=== PATIENT | male | born 1935 ===

== ENCOUNTER → 2021-11-20 14:02 | Outpatient (BNVA) | payer MEDICARE, OTHER, SELFPAY | PROVIDERS: PCP Family Medicine; Referring Provider Family Medicine; Visit Provider Psychiatry & Neurology Neurology | DX: G20 Parkinson's disease (principal); E86.0 Dehydration; M48.00 Spinal stenosis, site unspecified; M19.90 Unspecified osteoarthritis, unspecified site; R03.0 Elevated blood-pressure reading, without diagnosis of hypertension; K59.00 Constipation, unspecified; Z79.899 Other long term (current) drug therapy | CPT/HCPCS: 99212 ==

== ENCOUNTER → 2022-02-05 15:23 | Outpatient (BNVA) | payer MEDICARE, OTHER, SELFPAY | PROVIDERS: PCP Family Medicine; Visit Provider Psychiatry & Neurology Neurology | DX: G20 Parkinson's disease (principal); G47.00 Insomnia, unspecified; M48.00 Spinal stenosis, site unspecified; K59.00 Constipation, unspecified; F32.A Depression, unspecified | CPT/HCPCS: 99212 ==

== ENCOUNTER → 2022-12-04 13:58 | Outpatient (BNVA) | payer MEDICARE, OTHER, SELFPAY | PROVIDERS: PCP Family Medicine; Visit Provider Psychiatry & Neurology Neurology | DX: G20 Parkinson's disease (principal); G47.00 Insomnia, unspecified; M48.00 Spinal stenosis, site unspecified; K59.00 Constipation, unspecified; F32.A Depression, unspecified | CPT/HCPCS: 99212 ==

== ENCOUNTER → 2023-03-21 14:39 | Outpatient (BNVA) | payer MEDICARE, OTHER, SELFPAY | PROVIDERS: PCP Family Medicine; Visit Provider Psychiatry & Neurology Neurology | DX: G20 Parkinson's disease (principal); M48.00 Spinal stenosis, site unspecified; K59.00 Constipation, unspecified; G47.00 Insomnia, unspecified; F32.A Depression, unspecified | CPT/HCPCS: 99212 ==

== ENCOUNTER → 2023-07-17 14:57 | Outpatient (BNVA) | payer MEDICARE, OTHER, SELFPAY | PROVIDERS: PCP Family Medicine; Visit Provider Psychiatry & Neurology Neurology | DX: M48.00 Spinal stenosis, site unspecified (principal); K59.00 Constipation, unspecified; G47.00 Insomnia, unspecified; F32.A Depression, unspecified; E86.0 Dehydration ==

== ENCOUNTER 2023-08-25 14:22 | Outpatient (AMB) | payer MEDICARE, OTHER, SELFPAY ==
--- NOTE | 2023-08-25 14:22 | MHC.OFFVIS ---
Intake Intake Visit Reasons: Parkinsonjanie, Carlton [phone]/ - LVM Intake Note: Pt presents for tele health visit for follow up of Parkinson's. Pts Julieta will assist with the call. Expecting call on cell phone [phone]. Production Estimator Required: No Allergies levofloxacin [From Levaquin] Allergy (Intermediate, Verified 08/25/23 14:25) Palpitations Medication List - Last Reconciled 08/25/23 by Carolina Knight MD acetaminophen (Tylenol) 325 mg PO QID PRN carbidopa-levodopa 25-100 mg 2 tabs 4-5 times a day orally; 90 days carbidopa-levodopa 25-100 mg ER 1 tab PO .3-4 times a day 90 days levodopa (Inbrija) 84 mg (2 x 42 mg) inhalation BID PRN 30 days ropinirole 0.25 mg (1/2 x 0.5 mg) PO QID yjoxuvn-zuug-ofruv-oreg-capryl 100 mg-150 mg- 50 mg-150 mg caps PO HPI HPI Comments History of Present Illness Details 87-year-old male with Parkinson's disease, spinal stenosis and arthritis calls for follow-up He is on Co Q 10 . He is worse - reports back pain, slowness of movements and stiffness.`He takes curcumin , tylenol helps. He feels memory is worse. He is accompanied by his who helps with the history. He reports difficulty falling asleep. He reports some slowness and fatigue especially after mid day dose and has freezing around 3 pm . He feels better later part of the day. Sinemet 25/100 2 tabs 3-4 times a day , sinemet CR 3-4 times a day . He is also on ropinirole 0.25 mg 1 tablet qid. He takes Tylenol 1 tablet t.i.d. He denies any hallucinations. He needs dental work and needs help as antibiotics worsens his parkinsons.He is scheduled on Oct 01 2023. [facility] Medical History Confusion Dehydration Constipation Parkinson's disease Spinal stenosis Arthritis Surgical History History of total hip replacement Social History Alcohol intake: never Patient Tobacco Use Status: Never used Tobacco Physical Exam Const General: cooperative Orientation/consciousness: patient oriented x3 Neuro Other: speech- slurred hypophonia FFM - mildly decreased L>R General: patient oriented x3 Assessment & Plan Assessment & Plan (1) Parkinson's disease: Code(s): G20 - Parkinson's disease (2) Spinal stenosis: Code(s): M48.00 - Spinal stenosis, site unspecified (3) Constipation: Code(s): K59.00 - Constipation, unspecified (4) Insomnia: Code(s): G47.00 - Insomnia, unspecified (5) Depression: Code(s): F32.A - Depression, unspecified Plan Sinemet CR 1 tablet 25/100 3-4tabs a day Sinemet 25/100 2 tabs 4-5 times a day Requip 0.5 mg 1/2 tab qid Increased fluids VNA Suggested tylenol at bedtime. Medications: Changed From carbidopa-levodopa 25-100 mg ER 1 tab PO .5 times a day 90 days 450 tabs 3RF To carbidopa-levodopa 25-100 mg ER 1 tab PO .3-4 times a day 90 days 280 tabs 3RF Telehealth Telehealth Location of provider rendering services: practice address Location of patient: address on file Patient Identification confirmed using: Name, : Yes Telehealth method: video Patient verbally consented to treatment: Yes Patient verbally consented to billing insurance company: Yes Patient informed of any privacy concerns related to visit: Yes Minutes spent on Phone/Video with Pt.: 18 Coding Level of Care Code Tele Est Pt Level 4 (06191) Diagnoses Parkinson's disease G20 Spinal stenosis M48.00 Constipation K59.00 Insomnia G47.00 Depression F32.A
== END 2023-08-25 16:24 | disposition home or self-care (01) ==
LOC: HO.HSMS 14:22
PROVIDERS: PCP Family Medicine; Visit Provider Psychiatry & Neurology Neurology
DX: G20.A1 Parkinson's disease without dyskinesia, without mention of fluctuations (principal); M48.00 Spinal stenosis, site unspecified; K59.00 Constipation, unspecified; G47.00 Insomnia, unspecified; F32.A Depression, unspecified
CPT/HCPCS: 99214

== ENCOUNTER → 2023-08-25 14:22 | Outpatient (BNVA) | payer MEDICARE, OTHER, SELFPAY | PROVIDERS: PCP Family Medicine; Visit Provider Psychiatry & Neurology Neurology ==

== ENCOUNTER 2024-05-21 14:36 | Outpatient (AMB) | payer MEDICARE, OTHER, SELFPAY ==
--- NOTE | 2024-05-21 14:36 | MHC.OFFVIS ---
Intake Visit Reasons: Follow Up Intake Note: Pt presents for 10 month follow up for Parkinson's via telehealth. Intelligence Manager Required: No Allergies levofloxacin [From Levaquin] Allergy (Intermediate, Verified 05/21/24 14:37) Palpitations Medication List - Last Reconciled 05/21/24 by Carolina Knight MD acetaminophen (Tylenol) 325 mg PO QID PRN carbidopa-levodopa 25-100 mg 2 tabs 4-5 times a day orally; 90 days carbidopa-levodopa 25-100 mg ER 1 tab PO .3-4 times a day 90 days levodopa (Inbrija) 84 mg (2 x 42 mg) inhalation BID PRN 30 days ropinirole 0.25 mg (1/2 x 0.5 mg) PO QID axnuajtd-fkay-qeubj-oreg-capry 100 mg-150 mg- 50 mg-150 mg caps PO HPI Comments Details: 88-year-old male with Parkinson's disease, spinal stenosis and arthritis calls for follow-up He is in a lot of pain and is dependant on most of his ADLs.His helps him He can dress himself, sometimes confused. he has word recall, name recall issues. He walks with walker. On days when he is in pain he is more confused. He is worse - reports back pain, slowness of movements and stiffness.`He takes curcumin , tylenol helps. He feels memory is worse. He is accompanied by his who helps with the history. He reports difficulty falling asleep. He reports some slowness and fatigue especially after mid day dose and has freezing around 3 pm . He feels better later part of the day. Sinemet 25/100 2 tabs 3-4 times a day , sinemet CR 3-4 times a day . He is also on ropinirole 0.5 1/2 tablet qid. He takes Tylenol 1 tablet t.i.d. He denies any hallucinations. . 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 Parkinson's disease with fluctuating manifestations Parkinson's disease dementia Dementia Confusion Dehydration Constipation Parkinson's disease Spinal stenosis Arthritis Surgical History History of total hip replacement Social History Alcohol intake: never Patient Tobacco Use Status: Never used Tobacco Physical Exam Const General: cooperative Orientation/consciousness: patient oriented x3 Neuro Other: speech- slurred hypophonia FFM - mildly decreased L>R bradykinesia General: patient oriented x3 Assessment & Plan Assessment & Plan (1) Parkinson's disease with fluctuating manifestations: Comment: Advanced Code(s): G20.A2 - Parkinson's disease without dyskinesia, with fluctuations Category: Medical (2) Parkinson's disease dementia: Code(s): G20.A1 - Parkinson's disease without dyskinesia, without mention of fluctuations; F02.80 - Dementia in other diseases classified elsewhere, unspecified severity, without behavioral disturbance, psychotic disturbance, mood disturbance, and anxiety Category: Medical (3) Dementia: Code(s): F03.90 - Unspecified dementia, unspecified severity, without behavioral disturbance, psychotic disturbance, mood disturbance, and anxiety Category: Medical (4) Spinal stenosis: Code(s): M48.00 - Spinal stenosis, site unspecified Category: Medical (5) Lumbar and sacral spondyloarthritis: Code(s): M47.817 - Spondylosis without myelopathy or radiculopathy, lumbosacral region Category: Medical Plan The patient has chronic pain in his back and joints which is affecting his quality of life Continue same medications for Advanced Parkinsons sinemet 25/1-- 3-4 times a day , sinemet CR 25/100 3-4 times ropinirole 0.5 mg 1/2 tab qid Refer him to Hospice for further care. Orders: [facility]errals [facility] Referral F03.90 - Unspecified dementia, unspecified severity, without behavioral disturbance, psychotic disturbance, mood disturbance, and anxiety, G20 - Parkinson's disease, M48.00 - Spinal stenosis, site unspecified Coding Level of Care Code Tele Est Pt Level 4 (79187) Complex EM visit Add On G2211 Diagnoses Parkinson's disease with fluctuating manifestations G20.A2 Parkinson's disease dementia G20.A1; F02.80 Dementia F03.90 Spinal stenosis M48.00 Lumbar and sacral spondyloarthritis M47.817
--- OUTSIDE RECORDS SUMMARY | 2024-05-21 14:37 | XMS_ITS | Continuity of Care Document ---
Author Organization [facility] Address [address] [place] [address]- Care Team Providers Care Shaft Tender Name Role Phone Karen FELIZ, Efraín Smith Primary Care Physician [phone] Encounter [facility] Date(s): 12/26/21 - 01/25/22 [facility] [address] [place] [address]- Allergies, Adverse Reactions, Alerts Substance Reaction Severity Status niacin LFT abnormality Active oxybutynin Disorientated Dizzy Active tamsulosin Lethargy Active Pravachol myalgia Active Lopid fatigue, weakness Active articaine-EPINEPHrine local facial edema Active levoFLOXacin Paroxysmal atrial fibrillation Proposed Immunizations Given and Recorded Vaccine Date Status Refusal Reason tetanus/diphtheria/pertussis, acel(Tdap) 1 12/27/21 Given SARS-CoV-2 (COVID-19) mRNA BNT-162b2 vac 06/14/21 Recorded SARS-CoV-2 (COVID-19) mRNA BNT-162b2 vac 11/08/20 Recorded SARS-CoV-2 (COVID-19) mRNA BNT-162b2 vac 10/18/20 Recorded influenza virus vaccine, inactivated 06/20/20 Give n influenza virus vaccine, inactivated 2 09/16/19 Gi chris Tetanus Toxoid Vaccine (oldterm) 02/12/18 Given pneumococcal 13-valent vaccine 09/22/15 Given Zoster Vaccine Live 3 09/06/09 Given tetanus-diphtheria toxoids (Td) 4 08/03/09 Given Pneumococcal Vaccine (oldterm) 05/30/05 Given Not Given Vaccine Date Status Refusal Reason pneumococcal 23-valent vaccine 04/13/13 Not Given Patient Refuses 1Result Comment: [facility] [id number] 2Result Comment: [facility]# [id number] 3Admin Note: VIM 05/26/06 GIVEN TODAY 4Admin Note: [employer] vim 08/02/08 Medications carbidopa-levodopa 25 mg-100 mg oral tablet 2 tablet, By Mouth, Every 4 hours, @ 0300, 0730, 1130, 1530,1930, 2230, # 360 tablet, 0 Refills, Maintenance, 06/09/19 21:30:12 EDT, Tablet Start Date: 06/09/19 Status: Ordered carbidopa-levodopa 25 mg-100 mg oral tablet, extended release See Instructions, 2 tablets at 10pm and 1 tablet at 3am, 0 Refills, Maintenance, 06/09/19 21:29:53 EDT, ER Tablet Start Date: 06/09/19 Status: Ordered Ibuprofen 200 mg, By Mouth, Every 6 hours, Refills 0, Maintenance, 07/28/19 15:41:07 EST Start Date: 07/28/19 Status: Ordered MiraLax Powder 1 pack/packet = 17 Gm, By Mouth, Daily, 0 Refills, Maintenance, 06/12/19 9:07:44 EDT, Powder Start Date: 06/12/19 Status: Ordered Misc Rx See Instructions, Refills 0, Maintenance, imbregia inhaler, 01/23/21 14:58:00 EDT, Supply Start Date: 01/23/21 Status: Ordered Remove Patch Start Date: 06/12/19 Status: Ordered rOPINIRole 0.5 mg oral tablet 2 tablet = 1 mg, By Mouth, Every 4 hours, @ 0300, 0730, 1130, 1530,1930, 2230, 0 Refills, Maintenance, 06/09/19 21:29:40 EDT, Tablet Start Date: 06/09/19 Status: Ordered Tylenol 325 mg oral tablet 650 mg, By Mouth, 3 times a day, Refills 0, Maintenance, 06/12/19 9:15:54 EDT Start Date: 06/12/19 Status: Ordered Problem List Condition Effective Dates Status Health Status Inform ant Deep vein thrombosis (DVT)(Confirmed) Active Autonomic dysfunction(Confirmed) Active Hyperlipidemia(Confirmed) Active Spondylosis of lumbar spine(Confirmed) Active Osteoarthritis of left hip(Confirmed) Active Parkinson's Disease(Confirmed) Active Prostatism(Confirmed) Active Renal cyst, right(Confirmed) Active Seasonal allergic rhinitis(Confirmed) Active Tremor(Confirmed) Active Social History Social History Type Response Smoking Status Never smoker entered on: 04/18/14 Sex
--- OUTSIDE RECORDS SUMMARY | 2024-05-21 14:38 | XMS_ITS | Continuity of Care Document ---
Author Organization [facility] Address [address] [place] [address]- Care Team Providers Care Fixer Supervisor Name Role Phone Karen FELIZ, Efraín Smith Primary Care Physician [place] [facility] [place]13[place]21 [place] 03/15/21 [facility] [address] [place] [address]- Allergies, Adverse Reactions, Alerts Substance Reaction Severity Status niacin LFT abnormality Active oxybutynin Disorientated Dizzy Active tamsulosin Lethargy Active Pravachol myalgia Active Lopid fatigue, weakness Active articaine-EPINEPHrine local facial edema Active levoFLOXacin Paroxysmal atrial fibrillation Proposed Immunizations Given and Recorded Vaccine Date Status Refusal Reason SARS-CoV-2 (COVID-19) mRNA BNT-162b2 vac 11/08/20 Recorded SARS-CoV-2 (COVID-19) mRNA BNT-162b2 vac 10/18/20 Recorded influenza virus vaccine, inactivated 06/20/20 Give n influenza virus vaccine, inactivated 1 09/16/19 Gi chris Tetanus Toxoid Vaccine (oldterm) 02/12/18 Given pneumococcal 13-valent vaccine 09/22/15 Given Zoster Vaccine Live 2 09/06/09 Given tetanus-diphtheria toxoids (Td) 3 08/03/09 Given Pneumococcal Vaccine (oldterm) 05/30/05 Given Not Given Vaccine Date Status Refusal Reason pneumococcal 23-valent vaccine 04/13/13 Not Given Patient Refuses 1Result Comment: [facility]# [id number] 2Admin Note: VIM 05/26/06 GIVEN TODAY 3Admin Note: [employer] vim 08/02/08 Medications carbidopa-levodopa [...] ER Tablet Start Date: 06/09/19 Status: Ordered diclofenac 1% topical gel = 2 Gm, Topically, 4 times a day, # 240 Gm, 0 Refills, Maintenance, 04/28/20 13:20:00 EDT, Gel, [facility]/pharmacy #[id number], 163, cm, 02/24/20 12:50:00 EDT, Height, 77.7, kg, 06/10/19 14:11:00 EDT, Dry Weight Start Date: 04/28/20 Status: Ordered Ibuprofen 200 mg, By Mouth, Every 6 hours, Refills 0, Maintenance, 07/28/19 15:41:07 EST Start Date: 07/28/19 Status: Ordered MiraLax Powder 1 pack/packet = 17 Gm, By Mouth, Daily, 0 Refills, Maintenance, 06/12/19 9:07:44 EDT, Powder Start Date: 06/12/19 Status: Ordered Misc Rx See Instructions, Refills 0, Maintenance, imbregia inhaler, 01/23/21 14:58:00 EDT, Supply Start Date: 01/23/21 Status: Ordered oxyCODONE 5 mg oral tablet 2.5 mg, 0.5, tablet, By Mouth, Every 6 hours, PRN, # 12 tablet, Refills 0, Tot. Refills 0, Maintenance, Pain , Severe, 11/26/19 14:40:00 EDT, Route to Pharmacy Electronically, [facility]/pharmacy #[id number], Partial fill upon patient request, 163, cm, 11/23/19 13... Start Date: 11/26/19 Stop Date: 12/02/19 Status: Ordered Remove Patch Start Date: 06/12/19 [...] Hyperlipidemia(Confirmed) Active Spondylosis of lumbar spine(Confirmed) Active OA - Osteoarthritis of hip(Confirmed) Active Osteoarthritis of left hip(Confirmed) Active Parkinson's Disease(Confirmed) Active Prostatism(Confirmed) Active Renal cyst, right(Confirmed) Active Seasonal allergic rhinitis(Confirmed) Active Tremor(Confirmed) Active Social History Social History Type Response Smoking Status Never smoker entered on: 04/18/14 Sex
--- OUTSIDE RECORDS SUMMARY | 2024-05-21 14:38 | XMS_ITS | Continuity of Care Document ---
Author Organization [facility] Address [address] [place] [address]- Care Team Providers Care Tile Picker Name Role Phone Karen FELIZ, Efraín Smith Primary Care Physician Encounter [facility] Date(s): 12/02/23 - 01/01/24 [facility] [address] [place] [address]- Allergies, Adverse Reactions, Alerts Substance Reaction Severity Status niacin LFT abnormality Active oxybutynin Disorientated Dizzy Active tamsulosin Lethargy Active Pravachol myalgia Active Levaquin Active levoFLOXacin Paroxysmal atrial fibrillation Proposed articaine-EPINEPHrine local facial edema Active Lopid fatigue, weakness Active Immunizations Given and Recorded Vaccine Date Status Refusal Reason influenza virus vaccine, inactivated 07/24/22 Give n influenza virus vaccine, inactivated 06/20/20 Give n influenza virus vaccine, inactivated 09/16/19 Gi chris [id number] 12y+ bivalent booster vax 06/13/22 Recorded SARS-CoV-2 mRNA (gfsqfxn-lxrp-xbfwj) vax 01/24/22 Recorded tetanus/diphtheria/pertussis, acel(Tdap) 2 12/27/21 Given SARS-CoV-2 (COVID-19) mRNA BNT-162b2 vac 06/14/21 Recorded SARS-CoV-2 (COVID-19) mRNA BNT-162b2 vac 11/08/20 Recorded SARS-CoV-2 (COVID-19) mRNA BNT-162b2 vac 10/18/20 Recorded Tetanus Toxoid Vaccine (oldterm) 02/12/18 Given pneumococcal 13-valent vaccine 09/22/15 Given Zoster Vaccine Live 3 12/23/09 Given tetanus-diphtheria toxoids (Td) 4 08/03/09 Given Pneumococcal Vaccine (oldterm) 05/30/05 Given 1Result Comment: [facility]# [id number] 2Result Comment: [facility] [id number] 3Admin Note: VIM 05/26/06 GIVEN TODAY 4Admin Note: [employer] vim 08/02/08 Medications carbidopa-levodopa 25 mg-100 mg oral tablet 2 tablet, By Mouth, Every 4 hours, @ 0300, 0730, 1130, 1530,1930, 2230, # 360 tablet, 0 Refills, Maintenance, 06/09/19 21:30:12 EDT, Tablet Start Date: 06/09/19 Status: Ordered celecoxib 100 mg oral capsule 1 capsule = 100 mg, By Mouth, 2 times a day, PRN as needed for pain, contents of capsule may be mixed with soft foods such as applesauce, # 60 capsule, 1 Refills, Maintenance, 12/18/23 17:58:00 EDT, [facility]/pharmacy #[id number], Partial fill upon patient reques... Start Date: 12/18/23 Stop Date: 02/16/24 Status: Ordered Colace 2-in-1 1 tablet, By Mouth, Daily, as needed, 0 Refills, Maintenance, 03/14/23 15:26:00 EDT, Partial fill upon patient request if the prescription is for a schedule II opioid drug. Start Date: 03/14/23 Status: Ordered CoQ10 By Mouth, Daily, 0 Refills, Maintenance, 08/19/23 15:27:00 EST, Partial fill upon patient request if the prescription is for a schedule II opioid drug. Start Date: 08/19/23 Status: Ordered Misc Rx See Instructions, Maintenance, Curamin - homeopathic supplement containing curcumin & turmeric - takes 1 tablets 2 times daily, 12/26/23 15:12:00 EDT, Supply Start Date: 12/26/23 Status: Ordered Misc Rx See Instructions, Refills 0, Maintenance, inbrija inhaler, 01/23/21 14:58:00 EDT, Supply Start Date: 01/23/21 Status: Ordered rOPINIRole 0.25 mg oral tablet 1 tablet = 0.25 mg, By Mouth, 4 times a day, 0 Refills, Maintenance, 01/08/23 13:35:00 EDT, Partialfill upon patient request if the prescription is for a schedule II opioid drug. Start Date: 01/08/23 Status: Ordered Tylenol 325 mg oral tablet 650 mg, By Mouth, 3 times a day, Refills 0, Maintenance, 06/12/19 9:15:54 EDT Start Date: 06/12/19 Status: Ordered Problem List Condition Confirmation Course Effective Dates Status H ealth Status Informant Autonomic dysfunction Confirmed Active Hyperlipidemia Confirmed Active Spondylosis of lumbar spine Confirmed Active Osteoarthritis of left hip Confirmed Active Parkinson's Disease Confirmed Active Heterotopic calcification, postoperative Confirmed Active Prostatism Confirmed Active Major depressive disorder, recurrent, mild Confirmed Active Renal cyst, right Confirmed Active Seasonal allergic rhinitis Confirmed Active Tremor Confirmed Active Social History Social History Type Response Smoking Status Never smoker entered on: 04/18/14 Sex Patient Care team information Care Team Personnel Name: Karen FELIZ, Efraín Smith Position: [facility] Physician - Primary Care Member Role: PCP Address: Address: [address] [place] [address] Care Team Related Persons Name: LEIGHTON ROBLES Address: home [address], [place] Name: LEIGHTON ROBLES Address: home [address], [place] Name: BAMBI LEONARDO Address: home [address], [place] Name: BAMBI LEONARDO Address: [facility] Address: [place] [id number]
--- OUTSIDE RECORDS SUMMARY | 2024-05-21 14:38 | XMS_ITS | Continuity of Care Document ---
Author Organization [facility] Address [address] [place] [address]- Care Team Providers Care Security Door Installer Name Role Phone Karen FELIZ, Efraín Smith Primary Care Physician Encounter [facility] Date(s): 06/24/22 - 07/24/22 [facility] [address] [place] [address]- Allergies, Adverse Reactions, Alerts Substance Reaction Severity [...] virus vaccine, inactivated 1 09/16/19 Gi chris [id number] 12y+ bivalent booster vax 06/13/22 Recorded SARS-CoV-2 mRNA (uzflmpd-[id number]-xifku) vax 01/24/22 Recorded tetanus/diphtheria/pertussis, acel(Tdap) 2 12/27/21 [...] 04/13/13 Not Given Patient Refuses 1Result Comment: [facility]# [id number] 2Result Comment: [facility] [id number] 3Admin Note: VIM 05/26/06 GIVEN TODAY 4Admin [...] ER Tablet Start Date: 06/09/19 Status: Ordered Dulcolax Soft Chews = 1,200 mg, By Mouth, 3 times a day, 0 Refills, Maintenance, 07/02/22 13:25:00 EDT, Partial fill upon patient request if the prescription is for a schedule II opioid drug. Start Date: 07/02/22 Status: Ordered Ibuprofen 200 mg, By Mouth, [...] Effective Dates Status H ealth Status Informant Deep vein thrombosis (DVT) Confirmed Active Autonomic dysfunction Confirmed Active Hyperlipidemia Confirmed Active Spondylosis of lumbar spine Confirmed Active Osteoarthritis of left hip Confirmed Active Parkinson's Disease Confirmed Active Prostatism Confirmed Active Renal cyst, right Confirmed Active Seasonal allergic rhinitis Confirmed Active Tremor Confirmed Active Social History Social History Type Response Smoking Status Never smoker entered on: 04/18/14 Sex Patient Care team information Care Team Personnel Name: Efraín Jones MD Position: [facility] Primary Care Physician Member Role: PCP Address: Address: [address] [place] [address]- Care Team Related Persons Name: LEIGHTON ROBLES Address: home [address] [place], [place] Name: LEIGHTON ROBLES Address: home [address] [place], [place] Name: BAMBI LEONARDO Address: home [address] [place], [place] Name: BAMBI LEONARDO Address: AMMARY JANE Address: [address]
--- OUTSIDE RECORDS SUMMARY | 2024-05-21 14:38 | XMS_ITS | Continuity of Care Document ---
Author Organization [facility] Address [address] [place] [address]- Care Team Providers Care Rn Telehealth Name Role Phone Karen FELIZ, Efraín Smith Primary Care Physician [phone] Encounter [facility] Date(s): 08/29/22 - 09/28/[address] [facility] [address] [place] [address]- Allergies, Adverse Reactions, Alerts Substance Reaction Severity Status niacin LFT abnormality Active tamsulosin Lethargy Active levoFLOXacin Paroxysmal atrial fibrillation Proposed oxybutynin Disorientated Dizzy Active Pravachol myalgia Active Lopid fatigue, weakness Active articaine-EPINEPHrine local facial edema Active Immunizations Given and Recorded Vaccine Date Status Refusal Reason influenza virus vaccine, inactivated 07/24/22 Give n influenza virus vaccine, inactivated 06/20/20 Give n influenza virus vaccine, inactivated 1 09/16/19 Gi chris [id number] 12y+ bivalent booster vax 06/13/22 Recorded SARS-CoV-2 mRNA (ixifqwy-vyud-qgtmb) vax 01/24/22 Recorded tetanus/diphtheria/pertussis, acel(Tdap) 2 12/27/21 [...] 04/13/13 Not Given Patient Refuses 1Result Comment: [facility]# [id number] 2Result Comment: [facility] [id number] 3Admin Note: VIM 05/26/06 GIVEN TODAY 4Admin [...] calcification, postoperative Confirmed Active Prostatism Confirmed Active Renal cyst, right Confirmed Active Seasonal allergic rhinitis Confirmed Active Tremor Confirmed Active Social History Social History Type Response Smoking Status Never smoker entered on: 04/18/14 Sex Patient Care team information Care Team Personnel Name: Karen FELIZ, Efraín Smith Position: [facility] Primary Care Physician Member Role: PCP Address: Address: [address] [place] [address] Care Team Related Persons Name: LEIGHTON ROBLES Address: [address] [place] [address] Name: LEIGHTON ROBLES Address: [address] [place], [place] Name: BAMBI LEONARDO Address: home [address] [place], [place] Name: BAMBI LEONARDO [facility] Address: [address]
--- OUTSIDE RECORDS SUMMARY | 2024-05-21 14:38 | XMS_ITS | Continuity of Care Document ---
Author Organization [facility] Address [address] [place] [address] Javan lopez, [address] [place] [address]- Care Team Providers Care Ems Manager Name Role Phone Karen FELIZ, Efraín mSith Primary Care Physician Encounter [facility] Date(s): 04/05/20 - 05/05/20 [facility] [address] [place] [address] Drive, [address] [place] [address]- [facility] Attending Physician: Admtr, Ar8 Admitting Physician: Admtr, Ar8 Referring Physician: Admtr, Ar8 Allergies, Adverse Reactions, Alerts Substance Reaction Severity Status niacin LFT abnormality Active oxybutynin Disorientated Dizzy Active tamsulosin Lethargy Active Pravachol myalgia Active Lopid fatigue, weakness Active articaine-EPINEPHrine local facial edema Active levoFLOXacin Paroxysmal atrial fibrillation Proposed Immunizations Given and Recorded Vaccine Date Status Refusal Reason influenza virus vaccine, inactivated 1 09/16/19 Gi chris Tetanus Toxoid Vaccine (oldterm) 02/12/18 Given pneumococcal 13-valent vaccine 09/22/15 Given Zoster Vaccine Live 2 09/06/09 Given tetanus-diphtheria toxoids (Td) 3 08/03/09 Given Pneumococcal Vaccine (oldterm) 05/30/05 Given Not Given Vaccine Date Status Refusal Reason pneumococcal 23-valent vaccine 04/13/13 Not Given Patient Refuses 1Result Comment: [facility]# [id number] 2Admin Note: VIM 05/26/06 GIVEN TODAY 3Admin [...] 0 Refills, Maintenance, 04/28/20 13:20:00 EDT, Gel, [facility]/pharmacy #[id number], 163, cm, 02/24/20 12:50:00 EDT, Height, 77.7, kg, 06/10/19 14:11:00 EDT, Dry Weight Start Date: 04/28/20 Status: Ordered Ibuprofen 200 mg, By Mouth, Every 6 hours, Refills 0, Maintenance, 07/28/19 15:41:07 EST Start Date: 07/28/19 Status: Ordered midodrine 2.5 mg oral tablet 2.5 mg, 1, tablet, By Mouth, Daily, # 30 tablet, Refills 5, Tot. Refills 5, Maintenance, 12/02/19 13:02:00 EDT, Route to Pharmacy Electronically, [facility]/pharmacy #[id number], 163, cm, 11/23/19 13:45:00 EDT, Height, 77.7, kg, 06/10/19 14:11:00 EDT, Dry Weight Start Date: 12/02/19 Status: Ordered MiraLax Powder 1 pack/packet = 17 Gm, By Mouth, Daily, 0 Refills, Maintenance, 06/12/19 9:07:44 EDT, Powder Start Date: 06/12/19 Status: Ordered oxyCODONE 5 mg oral tablet 2.5 mg, 0.5, tablet, By Mouth, Every 6 hours, PRN, # 12 tablet, Refills 0, Tot. Refills 0, Maintenance, Pain , Severe, 11/26/19 14:40:00 EDT, Route to Pharmacy Electronically, [facility]/pharmacy #[id number], Partial fill upon patient request, 163, cm, [...]
--- OUTSIDE RECORDS SUMMARY | 2024-05-21 14:38 | XMS_ITS | Continuity of Care Document ---
Author Organization [facility] Address [address] [place] [address]- Care Team Providers Care Media Relations Director Name Role Phone Karen FELIZ, Efraín Smith Primary Care Physician [phone] Encounter [facility] Date(s): 03/20/20 - 04/19/20 [facility] [address] [place] [address]- [facility] Allergies, Adverse Reactions, Alerts Substance Reaction Severity [...] 04/13/13 Not Given Patient Refuses 1Result Comment: [facility]# [id number] 2Admin Note: VIM 05/26/06 GIVEN TODAY 3Admin [...] 2 Gm, Topically, 4 times a day, 0 Refills, Maintenance Start Date: 07/28/19 Status: Ordered Ibuprofen 200 mg, By Mouth, Every 6 hours, Refills 0, Maintenance, 07/28/19 15:41:07 EST Start Date: 07/28/19 Status: Ordered midodrine 2.5 mg oral tablet 2.5 mg, 1, tablet, By Mouth, Daily, # 30 tablet, Refills 5, Tot. Refills 5, Maintenance, 12/02/19 13:02:00 EDT, Route to Pharmacy Electronically, [facility]/pharmacy #[id number], 163, cm, 11/23/19 13:45:00 EDT, Height, [...] 11/26/19 14:40:00 EDT, Route to Pharmacy Electronically, [facility]/pharmacy #[id number], Partial fill upon patient request, 163, [...]
--- OUTSIDE RECORDS SUMMARY | 2024-05-21 14:38 | XMS_ITS | Continuity of Care Document ---
Author Organization [facility] Address [address] [place] [address]- Care Team Providers Care Core Maker Name Role Phone Karen FELIZ, Efraín Smith Primary Care Physician [phone] Encounter [facility] Date(s): 11/23/19 - 12/03/19 [facility] [address] [place] [address]- [facility] Attending Physician: Admtr, Ar8 Allergies, Adverse Reactions, Alerts [...] Not Given Patient Refuses 1Result Comment: [facility]# [id number] 2Admin Note: VIM 05/26/06 GIVEN TODAY 3Admin [...] 12/02/19 13:02:00 EDT, Route to Pharmacy Electronically, [facility]/pharmacy #[id number], 163, cm, 11/23/19 13:45:00 EDT, Height, [...] 11/26/19 14:40:00 EDT, Route to Pharmacy Electronically, [facility]/pharmacy #[id number], Partial fill upon patient request, 163, [...]
--- OUTSIDE RECORDS SUMMARY | 2024-05-21 14:38 | XMS_ITS | Continuity of Care Document ---
Author Organization [facility] Address [address] [place] [address]- Care Team Providers Care Treating Engineer Name Role Phone Karen FELIZ, Efraín Smith Primary Care Physician En[place] [facility] Date(s): 07/19/22 - 08/18/22 [facility] [address] [place] [address]- Allergies, Adverse Reactions, Alerts Substance Reaction Severity Status niacin LFT abnormality Active levoFLOXacin Paroxysmal atrial fibrillation Proposed oxybutynin Disorientated Dizzy Active tamsulosin Lethargy Active Pravachol myalgia Active Lopid fatigue, weakness Active articaine-EPINEPHrine local facial edema Active Immunizations Given and Recorded Vaccine Date Status Refusal Reason influenza virus vaccine, inactivated 07/24/22 Give n influenza virus vaccine, inactivated 06/20/20 Give n influenza virus vaccine, inactivated 1 09/16/19 Gi chris [id number] 12y+ bivalent booster vax 06/13/22 Recorded SARS-CoV-2 mRNA (gswgahu-hnlo-ytiar) vax 01/24/22 Recorded tetanus/diphtheria/pertussis, acel(Tdap) 2 12/27/21 [...] Refuses 1Result Comment: [facility]# [id number] 2Result Comment: [facility] [id number] 3Admin Note: VIM 05/26/06 GIVEN TODAY 4Admin [...] Personnel Name: Karen FELIZ, Efraín Smith Position: [facility] Primary Care Physician Member Role: PCP Address: Address: [address] [place] [address]- Care Team Related Persons Name: LEIGHTON ROBLES Address: home [address] [place], [place] Name: LEIGHTON ROBLES Address: home [address] [place], [place] Name: BAMBI LEONARDO Address: home [address] [place], [place] Name: BAMBI LEONARDO Address: AMMARY JANE Address: [address]
--- OUTSIDE RECORDS SUMMARY | 2024-05-21 14:38 | XMS_ITS | Continuity of Care Document ---
Author Organization [facility] Address [address] [place] [address]- Care Team Providers Care Animal Husbandry Worker Name Role Phone Karen FELIZ, Efraín Smith Primary Care Physician Encounter [facility] Date(s): 02/20/22 - 03/22/22 [facility] [address] [place] [address]- Allergies, Adverse Reactions, Alerts Substance Reaction Severity Status niacin LFT abnormality Active oxybutynin Disorientated Dizzy Active tamsulosin Lethargy Active Pravachol myalgia Active Lopid fatigue, weakness Active articaine-EPINEPHrine local facial edema Active levoFLOXacin Paroxysmal atrial fibrillation Proposed Immunizations Given and Recorded Vaccine Date Status Refusal Reason SARS-CoV-2 mRNA (lddyrhc-tsxn-tjcfc) vax 01/24/22 Recorded tetanus/diphtheria/pertussis, acel(Tdap) 1 12/27/21 Given SARS-CoV-2 (COVID-19) [...] 04/13/13 Not Given Patient Refuses 1Result Comment: [facility] [id number] 2Result Comment: [facility]# [id number] 3Admin Note: VIM 05/26/06 GIVEN TODAY 4Admin [...]
--- OUTSIDE RECORDS SUMMARY | 2024-05-21 14:38 | XMS_ITS | Continuity of Care Document ---
Author Organization [facility] Address [address] [place] [address]- Care Team Providers Care Gambreler Helper Name Role Phone Karen FELIZ, Efraín Smith Primary Care Physician [place] [facility] [place] 12/19/23 - 01/18/24 [facility] [address] [place] [address]- Allergies, Adverse Reactions, Alerts Substance Reaction Severity Status niacin LFT abnormality Active oxybutynin Disorientated Dizzy Active levoFLOXacin Paroxysmal atrial fibrillation Proposed tamsulosin Lethargy Active Pravachol myalgia Active Lopid fatigue, weakness Active Levaquin Active articaine-EPINEPHrine local facial edema Active Immunizations Given and Recorded Vaccine Date Status Refusal Reason influenza virus vaccine, inactivated 07/24/22 Give n influenza virus vaccine, inactivated 06/20/20 Give n influenza virus vaccine, inactivated 1 09/16/19 Gi chris [id number] 12y+ bivalent booster vax 06/13/22 Recorded SARS-CoV-2 mRNA (gubjobm-bulq-xtvrz) vax 01/24/22 Recorded tetanus/diphtheria/pertussis, acel(Tdap) 2 12/27/21 Given SARS-CoV-2 (COVID-19) mRNA BNT-162b2 vac 06/14/21 Recorded SARS-CoV-2 (COVID-19) mRNA BNT-162b2 vac 11/08/20 Recorded SARS-CoV-2 (COVID-19) mRNA BNT-162b2 vac 10/18/20 Recorded Tetanus Toxoid Vaccine (oldterm) 02/12/18 Given pneumococcal 13-valent vaccine 09/22/15 Given Zoster Vaccine Live 3 09/06/09 Given tetanus-diphtheria toxoids (Td) 4 08/03/09 Given Pneumococcal Vaccine (oldterm) 05/30/05 Given 1Result Comment: [facility]# [id number] 2Result Comment: [facility] [id number] 3Admin Note: VIM 05/26/06 GIVEN TODAY 4Admin [...] capsule, 1 Refills, Maintenance, 12/18/23 17:58:00 EDT, [facility]/pharmacy #[id number], Partial fill upon patient reques... Start [...] Personnel Name: Karen FELIZ, Efraín Smith Position: [facility] Physician - Primary Care Member Role: PCP Address: Address: [address] [place] [address] Care Team Related Persons Name: LEIGHTON ROBLES Address: home [address] [place], [place] Name: LEIGHTON ROBLES Address: home [address] [place], [place] Name: BAMBI LEONARDO Address: [address] [place], [place] Name: BAMBI LEONARDO Address: [facility] Address: [place] [address] [place] [id number]
--- OUTSIDE RECORDS SUMMARY | 2024-05-21 14:38 | XMS_ITS | Continuity of Care Document ---
Author Organization [facility] Address [address] [place] [address]- Care Team Providers Care Test Design Engineer Name Role Phone Efraín Jones MD Primary Care Physician En[place] [facility] Date(s): 04/03/23 - 06/26/23 [facility] [address] [place] [address]- Attending Physician: Efraín Jones MD Allergies, Adverse Reactions, Alerts Substance Reaction Severity Status niacin LFT abnormality Active levoFLOXacin Paroxysmal atrial fibrillation Proposed articaine-EPINEPHrine local facial edema Active oxybutynin Disorientated Dizzy Active tamsulosin Lethargy Active Pravachol myalgia Active Lopid fatigue, weakness Active Levaquin Active Immunizations Given and Recorded Vaccine Date Status Refusal Reason influenza virus vaccine, inactivated 07/24/22 Give n influenza virus vaccine, inactivated 06/20/20 Give n influenza virus vaccine, inactivated 1 09/16/19 Gi chris [id number] 12y+ bivalent booster vax 06/13/22 Recorded SARS-CoV-2 mRNA (wzgvnrh-qycc-cvjdo) vax 01/24/22 Recorded tetanus/diphtheria/pertussis, acel(Tdap) 2 12/27/21 Given SARS-CoV-2 (COVID-19) mRNA BNT-162b2 vac 06/14/21 Recorded SARS-CoV-2 (COVID-19) mRNA BNT-162b2 vac 11/08/20 Recorded SARS-CoV-2 (COVID-19) mRNA BNT-162b2 vac 10/18/20 Recorded Tetanus Toxoid Vaccine (oldterm) 02/12/18 Given pneumococcal 13-valent vaccine 09/22/15 Given Zoster Vaccine Live 3 09/06/09 Given tetanus-diphtheria toxoids (Td) 4 08/03/09 Given Pneumococcal Vaccine (oldterm) 05/30/05 Given 1Result Comment: [facility]# [id number] 2Result Comment: [facility] [id number] 3Admin Note: VIM 05/26/06 GIVEN TODAY 4Admin Note: [employer] vim 08/02/08 Medications carbidopa-levodopa 25 mg-100 mg oral tablet 2 tablet, By Mouth, Every 4 hours, @ 0300, 0730, 1130, 1530,1930, 2230, # 360 tablet, 0 Refills, Maintenance, 06/09/19 21:30:12 EDT, Tablet Start Date: 06/09/19 Status: Ordered Colace 2-in-1 1 tablet, By Mouth, Daily, as needed, 0 Refills, Maintenance, 03/14/23 15:26:00 EDT, Partial fill upon patient request if the prescription is for a schedule II opioid drug. Start Date: 03/14/23 Status: Ordered Ibuprofen 200 mg, By Mouth, Every 6 hours, Refills 0, Maintenance, 07/28/19 15:41:07 EST Start Date: 07/28/19 Status: Ordered Misc Rx See Instructions, Refills 0, Maintenance, inbrija inhaler, 01/23/21 14:58:00 EDT, Supply Start Date: 01/23/21 Status: Ordered Probiotic Formula By Mouth, Daily, 0 Refills, Maintenance, 02/04/23 15:26:00 EDT, Partial fill upon patient request if the prescription is for a schedule II opioid drug. Start Date: 02/04/23 Status: Ordered rOPINIRole 0.25 mg oral tablet [...] Personnel Name: Karen FELIZ, Efraín Smith Position: [facility] Physician - Primary Care Member Role: PCP Address: Address: [address] [place] [address] Care Team Related Persons Name: LEIGHTON ROBLES Address: home [address] [place] [address] Name: LEIGHTON ROBLES Address: home [address] [place] [address] Name: BAMBI LEONARDO Address: home [address] [place], [place] Name: BAMBI LEONARDO Address: [facility] Address: [address]
--- OUTSIDE RECORDS SUMMARY | 2024-05-21 14:38 | XMS_ITS | Continuity of Care Document ---
Author Organization [facility] Address [address] [place] [address]- Care Team Providers Care Mold Dresser Name Role Phone Karen FELIZ, Efraín Smith Primary Care Physician [place] [facility] [place] 12/27/21 - 01/26/22 [facility] [address] [place], [place] [address] Attending Physician: Admtr, Ar8 Allergies, Adverse Reactions, [...] 04/13/13 Not Given Patient Refuses 1Result Comment: [facility] [id number] 2Result Comment: [facility]# [id number] 3Admin Note: VIM 05/26/06 GIVEN TODAY 4Admin [...]
--- OUTSIDE RECORDS SUMMARY | 2024-05-21 14:38 | XMS_ITS | Continuity of Care Document ---
Author Organization [facility] Address [address] [place] [address]- Care Team Providers Care Ironer Hand Name Role Phone Karen FELIZ, Efraín Smith Primary Care Physician [phone] [place] [facility] Date(s): 08/12/22 - 09/11/22 [facility] [address] [place] [address]- Allergies, Adverse Reactions, Alerts Substance Reaction Severity [...] virus vaccine, inactivated 1 09/16/19 Gi chris [id number]-[id number] 12y+ bivalent booster vax 06/13/22 Recorded SARS-CoV-2 mRNA (rsgjmrf-nwlu-vnsum) vax 01/24/22 Recorded tetanus/diphtheria/pertussis, acel(Tdap) 2 12/27/21 [...] Patient Refuses 1Result Comment: [facility]# [id number] 2Result Comment: [facility] [id number] 3Admin Note: VIM 05/26/06 GIVEN TODAY 4Admin [...] Personnel Name: Karen FELIZ, Efraín Smith Position: [facility] Primary Care Physician Member Role: PCP Address: Address: [address] [place] [address]- Care Team Related Persons Name: LEIGHTON ROBLES Address: home [address] [place], [place] Name: LEIGHTON ROBLES Address: [address] [place], [place] Name: BAMBI LEONARDO Address: [facility] Address: [address] [place] [address] Name: BAMBI LEONARDO Address: [address] [place] [address]
--- OUTSIDE RECORDS SUMMARY | 2024-05-21 14:38 | XMS_ITS | Continuity of Care Document ---
Author Organization [facility] Address [address] [place] [address]- Care Team Providers Care Clay House Worker Name Role Phone Karen FELIZ, Efraín Smith Primary Care Physician [place] [facility] [place] 12/01/23 - 12/31/23 [facility] [address] [place] [address]- Allergies, Adverse Reactions, Alerts Substance Reaction Severity Status niacin LFT abnormality Active oxybutynin Disorientated Dizzy Active tamsulosin Lethargy Active Pravachol myalgia Active Lopid fatigue, weakness Active Levaquin Active articaine-EPINEPHrine local facial edema Active levoFLOXacin Paroxysmal atrial fibrillation Proposed Immunizations Given and Recorded Vaccine Date Status Refusal Reason influenza virus vaccine, inactivated 07/24/22 Give n influenza virus vaccine, inactivated 06/20/20 Give n influenza virus vaccine, inactivated 1 09/16/19 Gi chris [id number] 12y+ bivalent booster vax 06/13/22 Recorded SARS-CoV-2 mRNA (bvsfouq-nodh-ovxed) vax 01/24/22 Recorded tetanus/diphtheria/pertussis, acel(Tdap) 2 12/27/21 Given SARS-CoV-2 (COVID-19) mRNA BNT-162b2 vac 06/14/21 Recorded SARS-CoV-2 (COVID-19) mRNA BNT-162b2 vac 11/08/20 Recorded SARS-CoV-2 (COVID-19) mRNA BNT-162b2 vac 10/18/20 Recorded Tetanus Toxoid Vaccine (oldterm) 02/12/18 Given pneumococcal 13-valent vaccine 09/22/15 Given Zoster Vaccine Live 3 09/06/09 Given tetanus-diphtheria toxoids (Td) 4 08/03/09 Given Pneumococcal Vaccine (oldterm) 05/30/05 Given 1Result Comment: [facility]# [id number] 2Result Comment: [facility] [id number] 3Admin Note: VIM 05/26/06 GIVEN TODAY 4Admin [...] capsule, 1 Refills, Maintenance, 12/18/23 17:58:00 EDT, [facility]/pharmacy #[id number], Partial fill upon patient reques... Start [...] Personnel Name: Karen FELIZ, Efraín Smith Position: [facility] Physician - Primary Care Member Role: PCP Address: Address: [address] [place] [address]- Care Team Related Persons Name: LEIGHTON ROBLES Address: home [address] [place], [place] Name: LEIGHTON ROBLES Address: [address] [place], [place] Name: BAMBI LEONARDO Address: [facility] Address: home [address] [place], [place] Name: BAMBI LEONARDO Address: [address]
--- OUTSIDE RECORDS SUMMARY | 2024-05-21 14:38 | XMS_ITS | Continuity of Care Document ---
Author Organization [facility] Address [address] [place] [address]- Care Team Providers Care Bar Staff Name Role Phone Karen FELIZ, Efraín Smith Primary Care Physician En[place] [facility] Date(s): 03/09/24 - 04/08/24 [facility] [address] [place] [address]- Allergies, Adverse Reactions, Alerts Substance Reaction Severity [...] virus vaccine, inactivated 1 09/16/19 Gi chris [id number]-[id number] 12y+ bivalent booster vax 06/13/22 Recorded SARS-CoV-2 mRNA (fxscqwr-nvaq-syltb) vax 01/24/22 Recorded tetanus/diphtheria/pertussis, acel(Tdap) 2 12/27/21 Given SARS-CoV-2 (COVID-19) mRNA BNT-162b2 vac 06/14/21 Recorded SARS-CoV-2 (COVID-19) mRNA BNT-162b2 vac 11/08/20 Recorded SARS-CoV-2 (COVID-19) mRNA BNT-162b2 vac 10/18/20 Recorded Tetanus Toxoid Vaccine (oldterm) 02/12/18 Given pneumococcal 13-valent vaccine 1/8/16 Given Zoster Vaccine Live 3 09/06/09 Given tetanus-diphtheria toxoids (Td) 4 08/03/09 Given Pneumococcal Vaccine (oldterm) 05/30/05 Given 1Result Comment: [facility]# [id number] 2Result Comment: [facility] [id number] 3Admin Note: VIM 05/26/06 GIVEN TODAY 4Admin [...] capsule, 1 Refills, Maintenance, 12/18/23 17:58:00 EDT, [facility]/pharmacy #[id number], Partial fill upon patient [...] opioid drug. Start Date: 08/19/23 Status: Ordered Icaps AREDS See Instructions, By Mouth Daily, 0 Refills, Maintenance, 03/30/24 15:14:00 EDT, Partial fill upon patient request if the prescription is for a schedule II opioid drug. Start Date: 03/30/24 Status: Ordered Misc Rx See Instructions, Maintenance, [...] Personnel Name: Karen FELIZ, Efraín Smith Position: [facility] Physician - Primary Care Member Role: PCP Address: Address: [address] [place] [address]- Care Team Related Persons Name: LEIGHTON ROBLES Address: home [address] [place] [address] Name: LEIGHTON ROBLES Address: home [address] [place], [place] Name: BAMBI LEONARDO Address: [facility] Address: home [address] [place], [place] Name: BAMBI LEONARDO Address: home [address] [place], [place]
--- OUTSIDE RECORDS SUMMARY | 2024-05-21 14:38 | XMS_ITS | Continuity of Care Document ---
Author Organization [facility] Address [address] [place] [address]- Care Team Providers Care Antique Collector Name Role Phone Karen FELIZ, Efraín Smith Primary Care Physician Encounter [facility] Date(s): 06/05/20 - 07/05/20 [facility] [address] [place] [address]- [facility] Allergies, Adverse Reactions, Alerts Substance Reaction Severity Status niacin LFT abnormality Active oxybutynin Disorientated Dizzy Active tamsulosin Lethargy Active Pravachol myalgia Active Lopid fatigue, weakness Active articaine-EPINEPHrine local facial edema Active levoFLOXacin Paroxysmal atrial fibrillation Proposed Immunizations Given and Recorded Vaccine Date Status Refusal Reason influenza virus vaccine, inactivated 06/20/20 Give n influenza virus vaccine, inactivated 1 09/16/19 Gi chris Tetanus Toxoid Vaccine (oldterm) 02/12/18 Given pneumococcal 13-valent vaccine 09/22/15 Given Zoster Vaccine Live 2 09/06/09 Given tetanus-diphtheria toxoids (Td) 3 08/03/09 Given Pneumococcal Vaccine (oldterm) 05/30/05 Given Not Given Vaccine Date Status Refusal Reason pneumococcal 23-valent vaccine 04/13/13 Not Given Patient Refuses 1Result Comment: [facility]# [id number] 2Admin Note: VIM 05/26/06 GIVEN TODAY 3Admin [...] 0 Refills, Maintenance, 04/28/20 13:20:00 EDT, Gel, [facility]/pharmacy #[id number], 163, cm, 02/24/20 12:50:00 EDT, Height, [...] 11/26/19 14:40:00 EDT, Route to Pharmacy Electronically, [facility]/pharmacy #[id number], Partial fill upon patient request, 163, cm, 11/23/19 13... Start Date: 11/26/19 Stop Date: 12/02/19 Status: Ordered Remove Patch Start Date: 06/12/19 Status: Ordered rOPINIRole 0.5 mg oral tablet 2 tablet = 1 mg, By Mouth, Every 4 hours, @ 0300, 0730, 1130, 1530,1930, 2230, 0 Refills, Maintenance, 06/09/19 21:29:40 EDT, Tablet Start Date: 06/09/19 Status: Ordered triamcinolone 0.1% topical cream 1 application, Topically, 2 times a day, for 14 days, mix with 16 oz Eucerin; APPLY TOPICALLY TO AFFECTED AREA(S) TWICE DAILY FOR 14 DAYS, # 60 Gm, 3 Refills, Acute 08/16/20 15:14:00 EST, 06/21/20 15:14:00 EDT, Cream, [facility]/pharmacy #[id number], 1 applicatio... Start Date: 06/21/20 Stop Date: 08/16/20 Status: Ordered Tylenol 325 mg oral tablet [...]
--- OUTSIDE RECORDS SUMMARY | 2024-05-21 14:38 | XMS_ITS | Continuity of Care Document ---
Author Organization [facility] Address [address] [place] [address]- Care Team Providers Care Fur Trimmer Name Role Phone Karen FELIZ, Efraín Smith Primary Care Physician [phone] Encounter [facility] Date(s): 02/18/22 - 03/20/22 [facility] [address] [place] [address]- Allergies, Adverse Reactions, Alerts Substance Reaction Severity Status niacin LFT abnormality Active oxybutynin Disorientated Dizzy Active tamsulosin Lethargy Active Pravachol myalgia Active Lopid fatigue, weakness Active articaine-EPINEPHrine local facial edema Active levoFLOXacin Paroxysmal atrial fibrillation Proposed Immunizations Given and Recorded Vaccine Date Status Refusal Reason SARS-CoV-2 mRNA (zqjeqkj-ufzi-qdusm) vax 01/24/22 Recorded tetanus/diphtheria/pertussis, acel(Tdap) 1 12/27/21 [...] Patient Refuses 1Result Comment: [facility] [id number] 2Result Comment: [facility]# [id number] 3Admin Note: VIM 05/26/06 GIVEN TODAY 4Admin [...]
--- OUTSIDE RECORDS SUMMARY | 2024-05-21 14:38 | XMS_ITS | Continuity of Care Document ---
Author Organization [facility] Address [address] [place] [address]- Care Team Providers Care Wood Panel Inspector Name Role Phone Karen FELIZ, Efraín Smith Primary Care Physician [place] [facility] [place] 10/08/23 - 11/07/23 [facility] [address] [place] [address]- Allergies, Adverse Reactions, Alerts Substance Reaction Severity Status niacin LFT abnormality Active articaine-EPINEPHrine local facial edema Active levoFLOXacin Paroxysmal atrial fibrillation Proposed Levaquin Active oxybutynin Disorientated Dizzy Active tamsulosin Lethargy Active Pravachol myalgia Active Lopid fatigue, weakness Active Immunizations Given and Recorded Vaccine Date Status Refusal Reason influenza virus vaccine, inactivated 07/24/22 Give n influenza virus vaccine, inactivated 06/20/20 Give n influenza virus vaccine, inactivated 1 09/16/19 Gi chris [id number]-5mZOV 12y+ bivalent booster vax 06/13/22 Recorded SARS-CoV-2 mRNA (vppjrgw-qcjj-ouysh) vax 01/24/22 Recorded tetanus/diphtheria/pertussis, acel(Tdap) 2 12/27/21 Given SARS-CoV-2 (COVID-19) mRNA BNT-162b2 vac 06/14/21 Recorded SARS-CoV-2 (COVID-19) mRNA BNT-162b2 vac 11/08/20 Recorded SARS-CoV-2 (COVID-19) mRNA BNT-162b2 vac 10/18/20 Recorded Tetanus Toxoid Vaccine (oldterm) 02/12/18 Given pneumococcal 13-valent vaccine 09/22/15 Given Zoster Vaccine Live 3 09/06/09 Given tetanus-diphtheria toxoids (Td) 4 08/03/09 Given Pneumococcal Vaccine (oldterm) 05/30/05 Given 1Result Comment: [facility]# [id number] 2Result Comment: [facility] [id number] 3Admin Note: VIM 05/26/06 GIVEN TODAY 4Admin Note: [employer] vim 08/02/08 Medications carbidopa-levodopa 25 mg-100 mg oral tablet 2 tablet, By Mouth, Every 4 hours, @ 0300, 0730, 1130, 1530,1930, 2230, # 360 tablet, 0 Refills, Maintenance, 06/09/19 21:30:12 EDT, Tablet Start Date: 06/09/19 Status: Ordered celecoxib 100 mg oral capsule 1 capsule = 100 mg, By Mouth, Daily, as needed for pain. contents of capsule may be mixed with softfoods such as applesauce, # 14 capsule, 1 Refills, Maintenance, 10/28/23 15:45:00 EST, [facility]/pharmacy#[id number], Partial fill upon patient request if the... Start Date: 10/28/23 Stop Date: 11/25/23 Status: Ordered Colace 2-in-1 1 tablet, By [...] opioid drug. Start Date: 08/19/23 Status: Ordered Ibuprofen 200 mg, By Mouth, [...] opioid drug. Start Date: 01/08/23 Status: Ordered turmeric By Mouth, Daily, 0 Refills, Maintenance, 10/28/23 14:56:00 EST, Partial fill upon patient request if the prescription is for a schedule II opioid drug. Start Date: 10/28/23 Status: Ordered Tylenol 325 mg oral tablet [...] Team Personnel Name: Efraín Jones MD Position: [facility] Physician - Primary Care Member Role: PCP Address: Address: [address] [place] [address]- Care Team Related Persons Name: LEIGHTON ROBLES Address: home [address] [place] [address] Name: LEIGHTON ROBLES Address: [address] Name: BAMBI LEONARDO Address: [employer] Address: [address] Name: BAMBI LEONARDO Address: [address]
--- OUTSIDE RECORDS SUMMARY | 2024-05-21 14:39 | XMS_ITS | Continuity of Care Document ---
Author Organization [facility] Address [address] [place] [address]- Care Team Providers Care Pantomimist Name Role Phone Efraín Jones MD Primary Care Physician [phone] [place] [facility] [id number] Date(s): 12/04/22 - 01/11/23 [facility] [address] [place] [address]- Attending Physician: Efraín Joens MD Allergies, Adverse Reactions, Alerts Substance Reaction [...] virus vaccine, inactivated 1 09/16/19 Gi chris [id number] 12y+ bivalent booster vax 06/13/22 Recorded SARS-CoV-2 mRNA (nabiaor-fwdq-zvyge) vax 01/24/22 Recorded tetanus/diphtheria/pertussis, acel(Tdap) 2 12/27/21 [...] 04/13/13 Not Given Patient Refuses 1Result Comment: [facility][NOTE 3]# [id number] 2Result Comment: [facility][NOTE 3] [id number] 3Admin Note: VIM 05/26/06 GIVEN TODAY 4Admin Note: [employer] vim 08/02/08 Medications carbidopa-levodopa 25 mg-100 mg oral tablet 2 tablet, By Mouth, Every 4 hours, @ 0300, 0730, 1130, 1530,1930, 2230, # 360 tablet, 0 Refills, Maintenance, 06/09/19 21:30:12 EDT, Tablet Start Date: 06/09/19 Status: Ordered Ibuprofen 200 mg, By Mouth, Every 6 hours, Refills 0, Maintenance, 07/28/19 15:41:07 EST Start Date: 07/28/19 Status: Ordered [facility] Rx See Instructions, Refills 0, Maintenance, imbregia inhaler, 01/23/21 14:58:00 EDT, Supply Start Date: 01/23/21 Status: Ordered rOPINIRole 0.25 mg oral tablet 1 tablet = 0.25 mg, By Mouth, 4 times a day, 0 Refills, Maintenance, 01/08/23 13:35:00 EDT, Partialfill upon patient request if the prescription is for a schedule II opioid drug. Start Date: 01/08/23 Status: Ordered Senna 8.6 mg oral tablet 1 or 2 tablets, By Mouth, Daily at bedtime, PRN, # 60 tablet, Refills 0, Maintenance, Constipation,11/06/22 14:00:00 EST, Tablet, Partial fill upon patient request if the prescription is for a schedule II opioid drug. Start Date: 11/06/22 Status: Ordered Tylenol 325 mg oral tablet [...] Team Personnel Name: Efraín Jones MD Position: S Primary Care Physician Member Role: PCP Address: Address: [address] [place] [address]- Care Team Related Persons Name: LEIGHTON ROBLES Address: home [address] [place], [place] Name: LEIGHTON ROBLES Address: home [address] [place], [place] Name: BAMBI LEONARDO Address: [facility] Address: home [address] [place], [place] Name: BAMBI LEONARDO Address: home [address] [place] [address]
--- OUTSIDE RECORDS SUMMARY | 2024-05-21 14:39 | XMS_ITS | Continuity of Care Document ---
Author Organization [facility] Address [address] [place] [address]- Care Team Providers Care Physician Assistant Psychiatry Name Role Phone Karen FELIZ, Efraín Smith Primary Care Physician [place] [facility] [place] 03[place]01/24 - 03/31/24 [facility] [address] [place] [address]- Allergies, Adverse Reactions, Alerts Substance Reaction Severity [...] virus vaccine, inactivated 1 09/16/19 Gi chris [id number]-FoS-[id number] 12y+ bivalent booster vax 06/13/22 Recorded SARS-CoV-2 mRNA (pvhwvmw-glam-szije) vax 01/24/22 Recorded tetanus/diphtheria/pertussis, acel(Tdap) 2 12/27/21 Given SARS-CoV-2 (COVID-19) mRNA BNT-162b2 vac 06/14/21 Recorded SARS-CoV-2 (COVID-19) mRNA BNT-162b2 vac 11/08/20 Recorded SARS-CoV-2 (COVID-19) mRNA BNT-162b2 vac 10/18/20 Recorded Tetanus Toxoid Vaccine (oldterm) 02/12/18 Given pneumococcal 13-valent vaccine 09/22/15 Given Zoster Vaccine Live 3 09/06/09 Given tetanus-diphtheria toxoids (Td) 4 08/03/09 Given Pneumococcal Vaccine (oldterm) 05/30/05 Given 1Result Comment: [facility]# [id number] 2Result Comment: [facility] [id number] 3Admin Note: VIM 05/26/06 GIVEN TODAY 4Admin [...] capsule, 1 Refills, Maintenance, 12/18/23 17:58:00 EDT, [facility]/pharmacy #[id number], Partial fill upon patient [...] Primary Care Member Role: PCP Address: Address: [address] [place] [address]- Care Team Related Persons Name: LEIGHTON ROBLES Address: home [address] [place], [place] Name: LEIGHTON ROBLES Address: home [address] [place], [place] Name: BAMBI LEONARDO Address: home [address] [place], [place] Name: BAMBI LEONARDO Address: [employer] Address: [address]
--- OUTSIDE RECORDS SUMMARY | 2024-05-21 14:39 | XMS_ITS | Continuity of Care Document ---
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) - 12/25/21 Left hip pain(Discharge Diagnosis) - 12/25/21 Attending Physician: Efraín Jones MD Allergies, Adverse Reactions, Alerts Substance Reaction Severity Status niacin LFT abnormality Active Lopid fatigue, weakness Active articaine-EPINEPHrine local facial edema Active levoFLOXacin Paroxysmal atrial fibrillation Proposed oxybutynin Disorientated Dizzy Active tamsulosin Lethargy Active Pravachol myalgia Active Immunizations Given and Recorded Vaccine Date [...] 04/13/13 Not Given Patient Refuses 1Result Comment: [facility] 29101-725-84 2Result Comment: [facility]# [id number] 3Admin Note: VIM 05/26/06 GIVEN TODAY 4Admin [...] ER Tablet Start Date: 06/09/19 Status: Ordered cephalexin monohydrate 500 mg oral capsule 1 capsule = 500 mg, By Mouth, Every 12 hours, for 10 days, # 20 capsule, 0 Refills, Acute 01/04/22 17:04:00 EDT, 12/25/21 17:04:00 EDT, Capsule, [facility]/pharmacy #[id number], Partial fill upon patient request if the prescription is for a schedule II opioid drug... Start Date: 12/25/21 Stop Date: 01/04/22 Status: Ordered Ibuprofen 200 mg, By Mouth, [...] Active Seasonal allergic rhinitis(Confirmed) Active Tremor(Confirmed) Active Diagnosis Diagnosis Type Effective Dates Health Status Clinical Service Informant Postoperative heterotopic ossification of muscle Discharge Diagnosis 12/25/21 Left hip pain Discharge Diagnosis 12/25/21 Parkinson's Disease Discharge Diagnosis 12/25/21 Spondylosis of lumbar spine Discharge Diagnosis 12/25/21 Vital Signs Most recent to oldest [Reference Range]: 1 Height 163 cm (12/25/21 3:50 PM) Weight 78.9 kg (12/25/21 3:50 PM) Oxygen Saturation [94-100 %] 97 % (12/25/21 3:50 PM) Pulse Rate [55-90 bpm] 86 bpm (12/25/21 3:50 PM) Body Mass Index [18.5-24.99] 29.7 *H* (12/25/21 3:50 PM) Blood Pressure [90-138/55-84 mm Hg] 106/ 63mm Hg (12/25/21 3:50 PM) Respiratory Rate [16-30 br/min] 20 br/mi n (12/25/21 3:50 PM) Blood pressure sites Arm, right (12/25/21 3:50 PM) Social History Social History Type Response Smoking Status Never smoker entered on: 04/18/14 Sex
--- OUTSIDE RECORDS SUMMARY | 2024-05-21 14:39 | XMS_ITS | Continuity of Care Document ---
Author Organization [facility] Address [address] [place] [address]- Care Team Providers Care Mine Engineering Superintendent Name Role Phone Efraín Jones MD Primary Care Physician [place] [facility] [place] Date(s[place] 06/12/20 - 07/15/[address] [address]- [facility] Attending Physician: Efraín Jones MD Admitting Physician: Efraín Jones MD Referring Physician: Efraín Jones MD Allergies, Adverse Reactions, Alerts Substance Reaction Severity Status niacin LFT abnormality Active oxybutynin Disorientated Dizzy Active tamsulosin Lethargy Active Pravachol myalgia Active Lopid fatigue, weakness Active articaine-EPINEPHrine local facial edema Active levoFLOXacin Paroxysmal atrial fibrillation Proposed Immunizations Given and Recorded Vaccine Date Status Refusal Reason influenza virus vaccine, inactivated 06/20/20 Give n influenza virus vaccine, inactivated 1 09/16/19 Gi crhis Tetanus Toxoid Vaccine (oldterm) 02/12/18 Given pneumococcal 13-valent vaccine 09/22/15 Given Zoster Vaccine Live 2 09/06/09 Given tetanus-diphtheria toxoids (Td) 3 08/03/09 Given Pneumococcal Vaccine (oldterm) 05/30/05 Given Not Given Vaccine Date Status Refusal Reason pneumococcal 23-valent vaccine 04/13/13 Not Given Patient Refuses 1Result Comment: [facility]# [id number] 2Admin Note: VIM 05/26/06 GIVEN TODAY 3Admin [...] 0 Refills, Maintenance, 04/28/20 13:20:00 EDT, Gel, [facility]/pharmacy #[id number], 163, cm, 02/24/20 12:50:00 EDT, [...] 11/26/19 14:40:00 EDT, Route to Pharmacy Electronically, [facility]/pharmacy #[id number], Partial fill upon patient request, 163, [...] 08/16/20 15:14:00 EST, 06/21/20 15:14:00 EDT, Cream, [facility]/pharmacy #[id number], 1 applicatio... Start Date: 06/21/20 Stop [...]
--- OUTSIDE RECORDS SUMMARY | 2024-05-21 14:39 | XMS_ITS | Continuity of Care Document ---
Author Organization [facility] Address [address] [place] [address]- Care Team Providers Care Raking Machine Operator Name Role Phone Karen FELIZ, Efraín Smith Primary Care Physician [phone] [place] [facility] [place]04[place]24 [place] 04/03/24 [facility] [address] [place] [address]- Allergies, Adverse Reactions, Alerts Substance Reaction Severity [...] influenza virus vaccine, inactivated 09/16/19 Gi chris [id number] 12y+ bivalent booster vax 06/13/22 Recorded SARS-CoV-2 mRNA (bvnquff-rfvy-nbtwm) vax 01/24/22 Recorded tetanus/diphtheria/pertussis, acel(Tdap) 2 12/27/21 Given SARS-CoV-2 (COVID-19) mRNA BNT-162b2 vac 06/14/21 Recorded SARS-CoV-2 (COVID-19) mRNA BNT-162b2 vac 11/08/20 Recorded SARS-CoV-2 (COVID-19) mRNA BNT-162b2 vac 10/18/20 Recorded Tetanus Toxoid Vaccine (oldterm) 02/12/18 Given pneumococcal 13-valent vaccine 09/22/15 Given Zoster Vaccine Live 3 12/23/09 Given tetanus-diphtheria toxoids (Td) 4 08/03/09 Given Pneumococcal Vaccine (oldterm) 05/30/05 Given 1Result Comment: [facility]# [id number] 2Result Comment: [facility] [id number] 3Admin Note: VIM 05/26/06 GIVEN TODAY 4Admin [...] capsule, 1 Refills, Maintenance, 12/18/23 17:58:00 EDT, [facility]/pharmacy #[id number], Partial fill upon patient reques... Start [...] Personnel Name: Karen FELIZ, Efraín Smith Position: [facility] Physician - Primary Care Member Role: PCP Address: Address: [address] [place] [address]- Care Team Related Persons Name: LEIGHTON ROBLES Address: home [address] [place], [place] Name: LEIGHTON ROBLES Address: [address] [place], [place] Name: BAMBI LEONARDO Address: home [address] [place], [place] Name: BAMBI LEONARDO Address: [employer] Address: [address]
--- OUTSIDE RECORDS SUMMARY | 2024-05-21 14:39 | XMS_ITS | Continuity of Care Document ---
Author Organization [facility] Address [address] [place] [address]- Care Team Providers Care Extractor Operator Name Role Phone Karen FELIZ, Efraín Smith Primary Care Physician [phone] Encounter [facility] Date(s): 07/21/23 - 10/11/23 [facility] [address] [place] [address]- Attending Physician: Shannan Huerta MD Admitting Physician: Shannan Huerta MD Allergies, Adverse Reactions, Alerts Substance Reaction [...] virus vaccine, inactivated 1 09/16/19 Gi chris [id number]-[id number]-1lRGF 12y+ bivalent booster vax 06/13/22 Recorded SARS-CoV-2 mRNA (clfyqce-lnvi-ybsgc) vax 01/24/22 Recorded tetanus/diphtheria/pertussis, acel(Tdap) 2 12/27/21 Given SARS-CoV-2 (COVID-19) mRNA BNT-162b2 vac 06/14/21 Recorded SARS-CoV-2 (COVID-19) mRNA BNT-162b2 vac 11/08/20 Recorded SARS-CoV-2 (COVID-19) mRNA BNT-162b2 vac 10/18/20 Recorded Tetanus Toxoid Vaccine (oldterm) 02/12/18 Given pneumococcal 13-valent vaccine 09/22/15 Given Zoster Vaccine Live 3 09/06/09 Given tetanus-diphtheria toxoids (Td) 4 08/03/09 Given Pneumococcal Vaccine (oldterm) 05/30/05 Given 1Result Comment: [facility]# [id number] 2Result Comment: [facility] [id number] 3Admin Note: VIM 05/26/06 GIVEN TODAY 4Admin [...] Karen FELIZ, Efraín Smith Position: [facility] Physician - Primary Care Member Role: PCP Address: Address: [address] [place] [address]- Care Team Related Persons Name: LEIGHTON ROBLES Address: home [address] [place], [place] Name: LEIGHTON ROBLES Address: [address] [place], [place] Name: BAMBI LEONARDO Address: [place] Address: home [address] [place], [place] Name: BAMBI LEONARDO Address: home [address] [place], [place]
--- OUTSIDE RECORDS SUMMARY | 2024-05-21 14:39 | XMS_ITS | Continuity of Care Document ---
Author Organization [facility] Address [address] [place] [address]- Care Team Providers Care Irrigation Equipment Remover Name Role Phone Karen FELIZ, Efraín Smith Primary Care Physician [phone] Encounter [facility] Date(s): 07/09/22 - 08/08/22 [facility] [address] [place] [address]- Allergies, Adverse Reactions, Alerts Substance Reaction Severity [...] virus vaccine, inactivated 1 09/16/19 Gi chris [id number] 12y+ bivalent booster vax 06/13/22 Recorded SARS-CoV-2 mRNA (inxbjyp-ymqc-vuuga) vax 01/24/22 Recorded tetanus/diphtheria/pertussis, acel(Tdap) 2 12/27/21 [...] 04/13/13 Not Given Patient Refuses 1Result Comment: [facility]# [id number] 2Result Comment: [facility] [id number] 3Admin Note: VIM 05/26/06 GIVEN TODAY 4Admin [...] Team Personnel Name: Efraín Jones MD Position: [facility] Primary Care Physician Member Role: PCP Address: Address: [address] [place] [address] Care Team Related Persons Name: LEIGHTON ROBLES Address: home [address] [place] [id number] Name: LEIGHTON ROBLES Address: home [address] [place] [address] Name: BAMBI LEONARDO Address: home [address] [place] [address] Name: BAMBI LEONARDO Address: [employer] Address: home [address] [place] [address]
--- OUTSIDE RECORDS SUMMARY | 2024-05-21 14:39 | XMS_ITS | Continuity of Care Document ---
Author Organization [facility] Address [address] [place] [address]- Care Team Providers Care Community Service Specialist Name Role Phone Karen FELIZ, Efraín Smith Primary Care Physician [phone] [place] [facility] [place] 05/30/23 - 06/29/23 [facility] [address] [place] [address]- Allergies, Adverse Reactions, Alerts Substance Reaction Severity [...] virus vaccine, inactivated 1 09/16/19 Gi chris EGKA-FsH-5iUCN 12y+ bivalent booster vax 06/13/22 Recorded SARS-CoV-2 mRNA (exmyswn-vmpj-knhnr) vax 01/24/22 Recorded tetanus/diphtheria/pertussis, acel(Tdap) 2 12/27/21 Given SARS-CoV-2 (COVID-19) mRNA BNT-162b2 vac 06/14/21 Recorded SARS-CoV-2 (COVID-19) mRNA BNT-162b2 vac 11/08/20 Recorded SARS-CoV-2 (COVID-19) mRNA BNT-162b2 vac 10/18/20 Recorded Tetanus Toxoid Vaccine (oldterm) 02/12/18 Given pneumococcal 13-valent vaccine 09/22/15 Given Zoster Vaccine Live 3 09/06/09 Given tetanus-diphtheria toxoids (Td) 4 08/03/09 Given Pneumococcal Vaccine (oldterm) 05/30/05 Given 1Result Comment: [facility]# [id number] 2Result Comment: [facility] 87352-384-87 3Admin Note: VIM 05/26/06 GIVEN TODAY 4Admin [...] Personnel Name: Karen FELIZ, Efraín Smith Position: [facility] Physician - Primary Care Member Role: PCP Address: Address: [address] [place] [address] Care Team Related Persons Name: LEIGHTON ROBLES Address: home [address] [place] [address] Name: LEIGHTON ROBLES Address: home [address] [place] [address] Name: BAMBI LEONARDO Address: home [address] [place] [address] Name: BAMBI LEONARDO Address: [facility] Address: home [address] [place], [place] [id number]
--- OUTSIDE RECORDS SUMMARY | 2024-05-21 14:39 | XMS_ITS | Continuity of Care Document ---
Author Organization [facility] Address [address] [place] [address]- Care Team Providers Care Fence Gate Assembler Name Role Phone Karen FELIZ, Efraín Smith Primary Care Physician Encounter [facility] Date(s): 10/13/23 - 11/12/23 [facility] [address] [place] [address]- Allergies, Adverse Reactions, Alerts Substance Reaction Severity [...] virus vaccine, inactivated 1 09/16/19 Gi chris NPFX-XtG-6aHXT 12y+ bivalent booster vax 06/13/22 Recorded SARS-CoV-2 mRNA (ujgmwyf-nnhn-edkkk) vax 01/24/22 Recorded tetanus/diphtheria/pertussis, acel(Tdap) 2 12/27/21 Given SARS-CoV-2 (COVID-19) mRNA BNT-162b2 vac 06/14/21 Recorded SARS-CoV-2 (COVID-19) mRNA BNT-162b2 vac 11/08/20 Recorded SARS-CoV-2 (COVID-19) mRNA BNT-162b2 vac 10/18/20 Recorded Tetanus Toxoid Vaccine (oldterm) 02/12/18 Given pneumococcal 13-valent vaccine 09/22/15 Given Zoster Vaccine Live 3 09/06/09 Given tetanus-diphtheria toxoids (Td) 4 08/03/09 Given Pneumococcal Vaccine (oldterm) 05/30/05 Given 1Result Comment: [facility]# [id number] 2Result Comment: [facility] [id number] 3Admin Note: VIM 05/26/06 GIVEN TODAY 4Admin [...] capsule, 1 Refills, Maintenance, 10/28/23 15:45:00 EST, [facility]/pharmacy#[id number], Partial fill upon patient request if the... [...] Team Personnel Name: Efraín Jones MD Position: [facility] Physician - Primary Care Member Role: PCP Address: Address: [address] [place] [address] Care Team Related Persons Name: LEIGHTON ROBLES Address: home [address] [place] [address] Name: LEIGHTON ROBLES Address: home [address] [place] [address] Name: BAMBI LEONARDO Address: [address] Name: BAMBI LEONARDO Address: [employer] Address: [place] [id number]
--- OUTSIDE RECORDS SUMMARY | 2024-05-21 14:39 | XMS_ITS | Continuity of Care Document ---
Author Organization [facility] Address [address] [place] [address]- Care Team Providers Care Land Leasing Examiner Name Role Phone Karen FELIZ, Efraín Smith Primary Care Physician [place] [facility]12[place] - 04/11/24 [facility] [address] [place] [address]- Allergies, Adverse Reactions, Alerts Substance Reaction Severity [...] virus vaccine, inactivated 1 09/16/19 Gi chris TUEL-StV-6vCFL 12y+ bivalent booster vax 06/13/22 Recorded SARS-CoV-2 mRNA (jxqmbqv-zocs-gkfgw) vax 01/24/22 Recorded tetanus/diphtheria/pertussis, acel(Tdap) 2 12/27/21 Given SARS-CoV-2 (COVID-19) mRNA BNT-162b2 vac 06/14/21 Recorded SARS-CoV-2 (COVID-19) mRNA BNT-162b2 vac 11/08/20 Recorded SARS-CoV-2 (COVID-19) mRNA BNT-162b2 vac 10/18/20 Recorded Tetanus Toxoid Vaccine (oldterm) 02/12/18 Given pneumococcal 13-valent vaccine 1/8/16 Given Zoster Vaccine Live 3 09/06/09 Given tetanus-diphtheria toxoids (Td) 4 08/03/09 Given Pneumococcal Vaccine (oldterm) 05/30/05 Given 1Result Comment: [facility]# [id number] 2Result Comment: [facility] [id number] 3Admin Note: VIM 05/26/06 GIVEN TODAY 4Admin [...] capsule, 1 Refills, Maintenance, 12/18/23 17:58:00 EDT, [facility]/pharmacy #1095, Partial fill upon patient reques... Start [...] Personnel Name: Karen FELIZ, Efraín Smith Position: [facility] Physician - Primary Care Member Role: PCP Address: Address: [address] [place] [address] Care Team Related Persons Name: LEIGHTON ROBLES Address: home [address] [place], [place] Name: LEIGHTON ROBLES Address: [address] [place], [place] Name: BAMBI LEONARDO Address: [address] [place], [place] Name: BAMBI LEONARDO Address: [employer] Address: [address]
--- OUTSIDE RECORDS SUMMARY | 2024-05-21 14:39 | XMS_ITS | Continuity of Care Document ---
Author Organization [facility] Address [address] [place] [address]- Care Team Providers Care Bread Packer Name Role Phone Karen FELIZ, Efraín Smith Primary Care Physician [place] [facility] [place]23 - 01/16/24 [facility] [address] [place] [address]- Allergies, Adverse Reactions, Alerts Substance Reaction Severity [...] virus vaccine, inactivated 1 09/16/19 Gi chris [id number]-WgH-8mMXL 12y+ bivalent booster vax 06/13/22 Recorded SARS-CoV-2 mRNA (rwiieaj-ohkx-plhbv) vax 01/24/22 Recorded tetanus/diphtheria/pertussis, acel(Tdap) 2 12/27/21 Given SARS-CoV-2 (COVID-19) mRNA BNT-162b2 vac 06/14/21 Recorded SARS-CoV-2 (COVID-19) mRNA BNT-162b2 vac 11/08/20 Recorded SARS-CoV-2 (COVID-19) mRNA BNT-162b2 vac 10/18/20 Recorded Tetanus Toxoid Vaccine (oldterm) 02/12/18 Given pneumococcal 13-valent vaccine 09/22/15 Given Zoster Vaccine Live 3 09/06/09 Given tetanus-diphtheria toxoids (Td) 4 08/03/09 Given Pneumococcal Vaccine (oldterm) 05/30/05 Given 1Result Comment: [facility]# [id number] 2Result Comment: [facility] [id number] 3Admin Note: VIM 05/26/06 GIVEN TODAY 4Admin [...] capsule, 1 Refills, Maintenance, 12/18/23 17:58:00 EDT, [facility]/pharmacy #[id number], Partial fill upon patient reques... Start [...] Personnel Name: Karen FELIZ, Efraín Smith Position: [facility] Physician - Primary Care Member Role: PCP Address: Address: [address] [place] [address] Care Team Related Persons Name: LEIGHTON ROBLES Address: home [address] [place], [place] Name: LEIGHTON ROBLES Address: home [address] [place], [place] Name: BAMBI LEONARDO Address: home [address] [place], [place] Name: BAMBI LEONARDO Address: [facility] Address: [place] [address] [place] [id number]
--- OUTSIDE RECORDS SUMMARY | 2024-05-21 14:39 | XMS_ITS | Continuity of Care Document ---
Author Organization [facility] Address [address] [place] [address]- Care Team Providers Care State Manager Name Role Phone Karen FELIZ, Efraín Smith Primary Care Physician [phone] [place] [facility] [place] 10/04/22 - 11/03/22 [facility] [address] [place] [address]- Allergies, Adverse Reactions, Alerts Substance Reaction Severity [...] virus vaccine, inactivated 1 09/16/19 Gi chris [id number]-JyL-8qUHM 12y+ bivalent booster vax 06/13/22 Recorded SARS-CoV-2 mRNA (bfrntrg-gyyg-exqmy) vax 01/24/22 Recorded tetanus/diphtheria/pertussis, acel(Tdap) 2 12/27/21 [...] 04/13/13 Not Given Patient Refuses 1Result Comment: [facility]# [id number] 2Result Comment: [facility] [id number] 3Admin Note: VIM 05/26/06 GIVEN TODAY 4Admin [...] EDT, Supply Start Date: 01/23/21 Status: Ordered PreserVision 0 Refills, Maintenance, 10/21/22 12:51:00 EST, Partial fill upon patient request if the prescription is for a schedule II opioid drug. Start Date: 10/21/22 Status: Ordered rOPINIRole 0.5 mg oral tablet [...] Personnel Name: Karen FELIZ, Efraín Smith Position: [facility] Primary Care Physician Member Role: PCP Address: Address: [address] [place] [address] Care Team Related Persons Name: LEIGHTON ROBLES Address: home [address] [place], [place] Name: LEIGHTON ROBLES Address: home [address] [place], [place] Name: BAMBI LEONARDO Address: home [address] [place], [place] Name: BAMBI LEONARDO Address: [facility] Address: [place] [id number]
--- OUTSIDE RECORDS SUMMARY | 2024-05-21 14:39 | XMS_ITS | Continuity of Care Document ---
Author Organization [facility] Address [address] [place] [address]- Care Team Providers Care Electric Motor Assembler Name Role Phone Karen FELIZ, Efraín Smith Primary Care Physician [phone] [place] [facility] [place](s[place] 06/12/20 - 07/12/20 [facility] [address] [place] [address]- [facility] Allergies, Adverse Reactions, Alerts Substance Reaction Severity [...] 04/13/13 Not Given Patient Refuses 1Result Comment: [facility]# [id number] 2Admin Note: VIM 05/26/06 GIVEN TODAY 3Admin [...] 0 Refills, Maintenance, 04/28/20 13:20:00 EDT, Gel, [facility]/pharmacy #[id number], 163, cm, 02/24/20 12:50:00 EDT, [...] 11/26/19 14:40:00 EDT, Route to Pharmacy Electronically, [facility]/pharmacy #[id number], Partial fill upon patient request, [...] 08/16/20 15:14:00 EST, 06/21/20 15:14:00 EDT, Cream, [facility]/pharmacy #[id number], 1 applicatio... Start Date: 06/21/20 [...]
--- OUTSIDE RECORDS SUMMARY | 2024-05-21 14:39 | XMS_ITS | Continuity of Care Document ---
Author Organization [facility] Address [address] [place] [address]- Care Team Providers Care Service Car Operator Name Role Phone Karen FELIZ, Efraín Smith Primary Care Physician En[place] [facility] [place] Date(s): 04/03/23 - 05/03/23 [facility] [address] [place] [address]- Allergies, Adverse Reactions, Alerts Substance Reaction Severity [...] virus vaccine, inactivated 1 09/16/19 Gi chris MLSM-KcU-1gDQW 12y+ bivalent booster vax 06/13/22 Recorded SARS-CoV-2 mRNA (xglqjdm-qnyi-zrfun) vax 01/24/22 Recorded tetanus/diphtheria/pertussis, acel(Tdap) 2 12/27/21 Given SARS-CoV-2 (COVID-19) mRNA BNT-162b2 vac 06/14/21 Recorded SARS-CoV-2 (COVID-19) mRNA BNT-162b2 vac 11/08/20 Recorded SARS-CoV-2 (COVID-19) mRNA BNT-162b2 vac 10/18/20 Recorded Tetanus Toxoid Vaccine (oldterm) 02/12/18 Given pneumococcal 13-valent vaccine 09/22/15 Given Zoster Vaccine Live 3 09/06/09 Given tetanus-diphtheria toxoids (Td) 4 08/03/09 Given Pneumococcal Vaccine (oldterm) 05/30/05 Given 1Result Comment: [facility]# [id number] 2Result Comment: [facility] [id number] 3Admin Note: VIM 05/26/06 GIVEN TODAY 4Admin [...] Primary Care Member Role: PCP Address: Address: [address] [place] [address] Care Team Related Persons Name: LEIGHTON ROBLES Address: home [address] [place] [address] Name: LEIGHTON ROBLES Address: home [address] [place] [address] Name: BAMBI LEONARDO Address: home [address] [place] [address] Name: BAMBI LEONARDO Address: [facility] Address: home [address] [place], [place] [id number]
--- OUTSIDE RECORDS SUMMARY | 2024-05-21 14:39 | XMS_ITS | Continuity of Care Document ---
Author Organization [facility] Address [address] [place] [address]- Care Team Providers Care Press Assistant Name Role Phone Karen FELIZ, Efraín Smith Primary Care Physician [place] [facility] [place] 08/02/22 - 09/01/22 [facility] [address] [place] [address]- Allergies, Adverse Reactions, Alerts Substance Reaction Severity [...] virus vaccine, inactivated 1 09/16/19 Gi chris ONNK-BbD-8iBTJ 12y+ bivalent booster vax 06/13/22 Recorded SARS-CoV-2 mRNA (zdozzos-usdq-xcaig) vax 01/24/22 Recorded tetanus/diphtheria/pertussis, acel(Tdap) 2 12/27/21 [...] 04/13/13 Not Given Patient Refuses 1Result Comment: [facility]# [id number] 2Result Comment: [facility] [id number] 3Admin Note: VIM 05/26/06 GIVEN TODAY 4Admin [...] Personnel Name: Karen FELIZ, Efraín Smith Position: [facility] Primary Care Physician Member Role: PCP Address: Address: [address] [place] [address]- Care Team Related Persons Name: LEIGHTON ROBLES Address: [address] [place], [place] Name: LEIGHTON ROBLES Address: [address] [place], [place] Name: BAMBI LEONARDO Address: [employer] Address: [address] [place], [place] Name: BAMBI LEONARDO Address: [address] [place], [place]
--- OUTSIDE RECORDS SUMMARY | 2024-05-21 14:39 | XMS_ITS | Continuity of Care Document ---
Author Organization [facility] Address [address] [place] [address]- Care Team Providers Care Account Services Associate Name Role Phone Karen FELIZ, Efraín Smith Primary Care Physician Encounter [facility] Date(s): 01/01/21 - 01/31/21 [facility] [address] [place] [address]- Allergies, Adverse Reactions, Alerts Substance Reaction Severity [...] 04/13/13 Not Given Patient Refuses 1Result Comment: [facility]# [id number] 2Admin Note: VIM 05/26/06 GIVEN TODAY 3Admin [...] 0 Refills, Maintenance, 04/28/20 13:20:00 EDT, Gel, [facility]/pharmacy #[id number], 163, cm, 02/24/20 12:50:00 EDT, [...] 11/26/19 14:40:00 EDT, Route to Pharmacy Electronically, [facility]/pharmacy #[id number], Partial fill upon patient request, 163, cm, [...]
--- OUTSIDE RECORDS SUMMARY | 2024-05-21 14:39 | XMS_ITS | Continuity of Care Document ---
Author Organization [facility] Address [address] [place] [address]- Care Team Providers Care Oleomargarine Maker Name Role Phone Karen FELIZ, Efraín Smith Primary Care Physician [phone] Encounter [facility] [place] Date(s): 12/12/23 - 01/11/24 [facility] [address] [place] [address]- Allergies, Adverse Reactions, Alerts Substance Reaction Severity [...] virus vaccine, inactivated 1 09/16/19 Gi chris THID-FgH-3gMDY 12y+ bivalent booster vax 06/13/22 Recorded SARS-CoV-2 mRNA (jhfzyqh-cgar-amgvr) vax 01/24/22 Recorded tetanus/diphtheria/pertussis, acel(Tdap) 2 12/27/21 Given SARS-CoV-2 (COVID-19) mRNA BNT-162b2 vac 06/14/21 Recorded SARS-CoV-2 (COVID-19) mRNA BNT-162b2 vac 11/08/20 Recorded SARS-CoV-2 (COVID-19) mRNA BNT-162b2 vac 10/18/20 Recorded Tetanus Toxoid Vaccine (oldterm) 02/12/18 Given pneumococcal 13-valent vaccine 09/22/15 Given Zoster Vaccine Live 3 09/06/09 Given tetanus-diphtheria toxoids (Td) 4 08/03/09 Given Pneumococcal Vaccine (oldterm) 05/30/05 Given 1Result Comment: [facility]# [id number] 2Result Comment: [facility] [id number] 3Admin Note: VIM 05/26/06 GIVEN TODAY 4Admin [...] capsule, 1 Refills, Maintenance, 12/18/23 17:58:00 EDT, [facility]/pharmacy #[id number], Partial fill upon patient reques... Start [...] Personnel Name: Karen FELIZ, Efraín Smith Position: [facility] Physician - Primary Care Member Role: PCP Address: Address: [address] [place] [address] Care Team Related Persons Name: LEIGHTON ROBLES Address: [address] [place], [place] Name: LEIGHTON ROBLES Address: [address] [place], [place] Name: BAMBI LEONARDO Address: [address] [place], [place] Name: BAMBI LEONARDO Address: [facility] Address: [place] [address] [place] [id number]
--- OUTSIDE RECORDS SUMMARY | 2024-05-21 14:39 | XMS_ITS | Continuity of Care Document ---
Author Organization [facility] Address [address] [place] [address]- Care Team Providers Care Aspnet Developer Name Role Phone Karen FELIZ, Efraín Smith Primary Care Physician En[place] [facility] [place] Date(s): 06/21/20 - 07/21/20 [facility] [address] [place] [address]- Allergies, Adverse Reactions, Alerts Substance Reaction Severity [...] 04/13/13 Not Given Patient Refuses 1Result Comment: [facility]# [id number] 2Admin Note: VIM 05/26/06 GIVEN TODAY 3Admin [...] 0 Refills, Maintenance, 04/28/20 13:20:00 EDT, Gel, [facility]/pharmacy #[id number], 163, cm, 02/24/20 12:50:00 [...] 14:40:00 EDT, Route to Pharmacy Electronically, [facility]/pharmacy #[id number], Partial fill upon patient [...] 08/16/20 15:14:00 EST, 06/21/20 15:14:00 EDT, Cream, [facility]/pharmacy #[id number], 1 applicatio... Start Date: [...]
--- OUTSIDE RECORDS SUMMARY | 2024-05-21 14:39 | XMS_ITS | Continuity of Care Document ---
Author Organization [facility] Address [address] [place] [address]- Care Team Providers Care Service Worker Helper Name Role Phone Efraín Jones MD Primary Care Physician [phone] [id number] Date(s): 12/12/23 - 01/24/24 [facility] [address] [place] [address]- Attending Physician: Efraín Jones MD Allergies, Adverse [...] virus vaccine, inactivated 1 09/16/19 Gi chris UMBF-PgC-6pWAQ 12y+ bivalent booster vax 06/13/22 Recorded SARS-CoV-2 mRNA (egsripw-uyir-fmpbk) vax 01/24/22 Recorded tetanus/diphtheria/pertussis, acel(Tdap) 2 12/27/21 Given SARS-CoV-2 (COVID-19) mRNA BNT-162b2 vac 06/14/21 Recorded SARS-CoV-2 (COVID-19) mRNA BNT-162b2 vac 11/08/20 Recorded SARS-CoV-2 (COVID-19) mRNA BNT-162b2 vac 10/18/20 Recorded Tetanus Toxoid Vaccine (oldterm) 02/12/18 Given pneumococcal 13-valent vaccine 1/8/16 Given Zoster Vaccine Live 3 09/06/09 Given tetanus-diphtheria toxoids (Td) 4 08/03/09 Given Pneumococcal Vaccine (oldterm) 05/30/05 Given 1Result Comment: [facility]# [id number] 2Result Comment: [facility] [id number] 3Admin Note: VIM 05/26/06 GIVEN TODAY 4Admin [...] capsule, 1 Refills, Maintenance, 12/18/23 17:58:00 EDT, [facility]/pharmacy #[id number], Partial fill upon patient reques... [...] Personnel Name: Efraín Jones MD Position: S Physician - Primary Care Member Role: PCP Address: Address: [address] [place] [address]- Care Team Related Persons Name: LEIGHTON ROBLES Address: [address] [place], [place] Name: LEIGHTON ROBLES Address: [address] [place], [place] Name: BAMBI LEONARDO Address: [employer] Address: [address] [place], [place] Name: BAMBI LEONARDO Address: [address] [place], [place]
--- OUTSIDE RECORDS SUMMARY | 2024-05-21 14:39 | XMS_ITS | Continuity of Care Document ---
Author Organization [facility] Address [address] [place] [address]- Care Team Providers Care Recruiter Specialist Name Role Phone Karen FELIZ, Efraín Smith Primary Care Physician En[place] [facility] [place] Date(s): 07/30/22 - 08/29/22 [facility] [address] [place] [address]- Allergies, Adverse Reactions, Alerts Substance Reaction Severity [...] virus vaccine, inactivated 1 09/16/19 Gi chris JWBM-TwT-9pHQH 12y+ bivalent booster vax 06/13/22 Recorded SARS-CoV-2 mRNA (cgttmhd-wuvr-viaol) vax 01/24/22 Recorded tetanus/diphtheria/pertussis, acel(Tdap) 2 12/27/21 [...] 04/13/13 Not Given Patient Refuses 1Result Comment: [facility]# [id number] 2Result Comment: [facility] [id number] 3Admin Note: VIM 05/26/06 GIVEN TODAY 4Admin [...] Personnel Name: Karen FELIZ, Efraín Smith Position: [facility] Primary Care Physician Member Role: PCP Address: Address: [address] [place] [address] Care Team Related Persons Name: LEIGHTON ROBLES Address: [address] [place], [place] Name: LEIGHTON ROBLES Address: [address] [place], [place] Name: BAMBI LEONARDO Address: [address] [place], [place] Name: BAMBI LEONARDO [facility] Address: [address]
--- OUTSIDE RECORDS SUMMARY | 2024-05-21 14:39 | XMS_ITS | Continuity of Care Document ---
Author Organization [facility] Address [address] [place] [address]- Care Team Providers Care Enrobing Machine Operator Name Role Phone Karen FELIZ, Efraín Smith Primary Care Physician [place] [facility] [place]07/22 - 11/06/22 [facility] [address] [place] [address]- Allergies, Adverse Reactions, Alerts Substance Reaction Severity Status niacin LFT abnormality Active Pravachol myalgia Active Levaquin Active articaine-EPINEPHrine local facial edema Active levoFLOXacin Paroxysmal atrial fibrillation Proposed oxybutynin Disorientated Dizzy Active tamsulosin Lethargy Active Lopid fatigue, weakness Active Immunizations Given and Recorded Vaccine Date Status Refusal Reason influenza virus vaccine, inactivated 07/24/22 Give n influenza virus vaccine, inactivated 06/20/20 Give n influenza virus vaccine, inactivated 1 09/16/19 Gi chris LYSX-LwQ-7xMKY 12y+ bivalent booster vax 06/13/22 Recorded SARS-CoV-2 mRNA (dxudpnh-omtz-jhjkn) vax 01/24/22 Recorded tetanus/diphtheria/pertussis, acel(Tdap) 2 12/27/21 [...] [facility]# [id number] 2Result Comment: [facility]] [id number] 3Admin Note: VIM 05/26/06 GIVEN TODAY 4Admin [...] EDT, Tablet Start Date: 06/09/19 Status: Ordered Senna 8.6 mg oral tablet [...] Team Personnel Name: Efraín Jones MD Position: [facility] Primary Care Physician Member Role: PCP Address: Address: [address] [place] [address] Care Team Related Persons Name: LEIGHTON ROBLES Address: [address] [place] [address] Name: LEIGHTON ROBLES Address: [address] [place] [address] Name: BAMBI LEONARDO Address: [address] [place], [place] Name: BAMBI LEONARDO Address: [facility] Address: [address] [place] [address]
--- OUTSIDE RECORDS SUMMARY | 2024-05-21 14:39 | XMS_ITS | Continuity of Care Document ---
Author Organization [facility] Address [address] [place] [address]- Care Team Providers Care Games Dealer Name Role Phone Karen FELIZ, Efraín Smith Primary Care Physician [facility] [facility] [place]/14[place]20 - 04/13/20 [facility] [address] [place] [address]- [facility] Allergies, Adverse Reactions, Alerts Substance Reaction Severity Status niacin LFT abnormality Active oxybutynin Disorientated Dizzy Active tamsulosin Lethargy Active Pravachol myalgia Active Lopid fatigue, weakness Active levoFLOXacin Paroxysmal atrial fibrillation Proposed articaine-EPINEPHrine local facial edema Active Immunizations Given [...] 04/13/13 Not Given Patient Refuses 1Result Comment: [facility]# [id number] 2Admin Note: VIM 05/26/06 GIVEN TODAY 3Admin [...] 12/02/19 13:02:00 EDT, Route to Pharmacy Electronically, [facility]/pharmacy #[id number], 163, cm, 11/23/19 13:45:00 EDT, Height, [...] 11/26/19 14:40:00 EDT, Route to Pharmacy Electronically, [facility]/pharmacy #[id number], Partial fill upon patient request, [...]
--- OUTSIDE RECORDS SUMMARY | 2024-05-21 14:39 | XMS_ITS | Continuity of Care Document ---
Author Organization [facility] Address [address] [place] [address]- Care Team Providers Care President Name Role Phone Karen FELIZ, Efraín Smith Primary Care Physician [phone] [place] [facility] [place] 02/24/20 - 03/02/20 [facility] [address] [place] [address]- [facility] Encounter Diagnosis Parkinson's Disease(Discharge Diagnosis) - 02/24/20 Osteoarthritis of left hip(Discharge Diagnosis) - 02/24/20 Spondylosis of lumbar spine(Discharge Diagnosis) - 02/24/20 Attending Physician: Karen FELIZ, Efraín Smith Allergies, Adverse Reactions, Alerts Substance Reaction Severity [...] Patient Refuses 1Result Comment: [facility]# [id number] 2Admin Note: VIM 05/26/06 GIVEN TODAY 3Admin Note: [employer] vim 11/18/08 Medications carbidopa-levodopa 25 mg-100 mg oral tablet [...] 12/02/19 13:02:00 EDT, Route to Pharmacy Electronically, [facility]/pharmacy #[id number], 163, cm, 11/23/19 13:45:00 [...] 11/26/19 14:40:00 EDT, Route to Pharmacy Electronically, [facility]/pharmacy #[id number], Partial fill upon patient [...] Effective Dates Health Status Clinical Service Informant Spondylosis of lumbar spine Discharge Diagnosis 02/24/20 Osteoarthritis of left hip Discharge Diagnosis 02/24/20 Parkinson's Disease Discharge Diagnosis 02/24/20 Procedures Procedure Date Related Diagnosis Body Site Status Hip replacement - Left 11/01/19 Co mpleted Vital Signs Most recent to oldest [Reference Range]: 1 Height 163 cm (02/24/20 12:50 PM) Social History Social History Type Response Smoking Status Never smoker entered on: 04/18/14 Sex
--- OUTSIDE RECORDS SUMMARY | 2024-05-21 14:39 | XMS_ITS | Continuity of Care Document ---
Author Organization [facility] Address [address] [place] [address]- Care Team Providers Care Well Logging Captain Mud Analysis Name Role Phone Karen FELIZ, Efraín Smith Primary Care Physician [place] [facility] [place](s[place] 08/28/23 - 09/27/23 [facility] [address] [place] [address]- Allergies, Adverse Reactions, Alerts Substance Reaction Severity [...] virus vaccine, inactivated 1 09/16/19 Gi chris QATO-LqX-0rURP 12y+ bivalent booster vax 06/13/22 Recorded SARS-CoV-2 mRNA (ocpysuf-ruhd-veghe) vax 01/24/22 Recorded tetanus/diphtheria/pertussis, acel(Tdap) 2 12/27/21 Given SARS-CoV-2 (COVID-19) mRNA BNT-162b2 vac 06/14/21 Recorded SARS-CoV-2 (COVID-19) mRNA BNT-162b2 vac 11/08/20 Recorded SARS-CoV-2 (COVID-19) mRNA BNT-162b2 vac 10/18/20 Recorded Tetanus Toxoid Vaccine (oldterm) 02/12/18 Given pneumococcal 13-valent vaccine 1/8/16 Given Zoster Vaccine Live 3 09/06/09 Given tetanus-diphtheria toxoids (Td) 4 08/03/09 Given Pneumococcal Vaccine (oldterm) 05/30/05 Given 1Result Comment: [facility]# [id number] 2Result Comment: [facility] [id number] 3Admin Note: VIM 05/26/06 GIVEN TODAY 4Admin [...] Personnel Name: Karen FELIZ, Efraín Smith Position: [facility] Physician - Primary Care Member Role: PCP Address: Address: [address] [place] [address] Care Team Related Persons Name: LEIGHTON ROBLES Address: home [address] [place] [id number] Name: LEIGHTON ROBLES Address: [address] [place], [place] Name: BAMBI LEONARDO Address: [address] [place], [place] Name: BAMBI LEONARDO Address: [employer] Address: home [address] [place] [address]
--- OUTSIDE RECORDS SUMMARY | 2024-05-21 14:39 | XMS_ITS | Continuity of Care Document ---
Author Organization [facility] Address [address] [place] [address]- Care Team Providers Care Litigation Paralegal Name Role Phone Karen FELIZ, Efraín mSith Primary Care Physician [facility] [facility] Date(s): 06/01/20 - 07/01/20 [facility] [address] [place] [address]- [facility] Allergies, Adverse Reactions, Alerts Substance [...] Not Given Patient Refuses 1Result Comment: [facility]# [id number] 2Admin Note: VIM 05/26/06 GIVEN TODAY 3Admin [...] 0 Refills, Maintenance, 04/28/20 13:20:00 EDT, Gel, [facility]/pharmacy #[id number], 163, cm, 02/24/20 12:50:00 EDT, Height, [...] 14:40:00 EDT, Route to Pharmacy Electronically, [facility]/pharmacy #[id number], Partial fill upon patient request, 163, [...] 08/16/20 15:14:00 EST, 06/21/20 15:14:00 EDT, Cream, [facility]/pharmacy #[id number], 1 applicatio... Start Date: 06/21/20 Stop [...]
--- OUTSIDE RECORDS SUMMARY | 2024-05-21 14:39 | XMS_ITS | Continuity of Care Document ---
Author Organization [facility] Address [address] [place] [address]- Care Team Providers Care American Sign Language Teacher Name Role Phone Karen FELIZ, Efraín Smith Primary Care Physician [phone] Encounter [facility] Date(s): 06/20/20 - 07/20/20 [facility] [address] [place], [place] [address] Attending Physician: Admtr, Ar8 Allergies, Adverse Reactions, [...] Refuses 1Result Comment: [facility]# [id number] 2Admin Note: VIM 05/26/06 GIVEN TODAY 3Admin [...] 0 Refills, Maintenance, 04/28/20 13:20:00 EDT, Gel, [facility]/pharmacy #[id number], 163, cm, 02/24/20 12:50:00 EDT, [...] 11/26/19 14:40:00 EDT, Route to Pharmacy Electronically, [facility]/pharmacy #[id number], Partial fill upon [...] 08/16/20 15:14:00 EST, 06/21/20 15:14:00 EDT, Cream, [facility]/pharmacy #[id number], 1 applicatio... Start Date: 06/21/20 [...]
--- OUTSIDE RECORDS SUMMARY | 2024-05-21 14:39 | XMS_ITS | Continuity of Care Document ---
Author Organization [facility] Address [address] [place] [address]- Care Team Providers Care Auditing Clerk Name Role Phone Karen FELIZ, Efraín Smith Primary Care Physician Encounter [facility] [place] [facility] Date(s): 01/20/24 - 02/19/24 [facility] [address] [place] [address]- Allergies, Adverse Reactions, Alerts Substance Reaction Severity Status niacin LFT abnormality Active tamsulosin Lethargy Active Lopid fatigue, weakness Active Levaquin Active levoFLOXacin Paroxysmal atrial fibrillation Proposed articaine-EPINEPHrine local facial edema Active oxybutynin Disorientated Dizzy Active Pravachol myalgia Active Immunizations Given and Recorded Vaccine Date Status Refusal Reason influenza virus vaccine, inactivated 07/24/22 Give n influenza virus vaccine, inactivated 06/20/20 Give n influenza virus vaccine, inactivated 09/16/19 Gi chris [id number] 12y+ bivalent booster vax 06/13/22 Recorded SARS-CoV-2 mRNA (odwnuvt-bana-vkkky) vax 01/24/22 Recorded tetanus/diphtheria/pertussis, acel(Tdap) 2 12/27/21 [...] [facility]# [id number] 2Result Comment: [facility] [id number] 3Admin Note: VIM 05/26/06 GIVEN TODAY 4Admin [...] capsule, 1 Refills, Maintenance, 12/18/23 17:58:00 EDT, [facility]/pharmacy #[id number], Partial fill upon patient reques... [...] Personnel Name: Karen FELIZ, Efraín Smith Position: [facility] Physician - Primary Care Member Role: PCP Address: Address: [address] [place] [address]- Care Team Related Persons Name: LEIGHTON ROBLES Address: home [address] [place], [place] Name: LEIGHTON ROBLES Address: home [address] [place], [place] Name: BAMBI LEONARDO Address: [employer] Address: home [address] [place], [place] Name: BAMBI LEONARDO Address: [address]
--- OUTSIDE RECORDS SUMMARY | 2024-05-21 14:40 | XMS_ITS | Continuity of Care Document ---
Author Organization [facility] Address [address] [place] [address] Javan lopez, [address] [place] [address]- Care Team Providers Care Senior Project Manager Engineering Name Role Phone Efraín Jones MD Primary Care Physician Encounter [facility] Date(s): 03/24/20 - 04/28/20 [facility] [address] [place] [address] Drive, [address] [place] [address]- [facility] Attending Physician: Bipin Ellis MD Referring Physician: Efraín Jones MD Allergies, [...] Not Given Patient Refuses 1Result Comment: [facility]# [id number] 2Admin Note: VIM 05/26/06 GIVEN TODAY 3Admin [...] 0 Refills, Maintenance, 04/28/20 13:20:00 EDT, Gel, [facility]/pharmacy #[id number], 163, cm, 02/24/20 12:50:00 [...] 12/02/19 13:02:00 EDT, Route to Pharmacy Electronically, [facility]/pharmacy #[id number], 163, cm, 11/23/19 13:45:00 EDT, Height, [...] 11/26/19 14:40:00 EDT, Route to Pharmacy Electronically, [facility]/pharmacy #[id number], Partial fill upon patient [...]
--- OUTSIDE RECORDS SUMMARY | 2024-05-21 14:40 | XMS_ITS | Continuity of Care Document ---
Author Organization [facility] Address [address] [place] [address]- Care Team Providers Care Leach Cell Operator Name Role Phone Karen FELIZ, Efraín Smith Primary Care Physician Encounter [facility] Date(s): 09/16/19 - 09/26/19 [facility] [address] [place] [address]- [facility] Attending Physician: Admtr, Ar8 Allergies, Adverse Reactions, [...] Refuses 1Result Comment: [facility]# [id number] 2Admin Note: VIM 05/26/06 GIVEN TODAY 3Admin [...] Status: Ordered midodrine 2.5 mg oral tablet Refills 0, Maintenance, 08/30/19 13:48:37 EST Start Date: 08/30/19 Status: Ordered MiraLax Powder 1 pack/packet = 17 Gm, By Mouth, Daily, 0 Refills, Maintenance, 06/12/19 9:07:44 EDT, Powder Start Date: 06/12/19 Status: Ordered Remove Patch Start Date: 06/12/19 [...] Inform ant Deep vein thrombosis (DVT)(Confirmed) Active Hyperlipidemia(Confirmed) Active Spondylosis of lumbar spine(Confirmed) Active OA - Osteoarthritis of hip(Confirmed) Active Osteoarthritis of left hip(Confirmed) Active Parkinson's Disease(Confirmed) Active Prostatism(Confirmed) Active Renal cyst, right(Confirmed) Active Seasonal allergic rhinitis(Confirmed) Active Tremor(Confirmed) Active Social History Social History Type Response Smoking Status Never smoker entered on: 04/18/14 Sex
--- OUTSIDE RECORDS SUMMARY | 2024-05-21 14:40 | XMS_ITS | Continuity of Care Document ---
Author Organization [facility] Address [address] [place] [address]- Care Team Providers Care Automobile Rental Agent Name Role Phone Karen FELIZ, Efraín Smith Primary Care Physician Encounter [facility] [place] Date(s): 03/30/20 - 04/29/20 [facility] [address] [place] [address]- [facility] Allergies, Adverse Reactions, Alerts Substance [...] Not Given Patient Refuses 1Result Comment: [facility]# [id number] 2Admin Note: VIM 05/26/06 GIVEN TODAY 3Admin [...] 0 Refills, Maintenance, 04/28/20 13:20:00 EDT, Gel, [facility]/pharmacy #[id number], 163, cm, 02/24/20 12:50:00 EDT, [...] 12/02/19 13:02:00 EDT, Route to Pharmacy Electronically, [facility]/pharmacy #[id number], 163, cm, 11/23/19 13:45:00 EDT, [...] 11/26/19 14:40:00 EDT, Route to Pharmacy Electronically, [facility]/pharmacy #[id number], Partial fill upon patient request, [...]
--- OUTSIDE RECORDS SUMMARY | 2024-05-21 14:40 | XMS_ITS | Continuity of Care Document ---
Author Organization [facility] Address [address] [place] [address]- Care Team Providers Care Pattern Hanger Name Role Phone Karen FELIZ, Efraín Smith Primary Care Physician Encounter [facility] Date(s): 08/01/21 - 08/31/21 [facility] [address] [place] [address]- Allergies, Adverse Reactions, Alerts Substance Reaction Severity Status niacin LFT abnormality Active oxybutynin Disorientated Dizzy Active tamsulosin Lethargy Active Pravachol myalgia Active Lopid fatigue, weakness Active articaine-EPINEPHrine local facial edema Active levoFLOXacin Paroxysmal atrial fibrillation Proposed Immunizations Given and Recorded Vaccine Date Status Refusal Reason SARS-CoV-2 (COVID-19) mRNA BNT-162b2 vac 06/14/21 Recorded [...] 04/13/13 Not Given Patient Refuses 1Result Comment: [facility]# [id number] 2Admin Note: VIM 05/26/06 GIVEN TODAY 3Admin [...]
--- OUTSIDE RECORDS SUMMARY | 2024-05-21 14:40 | XMS_ITS | Continuity of Care Document ---
Author Organization [facility] Address [address] [place] [address]- Care Team Providers Care Intercell Connector Placer Name Role Phone Karen FELIZ, Efraín Smith Primary Care Physician [place] [facility] Date[place]s): 01/07/22 - 02/06/22 [facility] [address] [place] [address]- Allergies, Adverse Reactions, Alerts Substance Reaction Severity Status niacin LFT abnormality Active oxybutynin Disorientated Dizzy Active articaine-EPINEPHrine local facial edema Active levoFLOXacin Paroxysmal atrial fibrillation Proposed tamsulosin Lethargy Active Pravachol myalgia Active Lopid fatigue, weakness Active Immunizations Given and Recorded Vaccine Date Status Refusal Reason SARS-CoV-2 mRNA (mbqzazo-dfgn-qrvxt) vax 01/24/22 Recorded tetanus/diphtheria/pertussis, acel(Tdap) 1 12/27/21 [...] Refuses 1Result Comment: [facility] [id number] 2Result Comment: [facility]# [id number] 3Admin Note: VIM 05/26/06 GIVEN TODAY 4Admin [...]
--- OUTSIDE RECORDS SUMMARY | 2024-05-21 14:40 | XMS_ITS | Continuity of Care Document ---
Author Organization [facility] Address [address] [place] [address]- Care Team Providers Care Rail Car Mechanic Name Role Phone Karen FELIZ, Efraín Smith Primary Care Physician En[place] [facility] [place] Date(s): 04/10/20 - 05/10/20 [facility] [address] [place] [address]- [facility] Allergies, Adverse Reactions, Alerts Substance Reaction [...] Patient Refuses 1Result Comment: [facility]# [id number] 2Admin Note: VIM 05/26/06 GIVEN TODAY 3Admin [...] 0 Refills, Maintenance, 04/28/20 13:20:00 EDT, Gel, [facility]/pharmacy #[id number], 163, cm, 02/24/20 12:50:00 EDT, Height, [...] 12/02/19 13:02:00 EDT, Route to Pharmacy Electronically, [facility]/pharmacy #[id number], 163, cm, 11/23/19 13:45:00 EDT, Height, [...] 11/26/19 14:40:00 EDT, Route to Pharmacy Electronically, [facility]/pharmacy #[id number], Partial fill upon patient request, 163, [...]
--- OUTSIDE RECORDS SUMMARY | 2024-05-21 14:40 | XMS_ITS | Continuity of Care Document ---
Author Organization [facility] Address [address] [place] [address]- Care Team Providers Care Customer Service Agent Name Role Phone Karen FELIZ, Efraín Smith Primary Care Physician [phone] Encounter [facility] Date(s): 05/26/20 - 06/25/20 [facility] [address] [place] [address]- [facility] Allergies, Adverse Reactions, Alerts Substance [...] 04/13/13 Not Given Patient Refuses 1Result Comment: [facility]# [id number] 2Admin Note: VIM 05/26/06 GIVEN TODAY 3Admin [...] 0 Refills, Maintenance, 04/28/20 13:20:00 EDT, Gel, [facility]/pharmacy #[id number], 163, cm, 02/24/20 12:50:00 EDT, [...] 11/26/19 14:40:00 EDT, Route to Pharmacy Electronically, [facility]/pharmacy #[id number], Partial fill upon patient request, [...] 08/16/20 15:14:00 EST, 06/21/20 15:14:00 EDT, Cream, [facility]/pharmacy #[id number], 1 applicatio... Start Date: 06/21/20 [...]
--- OUTSIDE RECORDS SUMMARY | 2024-05-21 14:40 | XMS_ITS | Continuity of Care Document ---
Author Organization [facility] Address [address] [place] [address]- Care Team Providers Care Flour Distributor Name Role Phone Karen FELIZ, Efraín Smith Primary Care Physician Encounter [facility] Date(s): 10/24/23 - 11/23/23 [facility] [address] [place] [address]- Allergies, Adverse Reactions, Alerts Substance Reaction Severity [...] influenza virus vaccine, inactivated 09/16/19 Gi chris [id number] 12y+ bivalent booster vax 06/13/22 Recorded SARS-CoV-2 mRNA (pqpsdst-yxmq-kqxof) vax 01/24/22 Recorded tetanus/diphtheria/pertussis, acel(Tdap) 2 12/27/21 Given SARS-CoV-2 (COVID-19) mRNA BNT-162b2 vac 06/14/21 Recorded SARS-CoV-2 (COVID-19) mRNA BNT-162b2 vac 11/08/20 Recorded SARS-CoV-2 (COVID-19) mRNA BNT-162b2 vac 10/18/20 Recorded Tetanus Toxoid Vaccine (oldterm) 02/12/18 Given pneumococcal 13-valent vaccine 09/22/15 Given Zoster Vaccine Live 3 12/23/09 Given tetanus-diphtheria toxoids (Td) 4 08/03/09 Given Pneumococcal Vaccine (oldterm) 05/30/05 Given 1Result Comment: [facility]# [id number] 2Result Comment: [facility] [id number] 3Admin Note: VIM 05/26/06 GIVEN TODAY 4Admin [...] capsule, 1 Refills, Maintenance, 10/28/23 15:45:00 EST, [facility]/pharmacy#[id number], Partial fill upon patient request if the... [...] FELIZ, Efraín Smith Position: [facility] Physician - Primary Care Member Role: PCP Address: Address: [address] [place] [address]- Care Team Related Persons Name: LEIGHTON ROBLES Address: home [address] [place] [address] Name: LEIGHTON RBOLES Address: home [address] [place] [address] Name: BAMBI LEONARDO Address: home [address] [place] [address] Name: BAMBI LEONARDO Address: [employer] Address: [address]
--- OUTSIDE RECORDS SUMMARY | 2024-05-21 14:40 | XMS_ITS | Continuity of Care Document ---
Author Organization [facility] Address [address] [place] [address]- Care Team Providers Care Pattern Mechanic Name Role Phone Karen FELIZ, Efraín Smith Primary Care Physician [phone] [place] [facility] [place] 04/07/23 - 05/07/23 [facility] [address] [place] [address]- Allergies, Adverse Reactions, Alerts Substance Reaction Severity [...] virus vaccine, inactivated 1 09/16/19 Gi chris [id number] 12y+ bivalent booster vax 06/13/22 Recorded SARS-CoV-2 mRNA (mvcgkng-todt-gcwno) vax 01/24/22 Recorded tetanus/diphtheria/pertussis, acel(Tdap) 2 12/27/21 Given SARS-CoV-2 (COVID-19) mRNA BNT-162b2 vac 06/14/21 Recorded SARS-CoV-2 (COVID-19) mRNA BNT-162b2 vac 11/08/20 Recorded SARS-CoV-2 (COVID-19) mRNA BNT-162b2 vac 10/18/20 Recorded Tetanus Toxoid Vaccine (oldterm) 02/12/18 Given pneumococcal 13-valent vaccine 09/22/15 Given Zoster Vaccine Live 3 09/06/09 Given tetanus-diphtheria toxoids (Td) 4 08/03/09 Given Pneumococcal Vaccine (oldterm) 05/30/05 Given 1Result Comment: [facility]# [id number] 2Result Comment: [facility] [id number] 3Admin Note: VIM 05/26/06 GIVEN TODAY 4Admin [...] Personnel Name: Karen FELIZ, Efraín Smith Position: [facility] Physician - Primary Care Member Role: PCP Address: Address: [address] [place] [address] Care Team Related Persons Name: LEIGHTON ROBLES Address: home [address] [place] [address] Name: LEIGHTON ROBLES Address: home [address] [place] [address] Name: BAMBI LEONARDO Address: home [address] [place] [address] Name: BAMBI LEONARDO Address: [facility] Address: home [address] [place], [place] [address]
--- OUTSIDE RECORDS SUMMARY | 2024-05-21 14:40 | XMS_ITS | Continuity of Care Document ---
Author Organization [facility] Address [address] [place] [address]- Care Team Providers Care Noise Tester Name Role Phone Karen FELIZ, Efraín Smith Primary Care Physician Encounter [facility] [place] [place] Date(s): 03/30/20 - 04/29/20 [facility] [address] [place] [address]- [facility] Allergies, Adverse Reactions, Alerts Substance Reaction [...] Refuses 1Result Comment: [facility]# [id number] 2Admin Note: VIM 05/26/06 GIVEN TODAY 3Admin [...] 0 Refills, Maintenance, 04/28/20 13:20:00 EDT, Gel, [facility]/pharmacy #[id number], 163, cm, 02/24/20 12:50:00 EDT, [...] 12/02/19 13:02:00 EDT, Route to Pharmacy Electronically, [facility]/pharmacy #[id number], 163, cm, 11/23/19 13:45:00 EDT, [...] 11/26/19 14:40:00 EDT, Route to Pharmacy Electronically, [facility]/pharmacy #[id number], Partial fill upon patient request, [...]
--- OUTSIDE RECORDS SUMMARY | 2024-05-21 14:40 | XMS_ITS | Continuity of Care Document ---
Author Organization [facility] Address [address] [place] [address]- Care Team Providers Care Manufacturing Software Engineer Name Role Phone Efraín Jones MD Primary Care Physician Encounter [facility] Date(s): 02/04/23 - 02/11/23 [facility] [address] [place] [address]- Encounter Diagnosis Chronic iliotibial band syndrome(Discharge Diagnosis) - 02/04/23 Autonomic dysfunction(Discharge Diagnosis) - 02/04/23 Parkinson's Disease(Discharge Diagnosis) - 02/04/23 Attending Physician: Efraín Jones MD Allergies, Adverse [...] virus vaccine, inactivated 1 09/16/19 Gi chris [id number]-VcM-8jASP 12y+ bivalent booster vax 06/13/22 Recorded SARS-CoV-2 mRNA (jxtbelh-yzhu-sdpqg) vax 01/24/22 Recorded tetanus/diphtheria/pertussis, acel(Tdap) 2 12/27/21 [...] 04/13/13 Not Given Patient Refuses 1Result Comment: [facility]# [id number] 2Result Comment: [facility] [id number] 3Admin Note: VIM 05/26/06 GIVEN TODAY 4Admin [...] 15:41:07 EST Start Date: 07/28/19 Status: Ordered [facility] Rx See Instructions, Refills 0, Maintenance, imbregia [...] allergic rhinitis Confirmed Active Tremor Confirmed Active Diagnosis Diagnosis Type Effective Dates Health Status Clinical Service Informant Chronic iliotibial band syndrome Discharge Diagnosis 02/04/23 Autonomic dysfunction Discharge Diagnosis 02/04/23 Parkinson's Disease Discharge Diagnosis 02/04/23 Vital Signs Most recent to oldest [Reference Range]: 1 Height 163 cm (02/04/23 3:07 PM) Weight 71.1 kg (02/04/23 3:07 PM) Oxygen Saturation [94-100 %] 97 % (02/04/23 3:07 PM) Pulse Rate [55-90 bpm] 91 bpm *H* (02/04/23 3:07 PM) Body Mass Index [18.5-24.99 kg/m2] 26.76 kg/m2 *H* (02/04/23 3:07 PM) Blood Pressure [90-138/55-84 mm Hg] 95/5 6mm Hg (02/04/23 3:07 PM) Blood pressure sites Arm, right (02/04/23 3:07 PM) Weight Obtained Via Standing scale (02/04/23 3:07 PM) Social History Social History Type Response Smoking Status Never smoker entered on: 04/18/14 Sex Note * Edelmira Wallace: PERFORM, SIGN, VERIFY Event Display: Patient Education/Instruction Authored Date: [id number] [facility] Clinical Summary Name ROSALIO ROBLES Age 87 Years 1935 PCP Karen FELIZ, Efraín Smith PCP Visit Date 02/04/2023 14:45:00 Additional Instructions: Scheduled Appointments?? Future Appointments ?No Future Appointments Scheduled Follow-Up Instructions ?? Diagnosis Disorder of the autonomic nervous system, unspecified; Parkinson's disease; Iliotibial band syndrome, unspecified leg Medications: Please continue your medications until treatment is completed or stopped by your provider. Discuss any questions related to medications with your provider. Medications to Continue with No Changes These medications were not printed or sent to your pharmacy Acetaminophen (Tylenol 325 mg oral tablet) 650 Milligram Oral 3 times a day. Next Dose: bifidobacterium-lactobacillus (Probiotic Formula) Oral Daily. Next Dose: Carbidopa-Levodopa (carbidopa-levodopa 25 mg-100 mg oral tablet) 2 tab(s) Oral every 4 hours. @ 0300, 0730, 1130, 1530,1930, 2230. Next Dose: Ibuprofen 200 Milligram Oral every 6 hours. Next Dose: Miscellaneous Rx (Misc Rx) imbregia inhaler. Next Dose: Ropinirole (rOPINIRole 0.25 mg oral tablet) 1 tab(s) Oral 4 times a day. Next Dose: Senna (Senna 8.6 mg oral tablet) 1 or 2 tablets Oral Daily at Bedtime as needed Constipation. Next Dose: Allergy Info:?? levoFLOXacin; articaine-EPINEPHrine; Levaquin; Lopid; Pravachol; tamsulosin; oxybutynin; niacin Medications Given This Visit Future Orders ?No future orders Vital Signs Height 163 cm Weight 71.1 kg BMI 26.76 kg/m2 Blood Pressure 95 mm Hg/56 mm Hg Temperature Pulse Rate 91 bpm Respiratory Rate 02 Sat Mode of Delivery 97 %/ You can now view a summary of your hospital visit from the comfort of your home through a free online portal called [employer]. [employer] is a website that allows you to securely view your medical information including discharge summary, medications and follow-up visits. ??You can alsosend a secure electronic message to your doctor???s office to request appointments, renew medications or just ask a question. You can enroll at [email or web address] or register during your next office visit. Disclaimer:?? The information provided is of a general nature and is intended to be used in conjunction with the recommendations and advice of your health care practitioner. ??Every effort has been made to ensure that the information provided is accurate and complete at the time it is provided to you however, as your needs change, or, as new ??information becomes available, different or additional instructions may be required. If you have questions, please consult with your primary care provider or pharmacist, as appropriate. ??This information is not intended to serve as substitution for assessment and evaluation by a qualified health care provider. If you do not have a primary care provider, you may find a [facility] provider by calling [facility] [employer] Link at [phone]. For information about the plan of care including goals and instructions for your diagnosis, please see the patient education orders section of this document. Patient Education Materials?? The content of this educational material or handout may have been modified, supplemented, or adapted from its original content and format to support your individualized medical care. Patient Care team information Care Team Personnel Name: Efraín Jones MD Position: S Physician - Primary Care Member Role: PCP Address: [facility] [address] Care Team Related Persons Name: LEIGHTON ROBLES Address: home [address] [place], [place] Name: LEIGHTON ROBLES Address: [address] [place], [place] Name: BAMBI LEONARDO Address: [employer] Address: [address] [place] [address] [place] Name: BAMBI LEONARDO Address: [address] [place] [address]
--- OUTSIDE RECORDS SUMMARY | 2024-05-21 14:40 | XMS_ITS | Continuity of Care Document ---
Author Organization [facility] Address [address] [place] [address]- Care Team Providers Care Extruder Operator Horizontal Name Role Phone Karen FELIZ, Efraín Smith Primary Care Physician Encounter [facility] Date(s): 05/15/20 - 06/14/20 [facility] [address] [place] [address]- [facility] Allergies, Adverse Reactions, Alerts Substance Reaction [...] 04/13/13 Not Given Patient Refuses 1Result Comment: [facility]# [id number] 2Admin Note: VIM 05/26/06 GIVEN TODAY 3Admin [...] 0 Refills, Maintenance, 04/28/20 13:20:00 EDT, Gel, [facility]/pharmacy #[id number], 163, cm, 02/24/20 12:50:00 EDT, [...] 11/26/19 14:40:00 EDT, Route to Pharmacy Electronically, [facility]/pharmacy #[id number], Partial fill upon patient request, [...]
--- OUTSIDE RECORDS SUMMARY | 2024-05-21 14:40 | XMS_ITS | Continuity of Care Document ---
Author Organization [facility] Address [address] [place] [address]- Care Team Providers Care Sterile Proc Tech Name Role Phone Karen FELIZ, Efraín Smith Primary Care Physician [place] [facility] [place] 03/22[place]24 - 04/21/24 [facility] [address] [place] [address]- Allergies, Adverse Reactions, Alerts Substance Reaction Severity [...] virus vaccine, inactivated 1 09/16/19 Gi chris [id number]-4aFMA 12y+ bivalent booster vax 06/13/22 Recorded SARS-CoV-2 mRNA (napsqiv-zxrl-lmovt) vax 01/24/22 Recorded tetanus/diphtheria/pertussis, acel(Tdap) 2 12/27/21 Given SARS-CoV-2 (COVID-19) mRNA BNT-162b2 vac 06/14/21 Recorded SARS-CoV-2 (COVID-19) mRNA BNT-162b2 vac 11/08/20 Recorded SARS-CoV-2 (COVID-19) mRNA BNT-162b2 vac 10/18/20 Recorded Tetanus Toxoid Vaccine (oldterm) 02/12/18 Given pneumococcal 13-valent vaccine 1/8/16 Given Zoster Vaccine Live 3 09/06/09 Given tetanus-diphtheria toxoids (Td) 4 08/03/09 Given Pneumococcal Vaccine (oldterm) 05/30/05 Given 1Result Comment: [facility]# [id number] 2Result Comment: [facility] [id number] 3Admin Note: VIM 05/26/06 GIVEN TODAY 4Admin [...] 1 Refills, Maintenance, 12/18/23 17:58:00 EDT, [facility]/pharmacy #[id number], Partial fill upon patient reques... Start [...] Personnel Name: Karen FELIZ, Efraín Smith Position: [facility] Physician - Primary Care Member Role: PCP Address: Address: [address] [place] [address] Care Team Related Persons Name: LEIGHTON ROBLES Address: home [address] [place], [place] Name: LEIGHTON ROBLES Address: home [address] [place], [place] Name: BAMBI LEONARDO Address: home [address] [place], [place] Name: BAMBI LEONARDO Address: [employer] Address: [address]
--- OUTSIDE RECORDS SUMMARY | 2024-05-21 14:40 | XMS_ITS | Continuity of Care Document ---
Author Organization [facility] Address [address] [place] [address]- Care Team Providers Care Cyanide Furnace Operator Name Role Phone Karen FELIZ, Efraín Smith Primary Care Physician [phone] Encounter [facility] Date(s): 06/01/20 - 07/01/20 [facility] [address] [place] [address]- [facility] Allergies, Adverse Reactions, Alerts Substance Reaction [...] 04/13/13 Not Given Patient Refuses 1Result Comment: [facility]# [id number] 2Admin Note: VIM 05/26/06 GIVEN TODAY 3Admin [...] Maintenance, 04/28/20 13:20:00 EDT, Gel, [facility]/pharmacy #[id number], 163, cm, 02/24/20 [...] EDT, Route to Pharmacy Electronically, [facility]/pharmacy #[id number], Partial fill upon [...] EST, 06/21/20 15:14:00 EDT, Cream, [facility]/pharmacy #[id number], 1 applicatio... Start [...]
--- OUTSIDE RECORDS SUMMARY | 2024-05-21 14:40 | XMS_ITS | Continuity of Care Document ---
Author Organization [facility] Address [address] [place] [address]- Care Team Providers Care Finance Controller Name Role Phone Karen FELIZ, Efraín Smith Primary Care Physician Encounter [facility] Date(s): 02/23/24 - 03/24/24 [facility] [address] [place], [place] [address] Attending Physician: Ollie Mijares Admitting Physician: AdmOllie trujillo Referring Physician: AdmtrOllie Allergies, Adverse Reactions, Alerts Substance Reaction Severity [...] influenza virus vaccine, inactivated 09/16/19 Gi chris [id number] 12y+ bivalent booster vax 06/13/22 Recorded SARS-CoV-2 mRNA (nfzdkww-rcxu-rtrnl) vax 01/24/22 Recorded tetanus/diphtheria/pertussis, acel(Tdap) 2 12/27/21 Given SARS-CoV-2 (COVID-19) mRNA BNT-162b2 vac 06/14/21 Recorded SARS-CoV-2 (COVID-19) mRNA BNT-162b2 vac 11/08/20 Recorded SARS-CoV-2 (COVID-19) mRNA BNT-162b2 vac 10/18/20 Recorded Tetanus Toxoid Vaccine (oldterm) 02/12/18 Given pneumococcal 13-valent vaccine 09/22/15 Given Zoster Vaccine Live 3 09/06/09 Given tetanus-diphtheria toxoids (Td) 4 08/03/09 Given Pneumococcal Vaccine (oldterm) 05/30/05 Given 1Result Comment: [facility]# [id number] 2Result Comment: [facility] [id number] 3Admin Note: VIM 05/26/06 GIVEN TODAY 4Admin [...] Refills, Maintenance, 12/18/23 17:58:00 EDT, [facility]/pharmacy #[id number], Partial fill upon patient [...] Personnel Name: Karen FELIZ, Efraín Smith Position: [facility] Physician - Primary Care Member Role: PCP Address: Address: [address] [place] [address]- Care Team Related Persons Name: LEIGHTON ROBLES Address: home [address] [place], [place] Name: LEIGHTON ROBLES Address: [address] [place], [place] Name: BAMBI LEONARDO Address: [employer] Address: home [address] [place], [place] Name: BAMBI LEONARDO Address: home [address] [place], [place]
--- OUTSIDE RECORDS SUMMARY | 2024-05-21 14:40 | XMS_ITS | Continuity of Care Document ---
Author Organization [facility] Address [address] [place] [address]- Care Team Providers Care Insulation Mechanic Name Role Phone Karen FELIZ, Efraín Smith Primary Care Physician Encounter [facility] Date(s): 06/21/20 - 07/21/20 [facility] [address] [place] [address]- Allergies, Adverse Reactions, Alerts Substance Reaction Severity Status niacin LFT abnormality Active Pravachol myalgia Active levoFLOXacin Paroxysmal atrial fibrillation Proposed oxybutynin Disorientated Dizzy Active tamsulosin Lethargy Active Lopid fatigue, weakness Active articaine-EPINEPHrine local [...] 04/13/13 Not Given Patient Refuses 1Result Comment: [facility]# [id number] 2Admin Note: VIM 05/26/06 GIVEN TODAY 3Admin [...] 0 Refills, Maintenance, 04/28/20 13:20:00 EDT, Gel, [facility]/pharmacy #[id number], 163, cm, 02/24/20 12:50:00 [...] 11/26/19 14:40:00 EDT, Route to Pharmacy Electronically, [facility]/pharmacy #[id number], Partial fill upon [...] 08/16/20 15:14:00 EST, 06/21/20 15:14:00 EDT, Cream, [facility]/pharmacy #[id number], 1 applicatio... Start Date: [...]
--- OUTSIDE RECORDS SUMMARY | 2024-05-21 14:40 | XMS_ITS | Continuity of Care Document ---
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) - 08/16/21 Heterotopic calcification, postoperative(Discharge Diagnosis) - 08/16/21 Parkinson's Disease(Discharge Diagnosis) - 08/16/21 Autonomic dysfunction(Discharge Diagnosis) - 08/16/21 Attending Physician: Efraín Jones MD Referring Physician: Efraín [...] Not Given Patient Refuses 1Result Comment: [facility]# [id number] 2Admin Note: VIM 05/26/06 GIVEN TODAY 3Admin [...] Dates Health Status Clinical Service Informant Chronic hip pain after total replacement of left hip joint Discharge Diagnosis 08/16/21 Heterotopic calcification, postoperative Discharge Diagnosis 08/16/21 Parkinson's Disease Discharge Diagnosis 08/16/21 Autonomic dysfunction Discharge Diagnosis 08/16/21 Vital Signs Most recent to oldest [Reference Range]: 1 Height 163 cm (08/16/21 11:26 AM) Weight 77.8 kg (08/16/21 11:26 AM) Oxygen Saturation [94-100 %] 97 % (08/16/21 11:26 AM) Pulse Rate [55-90 bpm] 68 bpm (08/16/21 11:26 AM) Body Mass Index [18.5-24.99] 29.28 *H* (08/16/21 11:26 AM) Blood Pressure [90-138/55-84 mm Hg] 108/ 62mm Hg (08/16/21 11:26 AM) Respiratory Rate [16-30 br/min] 18 br/mi n (08/16/21 11:26 AM) Blood pressure sites Arm, left (08/16/21 11:26 AM) Weight Obtained Via Standing scale (08/16/21 11:26 AM) Social History Social History Type Response Smoking Status Never smoker entered on: 04/18/14 Sex
--- OUTSIDE RECORDS SUMMARY | 2024-05-21 14:40 | XMS_ITS | Continuity of Care Document ---
Author Organization [facility] Address [address] [place] [address]- Care Team Providers Care Humidifier Maintenance Worker Name Role Phone Karen FELIZ, Efraín Smith Primary Care Physician [phone] Encounter [facility] [place] Date(s): 03/08/24 - 04/07/24 [facility] [address] [place] [address]- Allergies, Adverse Reactions, Alerts Substance Reaction Severity [...] influenza virus vaccine, inactivated 09/16/19 Gi chris [id number] 12y+ bivalent booster vax 06/13/22 Recorded SARS-CoV-2 mRNA (dacktqs-ljhc-qudue) vax 01/24/22 Recorded tetanus/diphtheria/pertussis, acel(Tdap) 2 12/27/21 Given SARS-CoV-2 (COVID-19) mRNA BNT-162b2 vac 06/14/21 Recorded SARS-CoV-2 (COVID-19) mRNA BNT-162b2 vac 11/08/20 Recorded SARS-CoV-2 (COVID-19) mRNA BNT-162b2 vac 10/18/20 Recorded Tetanus Toxoid Vaccine (oldterm) 02/12/18 Given pneumococcal 13-valent vaccine 09/22/15 Given Zoster Vaccine Live 3 12/23/09 Given tetanus-diphtheria toxoids (Td) 4 08/03/09 Given Pneumococcal Vaccine (oldterm) 05/30/05 Given 1Result Comment: [facility]# [id number] 2Result Comment: [facility] [id number] 3Admin Note: VIM 05/26/06 GIVEN TODAY 4Admin [...] capsule, 1 Refills, Maintenance, 12/18/23 17:58:00 EDT, [facility]/pharmacy #[id number], Partial fill upon patient [...] Personnel Name: Karen FELIZ, Efraín Smith Position: [facility] Physician - Primary Care Member Role: PCP Address: Address: [address] [place] [address]- Care Team Related Persons Name: LEIGHTON ROBLES Address: home [address] [place], [place] Name: LEIGHTON ROBLES Address: [address] [place], [place] Name: BAMBI LEONARDO Address: [employer] Address: home [address] [place], [place] Name: BAMBI LEONARDO Address: home [address] [place], [place]
--- OUTSIDE RECORDS SUMMARY | 2024-05-21 14:40 | XMS_ITS | Continuity of Care Document ---
Author Organization [facility] Address [address] [place] [address]- Care Team Providers Care Director Prospect Name Role Phone Karen FELIZ, Efraín Smith Primary Care Physician [phone] Encounter [facility] Date(s): 04/02/24 - 05/02/24 [facility] [address] [place] [address]- Allergies, Adverse Reactions, Alerts Substance Reaction Severity Status niacin LFT abnormality Active oxybutynin Disorientated Dizzy Active Levaquin Active levoFLOXacin Paroxysmal atrial fibrillation Proposed tamsulosin Lethargy Active Pravachol myalgia Active Lopid fatigue, weakness Active articaine-EPINEPHrine local facial edema Active Immunizations Given and Recorded Vaccine Date Status Refusal Reason influenza virus vaccine, inactivated 07/24/22 Give n influenza virus vaccine, inactivated 06/20/20 Give n influenza virus vaccine, inactivated 1 09/16/19 Gi chris [id number] 12y+ bivalent booster vax 06/13/22 Recorded SARS-CoV-2 mRNA (jojkmwo-txbw-kxoib) vax 01/24/22 Recorded tetanus/diphtheria/pertussis, acel(Tdap) 2 12/27/21 Given SARS-CoV-2 (COVID-19) mRNA BNT-162b2 vac 06/14/21 Recorded SARS-CoV-2 (COVID-19) mRNA BNT-162b2 vac 11/08/20 Recorded SARS-CoV-2 (COVID-19) mRNA BNT-162b2 vac 10/18/20 Recorded Tetanus Toxoid Vaccine (oldterm) 02/12/18 Given pneumococcal 13-valent vaccine 09/22/15 Given Zoster Vaccine Live 3 09/06/09 Given tetanus-diphtheria toxoids (Td) 4 08/03/09 Given Pneumococcal Vaccine (oldterm) 05/30/05 Given 1Result Comment: [facility]# [id number] 2Result Comment: [facility] [id number] 3Admin Note: VIM 05/26/06 GIVEN TODAY 4Admin [...] capsule, 1 Refills, Maintenance, 12/18/23 17:58:00 EDT, [facility]/pharmacy #[id number], Partial fill upon [...] Personnel Name: Karen FELIZ, Efraín Smith Position: [facility] Physician - Primary Care Member Role: PCP Address: Address: [address] [place] [address] Care Team Related Persons Name: LEIGHTON ROBLES Address: [address] [place], [place] Name: LEIGHTON ROBLES Address: [address] [place], [place] Name: BAMBI LEONARDO Address: [address] [place], [place] Name: BAMBI LEONARDO Address: [employer] Address: [address]
--- OUTSIDE RECORDS SUMMARY | 2024-05-21 14:40 | XMS_ITS | Continuity of Care Document ---
Author Organization [facility] Address [address] [place] [address]- Care Team Providers Care Director Skills Name Role Phone Karen FELIZ, Efraín Smith Primary Care Physician Encounter [facility] Date(s): 06/13/20 - 07/13/20 [facility] [address] [place] [address]- [facility] Allergies, Adverse Reactions, Alerts [...] 04/13/13 Not Given Patient Refuses 1Result Comment: [facility]# [id number] 2Admin Note: VIM 05/26/06 GIVEN TODAY 3Admin [...] 08/16/20 15:14:00 EST, 06/21/20 15:14:00 EDT, Cream, [facility]/pharmacy #[id number], 1 applicatio... Start Date: 06/21/20 Stop [...]
--- OUTSIDE RECORDS SUMMARY | 2024-05-21 14:40 | XMS_ITS | Continuity of Care Document ---
Author Organization [facility] Address [address] [place] [address]- Care Team Providers Care Level Designer Name Role Phone Karen FELIZ, Efraín Smith Primary Care Physician Encounter [place] Date(s): 05/15/20 - 06/14/20 [facility] [address] [place] [address]- [facility] Allergies, Adverse Reactions, Alerts Substance [...] 04/13/13 Not Given Patient Refuses 1Result Comment: [facility]# [id number] 2Admin Note: VIM 05/26/06 GIVEN TODAY 3Admin [...] 0 Refills, Maintenance, 04/28/20 13:20:00 EDT, Gel, [facility]/pharmacy #[id number], 163, cm, 02/24/20 12:50:00 EDT, [...] 11/26/19 14:40:00 EDT, Route to Pharmacy Electronically, [facility]/pharmacy #[id number], Partial fill upon patient request, [...]
--- OUTSIDE RECORDS SUMMARY | 2024-05-21 14:40 | XMS_ITS | Continuity of Care Document ---
Author Organization [facility] Address [address] [place] [address]- Care Team Providers Care Manager Electronic Name Role Phone Karen FELIZ, Efraín Smith Primary Care Physician [place] [facility] [place] 04/10/20 - 05/10/20 [facility] [address] [place] [address]- [facility] Allergies, Adverse Reactions, Alerts Substance Reaction [...] Refuses 1Result Comment: [facility]# [id number] 2Admin Note: VIM 05/26/06 GIVEN TODAY 3Admin [...] 0 Refills, Maintenance, 04/28/20 13:20:00 EDT, Gel, [facility]/pharmacy #[id number], 163, cm, 02/24/20 [...] 12/02/19 13:02:00 EDT, Route to Pharmacy Electronically, [facility]/pharmacy #[id number], 163, cm, 11/23/19 13:45:00 EDT, [...] 11/26/19 14:40:00 EDT, Route to Pharmacy Electronically, [facility]/pharmacy #[id number], Partial fill upon [...]
--- OUTSIDE RECORDS SUMMARY | 2024-05-21 14:40 | XMS_ITS | Continuity of Care Document ---
Author Organization [facility] Address [address] [place] [address]- Care Team Providers Care Psychological Stress Evaluator Name Role Phone Karen FELIZ, Efraín Smith Primary Care Physician [phone] Encounter [place] Date(s): 06/06/20 - 07/06/20 [facility] [address] [place] [address]- [facility] Allergies, Adverse Reactions, Alerts Substance Reaction Severity [...] Comment: [facility]# [id number] 2Admin Note: VIM 05/26/06 GIVEN TODAY 3Admin [...]
--- OUTSIDE RECORDS SUMMARY | 2024-05-21 14:40 | XMS_ITS | Continuity of Care Document ---
Author Organization [facility] Address [address] [place] [address]- Care Team Providers Care Rental Manager Name Role Phone Karen FELIZ, Efraín Smith Primary Care Physician [phone] Encounter [facility] Date(s): 08/20/23 - 09/19/23 [facility] [address] [place] [address]- Allergies, Adverse Reactions, Alerts Substance Reaction Severity [...] virus vaccine, inactivated 1 09/16/19 Gi chris WGHG-LeM-3xERE 12y+ bivalent booster vax 06/13/22 Recorded SARS-CoV-2 mRNA (fgipgiw-mvay-yzbnb) vax 01/24/22 Recorded tetanus/diphtheria/pertussis, acel(Tdap) 2 12/27/21 Given SARS-CoV-2 (COVID-19) mRNA BNT-162b2 vac 06/14/21 Recorded SARS-CoV-2 (COVID-19) mRNA BNT-162b2 vac 11/08/20 Recorded SARS-CoV-2 (COVID-19) mRNA BNT-162b2 vac 10/18/20 Recorded Tetanus Toxoid Vaccine (oldterm) 02/12/18 Given pneumococcal 13-valent vaccine 1/8/16 Given Zoster Vaccine Live 3 09/06/09 Given tetanus-diphtheria toxoids (Td) 4 08/03/09 Given Pneumococcal Vaccine (oldterm) 05/30/05 Given 1Result Comment: [facility]# [id number] 2Result Comment: [facility] [id number] 3Admin Note: VIM 05/26/06 GIVEN TODAY 4Admin [...] Name: Karen FELIZ, Efraín Smith Position: [facility] Physician - Primary Care Member Role: PCP Address: Address: [address] [place] [address] Care Team Related Persons Name: LEIGHTON ROBLES Address: home [address] [place] [id number] Name: LEIGHTON ROBLES Address: [address] [place], [place] Name: BAMBI LEONARDO Address: [address] [place], [place] Name: BAMBI LEONARDO Address: [employer] Address: home [address] [place] [address]
--- OUTSIDE RECORDS SUMMARY | 2024-05-21 14:40 | XMS_ITS | Continuity of Care Document ---
Author Organization [facility] Address [address] [place] [address]- Care Team Providers Care Welding Technician Name Role Phone Karen FELIZ, Efraín Smith Primary Care Physician En[place] [facility] Date(s): 03/08/24 - 04/07/24 [facility] [address] [place] [address]- Allergies, Adverse Reactions, Alerts Substance Reaction Severity [...] influenza virus vaccine, inactivated 09/16/19 Gi chris SDSE-NfM-2zPXW 12y+ bivalent booster vax 06/13/22 Recorded SARS-CoV-2 mRNA (wimaiue-bwja-qlkxh) vax 01/24/22 Recorded tetanus/diphtheria/pertussis, acel(Tdap) 2 12/27/21 [...] [facility]# [id number] 2Result Comment: [facility] [id number] 3Admin Note: VIM 05/26/06 GIVEN TODAY 4Admin [...] capsule, 1 Refills, Maintenance, 12/18/23 17:58:00 EDT, [facility]/pharmacy #[id number], Partial fill upon patient reques... [...] Personnel Name: Karen FELIZ, Efraín Smith Position: [facility] Physician - Primary Care Member Role: PCP Address: Address: [address] [place] [address]- Care Team Related Persons Name: LEIGHTON ROBLES Address: [address] [place], [place] Name: LEIGHTON ROBLES Address: [address] [place], [place] Name: BAMBI LEONARDO Address: [employer] Address: [address] [place], [place] Name: BAMBI LEONARDO Address: [address] [place], [place]
--- OUTSIDE RECORDS SUMMARY | 2024-05-21 14:40 | XMS_ITS | Continuity of Care Document ---
Author Organization [facility] Address [address] [place] [address]- Care Team Providers Care Tearer Name Role Phone Karen FELIZ, Efraín Smith Primary Care Physician En[place] [facility] Date(s): 05/05/20 - 06/04/20 [facility] [address] [place] [address]- [facility] Allergies, Adverse Reactions, Alerts Substance Reaction Severity [...] 04/13/13 Not Given Patient Refuses 1Result Comment: [facility]# [id number] 2Admin Note: VIM 05/26/06 GIVEN TODAY 3Admin [...] Refills, Maintenance, 04/28/20 13:20:00 EDT, Gel, [facility]/pharmacy #[id number], 163, cm, 02/24/20 12:50:00 EDT, [...] 13:02:00 EDT, Route to Pharmacy Electronically, [facility]/pharmacy #[id number], 163, cm, 11/23/19 13:45:00 EDT, [...] 14:40:00 EDT, Route to Pharmacy Electronically, [facility]/pharmacy #[id number], Partial fill upon patient request, [...]
--- OUTSIDE RECORDS SUMMARY | 2024-05-21 14:40 | XMS_ITS | Continuity of Care Document ---
Author Organization [facility] Address [address] [place] [address]- Care Team Providers Care Test Center Administrator Name Role Phone Karen FELIZ, Efraín Smith Primary Care Physician Encounter [facility] Date(s): 12/13/21 - 01/12/22 [facility] [address] [place] [address]- Allergies, Adverse Reactions, Alerts Substance Reaction Severity Status niacin LFT abnormality Active tamsulosin Lethargy Active Pravachol myalgia Active Lopid fatigue, weakness Active articaine-EPINEPHrine local facial edema Active levoFLOXacin Paroxysmal atrial fibrillation Proposed oxybutynin Disorientated Dizzy Active Immunizations Given and Recorded Vaccine Date [...] 04/13/13 Not Given Patient Refuses 1Result Comment: [facility] [id number] 2Result Comment: [facility]# [id number] 3Admin Note: VIM 05/26/06 GIVEN TODAY 4Admin [...]
--- OUTSIDE RECORDS SUMMARY | 2024-05-21 14:40 | XMS_ITS | Continuity of Care Document ---
Author Organization [facility] Address [address] [place] [address]- Care Team Providers Care Employer Relations Representative Name Role Phone Karen FELIZ, Efraín Smith Primary Care Physician En[place] [facility] [place] Date(s): 02/26/24 - 03/27/24 [facility] [address] [place] [address]- Allergies, Adverse Reactions, Alerts Substance Reaction Severity [...] virus vaccine, inactivated 1 09/16/19 Gi chris MQKA-ZhP-3mDXX 12y+ bivalent booster vax 06/13/22 Recorded SARS-CoV-2 mRNA (sastvgz-mjbw-fydcs) vax 01/24/22 Recorded tetanus/diphtheria/pertussis, acel(Tdap) 2 12/27/21 Given SARS-CoV-2 (COVID-19) mRNA BNT-162b2 vac 06/14/21 Recorded SARS-CoV-2 (COVID-19) mRNA BNT-162b2 vac 11/08/20 Recorded SARS-CoV-2 (COVID-19) mRNA BNT-162b2 vac 10/18/20 Recorded Tetanus Toxoid Vaccine (oldterm) 02/12/18 Given pneumococcal 13-valent vaccine 1/8/16 Given Zoster Vaccine Live 3 09/06/09 Given tetanus-diphtheria toxoids (Td) 4 08/03/09 Given Pneumococcal Vaccine (oldterm) 05/30/05 Given 1Result Comment: [facility]# [id number] 2Result Comment: [facility] [id number] 3Admin Note: VIM 05/26/06 GIVEN TODAY 4Admin [...] Care Member Role: PCP Address: Address: [address] [place] [address] Care Team Related Persons Name: LEIGHTON ROBLES Address: [address] [place], [place] Name: LEIGHTON ROBLES Address: [address] [place], [place] Name: BAMBI LEONARDO Address: [employer] Address: [address] [place], [place] Name: BAMBI LEONARDO Address: [address] [place], [place]
--- OUTSIDE RECORDS SUMMARY | 2024-05-21 14:41 | XMS_ITS | Continuity of Care Document ---
Author Organization [facility] Address [address] [place] [address]- Care Team Providers Care Splitter Head Name Role Phone Karen FELIZ, Efraín Smith Primary Care Physician [phone] [place] [facility] Date(s): 12/12/23 - 01/11/24 [facility] [address] [place] [address]- Allergies, Adverse Reactions, Alerts Substance Reaction Severity [...] virus vaccine, inactivated 1 09/16/19 Gi chris [id number]-UnL-9fHGT 12y+ bivalent booster vax 06/13/22 Recorded SARS-CoV-2 mRNA (engzgqi-aljf-piada) vax 01/24/22 Recorded tetanus/diphtheria/pertussis, acel(Tdap) 2 12/27/21 Given SARS-CoV-2 (COVID-19) mRNA BNT-162b2 vac 06/14/21 Recorded SARS-CoV-2 (COVID-19) mRNA BNT-162b2 vac 11/08/20 Recorded SARS-CoV-2 (COVID-19) mRNA BNT-162b2 vac 10/18/20 Recorded Tetanus Toxoid Vaccine (oldterm) 02/12/18 Given pneumococcal 13-valent vaccine 09/22/15 Given Zoster Vaccine Live 3 09/06/09 Given tetanus-diphtheria toxoids (Td) 4 08/03/09 Given Pneumococcal Vaccine (oldterm) 05/30/05 Given 1Result Comment: [facility]# [id number] 2Result Comment: [facility] [id number] 3Admin Note: VIM 05/26/06 GIVEN TODAY 4Admin [...] capsule, 1 Refills, Maintenance, 12/18/23 17:58:00 EDT, [facility]/pharmacy #[id number], Partial fill upon patient reques... [...] Karen FELIZ, Efraín Smith Position: [facility] Physician - Primary Care Member Role: PCP Address: Address: [address] [place] [address] Care Team Related Persons Name: LEIGHTON ROBLES Address: [address] [place], [place] Name: LEIGHTON ROBLES Address: [address] [place], [place] Name: BAMBI LEONARDO Address: [address] [place], [place] Name: BAMBI LEONARDO Address: [facility] Address: [address] [place] [id number]
--- OUTSIDE RECORDS SUMMARY | 2024-05-21 14:41 | XMS_ITS | Continuity of Care Document ---
Author Organization [facility] Address [address] [place] [address]- Care Team Providers Care Covered Button Maker Name Role Phone Karen FELIZ, Efraín Smith Primary Care Physician [phone] [place] [facility]12[place]23 - 01/11/24 [facility] [address] [place] [address]- Allergies, Adverse Reactions, Alerts Substance Reaction Severity [...] influenza virus vaccine, inactivated 09/16/19 Gi chris [id number]-MfP-1rXHS 12y+ bivalent booster vax 06/13/22 Recorded SARS-CoV-2 mRNA (yvgmzev-ckgk-akner) vax 01/24/22 Recorded tetanus/diphtheria/pertussis, acel(Tdap) 2 12/27/21 Given SARS-CoV-2 (COVID-19) mRNA BNT-162b2 vac 06/14/21 Recorded SARS-CoV-2 (COVID-19) mRNA BNT-162b2 vac 11/08/20 Recorded SARS-CoV-2 (COVID-19) mRNA BNT-162b2 vac 10/18/20 Recorded Tetanus Toxoid Vaccine (oldterm) 02/12/18 Given pneumococcal 13-valent vaccine 09/22/15 Given Zoster Vaccine Live 3 12/23/09 Given tetanus-diphtheria toxoids (Td) 4 08/03/09 Given Pneumococcal Vaccine (oldterm) 05/30/05 Given 1Result Comment: [facility]# [id number] 2Result Comment: [facility] [id number] 3Admin Note: VIM 05/26/06 GIVEN TODAY 4Admin [...] capsule, 1 Refills, Maintenance, 12/18/23 17:58:00 EDT, [facility]/pharmacy #[id number], Partial fill upon patient reques... [...] Name: Karen FELIZ, Efraín Smith Position: [facility] Physician - Primary Care Member Role: PCP Address: Address: [address] [place] [address] Care Team Related Persons Name: LEIGHTON ROBLES Address: home [address] [place], [place] Name: LEIGHTON ROBLES Address: [address] [place], [place] Name: BAMBI LEONARDO Address: [address] [place], [place] Name: BAMBI LEONARDO Address: [facility] Address: [place] [id number]
--- OUTSIDE RECORDS SUMMARY | 2024-05-21 14:41 | XMS_ITS | Continuity of Care Document ---
Author Organization [facility] Address [address] [place] [address]- Care Team Providers Care Software Security Consultant Name Role Phone Karen FELIZ, Efraín Smith Primary Care Physician Encounter [facility] [place] Date(s): 09/13/22 - 10/13/22 [facility] [address] [place] [address]- Allergies, Adverse Reactions, Alerts Substance [...] virus vaccine, inactivated 1 09/16/19 Gi chris [id number]-RmR-3vXXX 12y+ bivalent booster vax 06/13/22 Recorded SARS-CoV-2 mRNA (gwggfzx-ukbp-yfwdu) vax 01/24/22 Recorded tetanus/diphtheria/pertussis, acel(Tdap) 2 12/27/21 [...] 04/13/13 Not Given Patient Refuses 1Result Comment: [facility]# [id number] 2Result Comment: [facility] [id number] 3Admin Note: VIM 05/26/06 GIVEN TODAY 4Admin [...] Personnel Name: Karen FELIZ, Efraín Smith Position: [facility] Primary Care Physician Member Role: PCP Address: Address: [address] [place] [address]- Care Team Related Persons Name: LEIGHTON ROBLES Address: home [address] [place], [place] Name: LEIGHTON ROBLES Address: [address] [place], [place] Name: BAMBI LEONARDO Address: [employer] Address: home [address] [place], [place] Name: BAMBI LEONARDO Address: home [address] [place], [place]
--- OUTSIDE RECORDS SUMMARY | 2024-05-21 14:41 | XMS_ITS | Continuity of Care Document ---
Author Organization [facility] Address [address] [place] [address]- Care Team Providers Care Wire Tester Name Role Phone Karen FELIZ, Efraín Smith Primary Care Physician [place] [facility] [place] 10/07/23 - 11/06/23 [facility] [address] [place] [address]- Allergies, Adverse Reactions, Alerts Substance Reaction Severity [...] virus vaccine, inactivated 1 09/16/19 Gi chris [id number]-7vECJ 12y+ bivalent booster vax 06/13/22 Recorded SARS-CoV-2 mRNA (utawpxm-clct-ffdmh) vax 01/24/22 Recorded tetanus/diphtheria/pertussis, acel(Tdap) 2 12/27/21 Given SARS-CoV-2 (COVID-19) mRNA BNT-162b2 vac 06/14/21 Recorded SARS-CoV-2 (COVID-19) mRNA BNT-162b2 vac 11/08/20 Recorded SARS-CoV-2 (COVID-19) mRNA BNT-162b2 vac 10/18/20 Recorded Tetanus Toxoid Vaccine (oldterm) 02/12/18 Given pneumococcal 13-valent vaccine 09/22/15 Given Zoster Vaccine Live 3 09/06/09 Given tetanus-diphtheria toxoids (Td) 4 08/03/09 Given Pneumococcal Vaccine (oldterm) 05/30/05 Given 1Result Comment: [facility]# [id number] 2Result Comment: [facility] [id number] 3Admin Note: VIM 05/26/06 GIVEN TODAY 4Admin [...] capsule, 1 Refills, Maintenance, 10/28/23 15:45:00 EST, [facility]/pharmacy#[id number], Partial fill upon patient request if the... [...] Team Personnel Name: Efraín Jones MD Position: [facility] Physician - Primary Care Member Role: PCP Address: Address: [address] [place] [address] Care Team Related Persons Name: LEIGHTON ROBLES Address: home [address] [place] [address] Name: LEIGHTON ROBLES Address: home [address] [place] [address] Name: BAMBI LEONARDO Address: [address] Name: BAMBI LEONARDO Address: [employer] Address: [place] [id number]
--- OUTSIDE RECORDS SUMMARY | 2024-05-21 14:41 | XMS_ITS | Continuity of Care Document ---
Author Organization [facility] Address [address] [place] [address]- Care Team Providers Care Tractor Drill Operator Name Role Phone Karen FELIZ, Efraín Smith Primary Care Physician [place] [facility]23 [place] 12/21/23 [facility] [address] [place] [address]- Allergies, Adverse Reactions, Alerts Substance Reaction Severity Status niacin LFT abnormality Active Levaquin Active levoFLOXacin Paroxysmal atrial fibrillation Proposed oxybutynin Disorientated Dizzy Active tamsulosin Lethargy Active Pravachol myalgia Active Lopid fatigue, weakness Active articaine-EPINEPHrine local facial edema Active Immunizations Given and Recorded Vaccine Date Status Refusal Reason influenza virus vaccine, inactivated 07/24/22 Give n influenza virus vaccine, inactivated 06/20/20 Give n influenza virus vaccine, inactivated 1 09/16/19 Gi chris [id number]-CuD-1fPEN 12y+ bivalent booster vax 06/13/22 Recorded SARS-CoV-2 mRNA (phubvjt-pscd-zwlvl) vax 01/24/22 Recorded tetanus/diphtheria/pertussis, acel(Tdap) 2 12/27/21 Given SARS-CoV-2 (COVID-19) mRNA BNT-162b2 vac 06/14/21 Recorded SARS-CoV-2 (COVID-19) mRNA BNT-162b2 vac 11/08/20 Recorded SARS-CoV-2 (COVID-19) mRNA BNT-162b2 vac 10/18/20 Recorded Tetanus Toxoid Vaccine (oldterm) 02/12/18 Given pneumococcal 13-valent vaccine 1/8/16 Given Zoster Vaccine Live 3 09/06/09 Given tetanus-diphtheria toxoids (Td) 4 08/03/09 Given Pneumococcal Vaccine (oldterm) 05/30/05 Given 1Result Comment: [facility]# [id number] 2Result Comment: [facility] [id number] 3Admin Note: VIM 05/26/06 GIVEN TODAY 4Admin [...] 08/19/23 Status: Ordered Misc Rx See Instructions, Refills [...] Personnel Name: Karen FELIZ, Efraín Smith Position: [facility] Physician - Primary Care Member Role: PCP Address: Address: [address] [place] [address]- Care Team Related Persons Name: LEIGHTON ROBLES Address: [address] [place], [place] Name: LEIGHTON ROBLES Address: [address] [place], [place] Name: BAMBI LEONARDO Address: [employer] Address: [address] [place], [place] Name: BAMBI LEONARDO Address: [address] [place], [place]
--- OUTSIDE RECORDS SUMMARY | 2024-05-21 14:41 | XMS_ITS | Continuity of Care Document ---
Author Organization [facility] Address [address] [place] [address]- Care Team Providers Care Roll Winder Name Role Phone Karen FELIZ, Efraín Smith Primary Care Physician [phone] [place] [facility] 07/08/20 [facility] [address] [place] [address]- [facility] Allergies, Adverse Reactions, Alerts [...] Given Patient Refuses 1Result Comment: [facility] [place] 2[facility]# [id number] 2Admin Note: VIM 05/26/06 GIVEN TODAY 3Admin [...] 0 Refills, Maintenance, 04/28/20 13:20:00 EDT, Gel, [facility]/pharmacy #[id number], 163, cm, 02/24/20 12:50:00 EDT, [...] 11/26/19 14:40:00 EDT, Route to Pharmacy Electronically, [facility]/pharmacy #[id number], Partial fill upon patient request, [...] 08/16/20 15:14:00 EST, 06/21/20 15:14:00 EDT, Cream, [facility]/pharmacy #[id number], 1 applicatio... Start Date: 06/21/20 [...]
--- OUTSIDE RECORDS SUMMARY | 2024-05-21 14:41 | XMS_ITS | Continuity of Care Document ---
Author Organization [facility] Address [address] [place] [address]- Care Team Providers Care Forestry Consultant Name Role Phone Karen FELIZ, Efraín Smith Primary Care Physician [place] [facility] [place](s[place] 03/20/20 - 04/19/20 [facility] [address] [place] [address]- [facility] Allergies, Adverse Reactions, Alerts Substance Reaction Severity [...] Not Given Patient Refuses 1Result Comment: [facility]# [id number] 2Admin Note: VIM 05/26/06 GIVEN TODAY 3Admin [...] 13:02:00 EDT, Route to Pharmacy Electronically, [facility]/pharmacy #[id number], 163, cm, 11/23/19 13:45:00 [...] 14:40:00 EDT, Route to Pharmacy Electronically, [facility]/pharmacy #[id number], Partial fill upon patient [...]
--- OUTSIDE RECORDS SUMMARY | 2024-05-21 14:41 | XMS_ITS | Continuity of Care Document ---
Author Organization [facility] Address [address] [place] [address]- Care Team Providers Care Mixing Machine Tender Name Role Phone Efraín Jones MD Primary Care Physician Encounter [facility] [id number] Date(s): 03/30/24 - 04/06/24 [facility] [address] [place] [address]- Attending Physician: Efraín Jones MD Allergies, Adverse Reactions, Alerts Substance Reaction Severity Status niacin LFT abnormality Active oxybutynin Disorientated Dizzy Active tamsulosin Lethargy Active Pravachol myalgia Active Levaquin Active articaine-EPINEPHrine local facial edema Active levoFLOXacin Paroxysmal atrial fibrillation Proposed Lopid fatigue, weakness Active Immunizations Given and Recorded Vaccine Date Status Refusal Reason influenza virus vaccine, inactivated 07/24/22 Give n influenza virus vaccine, inactivated 06/20/20 Give n influenza virus vaccine, inactivated 1 09/16/19 Gi chris [id number]-XkC-1aCFB 12y+ bivalent booster vax 06/13/22 Recorded SARS-CoV-2 mRNA (wijlhym-pybf-kxlyc) vax 01/24/22 Recorded tetanus/diphtheria/pertussis, acel(Tdap) 2 12/27/21 Given SARS-CoV-2 (COVID-19) mRNA BNT-162b2 vac 06/14/21 Recorded SARS-CoV-2 (COVID-19) mRNA BNT-162b2 vac 11/08/20 Recorded SARS-CoV-2 (COVID-19) mRNA BNT-162b2 vac 10/18/20 Recorded Tetanus Toxoid Vaccine (oldterm) 02/12/18 Given pneumococcal 13-valent vaccine 09/22/15 Given Zoster Vaccine Live 3 09/06/09 Given tetanus-diphtheria toxoids (Td) 4 08/03/09 Given Pneumococcal Vaccine (oldterm) 05/30/05 Given 1Result Comment: [facility]# [id number] 2Result Comment: [facility] [id number] 3Admin Note: VIM 05/26/06 GIVEN TODAY 4Admin [...] 1 Refills, Maintenance, 12/18/23 17:58:00 EDT, [facility]/pharmacy #[id number], Partial fill upon patient reques... [...] allergic rhinitis Confirmed Active Tremor Confirmed Active Vital Signs Most recent to oldest [Reference Range]: 1 Height 163 cm (03/30/24 3:08 PM) Social History Social History Type Response Smoking Status Never smoker entered on: 04/18/14 Sex Note * Marline Bellamy: PERFORM Event Display: Patient Education/Instruction Authored Date: [id number] Ambulatory Adult Visit Summary [address] [address] Name: ROSALIO ROBLES : 1935?? Visit: 03/30/2024 15:08?? Ambulatory Visit Instructions ?? Your Care Team Primary Care Provider Efraín Jones MD? 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 With: Efraín Jones MD Where: [address] [address]- Status: Pending Future Orders CBC w/ Differential - Once, *Est. 11/18/23, Order for Today?? Basic Metabolic Panel - Once, *Est. 11/18/23, Order for Today?? Complete Urinalysis/Reflex Culture - Urine Clean Catch, Once, *Est. 11/18/23, Order for Today?? Comprehensive Metabolic Panel - Routine, Once, 02/10/24 15:31:00 EDT, Order for Today, [facility], Blood?? Medications The list below reflects the information in our records and provided by you today along with any changes made during this visit. Please continue your medications until treatment is completed or stopped by your provider. If this is different from the information you have or there are other questions,please contact the prescribing provider. What How Much When Why Instructions Unchanged Acetaminophen (Tylenol 325 mg oral tablet) 650 Milligram Oral 3 times a day Unchanged Carbidopa-Levodopa (carbidopa-levodopa 25 mg-100 mg oral tablet) 2 tab(s) Oral Every 4 hours @ 0300, 0730, 1130, 1530,1930, 2230 ?? Unchanged Celecoxib (celecoxib 100 mg oral capsule) 1 capsule Oral Twice a day as needed for as needed for pain Spondylosis of lumbar spine Duration: 30 Days contents of capsule may be mixed with soft foods such as applesauce ?? Unchanged Docusate-Senna (Colace 2-in-1) 1 tab(s) Oral Daily as needed ?? Unchanged Miscellaneous Rx (Misc Rx) See instructions Curamin - homeopathic supplement containing curcumin & turmeric - takes 1 tablets 2 times daily?? Unchanged Miscellaneous Rx (Misc Rx) See instructions inbrija inhaler ?? Unchanged Multivitamin With Minerals (Icaps AREDS) See instructions By Mouth Daily ?? Unchanged Ropinirole (rOPINIRole 0.25 mg oral tablet) 1 tab(s) Oral 4 times a day Unchanged Ubiquinone (CoQ10) Oral Daily Medications and Immunizations Administered Medications Given During Visit No medications given during this visit.?? Allergies (NKA means No Known Allergies) Levaquin Lopid??(fatigue, weakness) Pravachol??(myalgia) articaine-EPINEPHrine??(local facial edema) niacin??(LFT abnormality) oxybutynin??(Disorientated, Dizzy) tamsulosin??(Lethargy) Common Emergency Awareness Tips IS IT A STROKE? Act FAST and Check for these signs: FACE Does the face look uneven? ARM Does one arm drift down? SPEECH Does their speech sound strange? TIME Call at any sign of stroke ?? Heart Attack Signs Chest discomfort: Most heart attacks involve discomfort in the center of the chest and lasts more than a few minutes, or goes away and comes back. It can feel like uncomfortable pressure, squeezing, fullness or pain. Discomfort in upper body: Symptoms can include pain or discomfort in one or both arms, back, neck, jaw or stomach. Shortness of breath: With or without discomfort. Other signs: Breaking out in a cold sweat, nausea, or lightheaded. Remember, MINUTES DO MATTER. If you experience any of these heart attack warning signs, call to get immediate medical attention! ?? Smoking can increase your chances of developing chronic health problems and can cause harmful effects to other family members in your house. If you smoke, you are strongly encouraged to quit. Please call [facility] Link at [phone] or [phone] ([phone]) or log in to [email or web address] for referrals to smoking cessation programs. ?? The National Suicide Prevention Hotline is available 07/04 if you or someone you know needs to find a reason to keep living. By calling 1-713-595-Gennius (8451) you'll be connected to a skilled, trained counselor at a crisis center in your area. [facility] Portal You can view and manage your care through the patient portal or by using a health care anurag of your choosing. [employer] is a website that allows you to securely view your medical information including your hospital discharge summary, office visit summaries, medications and follow-up visits. You can also request appointments, renew medications, and request access to your medical information using a health care anurag of your choosing, or just ask a question. You can enroll at [email or web address] or register during your next office visit. [facility], in keeping with [facility] guidance, no longer requires face masks for staff, patientsor visitors in most situations. Similiar to time spent indoors at other locations, there is the chance that you were exposed to repiratory viruses during your time with us (such as flu or COVID-19). If you develop symptoms concerning for a viral respiratory infection, please seek testing (and treatment if indicated) from your medical provider or home test kit. ?? Disclaimer: The information provided is of a general nature and is intended to be used in conjunction with the recommendations and advice of your health care practitioner. Every effort has been made to ensure that the information provided is accurate and complete at the time it is provided to you however, as your needs change, or, as new information becomes available, different or additional instructions may be required. ?? If you have questions, please consult with your primary care provider or pharmacist, as appropriate. This information is not intended to serve as substitution for assessment and evaluation by a qualified health care provider. If you do not have a primary care provider, you may find a [facility] provider by calling [facility] at [phone]. Patient Care team information Care Team Personnel Name: Efraín Jones MD Position: [facility] Physician - Primary Care Member Role: PCP Address: Address: [address] [place] [address]- Care Team Related Persons Name: LEIGHTON ROBLES Address: [address] Name: LEIGHTON ROBLES Address: [address] Name: BAMBI LEONARDO Address: [facility] Address: [address] Name: BAMBI LEONARDO Address: [address] [address]
--- OUTSIDE RECORDS SUMMARY | 2024-05-21 14:41 | XMS_ITS | Continuity of Care Document ---
Author Organization [facility] Address [address] [place] [address]- Care Team Providers Care Analog Ic Design Engineer Name Role Phone Karen FELIZ, Efraín Smith Primary Care Physician En[place] [facility] [place] Date(s): 03/11/23 - 04/10/23 [facility] [address] [place] [address]- Allergies, Adverse Reactions, Alerts Substance Reaction Severity [...] virus vaccine, inactivated 1 09/16/19 Gi chris OPUE-PbL-2lYWV 12y+ bivalent booster vax 06/13/22 Recorded SARS-CoV-2 mRNA (livnqca-word-ukory) vax 01/24/22 Recorded tetanus/diphtheria/pertussis, acel(Tdap) 2 12/27/21 [...] Not Given Patient Refuses 1Result Comment: [facility]# [id number] 2Result Comment: [facility] [id number] 3Admin Note: VIM 05/26/06 GIVEN TODAY 4Admin [...] 15:41:07 EST Start Date: 07/28/19 Status: Ordered [facility] Rx See Instructions, Refills 0, Maintenance, inbrija inhaler, 01/23/21 14:58:00 EDT, Supply Start Date: 01/23/21 Status: Ordered mupirocin 2% topical ointment 1 application, Topically, 2 times a day, for 14 days, apply to affected skin, # 30 Gm, 1 Refills, Acute 04/11/23 15:54:00 EDT, 03/14/23 15:54:00 EDT, Ointment, [facility]/pharmacy #[id number], Partial fill upon patient request if the prescription is for a schedule... Start Date: 03/14/23 Stop Date: 04/11/23 Status: Ordered Probiotic Formula By Mouth, Daily, [...] Personnel Name: Karen FELIZ, Efraín Smith Position: [facility] Physician - Primary Care Member Role: PCP Address: Address: [address] [place] [address]- Care Team Related Persons Name: LEIGHTON ROBLES Address: home [address] [place], [place] Name: LEIGHTON ROBLES Address: [address] [place], [place] Name: BAMBI LEONARDO Address: [employer] Address: [address] [place], [place] Name: BAMBI LEONARDO Address: [address] [place], [place]
--- OUTSIDE RECORDS SUMMARY | 2024-05-21 14:41 | XMS_ITS | Continuity of Care Document ---
Author Organization [facility] Address [address] [place] [address]- Care Team Providers Care Sheet Mill Supervisor Name Role Phone Karen FELIZ, Efraín Smith Primary Care Physician [phone] Encounter [facility] [place] Date(s): 08/09/22 - 09/08/22 [facility] [address] [place] [address]- Allergies, Adverse Reactions, Alerts Substance Reaction Severity [...] virus vaccine, inactivated 1 09/16/19 Gi chris [id number]-QdB-1bNRN 12y+ bivalent booster vax 06/13/22 Recorded SARS-CoV-2 mRNA (rsonnss-jsah-ahpko) vax 01/24/22 Recorded tetanus/diphtheria/pertussis, acel(Tdap) 2 12/27/21 [...] 04/13/13 Not Given Patient Refuses 1Result Comment: [facility]# [id number] 2Result Comment: [facility] [id number] 3Admin Note: VIM 05/26/06 GIVEN TODAY 4Admin [...] FELIZ, Efraín Smith Position: [facility] Primary Care Physician Member Role: PCP Address: Address: [address] [place] [address]- Care Team Related Persons Name: LEIGHTON ROBLES Address: [address] [place], [place] Name: LEIGHTON ROBLES Address: [address] [place], [place] Name: BAMBI LEONARDO Address: [address] [place], [place] Name: BAMBI LEONARDO Address: AMMARY JANE Address: [address]
--- OUTSIDE RECORDS SUMMARY | 2024-05-21 14:41 | XMS_ITS | Continuity of Care Document ---
Author Organization [facility] Address [address] [place] [address]- Care Team Providers Care Shark Biologist Name Role Phone Karen FELIZ, Efraín Smith Primary Care Physician Encounter [facility] [place] Date(s): 07/22/22 - 08/21/22 [facility] [address] [place] [address]- Allergies, Adverse Reactions, Alerts Substance Reaction Severity Status niacin LFT abnormality Active oxybutynin Disorientated Dizzy Active tamsulosin Lethargy Active Pravachol myalgia Active levoFLOXacin Paroxysmal atrial fibrillation Proposed articaine-EPINEPHrine local facial edema Active Lopid fatigue, weakness Active Immunizations Given and Recorded Vaccine Date Status Refusal Reason influenza virus vaccine, inactivated 07/24/22 Give n influenza virus vaccine, inactivated 06/20/20 Give n influenza virus vaccine, inactivated 1 09/16/19 Gi chris IIYK-DfP-4sBGO 12y+ bivalent booster vax 06/13/22 Recorded SARS-CoV-2 mRNA (xlqbzua-wthk-cepek) vax 01/24/22 Recorded tetanus/diphtheria/pertussis, acel(Tdap) 2 12/27/21 [...] Patient Refuses 1Result Comment: [facility]# [id number] 2Result Comment: [facility] [id number] 3Admin Note: VIM 05/26/06 GIVEN TODAY 4Admin [...] Personnel Name: Karen FELIZ, Efraín Smith Position: [facility] Primary Care Physician Member Role: PCP Address: Address: [address] [place] [address]- Care Team Related Persons Name: LEIGHTON ROBLES Address: home [address] [place], [place] Name: LEIGHTON ROBLES Address: [address] [place], [place] Name: BAMBI LEONARDO Address: [employer] Address: home [address] [place] [address] Name: BAMBI LEONARDO Address: home [address] [place] [address]
--- OUTSIDE RECORDS SUMMARY | 2024-05-21 14:41 | XMS_ITS | Continuity of Care Document ---
Author Organization [facility] Address [address] [place] [address]- Care Team Providers Care Tool Dispatcher Name Role Phone Karen FELIZ, Efraín Smith Primary Care Physician [phone] [place] [facility] Date(s): 12/01/23 - 12/31/23 [facility] [address] [place] [address]- Allergies, Adverse Reactions, Alerts Substance Reaction Severity [...] virus vaccine, inactivated 1 09/16/19 Gi chris [id number]-AvE-5mZLC 12y+ bivalent booster vax 06/13/22 Recorded SARS-CoV-2 mRNA (pqnjunj-vaju-wqzdu) vax 01/24/22 Recorded tetanus/diphtheria/pertussis, acel(Tdap) 2 12/27/21 Given SARS-CoV-2 (COVID-19) mRNA BNT-162b2 vac 06/14/21 Recorded SARS-CoV-2 (COVID-19) mRNA BNT-162b2 vac 11/08/20 Recorded SARS-CoV-2 (COVID-19) mRNA BNT-162b2 vac 10/18/20 Recorded Tetanus Toxoid Vaccine (oldterm) 02/12/18 Given pneumococcal 13-valent vaccine 09/22/15 Given Zoster Vaccine Live 3 09/06/09 Given tetanus-diphtheria toxoids (Td) 4 08/03/09 Given Pneumococcal Vaccine (oldterm) 05/30/05 Given 1Result Comment: [facility]# [id number] 2Result Comment: [facility] [id number] 3Admin Note: VIM 05/26/06 GIVEN TODAY 4Admin [...] capsule, 1 Refills, Maintenance, 12/18/23 17:58:00 EDT, [facility]/pharmacy #[id number], Partial fill [...] Personnel Name: Karen FELIZ, Efraín Smith Position: [facility] Physician - Primary Care Member Role: PCP Address: Address: [address] [place] [address] Care Team Related Persons Name: LEIGHTON ROBLES Address: home [address] [place], [place] Name: LEIGHTON ROBLES Address: home [address] [place], [place] Name: BAMBI LEONARDO Address: home [address] [place], [place] Name: BAMBI LEONARDO Address: [facility] Address: [address] [address] [place] [id number]
--- OUTSIDE RECORDS SUMMARY | 2024-05-21 14:41 | XMS_ITS | Continuity of Care Document ---
Author Organization [facility] Address [address] [place] [address]- Care Team Providers Care Cured Meat Packing Supervisor Name Role Phone Efraín Jones MD Primary Care Physician Encounter [facility] Date(s): 05/27/23 - 08/21/23 [facility] [address] [place] [address]- Attending Physician: Efraín Jones MD Allergies, Adverse [...] virus vaccine, inactivated 1 09/16/19 Gi chris MMSS-WqL-4xJRG 12y+ bivalent booster vax 06/13/22 Recorded SARS-CoV-2 mRNA (qfjudbk-zphi-ahdcm) vax 01/24/22 Recorded tetanus/diphtheria/pertussis, acel(Tdap) 2 12/27/21 Given SARS-CoV-2 (COVID-19) mRNA BNT-162b2 vac 06/14/21 Recorded SARS-CoV-2 (COVID-19) mRNA BNT-162b2 vac 11/08/20 Recorded SARS-CoV-2 (COVID-19) mRNA BNT-162b2 vac 10/18/20 Recorded Tetanus Toxoid Vaccine (oldterm) 02/12/18 Given pneumococcal 13-valent vaccine 09/22/15 Given Zoster Vaccine Live 3 09/06/09 Given tetanus-diphtheria toxoids (Td) 4 08/03/09 Given Pneumococcal Vaccine (oldterm) 05/30/05 Given 1Result Comment: [facility]# [id number] 2Result Comment: [facility] [id number] 3Admin Note: VIM 05/26/06 GIVEN TODAY 4Admin [...] Personnel Name: Karen FELIZ, Efraín Smith Position: [facility] Physician - Primary Care Member Role: PCP Address: Address: [address] [place] [address] Care Team Related Persons Name: LEIGHTON ROBLES Address: [address] [place] [address] Name: LEIGHTON ROBLES Address: [address] [place] [address] Name: BAMBI LEONARDO Address: home [address] [place], [place] Name: BAMBI LEONARDO Address: [employer] Address: [address]
--- OUTSIDE RECORDS SUMMARY | 2024-05-21 14:41 | XMS_ITS | Continuity of Care Document ---
Author Organization [facility] Address [address] [place] [address]- Care Team Providers Care Flight Physician Name Role Phone Karen FELIZ, Efraín Smith Primary Care Physician Encounter [facility] Date(s): 11/20/23 - 12/20/23 [facility] [address] [place] [address]- Allergies, Adverse Reactions, Alerts Substance Reaction Severity [...] virus vaccine, inactivated 1 09/16/19 Gi chris [id number]-LrT-6oYZG 12y+ bivalent booster vax 06/13/22 Recorded SARS-CoV-2 mRNA (ylvsscc-zgwc-vjwmz) vax 01/24/22 Recorded tetanus/diphtheria/pertussis, acel(Tdap) 2 12/27/21 [...] [facility]# [id number] 2Result Comment: [facility] [id number] 3Admin Note: VIM 05/26/06 GIVEN TODAY 4Admin [...] capsule, 1 Refills, Maintenance, 12/18/23 17:58:00 EDT, [facility]/pharmacy #[id number], Partial fill upon patient reques... Start [...] Personnel Name: Karen FELIZ, Efraín Smith Position: [facility] Physician - Primary Care Member Role: PCP Address: Address: [address] [place] [address]- Care Team Related Persons Name: LEIGHTON ROBLES Address: [address] [place], [place] Name: LEIGHTON ROBLES Address: [address] [place], [place] Name: BAMBI LEONARDO Address: [address] [place], [place] Name: BAMBI LEONADRO Address[facility] Address: home [address] [place] [id number]
--- OUTSIDE RECORDS SUMMARY | 2024-05-21 14:41 | XMS_ITS | Continuity of Care Document ---
Author Organization [facility] Address [address] [place] [address]- Care Team Providers Care Coffee Host Name Role Phone Karen FELIZ, Efraín Smith Primary Care Physician En[place] [facility] Date(s): 10/04/22 - 11/03/22 [facility] [address] [place] [address]- Allergies, Adverse Reactions, Alerts Substance Reaction Severity [...] virus vaccine, inactivated 1 09/16/19 Gi chris TZAY-EtV-6zHJV 12y+ bivalent booster vax 06/13/22 Recorded SARS-CoV-2 mRNA (xupdgfd-qzjo-ctbqs) vax 01/24/22 Recorded tetanus/diphtheria/pertussis, acel(Tdap) 2 12/27/21 [...] Given Patient Refuses 1Result Comment: [facility]# [id number] 2Result Comment: [facility] [id number] 3Admin Note: VIM 05/26/06 GIVEN TODAY 4Admin [...] FELIZ, Efraín Smith Position: [facility] Primary Care Physician Member Role: PCP Address: Address: [address] [place] [address]- Care Team Related Persons Name: LEIGHTON ROBLES Address: [address] [place], [place] Name: LEIGHTON ROBLES Address: [address] [place], [place] Name: BAMBI LEONARDO Address: [employer] Address: [address] [place], [place] Name: BAMBI LEONARDO Address: [address]
--- OUTSIDE RECORDS SUMMARY | 2024-05-21 14:41 | XMS_ITS | Continuity of Care Document ---
Author Organization [facility] Address [address] [place] [address]- Care Team Providers Care Bean Snapper Name Role Phone Karen FELIZ, Efraín Smith Primary Care Physician [phone] Encounter [facility] Date(s): 01/02/21 - 02/01/21 [facility] [address] [place] [address]- Allergies, Adverse Reactions, Alerts Substance Reaction Severity [...] 04/13/13 Not Given Patient Refuses 1Result Comment: [facility]# [id number] 2Admin Note: VIM 05/26/06 GIVEN TODAY 3Admin [...] 0 Refills, Maintenance, 04/28/20 13:20:00 EDT, Gel, [facility]/pharmacy #[id number], 163, cm, 02/24/20 12:50:00 [...] 11/26/19 14:40:00 EDT, Route to Pharmacy Electronically, [facility]/pharmacy #[id number], Partial fill upon patient request, 163, cm, [...]
--- OUTSIDE RECORDS SUMMARY | 2024-05-21 14:41 | XMS_ITS | Continuity of Care Document ---
Author Organization [facility] Address [address] [place] [address]- Care Team Providers Care Padder Name Role Phone Karen FELIZ, Efraín Smith Primary Care Physician [phone] [place] [facility] Date(s): 01/22/23 - 02/21/23 [facility] [address] [place] [address]- Allergies, Adverse Reactions, Alerts Substance Reaction Severity Status niacin LFT abnormality Active Lopid fatigue, weakness Active levoFLOXacin Paroxysmal atrial fibrillation Proposed oxybutynin Disorientated Dizzy Active tamsulosin Lethargy Active Pravachol myalgia Active Levaquin Active articaine-EPINEPHrine local facial edema Active Immunizations Given and Recorded Vaccine Date Status Refusal Reason influenza virus vaccine, inactivated 07/24/22 Give n influenza virus vaccine, inactivated 06/20/20 Give n influenza virus vaccine, inactivated 1 09/16/19 Gi chris BJLN-NoJ-6eBDG 12y+ bivalent booster vax 06/13/22 Recorded SARS-CoV-2 mRNA (rpgfrdv-uwgq-liwcs) vax 01/24/22 Recorded tetanus/diphtheria/pertussis, acel(Tdap) 2 12/27/21 [...] 04/13/13 Not Given Patient Refuses 1Result Comment: [facility]# [id number] 2Result Comment: [facility] [id number] 3Admin Note: VIM 05/26/06 GIVEN TODAY 4Admin [...] 15:41:07 EST Start Date: 07/28/19 Status: Ordered [facility] Rx See Instructions, Refills [...] Personnel Name: Karen FELIZ, Efraín Smith Position: [facility] Physician - Primary Care Member Role: PCP Address: Address: [address] [place] [address]- Care Team Related Persons Name: LEIGHTON ROBLES Address: [address] [place], [place] Name: LEIGHTON ROBLES Address: [address] [place], [place] Name: BAMBI LEONARDO [facility] Address: [address] [place], [place] Name: BAMBI LEONARDO Address: [address] [place], [place]
--- OUTSIDE RECORDS SUMMARY | 2024-05-21 14:41 | XMS_ITS | Continuity of Care Document ---
Author Organization [facility] Address [address] [place] [address]- Care Team Providers Care Installation & Maintenance Executive Name Role Phone Karen FELIZ, Efraín Smith Primary Care Physician En[facility] Date(s): 06/12/20 - 07/12/20 [facility] [address] [place] [address]- [facility] Allergies, Adverse Reactions, Alerts Substance Reaction [...] Comment: [facility]# [id number] 2Admin Note: VIM 05/26/06 GIVEN TODAY 3Admin [...] Refills, Maintenance, 04/28/20 13:20:00 EDT, Gel, [facility]/pharmacy #[id number], 163, cm, 02/24/20 12:50:00 [...] 08/16/20 15:14:00 EST, 06/21/20 15:14:00 EDT, Cream, [facility]/pharmacy #[id number], 1 applicatio... Start Date: 06/21/20 [...]
--- OUTSIDE RECORDS SUMMARY | 2024-05-21 14:41 | XMS_ITS | Continuity of Care Document ---
Author Organization [facility] Address [address] [place] [address]- Care Team Providers Care Banking Representative Name Role Phone Karen FELIZ, Efraín Smith Primary Care Physician Encounter [facility] Date(s): 03/22/24 - 04/21/24 [facility] [address] [place] [address]- Allergies, Adverse Reactions, Alerts Substance Reaction Severity [...] virus vaccine, inactivated 1 09/16/19 Gi chris UPFB-JmA-5jQNW 12y+ bivalent booster vax 06/13/22 Recorded SARS-CoV-2 mRNA (sadivif-mebl-ivqtt) vax 01/24/22 Recorded tetanus/diphtheria/pertussis, acel(Tdap) 2 12/27/21 Given SARS-CoV-2 (COVID-19) mRNA BNT-162b2 vac 06/14/21 Recorded SARS-CoV-2 (COVID-19) mRNA BNT-162b2 vac 11/08/20 Recorded SARS-CoV-2 (COVID-19) mRNA BNT-162b2 vac 10/18/20 Recorded Tetanus Toxoid Vaccine (oldterm) 02/12/18 Given pneumococcal 13-valent vaccine 09/22/15 Given Zoster Vaccine Live 3 09/06/09 Given tetanus-diphtheria toxoids (Td) 4 08/03/09 Given Pneumococcal Vaccine (oldterm) 05/30/05 Given 1Result Comment: [facility]# [id number] 2Result Comment: [facility] [id number] 3Admin Note: VIM 05/26/06 GIVEN TODAY 4Admin [...] capsule, 1 Refills, Maintenance, 12/18/23 17:58:00 EDT, [facility]/pharmacy #[id number], Partial fill upon patient reques... [...] Personnel Name: Karen FELIZ, Efraín Smith Position: [facility] Physician - Primary Care Member Role: PCP Address: Address: [address] [place] [address]- Care Team Related Persons Name: LEIGHTON ROBLES Address: [address] [place], [place] Name: LEIGHTON ROBLES Address: [address] [place], [place] Name: BAMBI LEONARDO Address: [employer] Address: [address] [place], [place] Name: BAMBI LEONARDO Address: [address] [place], [place]
--- OUTSIDE RECORDS SUMMARY | 2024-05-21 14:41 | XMS_ITS | Continuity of Care Document ---
Author Organization [facility] Address [address] [place] [address]- Care Team Providers Care Compensation/Benefits Specialist Name Role Phone Karen FELIZ, Efraín Smtih Primary Care Physician [phone] Encounter [facility] Date(s): 02/26/24 - 03/27/24 [facility] [address] [place] [address]- Allergies, Adverse Reactions, Alerts Substance Reaction Severity [...] virus vaccine, inactivated 1 09/16/19 Gi chris ASTP-ZuE-7qXYC 12y+ bivalent booster vax 06/13/22 Recorded SARS-CoV-2 mRNA (ixeoxzx-txvf-vmcud) vax 01/24/22 Recorded tetanus/diphtheria/pertussis, acel(Tdap) 2 12/27/21 Given SARS-CoV-2 (COVID-19) mRNA BNT-162b2 vac 06/14/21 Recorded SARS-CoV-2 (COVID-19) mRNA BNT-162b2 vac 11/08/20 Recorded SARS-CoV-2 (COVID-19) mRNA BNT-162b2 vac 10/18/20 Recorded Tetanus Toxoid Vaccine (oldterm) 02/12/18 Given pneumococcal 13-valent vaccine 1/8/16 Given Zoster Vaccine Live 3 09/06/09 Given tetanus-diphtheria toxoids (Td) 4 08/03/09 Given Pneumococcal Vaccine (oldterm) 05/30/05 Given 1Result Comment: [facility]# [id number] 2Result Comment: [facility] [id number] 3Admin Note: VIM 05/26/06 GIVEN TODAY 4Admin [...] 1 Refills, Maintenance, 12/18/23 17:58:00 EDT, [facility]/pharmacy #[id number], Partial fill upon patient reques... [...] Primary Care Member Role: PCP Address: Address: [address] [place] [address] Care Team Related Persons Name: LEIGHTON ROBLES Address: [address] [place], [place] Name: LEIGHTON ROBLES Address: [address] [place], [place] Name: BAMBI LEONARDO Address: [employer] Address: [address] [place], [place] Name: BAMBI LEONARDO Address: [address] [place], [place]
--- OUTSIDE RECORDS SUMMARY | 2024-05-21 14:41 | XMS_ITS | Continuity of Care Document ---
Author Organization [facility] Address [address] [place] [address]- Care Team Providers Care Director Of Grants Name Role Phone Karen FELIZ, Efraín Smith Primary Care Physician Encounter [facility] Date(s): 02/15/22 - 03/17/22 [facility] [address] [place] [address]- Allergies, Adverse Reactions, Alerts Substance Reaction Severity Status niacin LFT abnormality Active oxybutynin Disorientated Dizzy Active tamsulosin Lethargy Active Pravachol myalgia Active levoFLOXacin Paroxysmal atrial fibrillation Proposed Lopid fatigue, weakness Active articaine-EPINEPHrine local facial edema Active Immunizations Given and Recorded Vaccine Date Status Refusal Reason SARS-CoV-2 mRNA (ewqzyhd-swfh-gnezq) vax 01/24/22 Recorded tetanus/diphtheria/pertussis, acel(Tdap) 1 12/27/21 [...] Not Given Patient Refuses 1Result Comment: [facility] [id number] 2Result Comment: [facility]# [id number] 3Admin Note: VIM 05/26/06 GIVEN TODAY 4Admin [...]
--- OUTSIDE RECORDS SUMMARY | 2024-05-21 14:41 | XMS_ITS | Continuity of Care Document ---
Author Organization [facility] Address [address] [place] [address]- Care Team Providers Care Inflated Pad Buffer Name Role Phone Karen FELIZ, Efraín Smith Primary Care Physician [place] [facility] [place] 03/18/23 - 04/17/23 [facility] [address] [place] [address]- Allergies, Adverse Reactions, Alerts Substance Reaction Severity [...] virus vaccine, inactivated 1 09/16/19 Gi chris VZYR-GnV-1gIES 12y+ bivalent booster vax 06/13/22 Recorded SARS-CoV-2 mRNA (sswuajc-wfst-ifsdr) vax 01/24/22 Recorded tetanus/diphtheria/pertussis, acel(Tdap) 2 12/27/21 [...] Refuses 1Result Comment: [facility]# [id number] 2Result Comment: [facility] [id number] 3Admin Note: VIM 05/26/06 GIVEN TODAY 4Admin [...] 15:41:07 EST Start Date: 07/28/19 Status: [facility] See Instructions, Refills 0, Maintenance, inbrija [...] Personnel Name: Karen FELIZ, Efraín Smith Position: [facility] Physician - Primary Care Member Role: PCP Address: Address: [address] [place] [address] Care Team Related Persons Name: LEIGHTON ROBLES Address: [address] [place], [place] Name: LEIGHTON ROBLES Address: [address] [place], [place] Name: BAMBI LEONARDO Address: [address] [place], [place] Name: BAMBI LEONARDO Address: [facility] Address: [address] [place] [address]
--- OUTSIDE RECORDS SUMMARY | 2024-05-21 14:41 | XMS_ITS | Continuity of Care Document ---
Author Organization [facility] Address [address] [place] [address]- Care Team Providers Care Meat Specialist Name Role Phone Efraín Jones MD Primary Care Physician Encounter [facility] Date(s): 07/31/21 - 08/07/21 [facility] [address] [place] [address]- Encounter Diagnosis Autonomic dysfunction(Discharge Diagnosis) - 07/31/21 Syncope(Discharge Diagnosis) - 07/31/21 Constipation(Discharge Diagnosis) - 07/31/21 Left hip pain(Discharge Diagnosis) - 07/31/21 Parkinson's Disease(Discharge Diagnosis) - 07/31/21 Attending Physician: Jailene Barrera NP Referring Physician: Efraín Jones MD Allergies, Adverse [...] 04/13/13 Not Given Patient Refuses 1Result Comment: [facility]# [id number] 2Admin Note: VIM 05/26/06 GIVEN TODAY 3Admin [...] Effective Dates Health Status Clinical Service Informant Autonomic dysfunction Discharge Diagnosis 07/31/21 Syncope Discharge Diagnosis 07/31/21 Constipation Discharge Diagnosis 07/31/21 Left hip pain Discharge Diagnosis 07/31/21 Parkinson's Disease Discharge Diagnosis 07/31/21 Vital Signs Most recent to oldest [Reference Range]: 1 Height 163 cm (07/31/21 2:18 PM) Weight 76 kg (07/31/21 2:18 PM) Oxygen Saturation [94-100 %] 99 % (07/31/21 2:18 PM) Pulse Rate [55-90 bpm] 71 bpm (07/31/21 2:18 PM) Body Mass Index [18.5-24.99] 28.6 *H* (07/31/21 2:18 PM) Blood Pressure [90-138/55-84 mm Hg] 104/ 59mm Hg (07/31/21 2:18 PM) Blood pressure sites Arm, left (07/31/21 2:18 PM) Weight Obtained Via Standing scale (07/31/21 2:18 PM) Social History Social History Type Response Smoking Status Never smoker entered on: 04/18/14 Sex
--- OUTSIDE RECORDS SUMMARY | 2024-05-21 14:41 | XMS_ITS | Continuity of Care Document ---
Author Organization [facility] Address [address] [place] [address]- Care Team Providers Care Loan Reviewer Name Role Phone Karen FELIZ, Efraín Smith Primary Care Physician Encounter [facility] Date(s): 03/08/20 - 04/07/20 [facility] [address] [place] [address]- [facility] Attending Physician: Admtr, Ar8 Allergies, Adverse Reactions, [...] 04/13/13 Not Given Patient Refuses 1Result Comment: [facility]# [id number] 2Admin Note: VIM 05/26/06 GIVEN TODAY 3Admin [...]
--- OUTSIDE RECORDS SUMMARY | 2024-05-21 14:41 | XMS_ITS | Continuity of Care Document ---
Author Organization [facility] Address [address] [place] [address]- Care Team Providers Care Electronic Controls Repairer Supervisor Name Role Phone Karen FELIZ, Efraín Smith Primary Care Physician Encounter [facility] Date(s): 08/21/23 - 09/20/23 [facility] [address] [place] [address]- Allergies, Adverse Reactions, Alerts Substance Reaction Severity [...] virus vaccine, inactivated 1 09/16/19 Gi chris WHEL-RnP-0lAAS 12y+ bivalent booster vax 06/13/22 Recorded SARS-CoV-2 mRNA (ayzeqcp-iqrp-enlbc) vax 01/24/22 Recorded tetanus/diphtheria/pertussis, acel(Tdap) 2 12/27/21 Given SARS-CoV-2 (COVID-19) mRNA BNT-162b2 vac 06/14/21 Recorded SARS-CoV-2 (COVID-19) mRNA BNT-162b2 vac 11/08/20 Recorded SARS-CoV-2 (COVID-19) mRNA BNT-162b2 vac 10/18/20 Recorded Tetanus Toxoid Vaccine (oldterm) 02/12/18 Given pneumococcal 13-valent vaccine 09/22/15 Given Zoster Vaccine Live 3 09/06/09 Given tetanus-diphtheria toxoids (Td) 4 08/03/09 Given Pneumococcal Vaccine (oldterm) 05/30/05 Given 1Result Comment: [facility]# [id number] 2Result Comment: [facility] [id number] 3Admin Note: VIM 05/26/06 GIVEN TODAY 4Admin [...] Personnel Name: Karen FELIZ, Efraín Smith Position: [facility] Physician - Primary Care Member Role: PCP Address: Address: [address] [place] [address] Care Team Related Persons Name: LEIGHTON ROBLES Address: home [address] [place] [address] Name: LEIGHTON ROBLES Address: [address] [place], [place] Name: BAMBI LEONARDO Address: [employer] Address: [address] [place] [address] Name: BAMBI LEONARDO Address: [address] [place], [place]
--- OUTSIDE RECORDS SUMMARY | 2024-05-21 14:41 | XMS_ITS | Continuity of Care Document ---
Author Organization [facility] Address [address] [place] [address]- Care Team Providers Care Forging Die Sinker Name Role Phone Karen FELIZ, Efraín Smith Primary Care Physician [phone] [place] [facility] [place] 10/07/23 - 11/06/23 [facility] [address] [place] [address]- Allergies, Adverse Reactions, Alerts Substance Reaction Severity [...] virus vaccine, inactivated 1 09/16/19 Gi chris KXIR-UoC-9zVPK 12y+ bivalent booster vax 06/13/22 Recorded SARS-CoV-2 mRNA (vowoqan-qgxm-uxjon) vax 01/24/22 Recorded tetanus/diphtheria/pertussis, acel(Tdap) 2 12/27/21 Given SARS-CoV-2 (COVID-19) mRNA BNT-162b2 vac 06/14/21 Recorded SARS-CoV-2 (COVID-19) mRNA BNT-162b2 vac 11/08/20 Recorded SARS-CoV-2 (COVID-19) mRNA BNT-162b2 vac 10/18/20 Recorded Tetanus Toxoid Vaccine (oldterm) 02/12/18 Given pneumococcal 13-valent vaccine 09/22/15 Given Zoster Vaccine Live 3 09/06/09 Given tetanus-diphtheria toxoids (Td) 4 08/03/09 Given Pneumococcal Vaccine (oldterm) 05/30/05 Given 1Result Comment: [facility]# [id number] 2Result Comment: [facility] [id number] 3Admin Note: VIM 05/26/06 GIVEN TODAY 4Admin [...] capsule, 1 Refills, Maintenance, 10/28/23 15:45:00 EST, [facility]/pharmacy#[id number], Partial fill upon patient request if [...] Name: Efraín Jones MD Position: [facility] Physician - Primary Care Member Role: PCP Address: Address: [address] [place] [address] Care Team Related Persons Name: LEIGHTON ROBLES Address: home [address] [place] [address] Name: LEIGHTON ROBLES Address: home [address] [place] [address] Name: BAMBI LEONARDO Address: [address] Name: BAMBI LEONARDO Address: [employer] Address: [place] [id number]
--- OUTSIDE RECORDS SUMMARY | 2024-05-21 14:41 | XMS_ITS | Continuity of Care Document ---
Author Organization [facility] Address [address] [place] [address]- Care Team Providers Care Window Glazier Helper Name Role Phone Karen FELIZ, Efraín Smith Primary Care Physician [phone] En[place] [facility] Date(s): 01/23/21 - 01/30/21 [facility] [address] [place] [address]- Encounter Diagnosis Right hip pain(Discharge Diagnosis) - 01/23/21 Right lumbar radiculopathy(Discharge Diagnosis) - 01/23/21 Parkinson's Disease(Discharge Diagnosis) - 01/23/21 Attending Physician: Efraín Jones MD Allergies, Adverse [...] Refuses 1Result Comment: [facility]# [id number] 2Admin Note: VIM 05/26/06 GIVEN TODAY 3Admin [...] 0 Refills, Maintenance, 04/28/20 13:20:00 EDT, Gel, [facility]/pharmacy #[id number], 163, cm, 02/24/20 [...] 11/26/19 14:40:00 EDT, Route to Pharmacy Electronically, [facility]/pharmacy #[id number], Partial fill [...] Effective Dates Health Status Clinical Service Informant Right hip pain Discharge Diagnosis 01/23/21 Right lumbar radiculopathy Discharge Diagnosis 01/23/21 Parkinson's Disease Discharge Diagnosis 01/23/21 Vital Signs Most recent to oldest [Reference Range]: 1 Height 163 cm (01/23/21 2:46 PM) Weight 75.6 kg (01/23/21 2:46 PM) Oxygen Saturation [94-100 %] 97 % (01/23/21 2:46 PM) Pulse Rate [55-90 bpm] 79 bpm (01/23/21 2:46 PM) Body Mass Index [18.5-24.99] 28.45 *H* (01/23/21 2:46 PM) Blood Pressure [90-138/55-84 mm Hg] 110/ 70mm Hg (01/23/21 2:46 PM) Blood pressure sites Arm, left (01/23/21 2:46 PM) Weight Obtained Via Patient/family state d (01/23/21 2:46 PM) Social History Social History Type Response Smoking Status Never smoker entered on: 04/18/14 Sex
--- OUTSIDE RECORDS SUMMARY | 2024-05-21 14:41 | XMS_ITS | Continuity of Care Document ---
Author Organization [facility] Address [address] [place] [address]- Care Team Providers Care Library Circulation Clerk Name Role Phone Karen FELIZ, Efraín Smith Primary Care Physician Encounter [facility] Date(s): 03/14/20 - 04/13/20 [facility] [address] [place] [address]- [facility] Allergies, Adverse Reactions, Alerts [...] Not Given Patient Refuses 1Result Comment: [facility]# [id number] 2Admin Note: VIM 05/26/06 GIVEN TODAY 3Admin [...] 12/02/19 13:02:00 EDT, Route to Pharmacy Electronically, [facility]/pharmacy #[id number], 163, cm, 11/23/19 [...] 11/26/19 14:40:00 EDT, Route to Pharmacy Electronically, [facility]/pharmacy #[id number], Partial fill upon [...]
--- OUTSIDE RECORDS SUMMARY | 2024-05-21 14:42 | XMS_ITS | Continuity of Care Document ---
Author Organization [facility] Address [address] [place] [address]- Care Team Providers Care Health It Specialist Name Role Phone Karen FELIZ, Efraín Smith Primary Care Physician [place] [facility] [place] 06/08/20 - 07/08/20 [facility] [address] [place] [address]- [facility] Allergies, Adverse Reactions, Alerts [...] Patient Refuses 1Result Comment: [facility]# [id number] 2Admin Note: VIM 05/26/06 GIVEN TODAY 3Admin [...] 0 Refills, Maintenance, 04/28/20 13:20:00 EDT, Gel, [facility]/pharmacy #[id number], 163, cm, 02/24/20 12:50:00 EDT, [...] 11/26/19 14:40:00 EDT, Route to Pharmacy Electronically, [facility]/pharmacy #[id number], Partial fill upon patient request, [...] 08/16/20 15:14:00 EST, 06/21/20 15:14:00 EDT, Cream, [facility]/pharmacy #[id number], 1 applicatio... Start Date: 06/21/20 [...]
--- OUTSIDE RECORDS SUMMARY | 2024-05-21 14:42 | XMS_ITS | Continuity of Care Document ---
Author Organization [facility] Address [address] [place] [address]- Care Team Providers Care Grainer Machine Name Role Phone Karen FELIZ, Efraín Smith Primary Care Physician [phone] Encounter [facility] Date(s): 11/17/23 - 12/17/23 [facility] [address] [place] [address]- Allergies, Adverse Reactions, Alerts Substance Reaction Severity [...] virus vaccine, inactivated 1 09/16/19 Gi chris [id number] 12y+ bivalent booster vax 06/13/22 Recorded SARS-CoV-2 mRNA (zvukbmq-wewy-psgmu) vax 01/24/22 Recorded tetanus/diphtheria/pertussis, acel(Tdap) 2 12/27/21 [...] [facility]# [id number] 2Result Comment: [facility] [id number] 3Admin Note: VIM 05/26/06 GIVEN TODAY 4Admin [...] mixed with softfoods such as applesauce, # 30 capsule, 1 Refills, Maintenance, 12/01/23 14:27:00 EDT, [facility]/pharmacy#[id number], Partial fill upon patient request if the... Start Date: 12/01/23 Status: Ordered Colace 2-in-1 1 tablet, By [...] Primary Care Member Role: PCP Address: Address: [address] [place] [address]- Care Team Related Persons Name: LEIGHTON ROBLES Address: home [address] [place] [address] Name: LEIGHTON ROBLES Address: home [address] [place] [address] Name: BAMBI LEONARDO Address: [employer] Address: home [address] [place] [address] Name: BAMBI LEONARDO Address: [address]
--- OUTSIDE RECORDS SUMMARY | 2024-05-21 14:42 | XMS_ITS | Continuity of Care Document ---
Author Organization [facility] Address [address] [place] [address]- Care Team Providers Care Retail Merchandising Manager Name Role Phone Karen FELIZ, Efraín Smith Primary Care Physician Encounter [facility] [place] Date(s): 02/02/24 - 03/03/24 [facility] [address] [place] [address]- Allergies, Adverse Reactions, Alerts Substance Reaction Severity [...] virus vaccine, inactivated 1 09/16/19 Gi chris [id number] 12y+ bivalent booster vax 06/13/22 Recorded SARS-CoV-2 mRNA (tvfassj-erzx-dtfch) vax 01/24/22 Recorded tetanus/diphtheria/pertussis, acel(Tdap) 2 12/27/21 [...] [facility]# [id number] 2Result Comment: [facility] [id number] 3Admin Note: VIM 05/26/06 GIVEN TODAY 4Admin [...] capsule, 1 Refills, Maintenance, 12/18/23 17:58:00 EDT, [facility]/pharmacy #[id number], Partial fill upon patient [...] Care Member Role: PCP Address: Address: [address] [place] [address] Care Team Related Persons Name: LEIGHTON ROBLES Address: home [address] [place], [place] Name: LEIGHTON ROBLES Address: home [address] [place], [place] Name: BAMBI LEONARDO Address: home [address] [place], [place] Name: BAMBI LEONARDO Address: [employer] Address: [address]
--- OUTSIDE RECORDS SUMMARY | 2024-05-21 14:42 | XMS_ITS | Continuity of Care Document ---
Author Organization [facility] Address [address] [place] [address]- Care Team Providers Care Body Make Up Artist Name Role Phone Efraín Jones MD Primary Care Physician [phone] Encounter [facility] Date(s): 05/02/22 - 05/09/22 [facility] [address] [place] [address]- Attending Physician: Helen Lobato DO Referring Physician: Efraín Jones MD Allergies, Adverse Reactions, Alerts Substance Reaction Severity Status niacin LFT abnormality Active levoFLOXacin Paroxysmal atrial fibrillation Proposed articaine-EPINEPHrine local facial edema Active oxybutynin Disorientated Dizzy Active tamsulosin Lethargy Active Pravachol myalgia Active Lopid fatigue, weakness Active Immunizations Given and Recorded Vaccine Date Status Refusal Reason SARS-CoV-2 mRNA (puzeqjv-yegn-eirun) vax 01/24/22 Recorded tetanus/diphtheria/pertussis, acel(Tdap) 1 12/27/21 [...] 04/13/13 Not Given Patient Refuses 1Result Comment: [facility] [id number] 2Result Comment: [facility]# [id number] 3Admin Note: VIM 05/26/06 GIVEN TODAY 4Admin [...] Active Seasonal allergic rhinitis(Confirmed) Active Tremor(Confirmed) Active Vital Signs Most recent to oldest [Reference Range]: 1 Height 163 cm (05/02/22 5:22 PM) Oxygen Saturation [94-100 %] 100 % (05/02/22 5:22 PM) Pulse Rate [55-90 bpm] 72 bpm (05/02/22 5:22 PM) Blood Pressure [90-138/55-84 mm Hg] 113/ 66mm Hg (05/02/22 5:22 PM) Respiratory Rate [16-30 br/min] 20 br/mi n (05/02/22 5:22 PM) Temperature [96.8-100.4 DegF] 97.6 DegF (05/02/22 5:22 PM) Mode of Delivery (Oxygen) Room air (05/02/22 5:22 PM) Blood pressure sites Arm, left (05/02/22 5:22 PM) Temperature Route Temporal (05/02/22 5:22 PM) Social History Social History Type Response Smoking Status Never smoker entered on: 04/18/14 Sex Care Team Personnel Name: Karen FELIZ, Efraín Smith Address: [address] [place] [address]
--- OUTSIDE RECORDS SUMMARY | 2024-05-21 14:42 | XMS_ITS | Continuity of Care Document ---
Author Organization [facility] Address [address] [place] [address]- Care Team Providers Care Men'S Furnishings Salesperson Name Role Phone Karen FELIZ, Efraín Smith Primary Care Physician Encounter [facility] Date(s): 12/31/21 - 01/30/22 [facility] [address] [place] [address]- Allergies, Adverse Reactions, Alerts Substance Reaction Severity Status niacin LFT abnormality Active oxybutynin Disorientated Dizzy Active Lopid fatigue, weakness Active levoFLOXacin Paroxysmal atrial fibrillation Proposed articaine-EPINEPHrine local facial edema Active tamsulosin Lethargy Active Pravachol myalgia Active Immunizations Given and Recorded Vaccine Date Status Refusal Reason SARS-CoV-2 mRNA (njstfso-vwcz-ilnsy) vax 01/24/22 Recorded tetanus/diphtheria/pertussis, acel(Tdap) 1 12/27/21 [...] Patient Refuses 1Result Comment: [facility] [id number] 2Result Comment: [facility]# [id number] 3Admin Note: VIM 05/26/06 GIVEN TODAY 4Admin [...]
--- OUTSIDE RECORDS SUMMARY | 2024-05-21 14:42 | XMS_ITS | Continuity of Care Document ---
Author Organization [facility] Address [address] [place] [address]- Care Team Providers Care Hot Air Furnace Installer Repairer Name Role Phone Karen FELIZ, Efraín Smith Primary Care Physician [phone] Encounter [facility] Date(s): 02/23/24 - 03/01/24 [facility] [address] [place] [address]- Encounter Diagnosis Skin abrasion(Discharge Diagnosis) - 02/23/24 Attending Physician: Salome Vee MD Referring Physician: Efraín Jones MD Allergies, [...] virus vaccine, inactivated 1 09/16/19 Gi chris [id number] 12y+ bivalent booster vax 06/13/22 Recorded SARS-CoV-2 mRNA (vnvxioo-fjua-nzmpg) vax 01/24/22 Recorded tetanus/diphtheria/pertussis, acel(Tdap) 2 12/27/21 Given SARS-CoV-2 (COVID-19) mRNA BNT-162b2 vac 06/14/21 Recorded SARS-CoV-2 (COVID-19) mRNA BNT-162b2 vac 11/08/20 Recorded SARS-CoV-2 (COVID-19) mRNA BNT-162b2 vac 10/18/20 Recorded Tetanus Toxoid Vaccine (oldterm) 02/12/18 Given pneumococcal 13-valent vaccine 09/22/15 Given Zoster Vaccine Live 3 09/06/09 Given tetanus-diphtheria toxoids (Td) 4 08/03/09 Given Pneumococcal Vaccine (oldterm) 05/30/05 Given 1Result Comment: [facility]# [id number] 2Result Comment: [facility] [id number] 3Admin Note: VIM 05/26/06 GIVEN TODAY 4Admin [...] capsule, 1 Refills, Maintenance, 12/18/23 17:58:00 EDT, [facility]/pharmacy #[id number], Partial fill upon patient reques... Start [...] Diagnosis Diagnosis Type Effective Dates Health Status Cl inical Service Informant Skin abrasion Discharge Diagnosis 02/23/24 Vital Signs Most recent to oldest [Reference Range]: 1 Height 163 cm (02/23/24 6:45 PM) Oxygen Saturation [94-100 %] 97 % (02/23/24 6:45 PM) Pulse Rate [55-90 bpm] 83 bpm (02/23/24 6:45 PM) Blood Pressure [90-138/55-84 mm Hg] 99/6 5mm Hg (02/23/24 6:45 PM) Respiratory Rate [16-30 br/min] 16 br/mi n (02/23/24 6:45 PM) Temperature [96.8-100.4 DegF] 97.8 DegF (02/23/24 6:45 PM) Mode of Delivery (Oxygen) Room air (02/23/24 6:45 PM) Blood pressure sites Arm, left (02/23/24 6:45 PM) Temperature Route Temporal (02/23/24 6:45 PM) Social History Social History Type Response Smoking Status Never smoker entered on: 04/18/14 Sex Note * Mary Chris: PERFORM Event Display: Patient Education/Instruction Authored Date: [id number] Ambulatory Adult Visit Summary [facility] [address] [place] [address] Name: ROSALIO ROBLES : 1935?? Visit: 02/23/2024 18:36?? Ambulatory Visit Instructions ?? Your Care Team Primary Care Provider Efraín Jones MD? This Visit Provider [facility] [place] Your Diagnosis Skin abrasion Vitals Signs Temperature: 97.8 DegF Height: 163 cm Pulse Rate: 83 bpm ?? Respiratory Rate: 16 br/min ?? Systolic Blood Pressure: 99 mm Hg ?? Diastolic Blood Pressure: 65 mm Hg ?? Oxygen Saturation: 97 % ?? What to do next Instructions From Your Provider Keep the current dressing in place for the next 24 hours.?? If the area stays without pain or redness and the dressing is clean, you can leave on for 48 hours.?? Then, remove??gently the??wrap, gauze,??clear antiseptic overlay. ??Leave the 3??surgical??Steri-Strips in place.??These will come off intime with repeated washing as the wound heals.??Cleanse the wound gently with warm??soapy water andpat dry.?? Apply??antibiotic ointment, gauze, rewrap gently.?? If there is concern for infection,??pain, redness, drainage, swelling or fevers, return to care for reevaluation. You can come to the clinic for dressing change if it causes concern/uncertainty. Scheduled Follow-Up Appointments Friday 2:50 PM EDT ?? With: Shannan Huerta MD Where: [facility] [address] [place] [address]- Status: Pending Friday 1:00 PM EDT ?? With: Efraín Jones MD Where: [facility] [address] [place] [address]- Status: Pending Future Orders CBC w/ Differential [...] 650 Milligram Oral 3 times a day Contact prescribing physician if questions or concerns ?? Unchanged Carbidopa-Levodopa (carbidopa-levodopa 25 mg-100 mg oral tablet) 2 tab(s) Oral Every 4 hours @ 0300, 0730, 1130, 1530,1930, 2230 Contact prescribing physician if questions or concerns ?? Unchanged Celecoxib (celecoxib 100 mg oral capsule) 1 capsule Oral Twice a day as needed for as needed for pain Spondylosis of lumbar spine Duration: 30 Days contents of capsule may be mixed with soft foods such as applesauce Contact prescribing physician if questions or concerns ?? Unchanged Docusate-Senna (Colace 2-in-1) 1 tab(s) Oral Daily as needed Contact prescribing physician if questions or concerns ?? Unchanged Miscellaneous Rx (Misc Rx) See instructions Curamin - homeopathic supplement containing curcumin & turmeric - takes 1 tablets 2 times daily Contact prescribing physician if questions or concerns ?? Unchanged Miscellaneous Rx (Misc Rx) See instructions inbrija inhaler Contact prescribing physician if questions or concerns ?? Unchanged Ropinirole (rOPINIRole 0.25 mg oral tablet) 1 tab(s) Oral 4 times a day Contact prescribing physician if questions or concerns ?? Unchanged Ubiquinone (CoQ10) Oral Daily Contact prescribing physician if questions or concerns ?? Medications and Immunizations Administered Medications Given During Visit No medications given during this visit.?? Allergies (NKA means No Known Allergies) Levaquin Lopid??(fatigue, weakness) Pravachol??(myalgia) articaine-EPINEPHrine??(local facial edema) niacin??(LFT abnormality) oxybutynin??(Disorientated, Dizzy) tamsulosin??(Lethargy) Education Materials Below is the list of Educational Leaflet Providered with your Visit summary. [employer] Patient Education - Wound Care?? [employer] Patient Education - Xdjx-bj-Uook: Changing a Wound Dressing?? Common Emergency Awareness Tips IS IT A [...] are strongly encouraged to quit. Please call [facility] at [phone] or 0-730-299-Pearl.com (7534) or log in to [email or web address] for referrals to smoking cessation programs. ?? The National Suicide Prevention Hotline is available 07/04 if you or someone you know needs to find a reason to keep living. By calling 4-589-731-Bit9 (2155) you'll be connected to a skilled, trained counselor at a crisis center in your area. [facility] [employer] Portal You can view and manage your care through the patient portal or by using a health care anurag of your choosing. [employer] is a website that allows you to securely view your medical information including your hospital discharge summary, office visit summaries, medications and follow-up visits. You can also request appointments, renew medications, and request access to your medical information using a health care anurag of your choosing, or just ask a question. You can enroll at [email or web address] or register during your next office visit. [facility], in keeping with [facility] guidance, no longer requires face masks for [...] primary care provider, you may find a [facility] provider by calling [facility] [employer] [facility] at [phone]. * Salome Vee MD: PERFORM Event Display: Patient Education Leaflets Authored Date: [id number] Wound Care ?? [address]56 Wound Care Taking good care of your wound will help it heal. Your??healthcare??provider may show you how to clean and dress the wound. They will also explain how to tell if the wound is healing normally.??If you are unsure of how to take care of the wound, ask what dressing to use and how often you should change the bandages.??Below are the basic steps. Wash your hands Tips for washing your hands: ??? Use liquid soap and lather. Scrub for 20 seconds between your fingers and under your nails. ??? Rinse with clean, running water, keeping your fingers pointed down. ??? Use a paper towel to dry your hands and to turn off the faucet. ?? Remove the used dressing Here are suggestions for removing the dressing: ??? If dressing changes cause you pain, take your pain medicine as prescribed by your healthcare provider 30 minutes??before??dressing changes. ??? Setup your supplies. ??? Put on disposable gloves if you???re dressing a wound for someone else or your wound is infected. ??? Loosen the tape by pulling gently toward the wound. ??? Gently take off theold dressing. If the dressing is stuck to the wound, moisten it with saline (if available) or cleanwater. ??? If you have a drain or tube in the wound, be careful not to pull on it. ??? Remove the dressing 1 layer at a time and put it in a plastic bag. Seal the bag and put it in the trash. ??? Remove your gloves. ?? Inspect and dress the wound Check the wound carefully: ??? Each time you change the dressing, check the wound carefully to be sure it???s healing normally. Check that your wound appears to be pink and moist and that it's free of infection. ? Wash your hands again. Put on a new pair of gloves. ??? Clean and dress the wound as directed by your??healthcare provider??or nurse.??Don't put anything in the wound that is not prescribed or directed by your healthcare provider.??If you have a drain or tube, be careful not to pull on it.??Secure the drain or tube as well. ??? Put all unused supplies in a clean plastic bag. Seal the bag and store it in a clean, dry area between dressing changes.? Wash your hands again. ?? Call your healthcare provider Call your healthcare provider if you see any of the following signs of a problem: ??? Bleeding thatsoaks the dressing ??? [place] fluid weeping from the wound ??? Increased drainage or drainage that iswhite, yellow, yellow-green, or foul-smelling ??? Increased swelling or pain, or redness or swelling in the skin around the wound ??? A change in the color of the wound, or if streaks develop in a direction away from the wound ??? The area between any stitches opens up ??? An increase in the size of the wound ??? A fever of 100.4??F (38??C) or higher, or as directed by your healthcare provider ??? Chills, increased fatigue, or a loss of appetite ?? Last Reviewed Date: 2022 ?? 8509-0455 [employer]. All rights reserved. This information is not intended as a substitute for professional medical care. Always follow your healthcare professional's instructions. ?? * Salome Vee MD: PERFORM Event Display: Patient Education Leaflets Authored Date: [id number] Iwrc-wl-Yfzv: Changing a Wound Dressing ?? Cqul-oj-Flhr: Changing a Wound Dressing - Video Here are the steps for changing a wound dressing. To view the video go to this web address: [email or web address] Or, scan this QR code with your smart phone Last Reviewed Date: 2020 ?? 6421-2573 [employer]. All rights reserved. This information is not intended as a substitute for professional medical care. Always follow your healthcare professional's instructions. ?? Patient Care team information Care Team Personnel Name: Efraín Jones MD Position: S Physician - Primary Care Member Role: PCP Address: Address: [address] [place] [address] Care Team Related Persons Name: LEIGHTON ROBLES Address: home [address] [place] [address] Name: LEIGHTON ROBLES Address: [address] Name: BAMBI LEONARDO Address: [address] Name: BAMBI LEONARDO [facility] Address: [address]
--- OUTSIDE RECORDS SUMMARY | 2024-05-21 14:42 | XMS_ITS | Continuity of Care Document ---
Author Organization [facility] Address [address] [place] [address]- Care Team Providers Care Mining Manager Name Role Phone Karen FELIZ, Efraín Smith Primary Care Physician [place] [facility] [place] 02/06/21 - 03/08/21 [facility] [address] [place] [address]- Allergies, Adverse Reactions, Alerts Substance Reaction Severity [...] Not Given Patient Refuses 1Result Comment: [facility]# [id number] 2Admin Note: VIM 05/26/06 GIVEN TODAY 3Admin [...] Electronically, [facility]/pharmacy #[id number], Partial fill upon patient request, 163, cm, [...]
--- OUTSIDE RECORDS SUMMARY | 2024-05-21 14:42 | XMS_ITS | Continuity of Care Document ---
Author Organization [facility] Address [address] [place] [address]- Care Team Providers Care Executive Vp Name Role Phone Karen FELIZ, Efraín Smith Primary Care Physician [phone] [place] [facility] [place] Date(s): 04/02/24 - 05/02/24 [facility] [address] [place] [address]- Allergies, Adverse Reactions, Alerts Substance Reaction Severity Status niacin LFT abnormality Active oxybutynin Disorientated Dizzy Active tamsulosin Lethargy Active Levaquin Active levoFLOXacin Paroxysmal atrial fibrillation Proposed articaine-EPINEPHrine local facial edema Active Pravachol myalgia Active Lopid fatigue, weakness Active Immunizations Given and Recorded Vaccine Date Status Refusal Reason influenza virus vaccine, inactivated 07/24/22 Give n influenza virus vaccine, inactivated 06/20/20 Give n influenza virus vaccine, inactivated 1 09/16/19 Gi chris [id number]-KhN-3oROT 12y+ bivalent booster vax 06/13/22 Recorded SARS-CoV-2 mRNA (cccueqg-dwie-yspfg) vax 01/24/22 Recorded tetanus/diphtheria/pertussis, acel(Tdap) 2 12/27/21 Given SARS-CoV-2 (COVID-19) mRNA BNT-162b2 vac 06/14/21 Recorded SARS-CoV-2 (COVID-19) mRNA BNT-162b2 vac 11/08/20 Recorded SARS-CoV-2 (COVID-19) mRNA BNT-162b2 vac 10/18/20 Recorded Tetanus Toxoid Vaccine (oldterm) 02/12/18 Given pneumococcal 13-valent vaccine 1/8/16 Given Zoster Vaccine Live 3 09/06/09 Given tetanus-diphtheria toxoids (Td) 4 08/03/09 Given Pneumococcal Vaccine (oldterm) 05/30/05 Given 1Result Comment: [facility]# [id number] 2Result Comment: [facility] [id number] 3Admin Note: VIM 05/26/06 GIVEN TODAY 4Admin [...] capsule, 1 Refills, Maintenance, 12/18/23 17:58:00 EDT, [facility]/pharmacy #[id number], Partial fill upon patient reques... [...] Personnel Name: Karen FELIZ, Efraín Smith Position: [facility] Physician - Primary Care Member Role: PCP Address: Address: [address] [place] [address]- Care Team Related Persons Name: LEIGHTON ROBLES Address: home [address] [place] [address] Name: LEIGHTON ROBLES Address: home [address] [place], [place] Name: BAMBI LEONARDO Address: [employer] Address: home [address] [place], [place] Name: BAMBI LEONARDO Address: home [address] [place], [place]
--- OUTSIDE RECORDS SUMMARY | 2024-05-21 14:42 | XMS_ITS | Continuity of Care Document ---
Author Organization [facility] Address [address] [place] [address]- Care Team Providers Care Product Technology Scientist Name Role Phone Karen FELIZ, Efraín Smith Primary Care Physician Encounter [facility] Date(s): 01/25/21 - 02/24/21 [facility] [address] [place] [address]- Allergies, Adverse Reactions, Alerts Substance Reaction Severity [...] [facility]# [id number] 2Admin Note: VIM 05/26/06 GIVEN TODAY 3Admin [...] 0 Refills, Maintenance, 04/28/20 13:20:00 EDT, Gel, [facility]/pharmacy #[id number], 163, cm, 02/24/20 [...] 11/26/19 14:40:00 EDT, Route to Pharmacy Electronically, [facility]/pharmacy #[id number], Partial fill upon patient request, 163, cm, [...]
--- OUTSIDE RECORDS SUMMARY | 2024-05-21 14:42 | XMS_ITS | Continuity of Care Document ---
Author Organization [facility] Address [address] [place] [address]- Care Team Providers Care Cloth Napping Supervisor Name Role Phone Karen FELIZ, Efraín Smith Primary Care Physician En[place] [facility] [place] Date(s): 04/24/22 - 05/24/22 [facility] [address] [place] [address]- Allergies, Adverse Reactions, Alerts Substance Reaction Severity Status niacin LFT abnormality Active oxybutynin Disorientated Dizzy Active tamsulosin Lethargy Active Pravachol myalgia Active Lopid fatigue, weakness Active articaine-EPINEPHrine local facial edema Active levoFLOXacin Paroxysmal atrial fibrillation Proposed Immunizations Given and Recorded Vaccine Date Status Refusal Reason SARS-CoV-2 mRNA (bwachkl-akdd-ytevz) vax 01/24/22 Recorded tetanus/diphtheria/pertussis, acel(Tdap) 1 12/27/21 [...] 04/13/13 Not Given Patient Refuses 1Result Comment: [facility] [id number] 2Result Comment: [facility]# [id number] 3Admin Note: VIM 05/26/06 GIVEN TODAY 4Admin [...] Personnel Name: Karen FELIZ, Efraín Smith Address: [address] [place] [id number] [place] [address]
--- OUTSIDE RECORDS SUMMARY | 2024-05-21 14:42 | XMS_ITS | Continuity of Care Document ---
Author Organization [facility] Address [address] [place] [address]- Care Team Providers Care Locomotive Operator Name Role Phone Karen FELIZ, Efraín Smith Primary Care Physician Encounter [facility] [place] Date(s): 04/10/23 - 05/10/23 [facility] [address] [place] [address]- Attending Physician: Admtr, Ar8 Allergies, Adverse Reactions, [...] virus vaccine, inactivated 1 09/16/19 Gi chris [id number] 12y+ bivalent booster vax 06/13/22 Recorded SARS-CoV-2 mRNA (xthtcun-nnkt-ldplu) vax 01/24/22 Recorded tetanus/diphtheria/pertussis, acel(Tdap) 2 12/27/21 Given SARS-CoV-2 (COVID-19) mRNA BNT-162b2 vac 06/14/21 Recorded SARS-CoV-2 (COVID-19) mRNA BNT-162b2 vac 11/08/20 Recorded SARS-CoV-2 (COVID-19) mRNA BNT-162b2 vac 10/18/20 Recorded Tetanus Toxoid Vaccine (oldterm) 5/31/18 Given pneumococcal 13-valent vaccine 09/22/15 Given Zoster Vaccine Live 3 09/06/09 Given tetanus-diphtheria toxoids (Td) 4 08/03/09 Given Pneumococcal Vaccine (oldterm) 05/30/05 Given 1Result Comment: [facility]# [id number] 2Result Comment: [facility] [id number] 3Admin Note: VIM 05/26/06 GIVEN TODAY 4Admin [...] 15:41:07 EST Start Date: 07/28/19 Status: Ordered Mis Rx See Instructions, Refills 0, Maintenance, inbrija [...] Status Never smoker entered on: 04/18/14 Sex Cardiology * Event Display: Cardiovascular Result Scanned Authored Date: * Event Display: Cardiovascular Result Scanned Authored Date: EKG study * Event Display: EKG Authored Date: Laboratory * Event Display: Non BH Lab Results Authored Date: * Event Display: Laboratory Result Scanned Authored Date: * Event Display: Laboratory Result Scanned Authored Date: * Event Display: Laboratory Result Scanned Authored Date: Cardiology Consult note * Event Display: Consult Note Cardiology Authored Date: * Event Display: Consult Note Cardiology Authored Date: * Event Display: Consult Note Cardiology Authored Date: Radiology * Event Display: IR Special Procedures Authored Date: * Event Display: X-Ray Spine, Non- BH Authored Date: * Event Display: IR Special Procedures Authored Date: * Event Display: IR Special Procedures Authored Date: * Event Display: X-Ray Spine, Non- BH Authored Date: * Event Display: Non BH Radiology Results Authored Date: * Dianna Boo: PERFORM Event Display: Radiology Results Scanned Authored Date: * Marline Woods: PERFORM Event Display: Radiology Results Scanned Authored Date: CT Chest * Event Display: CT Scan Chest Authored Date: MR Spine * Event Display: MRI Spine Authored Date: US Neck * Event Display: Ultrasound Neck Authored Date: Patient Care team information Care Team Personnel Name: Karen FELIZ, Efraín Smith Position: [facility] Physician - Primary Care Member Role: PCP Address: Address: [address] [place], [place] [address]- Care Team Related Persons Name: LEIGHTON ROBLES Address: [address] [place] [address] Name: LEIGHTON ROBLES Address: [address] [place] [address] Name: BAMBI LEONARDO Address: [address] [place] [address] Name: BAMBI LEONARDO Address: [facility] Address: home [address] [place] [id number] [place]
--- OUTSIDE RECORDS SUMMARY | 2024-05-21 14:42 | XMS_ITS | Continuity of Care Document ---
Author Organization [facility] Address [address] [place] [address]- Care Team Providers Care Sports Photographer Name Role Phone Karen FELIZ, Efraín Smith Primary Care Physician Encounter [facility] [place] Date(s): 03/01/22 - 03/31/22 [facility] [address] [place] [address]- Allergies, Adverse Reactions, Alerts Substance Reaction Severity Status niacin LFT abnormality Active oxybutynin Disorientated Dizzy Active tamsulosin Lethargy Active Pravachol myalgia Active articaine-EPINEPHrine local facial edema Active levoFLOXacin Paroxysmal atrial fibrillation Proposed Lopid fatigue, weakness Active Immunizations Given and Recorded Vaccine Date Status Refusal Reason SARS-CoV-2 mRNA (smsgumx-lixw-heeef) vax 01/24/22 Recorded tetanus/diphtheria/pertussis, acel(Tdap) 1 12/27/21 [...] 04/13/13 Not Given Patient Refuses 1Result Comment: [facility] [id number] 2Result Comment: [facility]# [id number] 3Admin Note: VIM 05/26/06 GIVEN TODAY 4Admin [...]
--- OUTSIDE RECORDS SUMMARY | 2024-05-21 14:42 | XMS_ITS | Continuity of Care Document ---
Author Organization [facility] Address [address] [place] [address]- Care Team Providers Care Director Of Radio Services Name Role Phone Karen FELIZ, Efraín Smith Primary Care Physician [phone] Encounter [facility] [place] Date(s): 06/09/20 - 07/09/20 [facility] [address] [place] [address]- [facility] Allergies, Adverse Reactions, Alerts Substance Reaction Severity [...] 04/13/13 Not Given Patient Refuses 1Result Comment: [facility]# [id number] 2Admin Note: VIM 05/26/06 GIVEN TODAY 3Admin [...] 0 Refills, Maintenance, 04/28/20 13:20:00 EDT, Gel, [facility]/pharmacy #[id number], 163, cm, 02/24/20 12:50:00 [...] 11/26/19 14:40:00 EDT, Route to Pharmacy Electronically, [facility]/pharmacy #[id number], Partial fill [...] 08/16/20 15:14:00 EST, 06/21/20 15:14:00 EDT, Cream, [facility]/pharmacy #[id number], 1 applicatio... Start Date: 06/21/20 Stop [...]
--- OUTSIDE RECORDS SUMMARY | 2024-05-21 14:42 | XMS_ITS | Continuity of Care Document ---
Author Organization [facility] Address [address] [place] [address]- Care Team Providers Care Digital Marketing Specialist Name Role Phone Karen FELIZ, Efraín Smith Primary Care Physician [place] [facility] [place] 05/30/23 - 06/29/23 [facility] [address] [place] [address]- Allergies, Adverse Reactions, Alerts Substance Reaction Severity [...] virus vaccine, inactivated 1 09/16/19 Gi chris [id number]-[id number] 12y+ bivalent booster vax 06/13/22 Recorded SARS-CoV-2 mRNA (rphstph-kyqu-zomds) vax 01/24/22 Recorded tetanus/diphtheria/pertussis, acel(Tdap) 2 12/27/21 Given SARS-CoV-2 (COVID-19) mRNA BNT-162b2 vac 06/14/21 Recorded SARS-CoV-2 (COVID-19) mRNA BNT-162b2 vac 11/08/20 Recorded SARS-CoV-2 (COVID-19) mRNA BNT-162b2 vac 10/18/20 Recorded Tetanus Toxoid Vaccine (oldterm) 02/12/18 Given pneumococcal 13-valent vaccine 09/22/15 Given Zoster Vaccine Live 3 09/06/09 Given tetanus-diphtheria toxoids (Td) 4 08/03/09 Given Pneumococcal Vaccine (oldterm) 05/30/05 Given 1Result Comment: [facility]# [id number] 2Result Comment: [facility] [id number] 3Admin Note: VIM 05/26/06 GIVEN TODAY 4Admin [...] Personnel Name: Karen FELIZ, Efraín Smith Position: [facility] Physician - Primary Care Member Role: PCP Address: Address: [address] [place] [address] Care Team Related Persons Name: LEIGHTON ROBLES Address: home [address] [place] [address] Name: LEIGHTON ROBLES Address: home [address] [place] [address] Name: BAMBI LEONARDO Address: home [address] [place] [address] Name: BAMBI LEONARDO Address: [facility] Address: home [address] [place], [place] [id number]
--- OUTSIDE RECORDS SUMMARY | 2024-05-21 14:42 | XMS_ITS | Continuity of Care Document ---
Author Organization [facility] Address [address] [place] [address]- Care Team Providers Care Elementary Classroom Teacher Name Role Phone Karen FELIZ, Efraín Smith Primary Care Physician [phone] [place] [facility] [place] 11/13/23 - 12/13/23 [facility] [address] [place] [address]- Allergies, Adverse Reactions, Alerts Substance Reaction Severity [...] influenza virus vaccine, inactivated 09/16/19 Gi chris [id number] 12y+ bivalent booster vax 06/13/22 Recorded SARS-CoV-2 mRNA (viuxdxj-mbgi-ncngg) vax 01/24/22 Recorded tetanus/diphtheria/pertussis, acel(Tdap) 2 12/27/21 Given SARS-CoV-2 (COVID-19) mRNA BNT-162b2 vac 06/14/21 Recorded SARS-CoV-2 (COVID-19) mRNA BNT-162b2 vac 11/08/20 Recorded SARS-CoV-2 (COVID-19) mRNA BNT-162b2 vac 10/18/20 Recorded Tetanus Toxoid Vaccine (oldterm) 02/12/18 Given pneumococcal 13-valent vaccine 09/22/15 Given Zoster Vaccine Live 3 12/23/09 Given tetanus-diphtheria toxoids (Td) 4 08/03/09 Given Pneumococcal Vaccine (oldterm) 05/30/05 Given 1Result Comment: [facility]# [id number] 2Result Comment: [facility] [id number] 3Admin Note: VIM 05/26/06 GIVEN TODAY 4Admin [...] capsule, 1 Refills, Maintenance, 12/01/23 14:27:00 EDT, [facility]/pharmacy#[id number], Partial fill upon patient request if the... [...] Care Member Role: PCP Address: Address: [address] [place] [address] Care Team Related Persons Name: LEIGHTON ROBLES Address: home [address] [place] [address] Name: LEIGHTON ROBLES Address: [address] [place] [address] Name: BAMBI LEONARDO Address: [address] [place] [address] Name: BAMBI LEONARDO Address: [employer] Address: home [address] [place] [address]
--- OUTSIDE RECORDS SUMMARY | 2024-05-21 14:42 | XMS_ITS | Continuity of Care Document ---
Author Organization [facility] Address [address] [place] [address]- Care Team Providers Care Hospice Volunteer Coordinator Name Role Phone Efraín Jones MD Primary Care Physician Encounter [facility] [place] Date(s): 08/06/22 - 08/13/22 [facility] [address] [place] [address]- Encounter Diagnosis Left hip pain(Discharge Diagnosis) - 08/06/22 Iliotibial band syndrome of left side(Discharge Diagnosis) - 08/06/22 Heterotopic calcification, postoperative(Discharge Diagnosis) - 08/06/22 Edema of right lower leg(Discharge Diagnosis) - 08/06/22 History of DVT (deep vein thrombosis)(Discharge Diagnosis) - 08/06/22 Attending Physician: Efraín Jones MD Allergies, Adverse [...] virus vaccine, inactivated 1 09/16/19 Gi chris [id number]-[id number]-7tGFH 12y+ bivalent booster vax 06/13/22 Recorded SARS-CoV-2 mRNA (iquprgo-isfg-diwzi) vax 01/24/22 Recorded tetanus/diphtheria/pertussis, acel(Tdap) 2 12/27/21 [...] 04/13/13 Not Given Patient Refuses 1Result Comment: [facility]# [id number] 2Result Comment: [facility] [id number] 3Admin Note: VIM 05/26/06 GIVEN TODAY 4Admin [...] Effective Dates Health Status Clinical Service Informant Left hip pain Discharge Diagnosis 08/06/22 Iliotibial band syndrome of left side Discharge Diagnosis 08/06/22 Heterotopic calcification, postoperative Discharge Diagnosis 08/06/22 Edema of right lower leg Discharge Diagnosis 08/06/22 History of DVT (deep vein thrombosis) Discharge Diagnosis 08/06/22 Vital Signs Most recent to oldest [Reference Range]: 1 Height 163 cm (08/06/22 2:02 PM) Weight 76 kg (08/06/22 2:02 PM) Body Mass Index [18.5-24.99 kg/m2] 28.6 kg/m2 *H* (08/06/22 2:02 PM) Weight Obtained Via Standing scale (08/06/22 2:02 PM) Social History Social History Type Response Smoking Status Never smoker entered on: 04/18/14 Sex Note * Edelmira Wallace: PERFORM, SIGN, VERIFY Event Display: Patient Education/Instruction Authored Date: [facility] *[facility] Clinical Summary Name ROSALIO ROBLES Age 86 Years 1935 PCP Karen FELIZ, Efraín Smith PCP Visit Date 08/06/2022 13:40:00 Additional Instructions: Scheduled Appointments?? Future Appointments ?No Future Appointments Scheduled Follow-Up Instructions ?? Diagnosis Iliotibial band syndrome, left leg; Other intraoperative and postprocedural complications and disorders of the musculoskeletal system; Localized edema; Personal history of other venous thrombosis andembolism; Pain in left hip Medications: Please continue your medications until treatment is completed or stopped by your provider. Discuss any questions related to medications with your provider. Medications to Continue with No Changes These medications were not printed or sent to your pharmacy Acetaminophen (Tylenol 325 mg oral tablet) 650 Milligram Oral 3 times a day. Next Dose: Carbidopa-Levodopa (carbidopa-levodopa 25 mg-100 mg oral tablet) 2 tab(s) Oral every 4 hours. @ 0300, 0730, 1130, 1530,1930, 2230. Next Dose: Carbidopa-Levodopa (carbidopa-levodopa 25 mg-100 mg oral tablet, extended release) See Instructions. 2 tablets at 10pm and 1 tablet at 3am. Next Dose: Ibuprofen 200 Milligram Oral every 6 hours. Next Dose: Milk of Magnesia (Dulcolax Soft Chews) 1,200 Milligram Oral 3 times a day. Next Dose: Miscellaneous Rx (Misc Rx) imbregia inhaler. Next Dose: Polyethylene Glycol 3350 (MiraLax Powder) 17 gram Oral Daily. Next Dose: Remove Patch Next Dose: Ropinirole (rOPINIRole 0.5 mg oral tablet) 2 tab(s) Oral every 4 hours. @ 0300, 0730, 1130, 1530,1930, 2230. Next Dose: Allergy Info:?? levoFLOXacin; articaine-EPINEPHrine; Lopid; Pravachol; tamsulosin; oxybutynin; niacin Medications Given This Visit Future Orders ?US Doppler Ext Lower Venous Right? Order Date:08/06/22?- Complete on or after?08/06/22 Vital Signs Height 163 cm Weight 76 kg BMI 28.6 kg/m2 Blood Pressure / Temperature Pulse Rate Respiratory Rate 02 Sat Mode of Delivery / You can now view a summary of your hospital visit from the comfort of your home through a free online portal called [employer]. [employer] is a website that allows you to securely view your medical information including discharge summary, medications and follow-up visits. ??You can alsosend a secure electronic message to your doctor???s office to request appointments, renew medications or just ask a question. You can enroll at [email or web address] or register during your next [...] primary care provider, you may find a [facility] provider by calling [facility] [employer] Link at [phone]. For information about the plan of care [...] FELIZ, Efraín Smith Position: [facility] Primary Care Physician Member Role: PCP Address: Address: [address] [place] [address]- Care Team Related Persons Name: LEIGHTON ROBLES Address: [address] [place] [address] Name: LEIGHTON ROBLES Address: [address] [place] [address] Name: BAMBI LEONARDO Address: [address] [place] [address] Name: BAMBI LEONARDO Address: [facility] Address: [address]
--- OUTSIDE RECORDS SUMMARY | 2024-05-21 14:42 | XMS_ITS | Continuity of Care Document ---
Author Organization [facility] Address [address] [place] [address]- Care Team Providers Care Trial Consultant Name Role Phone Karen FELIZ, Efraín Smith Primary Care Physician Encounter [facility] [place] [place] Date(s): 03/22/24 - 04/21/24 [facility] [address] [place] [address]- Allergies, Adverse Reactions, Alerts Substance Reaction Severity [...] virus vaccine, inactivated 1 09/16/19 Gi chris [id number]-ToL-4rTMB 12y+ bivalent booster vax 06/13/22 Recorded SARS-CoV-2 mRNA (vmvnyxc-kyys-cpgjt) vax 01/24/22 Recorded tetanus/diphtheria/pertussis, acel(Tdap) 2 12/27/21 Given SARS-CoV-2 (COVID-19) mRNA BNT-162b2 vac 06/14/21 Recorded SARS-CoV-2 (COVID-19) mRNA BNT-162b2 vac 11/08/20 Recorded SARS-CoV-2 (COVID-19) mRNA BNT-162b2 vac 10/18/20 Recorded Tetanus Toxoid Vaccine (oldterm) 02/12/18 Given pneumococcal 13-valent vaccine 1/8/16 Given Zoster Vaccine Live 3 09/06/09 Given tetanus-diphtheria toxoids (Td) 4 08/03/09 Given Pneumococcal Vaccine (oldterm) 05/30/05 Given 1Result Comment: [facility]# [id number] 2Result Comment: [facility] [id number] 3Admin Note: VIM 05/26/06 GIVEN TODAY 4Admin [...] 1 Refills, Maintenance, 12/18/23 17:58:00 EDT, [facility]/pharmacy #[id number], Partial fill upon patient reques... [...] Personnel Name: Karen FELIZ, Efraín Smith Position: [facility] Physician - Primary Care Member Role: PCP Address: Address: [address] [place] [address]- Care Team Related Persons Name: LEIGHTON ROBLES Address: home [address] [place] [address] Name: LEIGHTON ROBLES Address: [address] [place], [place] Name: BAMBI LEONARDO Address: [employer] Address: home [address] [place], [place] Name: BAMBI LEONARDO Address: home [address] [place], [place]
--- OUTSIDE RECORDS SUMMARY | 2024-05-21 14:42 | XMS_ITS | Continuity of Care Document ---
Author Organization [facility] Address [address] [place] [address]- Care Team Providers Care Hospital Clinic Assistant Name Role Phone Karen FELIZ, Efraín Smith Primary Care Physician [phone] Encounter [facility] [place] Date(s): 04/09/23 - 05/09/23 [facility] [address] [place] [address]- Allergies, Adverse Reactions, Alerts Substance Reaction Severity [...] virus vaccine, inactivated 1 09/16/19 Gi chris VULW-ZzP-9wSUV 12y+ bivalent booster vax 06/13/22 Recorded SARS-CoV-2 mRNA (fgrpqlb-yozt-uqmta) vax 01/24/22 Recorded tetanus/diphtheria/pertussis, acel(Tdap) 2 12/27/21 Given SARS-CoV-2 (COVID-19) mRNA BNT-162b2 vac 06/14/21 Recorded SARS-CoV-2 (COVID-19) mRNA BNT-162b2 vac 11/08/20 Recorded SARS-CoV-2 (COVID-19) mRNA BNT-162b2 vac 10/18/20 Recorded Tetanus Toxoid Vaccine (oldterm) 02/12/18 Given pneumococcal 13-valent vaccine 09/22/15 Given Zoster Vaccine Live 3 09/06/09 Given tetanus-diphtheria toxoids (Td) 4 08/03/09 Given Pneumococcal Vaccine (oldterm) 05/30/05 Given 1Result Comment: [facility]# [id number] 2Result Comment: [facility] [id number] 3Admin Note: VIM 05/26/06 GIVEN TODAY 4Admin [...] Personnel Name: Karen FELIZ, Efraín Smith Position: [facility] Physician - Primary Care Member Role: PCP Address: Address: [address] [place] [address] Care Team Related Persons Name: LEIGHTON ROBLES Address: home [address] [place] [address] Name: LEIGHTON ROBLES Address: [address] [place] [address] Name: BAMBI LEONARDO Address: [address] [place] [address] Name: BAMBI LEONARDO Address: [facility] Address: home [address] [place], [place] [address]
--- OUTSIDE RECORDS SUMMARY | 2024-05-21 14:42 | XMS_ITS | Continuity of Care Document ---
Author Organization [facility] Address [address] [place] [address]- Care Team Providers Care Waistline Joiner Name Role Phone Efraín Jones MD Primary Care Physician Encounter [facility] [place] Date(s): 10/28/23 - 11/04/23 [facility] [address] [place] [address]- Attending Physician: Efraín Jones MD Allergies, Adverse [...] virus vaccine, inactivated 1 09/16/19 Gi chris [id number] 12y+ bivalent booster vax 06/13/22 Recorded SARS-CoV-2 mRNA (aucxdbv-ptcv-kzmvo) vax 01/24/22 Recorded tetanus/diphtheria/pertussis, acel(Tdap) 2 12/27/21 Given SARS-CoV-2 (COVID-19) mRNA BNT-162b2 vac 06/14/21 Recorded SARS-CoV-2 (COVID-19) mRNA BNT-162b2 vac 11/08/20 Recorded SARS-CoV-2 (COVID-19) mRNA BNT-162b2 vac 10/18/20 Recorded Tetanus Toxoid Vaccine (oldterm) 02/12/18 Given pneumococcal 13-valent vaccine 09/22/15 Given Zoster Vaccine Live 3 09/06/09 Given tetanus-diphtheria toxoids (Td) 4 08/03/09 Given Pneumococcal Vaccine (oldterm) 05/30/05 Given 1Result Comment: [facility]# [id number] 2Result Comment: [facility] [id number] 3Admin Note: VIM 05/26/06 GIVEN TODAY 4Admin [...] capsule, 1 Refills, Maintenance, 10/28/23 15:45:00 EST, [facility]/pharmacy#[id number], Partial fill upon patient request if the... [...] oldest [Reference Range]: 1 Height 163 cm (10/28/23 2:39 PM) Weight 69.1 kg (10/28/23 2:39 PM) Oxygen Saturation [94-100 %] 99 % (10/28/23 2:39 PM) Pulse Rate [55-90 bpm] 76 bpm (10/28/23 2:39 PM) Body Mass Index [18.5-24.99 kg/m2] 26.01 kg/m2 *H* (10/28/23 2:39 PM) Blood Pressure [90-138/55-84 mm Hg] 107/ 66mm Hg (10/28/23 2:39 PM) Blood pressure sites Arm, left (10/28/23 2:39 PM) Weight Obtained Via Standing scale (10/28/23 2:39 PM) Social History Social History Type Response Smoking Status Never smoker entered on: 04/18/14 Sex Note * Edelmira Wallace: PERFORM, SIGN, VERIFY Event Display: Patient Education/Instruction Authored Date: [id number] [facility] *[facility] Clinical Summary Name ROSALIO ROBLES Age 87 Years 1935 PCP Karen FELIZ, Efraín Smith PCP Visit Date 10/28/2023 14:38:00 Additional Instructions: Scheduled Appointments?? Future Appointments ?No Future Appointments Scheduled Follow-Up Instructions ?? Diagnosis Spondylosis without myelopathy or radiculopathy, lumbar region; Parkinson's disease without dyskinesia, without mention of fluctuations Medications: Please continue your medications until treatment is completed or stopped by your provider. Discuss any questions related to medications with your provider. New Medications [id number], [address] [place] [phone], [phone] Celecoxib (celecoxib 100 mg oral capsule) 1 capsule Oral Daily for 14 Days. as needed for pain. contents of capsule may be mixed with soft foods such as applesauce. Refills: 1. Next Dose: Medications to Continue with No Changes These medications were not printed or sent to your pharmacy Acetaminophen (Tylenol 325 mg oral tablet) 650 Milligram Oral 3 times a day. Next Dose: bifidobacterium-lactobacillus (Probiotic Formula) Oral Daily. Next Dose: Carbidopa-Levodopa (carbidopa-levodopa 25 mg-100 mg oral tablet) 2 tab(s) Oral every 4 hours. @ 0300, 0730, 1130, 1530,1930, 2230. Next Dose: Docusate-Senna (Colace 2-in-1) 1 tab(s) Oral Daily. as needed. Next Dose: Ibuprofen 200 Milligram Oral every 6 hours. Next Dose: Miscellaneous Rx (Misc Rx) inbrija inhaler. Next Dose: Ropinirole (rOPINIRole 0.25 mg oral tablet) 1 tab(s) Oral 4 times a day. Next Dose: turmeric Oral Daily. Next Dose: Ubiquinone (CoQ10) Oral Daily. Next Dose: Allergy Info:?? levoFLOXacin; articaine-EPINEPHrine; Levaquin; Lopid; Pravachol; tamsulosin; oxybutynin; niacin Medications Given This Visit Future Orders ?No future orders Vital Signs Height 163 cm Weight 69.1 kg BMI 26.01 kg/m2 Blood Pressure 107 mm Hg/66 mm Hg Temperature Pulse Rate 76 bpm Respiratory Rate 02 Sat Mode of Delivery 99 %/ You can now view a summary of your hospital visit from the comfort of your home through a free online portal called [employer]. [employer] is a website that allows you to securely view your medical information including discharge summary, medications and follow-up visits. ??You can alsosend a secure electronic message to your doctor???s office to request appointments, renew medications or just ask a question. You can enroll at [email or web address] or register during your next office visit. [...] primary care provider, you may find a [facility] provider by calling [employer] at [phone]. [facility], in keeping with [facility] guidance, no longer requires face masks for staff, patientsor visitors in most situations. Similar to time spent indoors at other locations, there is the chance that you were exposed to respiratory viruses during your time with us (such as flu or COVID-19).? If you develop symptoms concerning for a viral respiratory infection, please seek testing (and treatment if indicated) from your medical provider or home test kit. For information about the plan of care [...] Primary Care Member Role: PCP Address: Address: [address] [place] [address]- Care Team Related Persons Name: LEIGHTON ROBLES Address: [address] Name: LEIGHTON ROBLES Address: [address] Name: BAMBI LEONARDO Address: [address] Name: BAMBI LEONARDO Address: [facility] Address: [address]
--- OUTSIDE RECORDS SUMMARY | 2024-05-21 14:42 | XMS_ITS | Continuity of Care Document ---
Author Organization [facility] Address [address] [place] [address]- Care Team Providers Care Radiology Rn Name Role Phone Karen FELIZ, Efraín Smith Primary Care Physician En[place] [facility] [place] Date(s): 09/25/22 - 10/25/22 [facility] [address] [place] [address]- Allergies, Adverse Reactions, Alerts Substance Reaction Severity [...] virus vaccine, inactivated 1 09/16/19 Gi chris [id number] 12y+ bivalent booster vax 06/13/22 Recorded SARS-CoV-2 mRNA (betxxql-uzzk-bdabc) vax 01/24/22 Recorded tetanus/diphtheria/pertussis, acel(Tdap) 2 12/27/21 [...] Patient Refuses 1Result Comment: [facility]# [id number] 2Result Comment: [facility] [id number] 3Admin Note: VIM 05/26/06 GIVEN TODAY 4Admin [...] Karen FELIZ, Efraín Smith Position: [facility] Primary Care Physician Member Role: PCP Address: Address: [address] [place] [address] Care Team Related Persons Name: LEIGHTON ROBLES Address: home [address], [place] Name: LEIGHTON ROBLES Address: home [address], [place] Name: BAMBI LEONARDO Address: [address], [place] Name: BAMBI LEONARDO Address: [facility] Address: [place] [id number]
--- OUTSIDE RECORDS SUMMARY | 2024-05-21 14:42 | XMS_ITS | Continuity of Care Document ---
Author Organization [facility] Address [address] [place] [address]- Care Team Providers Care Beer Still Runner Compounder Name Role Phone Karen FELIZ, Efraín Smith Primary Care Physician En[place] [facility] [place] Date(s): 08/12/22 - 09/11/22 [facility] [address] [place] [address]- Allergies, Adverse Reactions, Alerts Substance Reaction Severity [...] virus vaccine, inactivated 1 09/16/19 Gi chris [id number]-ImV-0gWCU 12y+ bivalent booster vax 06/13/22 Recorded SARS-CoV-2 mRNA (xlhwqcl-udcy-hvskh) vax 01/24/22 Recorded tetanus/diphtheria/pertussis, acel(Tdap) 2 12/27/21 [...] Patient Refuses 1Result Comment: [facility]# [id number] 2Result Comment: [facility] [id number] 3Admin Note: VIM 05/26/06 GIVEN TODAY 4Admin [...] Efraín Smith Position: [facility] Primary Care Physician Member Role: PCP Address: Address: [address] [place] [address]- Care Team Related Persons Name: LEIGHTON ROBLES Address: home [address] [place], [place] Name: LEIGHTON ROBLES Address: home [address], [place] Name: BAMBI LEONARDO Address: [employer] Address: home [address] [place] [address] Name: BAMBI LEONARDO Address: home [address] [place] [address]
--- OUTSIDE RECORDS SUMMARY | 2024-05-21 14:42 | XMS_ITS | Continuity of Care Document ---
Author Organization [facility] Address [address] [place] [address]- Care Team Providers Care Anatomy And Physiology Instructor Name Role Phone Karen FELIZ, Efraín Smith Primary Care Physician [phone] Encounter [facility] [place] Date(s): 08/18/23 - 09/17/23 [facility] [address] [place] [address]- Allergies, Adverse Reactions, Alerts Substance Reaction Severity [...] virus vaccine, inactivated 1 09/16/19 Gi chris [id number]-5bLJG 12y+ bivalent booster vax 06/13/22 Recorded SARS-CoV-2 mRNA (seivfdv-hctq-uwurb) vax 01/24/22 Recorded tetanus/diphtheria/pertussis, acel(Tdap) 2 12/27/21 Given SARS-CoV-2 (COVID-19) mRNA BNT-162b2 vac 06/14/21 Recorded SARS-CoV-2 (COVID-19) mRNA BNT-162b2 vac 11/08/20 Recorded SARS-CoV-2 (COVID-19) mRNA BNT-162b2 vac 10/18/20 Recorded Tetanus Toxoid Vaccine (oldterm) 02/12/18 Given pneumococcal 13-valent vaccine 1/8/16 Given Zoster Vaccine Live 3 09/06/09 Given tetanus-diphtheria toxoids (Td) 4 08/03/09 Given Pneumococcal Vaccine (oldterm) 05/30/05 Given 1Result Comment: [facility]# [id number] 2Result Comment: [facility] [id number] 3Admin Note: VIM 05/26/06 GIVEN TODAY 4Admin [...] Karen FELIZ, Efraín Smith Position: [facility] Physician - Primary Care Member Role: PCP Address: Address: [address] [place] [address] Care Team Related Persons Name: LEIGHTON ROBLES Address: home [address] [place] [address] Name: LEIGHTON ROBLES Address: home [address] [place] [address] Name: BAMBI LEONARDO Address: [employer] Address: [address] [place] [address] Name: BAMBI LEONARDO Address: [address] [place] [address]
--- OUTSIDE RECORDS SUMMARY | 2024-05-21 14:42 | XMS_ITS | Continuity of Care Document ---
Author Organization [facility] Address [address] [place] [address]- Care Team Providers Care Snow Technician Name Role Phone Efraín Jones MD Primary Care Physician [phone] [place] [facility] [place] Date(s): 09/09/23 - 09/16/23 [facility] [address] [place] [address]- Attending Physician: Efraín Jones MD Allergies, Adverse [...] influenza virus vaccine, inactivated 09/16/19 Gi chris [id number] 12y+ bivalent booster vax 06/13/22 Recorded SARS-CoV-2 mRNA (qhdlsti-qfqq-nmelu) vax 01/24/22 Recorded tetanus/diphtheria/pertussis, acel(Tdap) 2 12/27/21 Given SARS-CoV-2 (COVID-19) mRNA BNT-162b2 vac 06/14/21 Recorded SARS-CoV-2 (COVID-19) mRNA BNT-162b2 vac 11/08/20 Recorded SARS-CoV-2 (COVID-19) mRNA BNT-162b2 vac 10/18/20 Recorded Tetanus Toxoid Vaccine (oldterm) 02/12/18 Given pneumococcal 13-valent vaccine 09/22/15 Given Zoster Vaccine Live 3 09/06/09 Given tetanus-diphtheria toxoids (Td) 4 08/03/09 Given Pneumococcal Vaccine (oldterm) 05/30/05 Given 1Result Comment: [facility]# [id number] 2Result Comment: [facility] [id number] 3Admin Note: VIM 05/26/06 GIVEN TODAY 4Admin [...] oldest [Reference Range]: 1 Height 163 cm (09/09/23 3:33 PM) Weight 68.2 kg (09/09/23 3:33 PM) Oxygen Saturation [94-100 %] 100 % (09/09/23 3:33 PM) Pulse Rate [55-90 bpm] 73 bpm (09/09/23 3:33 PM) Body Mass Index [18.5-24.99 kg/m2] 25.67 kg/m2 *H* (09/09/23 3:33 PM) Blood Pressure [90-138/55-84 mm Hg] 111/ 54mm Hg (09/09/23 3:33 PM) Blood pressure sites Arm, left (09/09/23 3:33 PM) Weight Obtained Via Standing scale (09/09/23 3:33 PM) Social History Social History Type Response Smoking Status Never smoker entered on: 04/18/14 Sex Note * Edelmira Wallace: PERFORM, SIGN, VERIFY Event Display: Patient Education/Instruction Authored Date: [id number] [facility] *[facility] Clinical Summary Name ROSALIO ROBLES Age 87 Years 1935 PCP Karen FELIZ, Efraín Smith PCP Visit Date 09/09/2023 15:25:00 Patient Instructions Current plan -?? We will look into palliative care.?? You will follow up with [facility] for nursing and??physical therapy and follow up with Dr. Knight about medication options. Additional Instructions: Scheduled Appointments?? Future Appointments ?*Pain??Management ?[address]??[place],??[place],??[address] ?Phone:??[phone]?Fax:??-- ?Appt. Date:??09/11/2023?3:10 PM ?Scheduled Provider:??Deanna FELIZ, [facility] Follow-Up Instructions ?? Diagnosis Medications: Please continue your medications until treatment [...] Oral 4 times a day. Next Dose: Ubiquinone (CoQ10) Oral Daily. Next Dose: Allergy Info:?? levoFLOXacin; articaine-EPINEPHrine; Levaquin; Lopid; Pravachol; tamsulosin; oxybutynin; niacin Medications Given This Visit Future Orders ?No future orders Vital Signs Height 163 cm Weight 68.2 kg BMI 25.67 kg/m2 Blood Pressure 111 mm Hg/54 mm Hg Temperature Pulse Rate 73 bpm Respiratory Rate 02 Sat Mode of Delivery 100 %/ You can now view a summary of your hospital visit from the comfort of your home through a free online portal called [employer]. [employer] is a website that allows you to securely view your medical information including discharge summary, medications and follow-up visits. ??You can alsosend a secure electronic message to your doctor???s office to request appointments, renew medications or just ask a question. You can enroll at [email or web address] or register during your next office visit. [...] primary care provider, you may find a [facility] provider by calling [facility] [employer] at [phone]. [facility], in keeping with [facility] guidance, no longer requires face masks for [...] Care Member Role: PCP Address: Address: [address] [place] [address]- Care Team Related Persons Name: LEIGHTON ROBLES Address: [place] [address] Name: LEIGHTON ROBLES Address: [place] [address] Name: BAMBI LEONRADO Address: [place] [address] Name: BAMBI LEONARDO Address: [facility] Address: [address]
--- OUTSIDE RECORDS SUMMARY | 2024-05-21 14:42 | XMS_ITS | Continuity of Care Document ---
Author Organization [facility] Address [address] [place] [address]- Care Team Providers Care Automotive Parts Counter Person Name Role Phone Karen FELIZ, Efraín Smith Primary Care Physician Encounter [facility] [place] Date(s): 04/21/20 - 05/21/20 [facility] [address] [place] [address]- [facility] Allergies, Adverse Reactions, [...] Given Patient Refuses 1Result Comment: [facility]# [id number] 2Admin Note: VIM 05/26/06 GIVEN TODAY 3Admin [...]
--- OUTSIDE RECORDS SUMMARY | 2024-05-21 14:42 | XMS_ITS | Continuity of Care Document ---
Author Organization [facility] Address [address] [place] [address]- Care Team Providers Care Insurance Verification Rep Name Role Phone Karen FELIZ, Efraín Smith Primary Care Physician Encounter [facility] Date(s): 06/13/20 - 07/13/20 [facility] [address] [place] [address]- [facility] Allergies, Adverse Reactions, Alerts Substance [...] 04/13/13 Not Given Patient Refuses 1Result Comment: [facility]# [id number] 2Admin Note: VIM 05/26/06 GIVEN TODAY 3Admin [...] 0 Refills, Maintenance, 04/28/20 13:20:00 EDT, Gel, [facility]/pharmacy #[id number], 163, cm, 02/24/20 12:50:00 EDT, Height, [...] 11/26/19 14:40:00 EDT, Route to Pharmacy Electronically, [facility]/pharmacy #[id number], Partial fill upon patient request, 163, [...] 08/16/20 15:14:00 EST, 06/21/20 15:14:00 EDT, Cream, [facility]/pharmacy #[id number], 1 applicatio... Start Date: 06/21/20 Stop [...]
--- OUTSIDE RECORDS SUMMARY | 2024-05-21 14:42 | XMS_ITS | Continuity of Care Document ---
Author Organization [facility] Address [address] [place] [address]- Care Team Providers Care Van Loader Name Role Phone Karen FELIZ, Efraín Smith Primary Care Physician [phone] En[place] [facility] [place] Date(s): 03/12/23 - 04/11/23 [facility] [address] [place] [address]- Allergies, Adverse Reactions, Alerts Substance Reaction Severity [...] virus vaccine, inactivated 1 09/16/19 Gi chris [id number] 12y+ bivalent booster vax 06/13/22 Recorded SARS-CoV-2 mRNA (zugjzdi-nzmn-oionq) vax 01/24/22 Recorded tetanus/diphtheria/pertussis, acel(Tdap) 2 12/27/21 [...] Refuses 1Result Comment: [facility]# [id number] 2Result Comment: [facility] [id number] 3Admin Note: VIM 05/26/06 GIVEN TODAY 4Admin [...] 15:41:07 EST Start Date: 07/28/19 Status: [facility] See Instructions, Refills 0, Maintenance, inbrija [...] Personnel Name: Karen FELIZ, Efraín Smith Position: [facility] Physician - Primary Care Member Role: PCP Address: Address: [address] [place] [address]- Care Team Related Persons Name: LEIGHTON ROBLES Address: home [address] [place], [place] Name: LEIGHTON ROBLES Address: [address] [place], [place] Name: BAMBI LEONARDO Address: [facility] Address: home [address] [place], [place] Name: BAMBI LEONARDO Address: [address] [place], [place]
--- OUTSIDE RECORDS SUMMARY | 2024-05-21 14:42 | XMS_ITS | Continuity of Care Document ---
Author Organization [facility] Address [address] [place] [address]- Care Team Providers Care Asic Verification Engineer Name Role Phone Efraín Jones MD Primary Care Physician Encounter 08/16/22 - 08/23/22 [facility] [address], [address] [place] [address]- Attending Physician: Efraín Jones MD Admitting Physician: Efraín Jones MD Referring Physician: Efraín Jones MD Allergies, Adverse Reactions, Alerts Substance Reaction Severity Status niacin LFT abnormality Active Lopid fatigue, weakness Active levoFLOXacin Paroxysmal atrial fibrillation Proposed oxybutynin Disorientated Dizzy Active tamsulosin Lethargy Active Pravachol myalgia Active articaine-EPINEPHrine local facial edema Active Immunizations Given and Recorded Vaccine Date Status Refusal Reason influenza virus vaccine, inactivated 07/24/22 Give n influenza virus vaccine, inactivated 06/20/20 Give n influenza virus vaccine, inactivated 09/16/19 Gi chris [id number]-SeV-5oUML 12y+ bivalent booster vax 06/13/22 Recorded SARS-CoV-2 mRNA (rkarcil-elzf-xusmv) vax 01/24/22 Recorded tetanus/diphtheria/pertussis, acel(Tdap) 2 12/27/21 [...] 04/13/13 Not Given Patient Refuses 1Result Comment: [facility]# [id number] 2Result Comment: [facility] [id number] 3Admin Note: VIM 05/26/06 GIVEN TODAY 4Admin [...] allergic rhinitis Confirmed Active Tremor Confirmed Active Results Radiology Reports * Exam Date Time Procedure Performing Provider Status 08/16/22 2:31 PM US Doppler Ext Lower Venous Right Larry escalera Rekha; Auth (Verified) Notes: (US Doppler Ext Lower Venous Right) Reason For Exam: Swelling Extremities RESULT: US Doppler Ext Lower Venous Right US Doppler Ext Lower Venous Right Reason: Swelling Extremities COMPARISON: 11/26/2017. IMAGING TECHNIQUE: Ultrasound of the veins from the groin through the calf was performed using grayscale, color, and spectral Doppler ultrasound assessing for complete compressibility and normal flowcharacteristics. FINDINGS: Common femoral vein: Patent. No thrombosis. Femoral vein: Patent. No thrombosis. Popliteal vein: The popliteal vein is patent with echogenic material seen peripherally compatible with chronic nonocclusive postthrombotic change. Gastrocnemius veins: The visualized portions are patent without evidence of thrombosis. Peroneal veins: The visualized portions are patent without evidence of thrombosis. Posterior tibial veins: The visualized portions are patent without evidence of thrombosis. Contralateral common femoral vein: Patent. No thrombosis. OTHER FINDINGS: None. 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 No evidence of new deep venous thrombosis. I have personally reviewed the images and I agree with this report. WSN: [id number] Ordering Physician: Efraín Jones Dictated By: Kaleb Gomez DO Dictated Date/Time: 08/16/22 3:08 pm Reviewed By: Hayley Hill MD Signed By: Hayley Hill MD Signed Date/Time: 08/16/22 3:13 pm Transcribed By: RADHIKA Transcribed Date/Time: 08/16/22 2:49 pm Social History Social History Type Response Smoking Status Never smoker entered on: 04/18/14 Sex Note * LEIAowerleandroriKIRA ferraro S: TRANSCRIBE Hayley Hill MD: VERIFY Kaleb Gomez DO: SIGN Event Display: Result: Authored Date: [id number] US Doppler Ext Lower Venous Right Reason: Swelling Extremities COMPARISON: 11/26/2017. IMAGING TECHNIQUE: Ultrasound of the veins from the groin through the calf was performed using grayscale, color, and spectral Doppler ultrasound assessing for complete compressibility and normal flowcharacteristics. FINDINGS: Common femoral vein: Patent. No thrombosis. Femoral vein: Patent. No thrombosis. Popliteal vein: The popliteal vein is patent with echogenic material seen peripherally compatible with chronic nonocclusive postthrombotic change. Gastrocnemius veins: The visualized portions are patent without evidence of thrombosis. Peroneal veins: The visualized portions are patent without evidence of thrombosis. Posterior tibial veins: The visualized portions are patent without evidence of thrombosis. Contralateral common femoral vein: Patent. No thrombosis. OTHER FINDINGS: None. 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 No evidence of new deep venous thrombosis. I have personally reviewed the images and I agree with this report. WSN: [id number] Ordering Physician: Efraín Jones Dictated By: Kaleb Gomez DO Dictated Date/Time: 08/16/22 3:08 pm Reviewed By: Hayley Hill MD Signed By: Hayley Hill MD Signed Date/Time: 08/16/22 3:13 pm Transcribed By: RADHIKA Transcribed Date/Time: 08/16/22 2:49 pm Patient Care team information Care Team Personnel Name: Efraín Jones MD Position: [facility] Primary Care Physician Member Role: PCP Address: Address: [address] [place] [address]- Care Team Related Persons Name: LEIGHTON ROBLES Address: home [address] [place] [address] Name: LEIGHTON ROBLES Address: home [address] [place] [address] Name: BAMBI LEONARDO Address: [employer] Address: home [address] [place] [address] [place] Name: MARSH[place]BI Crespo Address: home [address] [place] [address]
--- OUTSIDE RECORDS SUMMARY | 2024-05-21 14:43 | XMS_ITS | Continuity of Care Document ---
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 Onychomycosis of toenail(Discharge Diagnosis) - 12/17/22 Attending Physician: Efraín Jones MD Allergies, Adverse [...] virus vaccine, inactivated 1 09/16/19 Gi chris [id number] 12y+ bivalent booster vax 06/13/22 Recorded SARS-CoV-2 mRNA (yqeowbj-wbhi-uskbh) vax 01/24/22 Recorded tetanus/diphtheria/pertussis, acel(Tdap) 2 12/27/21 Given SARS-CoV-2 (COVID-19) mRNA BNT-162b2 vac 06/14/21 Recorded SARS-CoV-2 (COVID-19) mRNA BNT-162b2 vac 2/24/21 Recorded SARS-CoV-2 (COVID-19) mRNA BNT-162b2 vac 10/18/20 Recorded Tetanus Toxoid Vaccine (oldterm) 02/12/18 Given pneumococcal 13-valent vaccine 09/22/15 Given Zoster Vaccine Live 3 09/06/09 Given tetanus-diphtheria toxoids (Td) 4 08/03/09 Given Pneumococcal Vaccine (oldterm) 05/30/05 Given Not Given Vaccine Date Status Refusal Reason pneumococcal 23-valent vaccine 04/13/13 Not Given Patient Refuses 1Result Comment: [facility]# [id number] 2Result Comment: [facility] [id number] 3Admin Note: VIM 05/26/06 GIVEN TODAY 4Admin [...] 15:41:07 EST Start Date: 07/28/19 Status: Ordered [facility] See Instructions, Refills 0, Maintenance, imbregia inhaler, 01/23/21 14:58:00 EDT, Supply Start Date: 01/23/21 Status: Ordered rOPINIRole 0.5 mg oral tablet [...] Effective Dates Health Status Clinical Service Informant Altered mental status Discharge Diagnosis 12/17/22 Parkinson's Disease Discharge Diagnosis 12/17/22 Spondylosis of lumbar spine Discharge Diagnosis 12/17/22 Onychomycosis of toenail Discharge Diagnosis 12/17/22 Vital Signs Most recent to oldest [Reference Range]: 1 Height 163 cm (12/17/22 3:36 PM) Weight 71.8 kg (12/17/22 3:36 PM) Oxygen Saturation [94-100 %] 98 % (12/17/22 3:36 PM) Pulse Rate [55-90 bpm] 85 bpm (12/17/22 3:36 PM) Body Mass Index [18.5-24.99 kg/m2] 27.02 kg/m2 *H* (12/17/22 3:36 PM) Blood Pressure [90-138/55-84 mm Hg] 111/ 63mm Hg (12/17/22 3:36 PM) Blood pressure sites Arm, left (12/17/22 3:36 PM) Weight Obtained Via Standing scale (12/17/22 3:36 PM) Social History Social History Type Response Smoking Status Never smoker entered on: 04/18/14 Sex Patient Care team information Care Team Personnel Name: Efraín Jones MD Position: [facility] Primary Care Physician Member Role: PCP Address: Address: [address] [place] [address]- Care Team Related Persons Name: LEIGHTON ROBLES Address: home [address] [place], [place] Name: LEIGHTON ROBLES Address: home [address] [place], [place] Name: BAMBI LEONARDO Address: [employer] Address: home [address] [place], [place] Name: PEREGOY, BAMBI Address: [address] [place] [address]
--- OUTSIDE RECORDS SUMMARY | 2024-05-21 14:43 | XMS_ITS | Continuity of Care Document ---
Author Organization [facility] Address [address] [place] [address]- Care Team Providers Care International Logistics Coordinator Name Role Phone Karen FELIZ, Efraín Smith Primary Care Physician Encounter [facility] Date(s): 03/28/20 - 04/27/20 [facility] [address] [place] [address]- [facility] Allergies, Adverse Reactions, Alerts [...] Not Given Patient Refuses 1Result Comment: [facility]# [id number] 2Admin Note: VIM 05/26/06 GIVEN TODAY 3Admin [...]
--- OUTSIDE RECORDS SUMMARY | 2024-05-21 14:43 | XMS_ITS | Continuity of Care Document ---
Author Organization [facility] Address [address] [place] [address]- Care Team Providers Care Debt Counselor Name Role Phone Karen FELIZ, Efraín Smith Primary Care Physician [phone] En[place] [facility] Date(s): 06/12/20 - 07/12/20 [facility] [address] [place] [address]- [facility] Allergies, Adverse Reactions, Alerts [...] Given Patient Refuses 1Result Comment: [facility]# [id number] 2Admin Note: VIM 05/26/06 GIVEN TODAY 3Admin [...] 0 Refills, Maintenance, 04/28/20 13:20:00 EDT, Gel, [facility]/pharmacy #[id number], 163, cm, 02/24/20 12:50:00 EDT, [...] 11/26/19 14:40:00 EDT, Route to Pharmacy Electronically, [facility]/pharmacy #[id number], Partial fill upon patient request, [...] 08/16/20 15:14:00 EST, 06/21/20 15:14:00 EDT, Cream, [facility]/pharmacy #[id number], 1 applicatio... Start Date: 06/21/20 [...]
--- OUTSIDE RECORDS SUMMARY | 2024-05-21 14:43 | XMS_ITS | Continuity of Care Document ---
Author Organization [facility] Address [address] [place] [address]- Care Team Providers Care Contracts Manager Name Role Phone Karen FELIZ, Efraín Smith Primary Care Physician [phone] Encounter [facility] Date(s): 08/08/20 - 09/07/20 [facility] [address] [place], [place] [address] Allergies, Adverse Reactions, Alerts Substance Reaction Severity [...] Not Given Patient Refuses 1Result Comment: [facility]# [id number] 2Admin Note: VIM 05/26/06 GIVEN TODAY 3Admin Note: [employer] vim 08/02/08 Medications carbidopa-levodopa 25 mg-100 mg oral tablet 2 tablet, By Mouth, Every 4 hours, @ 0300, 0730, 1130, 1530,1930, 2230, # 360 tablet, 0 Refills, Maintenance, 09/25/19 21:30:12 EDT, Tablet Start Date: 06/09/19 Status: Ordered carbidopa-levodopa 25 mg-100 mg oral tablet, extended release See Instructions, 2 tablets at 10pm and 1 tablet at 3am, 0 Refills, Maintenance, 06/09/19 21:29:53 EDT, ER Tablet Start Date: 06/09/19 Status: Ordered diclofenac 1% topical gel = 2 Gm, Topically, 4 times a day, # 240 Gm, 0 Refills, Maintenance, 04/28/20 13:20:00 EDT, Gel, [facility]/pharmacy #[id number], 163, cm, 02/24/20 12:50:00 EDT, Height, [...] 11/26/19 14:40:00 EDT, Route to Pharmacy Electronically, [facility]/pharmacy #[id number], Partial fill upon patient request, 163, [...]
--- OUTSIDE RECORDS SUMMARY | 2024-05-21 14:43 | XMS_ITS | Continuity of Care Document ---
Author Organization [facility] Address [address] [place] [address]- Care Team Providers Care Merchandising Execution Manager Name Role Phone Karen FELIZ, Efraín Smith Primary Care Physician [phone] En[place] [facility] [place] Date(s): 02/05/24 - 03/06/24 [facility] [address] [place] [address]- Allergies, Adverse Reactions, Alerts Substance Reaction Severity [...] virus vaccine, inactivated 1 09/16/19 Gi chris [id number]-GhF-4oANX 12y+ bivalent booster vax 06/13/22 Recorded SARS-CoV-2 mRNA (srxdusv-ukqp-dkeba) vax 01/24/22 Recorded tetanus/diphtheria/pertussis, acel(Tdap) 2 12/27/21 Given SARS-CoV-2 (COVID-19) mRNA BNT-162b2 vac 06/14/21 Recorded SARS-CoV-2 (COVID-19) mRNA BNT-162b2 vac 11/08/20 Recorded SARS-CoV-2 (COVID-19) mRNA BNT-162b2 vac 10/18/20 Recorded Tetanus Toxoid Vaccine (oldterm) 02/12/18 Given pneumococcal 13-valent vaccine 1/8/16 Given Zoster Vaccine Live 3 09/06/09 Given tetanus-diphtheria toxoids (Td) 4 08/03/09 Given Pneumococcal Vaccine (oldterm) 05/30/05 Given 1Result Comment: [facility]# [id number] 2Result Comment: [facility] [id number] 3Admin Note: VIM 05/26/06 GIVEN TODAY 4Admin [...] capsule, 1 Refills, Maintenance, 12/18/23 17:58:00 EDT, [facility]/pharmacy #[id number], Partial fill upon [...] Primary Care Member Role: PCP Address: Address: [address] [place] [address] Care Team Related Persons Name: LEIGHTON ROBLES Address: [address] [place], [place] Name: LEIGHTON ROBLES Address: [address] [place], [place] Name: BAMBI LEONARDO Address: [address] [place], [place] Name: BAMBI LEONARDO Address: [employer] Address: [address]
--- OUTSIDE RECORDS SUMMARY | 2024-05-21 14:43 | XMS_ITS | Continuity of Care Document ---
Author Organization [facility] Address [address] [place] [address]- Care Team Providers Care Marketing Budget Analyst Name Role Phone Karen FELIZ, Efraín Smith Primary Care Physician [phone] En[place] [facility] Date(s): 04/04/23 - 05/04/23 [facility] [address] [place] [address]- Allergies, Adverse Reactions, Alerts Substance Reaction Severity Status niacin LFT abnormality Active Pravachol myalgia Active articaine-EPINEPHrine local facial edema Active levoFLOXacin Paroxysmal atrial fibrillation Proposed oxybutynin Disorientated Dizzy Active tamsulosin Lethargy Active Lopid fatigue, weakness Active Levaquin Active Immunizations Given and Recorded Vaccine Date Status Refusal Reason influenza virus vaccine, inactivated 07/24/22 Give n influenza virus vaccine, inactivated 06/20/20 Give n influenza virus vaccine, inactivated 1 09/16/19 Gi chris [id number]-NhI-2sBZL 12y+ bivalent booster vax 06/13/22 Recorded SARS-CoV-2 mRNA (vrojfbx-rtfp-iolgs) vax 01/24/22 Recorded tetanus/diphtheria/pertussis, acel(Tdap) 2 12/27/21 Given SARS-CoV-2 (COVID-19) mRNA BNT-162b2 vac 06/14/21 Recorded SARS-CoV-2 (COVID-19) mRNA BNT-162b2 vac 11/08/20 Recorded SARS-CoV-2 (COVID-19) mRNA BNT-162b2 vac 10/18/20 Recorded Tetanus Toxoid Vaccine (oldterm) 02/12/18 Given pneumococcal 13-valent vaccine 09/22/15 Given Zoster Vaccine Live 3 09/06/09 Given tetanus-diphtheria toxoids (Td) 4 08/03/09 Given Pneumococcal Vaccine (oldterm) 05/30/05 Given 1Result Comment: [facility]# [id number] 2Result Comment: [facility] [id number] 3Admin Note: VIM 05/26/06 GIVEN TODAY 4Admin [...] Personnel Name: Karen FELIZ, Efraín Smith Position: [facility] Physician - Primary Care Member Role: PCP Address: Address: [address] [place] [address] Care Team Related Persons Name: LEIGHTON ROBLES Address: home [address] [place] [address] Name: LEIGHTON ROBLES Address: home [address] [place] [address] Name: BAMBI LEONARDO Address: home [address] [place] [address] Name: BAMBI LEONARDO Address: [facility] Address: home [address] [place], [place] [id number]
--- OUTSIDE RECORDS SUMMARY | 2024-05-21 14:43 | XMS_ITS | Continuity of Care Document ---
Author Organization [facility] Address [address] [place] [address]- Care Team Providers Care Baker Biscuit Name Role Phone Karen FELIZ, Efraín Smith Primary Care Physician [phone] Encounter [facility] Date(s): 11/20/23 - 12/20/23 [facility] [address] [place] [address]- Allergies, Adverse Reactions, Alerts Substance Reaction Severity [...] virus vaccine, inactivated 1 09/16/19 Gi chris IKNT-[id number]-7qSXD 12y+ bivalent booster vax 06/13/22 Recorded SARS-CoV-2 mRNA (rdpkrqv-cunm-uwecp) vax 01/24/22 Recorded tetanus/diphtheria/pertussis, acel(Tdap) 2 12/27/21 Given SARS-CoV-2 (COVID-19) mRNA BNT-162b2 vac 06/14/21 Recorded SARS-CoV-2 (COVID-19) mRNA BNT-162b2 vac 11/08/20 Recorded SARS-CoV-2 (COVID-19) mRNA BNT-162b2 vac 10/18/20 Recorded Tetanus Toxoid Vaccine (oldterm) 02/12/18 Given pneumococcal 13-valent vaccine 09/22/15 Given Zoster Vaccine Live 3 09/06/09 Given tetanus-diphtheria toxoids (Td) 4 08/03/09 Given Pneumococcal Vaccine (oldterm) 05/30/05 Given 1Result Comment: [facility]# [id number] 2Result Comment: [facility] [id number] 3Admin Note: VIM 05/26/06 GIVEN TODAY 4Admin [...] 1 Refills, Maintenance, 12/18/23 17:58:00 EDT, [facility]/pharmacy #[id number], Partial fill upon patient reques... [...] Personnel Name: Karen FELIZ, Efraín Smith Position: [facility] Physician - Primary Care Member Role: PCP Address: Address: [address] [place] [address]- Care Team Related Persons Name: LEIGHTON ROBLES Address: home [address] [place], [place] Name: LEIGHTON ROBLES Address: [address] [place], [place] Name: BAMBI LEONARDO Address: [address] [place], [place] Name: BAMBI LEONARDO [facility] Address: home [address] [place] [id number]
--- OUTSIDE RECORDS SUMMARY | 2024-05-21 14:43 | XMS_ITS | Continuity of Care Document ---
Author Organization [facility] Address [address] [place] [address]- Care Team Providers Care Sales And Marketing Manager Name Role Phone Karen FELIZ, Efraín Smith Primary Care Physician Encounter [facility] Date(s): 05/05/20 - 06/04/20 [facility] [address] [place] [address]- [facility] Allergies, Adverse Reactions, Alerts [...] Patient Refuses 1Result Comment: [facility]# [id number] 2Admin Note: VIM 05/26/06 GIVEN TODAY 3Admin [...] Refills, Maintenance, 04/28/20 13:20:00 EDT, Gel, [facility]/pharmacy #[id number], 163, cm, 02/24/20 12:50:00 [...] 13:02:00 EDT, Route to Pharmacy Electronically, [facility]/pharmacy #[id number], 163, cm, 11/23/19 13:45:00 [...] 14:40:00 EDT, Route to Pharmacy Electronically, [facility]/pharmacy #[id number], Partial fill upon patient [...]
--- OUTSIDE RECORDS SUMMARY | 2024-05-21 14:43 | XMS_ITS | Continuity of Care Document ---
Author Organization [facility] Address [address] [place] [address]- Care Team Providers Care Wind Turbine Mechanic Name Role Phone Karen FELIZ, Efraín Smith Primary Care Physician Encounter [facility] Date(s): 08/06/22 - 09/05/22 [facility] [address] [place], [place] [address] Attending Physician: Admtr, Ar8 Allergies, Adverse Reactions, Alerts Substance Reaction Severity Status niacin LFT abnormality Active Lopid fatigue, weakness Active articaine-EPINEPHrine local facial edema Active levoFLOXacin Paroxysmal atrial fibrillation Proposed Pravachol myalgia Active oxybutynin Disorientated Dizzy Active tamsulosin Lethargy Active Immunizations Given and Recorded Vaccine Date Status Refusal Reason influenza virus vaccine, inactivated 07/24/22 Give n influenza virus vaccine, inactivated 06/20/20 Give n influenza virus vaccine, inactivated 09/16/19 Gi chris [id number]-UgJ-9jCHS 12y+ bivalent booster vax 06/13/22 Recorded SARS-CoV-2 mRNA (smtpbys-bgwb-isinh) vax 01/24/22 Recorded tetanus/diphtheria/pertussis, acel(Tdap) 2 12/27/21 [...] 04/13/13 Not Given Patient Refuses 1Result Comment: [facility]# [id number] 2Result Comment: [facility] [id number] 3Admin Note: VIM 05/26/06 GIVEN TODAY 4Admin [...] smoker entered on: 04/18/14 Sex Note * Event Display: IR Special Procedures Authored Date: * Event Display: X-Ray Spine, Non- BH Authored Date: * Event Display: IR Special Procedures Authored Date: * Event Display: IR Special Procedures Authored Date: * Event Display: X-Ray Spine, Non- BH Authored Date: * Event Display: Laboratory Result Scanned Authored Date: * Event Display: Cardiovascular Result Scanned Authored Date: * Event Display: Laboratory Result Scanned Authored Date: * Event Display: Laboratory Result Scanned Authored Date: * Event Display: Cardiovascular Result Scanned Authored Date: * Event Display: Non BH Radiology Results Authored Date: * Dianna Boo: PERFORM Event Display: Radiology Results Scanned Authored Date: [id number] * Marline Woods: PERFORM Event Display: Radiology Results Scanned Authored Date: [id number] EKG study * Event Display: EKG Authored Date: Cardiology Consult note * Event Display: Consult Note Cardiology Authored Date: * Event Display: Consult Note Cardiology Authored Date: * Event Display: Consult Note Cardiology Authored Date: CT Chest * Event Display: CT Scan Chest Authored Date: Deprecated MR Spine study * Event Display: MRI Spine Authored Date: US Neck * Event Display: Ultrasound Neck Authored Date: Patient Care team information Care Team Personnel Name: Efraín Jones MD Position: [facility] Primary Care Physician Member Role: PCP Address: Address: [address] [place] [address] Care Team Related Persons Name: LEIGHTON ROBLES Address: [address] [place] [address] Name: LEIGHTON ROBLES Address: [address] [place] [address] Name: BAMBI LEONARDO Address: [address] [place], [place] Name: BAMBI LEONARDO Address: [facility] Address: [address] [place] [address]
--- OUTSIDE RECORDS SUMMARY | 2024-05-21 14:43 | XMS_ITS | Continuity of Care Document ---
Author Organization [facility] Address [address] [place] [address]- Care Team Providers Care Professor Of Pathology Name Role Phone Efraín Jones MD Primary Care Physician [phone] [place] [facility] [place] [place] 03/19/23 - 04/26/23 [facility] [address] [place] [address]- Attending Physician: Efraín Jones MD Allergies, Adverse Reactions, Alerts Substance Reaction Severity Status niacin LFT abnormality Active tamsulosin Lethargy Active articaine-EPINEPHrine local facial edema Active levoFLOXacin Paroxysmal atrial fibrillation Proposed Levaquin Active oxybutynin Disorientated Dizzy Active Pravachol myalgia Active Lopid fatigue, weakness Active Immunizations Given and Recorded Vaccine Date Status Refusal Reason influenza virus vaccine, inactivated 07/24/22 Give n influenza virus vaccine, inactivated 06/20/20 Give n influenza virus vaccine, inactivated 1 09/16/19 Gi chris QYSK-XxJ-8bULS 12y+ bivalent booster vax 06/13/22 Recorded SARS-CoV-2 mRNA (vrdgzhv-eaja-mjegv) vax 01/24/22 Recorded tetanus/diphtheria/pertussis, acel(Tdap) 2 12/27/21 [...] Refuses 1Result Comment: [facility]# [id number] 2Result Comment: [facility] [id number] 3Admin Note: VIM 05/26/06 GIVEN TODAY 4Admin [...] Karen FELIZ, Efraín Smith Position: [facility] Physician - Primary Care Member Role: PCP Address: Address: [address] [place] [address] Care Team Related Persons Name: LEIGHTON ROBLES Address: [address] [place], [place] Name: LEIGHTON ROBLES Address: [address] [place], [place] Name: BAMBI LEONARDO Address: [address] [place], [place] Name: BAMBI LEONARDO [facility] Address: [address]
--- OUTSIDE RECORDS SUMMARY | 2024-05-21 14:43 | XMS_ITS | Continuity of Care Document ---
Author Organization [facility] Address [address] [place] [address]- Care Team Providers Care Singe Machine Operator Name Role Phone Efraín Jones MD Primary Care Physician [phone] [place] [facility] Date(s): 02/10/24 - 05/13/24 [facility] [address] [place] [address]- Attending Physician: Efraín Jones MD Allergies, Adverse [...] virus vaccine, inactivated 1 09/16/19 Gi chris RDFX-ZvS-5bJQS 12y+ bivalent booster vax 06/13/22 Recorded SARS-CoV-2 mRNA (pgtmvsb-dxob-toghj) vax 01/24/22 Recorded tetanus/diphtheria/pertussis, acel(Tdap) 2 12/27/21 Given SARS-CoV-2 (COVID-19) mRNA BNT-162b2 vac 06/14/21 Recorded SARS-CoV-2 (COVID-19) mRNA BNT-162b2 vac 11/08/20 Recorded SARS-CoV-2 (COVID-19) mRNA BNT-162b2 vac 10/18/20 Recorded Tetanus Toxoid Vaccine (oldterm) 02/12/18 Given pneumococcal 13-valent vaccine 09/22/15 Given Zoster Vaccine Live 3 09/06/09 Given tetanus-diphtheria toxoids (Td) 4 08/03/09 Given Pneumococcal Vaccine (oldterm) 05/30/05 Given 1Result Comment: [facility]# [id number] 2Result Comment: [facility] [id number] 3Admin Note: VIM 05/26/06 GIVEN TODAY 4Admin [...] 1 Refills, Maintenance, 12/18/23 17:58:00 EDT, [facility]/pharmacy #[id number], Partial fill upon patient reques... Start [...] Primary Care Member Role: PCP Address: Address: [address] [place] [address] Care Team Related Persons Name: LEIGHTON ROBLES Address: home [address] [place] [address] Name: LEIGHTON ROBLES Address: home [address] [place] [address] Name: BAMBI LEONARDO Address: home [address] [place] [address] Name: BAMBI LEONARDO Address: [employer] Address: [address]
--- OUTSIDE RECORDS SUMMARY | 2024-05-21 14:43 | XMS_ITS | Continuity of Care Document ---
Author Organization [facility] Address [address] [place] [address]- Care Team Providers Care Clinical Practitioner Name Role Phone Karen FELIZ, Efraín Smith Primary Care Physician [place] [facility] Date(s[place] 02/26/22 - 03/28/22 [facility] [address] [place] [address]- Allergies, Adverse Reactions, Alerts Substance Reaction Severity Status niacin LFT abnormality Active oxybutynin Disorientated Dizzy Active tamsulosin Lethargy Active Pravachol myalgia Active Lopid fatigue, weakness Active articaine-EPINEPHrine local facial edema Active levoFLOXacin Paroxysmal atrial fibrillation Proposed Immunizations Given and Recorded Vaccine Date Status Refusal Reason SARS-CoV-2 mRNA (qdbntrk-krim-rkacm) vax 01/24/22 Recorded tetanus/diphtheria/pertussis, acel(Tdap) 1 12/27/21 [...] Not Given Patient Refuses 1Result Comment: [facility] [id number] 2Result Comment: [facility]# [id number] 3Admin Note: VIM 05/26/06 GIVEN TODAY 4Admin [...]
--- OUTSIDE RECORDS SUMMARY | 2024-05-21 14:43 | XMS_ITS | Continuity of Care Document ---
Author Organization [facility] Address [address] [place] [address]- Care Team Providers Care Research Geneticist Name Role Phone Karen FELIZ, Efraín Smith Primary Care Physician [place] [facility] 05/23/21 - 05/30/21 [facility] [address] [place] [address]- Encounter Diagnosis Left hip pain(Discharge Diagnosis) - 05/25/21 Left leg pain(Discharge Diagnosis) - 05/25/21 Attending Physician: Gisel MENDSOA, Grey Mendoza Allergies, Adverse Reactions, Alerts Substance Reaction Severity [...] Not Given Patient Refuses 1Result Comment: [facility]# [id number] 2Admin Note: VIM 05/26/06 GIVEN TODAY 3Admin [...] Dates Health Status Cl inical Service Informant Left hip pain Discharge Diagnosis 05/25/21 Left leg pain Discharge Diagnosis 05/25/21 Vital Signs Most recent to oldest [Reference Range]: 1 Height 163 cm (05/23/21 3:59 PM) Weight 77.5 kg (05/23/21 3:59 PM) Oxygen Saturation [94-100 %] 98 % (05/23/21 3:59 PM) Pulse Rate [55-90 bpm] 80 bpm (05/23/21 3:59 PM) Body Mass Index [18.5-24.99] 29.17 *H* (05/23/21 3:59 PM) Blood Pressure [90-138/55-84 mm Hg] 131/ 81mm Hg (05/23/21 3:59 PM) Respiratory Rate [16-30 br/min] 24 br/mi n (05/23/21 3:59 PM) Blood pressure sites Arm, right (05/23/21 3:59 PM) Social History Social History Type Response Smoking Status Never smoker entered on: 04/18/14 Sex
--- OUTSIDE RECORDS SUMMARY | 2024-05-21 14:43 | XMS_ITS | Continuity of Care Document ---
Author Organization [facility] Address [address] [place] [address]- Care Team Providers Care Hydraulic Plumber Helper Name Role Phone Karen FELIZ, Efraín Smith Primary Care Physician [place] [facility] [place] 02/10/24 - 03/11/24 [facility] [address] [place] [address]- Allergies, Adverse Reactions, Alerts Substance Reaction Severity [...] virus vaccine, inactivated 1 09/16/19 Gi chris XTCT-HvH-0sNTD 12y+ bivalent booster vax 06/13/22 Recorded SARS-CoV-2 mRNA (efwvlrw-sdnc-ryscq) vax 01/24/22 Recorded tetanus/diphtheria/pertussis, acel(Tdap) 2 12/27/21 [...] 1Result Comment: [facility]# [id number] 2Result Comment: [facility] [id number] 3Admin Note: VIM 05/26/06 GIVEN TODAY 4Admin [...] capsule, 1 Refills, Maintenance, 12/18/23 17:58:00 EDT, [facility]/pharmacy #[id number], Partial fill [...] Personnel Name: Karen FELIZ, Efraín Smith Position: S Physician - Primary Care Member Role: PCP Address: Address: [address] [place] [address] Care Team Related Persons Name: LEIGHTON ROBLES Address: home [address] [place], [place] Name: LEIGHTON ROBLES Address: [address] [place], [place] Name: BAMBI LEONARDO Address: AMMARY JANE Address: home [address] [place], [place] Name: BAMBI LEONARDO Address: [place] [address], [place]
--- OUTSIDE RECORDS SUMMARY | 2024-05-21 14:43 | XMS_ITS | Continuity of Care Document ---
Author Organization [facility] Address [address] [place] [address]- Care Team Providers Care Company Laundry Worker Name Role Phone Karen FELIZ, Efraín Smith Primary Care Physician [place] [facility] [place]23 [place] 12/19/23 [facility] [address] [place] [address]- Allergies, Adverse Reactions, Alerts Substance Reaction Severity [...] virus vaccine, inactivated 1 09/16/19 Gi chris MXRW-ZqH-8yUEY 12y+ bivalent booster vax 06/13/22 Recorded SARS-CoV-2 mRNA (kyeyqli-edzi-nnriu) vax 01/24/22 Recorded tetanus/diphtheria/pertussis, acel(Tdap) 2 12/27/21 Given SARS-CoV-2 (COVID-19) mRNA BNT-162b2 vac 06/14/21 Recorded SARS-CoV-2 (COVID-19) mRNA BNT-162b2 vac 11/08/20 Recorded SARS-CoV-2 (COVID-19) mRNA BNT-162b2 vac 10/18/20 Recorded Tetanus Toxoid Vaccine (oldterm) 02/12/18 Given pneumococcal 13-valent vaccine 1/8/16 Given Zoster Vaccine Live 3 09/06/09 Given tetanus-diphtheria toxoids (Td) 4 08/03/09 Given Pneumococcal Vaccine (oldterm) 05/30/05 Given 1Result Comment: [facility]# [id number] 2Result Comment: [facility] [id number] 3Admin Note: VIM 05/26/06 GIVEN TODAY 4Admin [...] capsule, 1 Refills, Maintenance, 12/18/23 17:58:00 EDT, [facility]/pharmacy #[id number], Partial fill upon patient reques... [...] Name: Karen FELIZ, Efraín Smith Position: [facility] Physician - Primary Care Member Role: PCP Address: Address: [address] [place] [address]- Care Team Related Persons Name: LEIGHTON ROBLES Address: home [address] [place], [place] Name: LEIGHOTN ROBLES Address: home [address], [place] Name: BAMBI LEONARDO Address: [employer] Address: home [address], [place] Name: BAMBI LEONARDO Address: home [address], [place]
--- OUTSIDE RECORDS SUMMARY | 2024-05-21 14:43 | XMS_ITS | Continuity of Care Document ---
Author Organization [facility] Address [address] [place] [address]- Care Team Providers Care Chief Minister Name Role Phone Karen FELIZ, Efraín Smith Primary Care Physician [phone] Encounter [facility] Date(s): 05/17/21 - 06/16/21 [facility] [address] [place] [address]- Allergies, Adverse Reactions, Alerts Substance Reaction Severity [...] Not Given Patient Refuses 1Result Comment: [facility]# [id number] 2Admin Note: VIM 05/26/06 GIVEN TODAY 3Admin [...]
--- OUTSIDE RECORDS SUMMARY | 2024-05-21 14:43 | XMS_ITS | Continuity of Care Document ---
Author Organization [facility] Address [address] [place] [address]- Care Team Providers Care Laundry Attendant Name Role Phone Karen FELIZ, Efraín Smith Primary Care Physician Encounter [facility] [place] Date(s): 12/08/23 - 01/10/24 [facility] [address] [place] [address]- Attending Physician: Not on Staff, Attending MD Allergies, Adverse Reactions, Alerts Substance Reaction [...] virus vaccine, inactivated 1 09/16/19 Gi chris QHKB-UpT-8kFSV 12y+ bivalent booster vax 06/13/22 Recorded SARS-CoV-2 mRNA (aykkcwl-mgpr-vgbbb) vax 01/24/22 Recorded tetanus/diphtheria/pertussis, acel(Tdap) 2 12/27/21 Given SARS-CoV-2 (COVID-19) mRNA BNT-162b2 vac 06/14/21 Recorded SARS-CoV-2 (COVID-19) mRNA BNT-162b2 vac 11/08/20 Recorded SARS-CoV-2 (COVID-19) mRNA BNT-162b2 vac 10/18/20 Recorded Tetanus Toxoid Vaccine (oldterm) 02/12/18 Given pneumococcal 13-valent vaccine 1/8/16 Given Zoster Vaccine Live 3 09/06/09 Given tetanus-diphtheria toxoids (Td) 4 08/03/09 Given Pneumococcal Vaccine (oldterm) 05/30/05 Given 1Result Comment: [facility]# [id number] 2Result Comment: [facility] [id number] 3Admin Note: VIM 05/26/06 GIVEN TODAY 4Admin [...] Refills, Maintenance, 12/18/23 17:58:00 EDT, [facility]/pharmacy #[id number], Partial fill upon patient reques... [...] Care Member Role: PCP Address: Address: [address] [place] [address] Care Team Related Persons Name: LEIGHTON ROBLES Address: [address] [place], [place] Name: LEIGHTON ROBLES Address: [address] [place], [place] Name: BAMBI LEONARDO Address: [employer] Address: home [address] [place], [place] Name: BAMBI LEONARDO Address: [address] [place], [place]
--- OUTSIDE RECORDS SUMMARY | 2024-05-21 14:43 | XMS_ITS | Continuity of Care Document ---
Author Organization [facility] Address [address] [place] [address] Javan lopez, [address] [place] [address]- Care Team Providers Care Weather Algorithm Scientist Name Role Phone Efraín Jones MD Primary Care Physician [place] [facility] [place] Date(s): 03/27/20 - 05/05/20 [facility] [address] [place] [address] Drive, [address] [place] [address]- [facility] Attending Physician: Bipin Ellis MD Referring Physician: [...] Refuses 1Result Comment: [facility]# [id number] 2Admin Note: VIM 05/26/06 GIVEN TODAY 3Admin [...]
--- OUTSIDE RECORDS SUMMARY | 2024-05-21 14:43 | XMS_ITS | Continuity of Care Document ---
Author Organization [facility] Address [address] [place] [address]- Care Team Providers Care Mail Manager Name Role Phone Karen FELIZ, Efraín Smith Primary Care Physician [phone] En[place] [facility] [place] Date(s): 08/11/20 - 09/10/20 [facility] [address] [place], [place] [address] Allergies, Adverse Reactions, Alerts Substance Reaction [...] 04/13/13 Not Given Patient Refuses 1Result Comment: [facility]# [id number] 2Admin Note: VIM 05/26/06 GIVEN TODAY 3Admin [...] 0 Refills, Maintenance, 04/28/20 13:20:00 EDT, Gel, [facility]/pharmacy #[id number], 163, cm, 02/24/20 12:50:00 [...] 11/26/19 14:40:00 EDT, Route to Pharmacy Electronically, [facility]/pharmacy #[id number], Partial fill upon patient [...]
--- OUTSIDE RECORDS SUMMARY | 2024-05-21 14:43 | XMS_ITS | Continuity of Care Document ---
Author Organization [facility] Address [address] [place] [address]- Care Team Providers Care Head Waitress Name Role Phone Karen FELIZ, Efraín Smith Primary Care Physician [phone] En[place] [facility] [place] Date(s): 12/17/22 - 01/16/23 [facility] [address] [place] [address]- Attending Physician: Admtr, Ar8 Allergies, Adverse Reactions, [...] virus vaccine, inactivated 1 09/16/19 Gi chris HHNG-DkN-2cLVZ 12y+ bivalent booster vax 06/13/22 Recorded SARS-CoV-2 mRNA (shwbofl-iftu-nagxl) vax 01/24/22 Recorded tetanus/diphtheria/pertussis, acel(Tdap) 2 12/27/21 [...] Not Given Patient Refuses 1Result Comment: [facility]# [id number] 2Result Comment: [facility] [id number] 3Admin Note: VIM 05/26/06 GIVEN TODAY 4Admin [...] 15:41:07 EST Start Date: 07/28/19 Status: Ordered [facility] See Instructions, Refills 0, Maintenance, imbregia [...] EKG Authored Date: Laboratory * Event Display: Laboratory Result Scanned Authored [...] Personnel Name: Karen FELIZ, Efraín Smith Position: [facility] Primary Care Physician Member Role: PCP Address: Address: [address] [place] [address]- [place] Care Team Related Persons Name: LEIGHTON ROBLES Address: [address], [place] Name: LEIGHTON ROBLES Address: [address], [place] Name: BAMBI LEONARDO Address: [employer] Address: [address] [place] [address] Name: BAMBI LEONARDO Address: home [address] [place] [id number]
--- OUTSIDE RECORDS SUMMARY | 2024-05-21 14:43 | XMS_ITS | Continuity of Care Document ---
Author Organization [facility] Address [address] [place] [address]- Care Team Providers Care Trauma Surgeon Name Role Phone Karen FELIZ, Efraín Smith Primary Care Physician [phone] [place] [facility] [place]20/24 [place] 03/21/24 [facility] [address] [place] [address]- Allergies, Adverse Reactions, Alerts Substance Reaction Severity [...] virus vaccine, inactivated 1 09/16/19 Gi chris ANNJ-ScA-1rBDY 12y+ bivalent booster vax 06/13/22 Recorded SARS-CoV-2 mRNA (bfmhvvz-ijom-nnkim) vax 01/24/22 Recorded tetanus/diphtheria/pertussis, acel(Tdap) 2 12/27/21 Given SARS-CoV-2 (COVID-19) mRNA BNT-162b2 vac 06/14/21 Recorded SARS-CoV-2 (COVID-19) mRNA BNT-162b2 vac 11/08/20 Recorded SARS-CoV-2 (COVID-19) mRNA BNT-162b2 vac 10/18/20 Recorded Tetanus Toxoid Vaccine (oldterm) 02/12/18 Given pneumococcal 13-valent vaccine 09/22/15 Given Zoster Vaccine Live 3 09/06/09 Given tetanus-diphtheria toxoids (Td) 4 08/03/09 Given Pneumococcal Vaccine (oldterm) 05/30/05 Given 1Result Comment: [facility]# [id number] 2Result Comment: [facility] [id number] 3Admin Note: VIM 05/26/06 GIVEN TODAY 4Admin [...] 1 Refills, Maintenance, 12/18/23 17:58:00 EDT, [facility]/pharmacy #[id number], Partial fill upon patient reques... Start [...] Primary Care Member Role: PCP Address: Address: [address] [place] [address] Care Team Related Persons Name: LEIGHTON ROBLES Address: [address] [place], [place] Name: LEIGHTON ROBLES Address: [address] [place], [place] Name: BAMBI LEONARDO Address: AMMARY JANE Address: [address] [place], [place] Name: BAMBI LEONARDO Address: [place] [address] [place], [place]
--- OUTSIDE RECORDS SUMMARY | 2024-05-21 14:43 | XMS_ITS | Continuity of Care Document ---
Author Organization [facility] Address [address] [place] [address]- Care Team Providers Care Production Maintenance Mechanic Name Role Phone Karen FELIZ, Efraín Smith Primary Care Physician [phone] [facility] Date(s): 03/30/20 - 04/29/20 [facility] [address] [place] [address]- [facility] Allergies, Adverse Reactions, [...] 04/13/13 Not Given Patient Refuses 1Result Comment: [facility]# [id number] 2Admin Note: VIM 05/26/06 GIVEN TODAY 3Admin [...] 0 Refills, Maintenance, 04/28/20 13:20:00 EDT, Gel, [facility]/pharmacy #[id number], 163, cm, 02/24/20 12:50:00 EDT, Height, [...] 12/02/19 13:02:00 EDT, Route to Pharmacy Electronically, [facility]/pharmacy #[id number], 163, cm, 11/23/19 13:45:00 EDT, Height, [...] 11/26/19 14:40:00 EDT, Route to Pharmacy Electronically, [facility]/pharmacy #[id number], Partial fill upon patient request, 163, [...]
--- OUTSIDE RECORDS SUMMARY | 2024-05-21 14:43 | XMS_ITS | Continuity of Care Document ---
Author Organization [facility] Address [address] [place] [address]- Care Team Providers Care Buccaro Name Role Phone Karen FELIZ, Efraín Smith Primary Care Physician Encounter [facility] Date(s): 10/13/23 - 11/12/23 [facility] [address] [place] [address]- Allergies, Adverse Reactions, Alerts Substance Reaction Severity [...] virus vaccine, inactivated 1 09/16/19 Gi chris ZWIN-CiG-8gOEU 12y+ bivalent booster vax 06/13/22 Recorded SARS-CoV-2 mRNA (jagbgkq-gfou-uycit) vax 01/24/22 Recorded tetanus/diphtheria/pertussis, acel(Tdap) 2 12/27/21 Given SARS-CoV-2 (COVID-19) mRNA BNT-162b2 vac 06/14/21 Recorded SARS-CoV-2 (COVID-19) mRNA BNT-162b2 vac 11/08/20 Recorded SARS-CoV-2 (COVID-19) mRNA BNT-162b2 vac 10/18/20 Recorded Tetanus Toxoid Vaccine (oldterm) 02/12/18 Given pneumococcal 13-valent vaccine 09/22/15 Given Zoster Vaccine Live 3 09/06/09 Given tetanus-diphtheria toxoids (Td) 4 08/03/09 Given Pneumococcal Vaccine (oldterm) 05/30/05 Given 1Result Comment: [facility]# [id number] 2Result Comment: [facility] [id number] 3Admin Note: VIM 05/26/06 GIVEN TODAY 4Admin [...] capsule, 1 Refills, Maintenance, 10/28/23 15:45:00 EST, [facility]/pharmacy#[id number], Partial fill upon patient request if [...] Care team information Care Team Personnel Name: Efarín Jones MD Position: [facility] Physician - Primary Care Member Role: PCP Address: Address: [address] [place] [address]- Care Team Related Persons Name: LEIGHTON ROBLES Address: home [address] [place] [address] Name: LEIGHTON ROBLES Address: [address] Name: BAMBI LEONARDO Address: [employer] Address: [address] Name: BAMBI LEONARDO Address: [address]
--- OUTSIDE RECORDS SUMMARY | 2024-05-21 14:43 | XMS_ITS | Continuity of Care Document ---
Author Organization [facility] Address [address] [place] [address]- Care Team Providers Care Forest Manager Name Role Phone Efraín Jones MD Primary Care Physician [place] [facility] [id number] Date(s): 08/11/23 - 09/18/23 [facility] [address] [place] [address]- Attending Physician: Radha Drake MD Referring Physician: Efraín Jones MD Allergies, [...] influenza virus vaccine, inactivated 09/16/19 Gi chris JTOQ-YvC-8pENQ 12y+ bivalent booster vax 06/13/22 Recorded SARS-CoV-2 mRNA (hmvhsjp-xrge-fzqkk) vax 01/24/22 Recorded tetanus/diphtheria/pertussis, acel(Tdap) 2 12/27/21 Given SARS-CoV-2 (COVID-19) mRNA BNT-162b2 vac 06/14/21 Recorded SARS-CoV-2 (COVID-19) mRNA BNT-162b2 vac 11/08/20 Recorded SARS-CoV-2 (COVID-19) mRNA BNT-162b2 vac 10/18/20 Recorded Tetanus Toxoid Vaccine (oldterm) 02/12/18 Given pneumococcal 13-valent vaccine 09/22/15 Given Zoster Vaccine Live 3 09/06/09 Given tetanus-diphtheria toxoids (Td) 4 08/03/09 Given Pneumococcal Vaccine (oldterm) 05/30/05 Given 1Result Comment: [facility]# [id number] 2Result Comment: [facility] [id number] 3Admin Note: VIM 05/26/06 GIVEN TODAY 4Admin [...] Team Personnel Name: Efraín Jones MD Position: [facility] Physician - Primary Care Member Role: PCP Address: Address: [address] [place] [address] Care Team Related Persons Name: RADHA ROBLES Address: home [address] [place] [address] Name: RADHA ROBLES Address: [address] [place], [place] Name: BAMBI LEONARDO Address: [address] Name: BAMBI LEONARDO Address: [employer] Address: [address]
--- OUTSIDE RECORDS SUMMARY | 2024-05-21 14:43 | XMS_ITS | Continuity of Care Document ---
Author Organization [facility] Address [address] [place] [address]- Care Team Providers Care Pamphlet Distributor Name Role Phone Efraín Jones MD Primary Care Physician [phone] [place] [facility] Date(s): 12/18/23 - 03/11/24 [facility] [address] [place] [address]- Attending Physician: Efraín Jones MD Allergies, Adverse [...] virus vaccine, inactivated 1 09/16/19 Gi chris GFOW-RjP-8bDPK 12y+ bivalent booster vax 06/13/22 Recorded SARS-CoV-2 mRNA (lqrbngv-wydb-fwqrj) vax 01/24/22 Recorded tetanus/diphtheria/pertussis, acel(Tdap) 2 12/27/21 Given SARS-CoV-2 (COVID-19) mRNA BNT-162b2 vac 06/14/21 Recorded SARS-CoV-2 (COVID-19) mRNA BNT-162b2 vac 11/08/20 Recorded SARS-CoV-2 (COVID-19) mRNA BNT-162b2 vac 10/18/20 Recorded Tetanus Toxoid Vaccine (oldterm) 02/12/18 Given pneumococcal 13-valent vaccine 09/22/15 Given Zoster Vaccine Live 3 09/06/09 Given tetanus-diphtheria toxoids (Td) 4 08/03/09 Given Pneumococcal Vaccine (oldterm) 05/30/05 Given 1Result Comment: [facility]# [id number] 2Result Comment: [facility] [id number] 3Admin Note: VIM 05/26/06 GIVEN TODAY 4Admin [...] capsule, 1 Refills, Maintenance, 12/18/23 17:58:00 EDT, [facility]/pharmacy #[id number], Partial fill upon patient [...] Smith Position: [facility] Physician - Primary Care Member Role: PCP Address: Address: [address] [place] [address]- Care Team Related Persons Name: LEIGHTON ROBLES Address: [address] [place], [place] Name: LEIGHTON ROBLES Address: [address] [place], [place] Name: BAMBI LEONARDO Address: [employer] Address: home [address] [place] [address] Name: BAMBI LEONARDO Address: home [address] [place] [address]
--- OUTSIDE RECORDS SUMMARY | 2024-05-21 14:43 | XMS_ITS | Continuity of Care Document ---
Author Organization [facility] Address [address] [place] [address]- Care Team Providers Care Soot Blower Name Role Phone Karen FELIZ, Efraín Smith Primary Care Physician [place] [facility] - 08/31/21 [facility] [address] [place] [address]- Allergies, Adverse Reactions, Alerts Substance Reaction Severity [...] Comment: [facility]# [id number] 2Admin Note: VIM 05/26/06 GIVEN TODAY 3Admin [...]
--- OUTSIDE RECORDS SUMMARY | 2024-05-21 14:43 | XMS_ITS | Continuity of Care Document ---
Author Organization [facility] Address [address] [place] [address]- Care Team Providers Care Hairspring Truing Inspector Name Role Phone Efraín Jones MD Primary Care Physician [phone] [place] [facility] [place](s): 01/26/24 - 02/28/24 [facility] [address] [place] [address]- Attending Physician: Efraín Jones MD Allergies, Adverse [...] influenza virus vaccine, inactivated 1 09/16/19 Gi hcris HGFB-OoF-2kNVT 12y+ bivalent booster vax 06/13/22 Recorded SARS-CoV-2 mRNA (rakbwzf-czdy-otdem) vax 01/24/22 Recorded tetanus/diphtheria/pertussis, acel(Tdap) 2 12/27/21 [...] [facility]# [id number] 2Result Comment: [facility] [id number] 3Admin Note: VIM 05/26/06 GIVEN TODAY 4Admin [...] capsule, 1 Refills, Maintenance, 12/18/23 17:58:00 EDT, [facility]/pharmacy #[id number], Partial fill upon patient reques... [...] Personnel Name: Karen FELIZ, Efraín Smith Position: [facility] Physician - Primary Care Member Role: PCP Address: Address: [address] [place] [address] Care Team Related Persons Name: LEIGHTON ROBLES Address: [address] [place], [place] Name: LEIGHTON ROBLES Address: [address] [place], [place] Name: BAMBI LEONARDO Address: [address] [place], [place] Name: BAMBI LEONARDO Address: [employer] Address: home [address] [place], [place] [address]
--- OUTSIDE RECORDS SUMMARY | 2024-05-21 14:43 | XMS_ITS | Continuity of Care Document ---
Author Organization [facility] Address [address] [place] [address]- Care Team Providers Care Enterprise Resource Analyst Name Role Phone Karen FELIZ, Efraín Smith Primary Care Physician [place] [facility] Date(s): 06/14/20 - 07/14/20 [facility] [address] [place] [address]- [facility] Allergies, Adverse Reactions, Alerts Substance [...] 1Result Comment: [facility]# [id number] 2Admin Note: VIM 05/26/06 GIVEN TODAY 3Admin [...] 0 Refills, Maintenance, 04/28/20 13:20:00 EDT, Gel, [facility]/pharmacy #[id number], 163, cm, 02/24/20 12:50:00 EDT, [...] 11/26/19 14:40:00 EDT, Route to Pharmacy Electronically, [facility]/pharmacy #[id number], Partial fill upon patient request, [...] 08/16/20 15:14:00 EST, 06/21/20 15:14:00 EDT, Cream, [facility]/pharmacy #[id number], 1 applicatio... Start Date: 06/21/20 [...]
--- OUTSIDE RECORDS SUMMARY | 2024-05-21 14:43 | XMS_ITS | Continuity of Care Document ---
Author Organization [facility] Address [address] [place] [address]- Care Team Providers Care Cloth Tearer Name Role Phone Efraín Jones MD Primary Care Physician Encounter [place] Date(s): 08/19/23 - 08/26/23 [facility] [address] [place] [address]- Attending Physician: Efraín Jones MD Allergies, Adverse [...] virus vaccine, inactivated 1 09/16/19 Gi chris [id number]-0dENM 12y+ bivalent booster vax 06/13/22 Recorded SARS-CoV-2 mRNA (grqqxey-pgny-ncyab) vax 01/24/22 Recorded tetanus/diphtheria/pertussis, acel(Tdap) 2 12/27/21 Given SARS-CoV-2 (COVID-19) mRNA BNT-162b2 vac 06/14/21 Recorded SARS-CoV-2 (COVID-19) mRNA BNT-162b2 vac 11/08/20 Recorded SARS-CoV-2 (COVID-19) mRNA BNT-162b2 vac 10/18/20 Recorded Tetanus Toxoid Vaccine (oldterm) 02/12/18 Given pneumococcal 13-valent vaccine 09/22/15 Given Zoster Vaccine Live 3 09/06/09 Given tetanus-diphtheria toxoids (Td) 4 08/03/09 Given Pneumococcal Vaccine (oldterm) 05/30/05 Given 1Result Comment: [facility]# [id number] 2Result Comment: [facility] [id number] 3Admin Note: VIM 05/26/06 GIVEN TODAY 4Admin [...] oldest [Reference Range]: 1 Height 163 cm (08/19/23 3:21 PM) Oxygen Saturation [94-100 %] 98 % (08/19/23 3:21 PM) Pulse Rate [55-90 bpm] 82 bpm (08/19/23 3:21 PM) Blood Pressure [90-138/55-84 mm Hg] 87/4 6mm Hg *L* (08/19/23 3:21 PM) Blood pressure sites Arm, right (08/19/23 3:21 PM) Social History Social History Type Response Smoking Status Never smoker entered on: 04/18/14 Sex Note * Tammy Christy: PERFORM, SIGN, VERIFY Event Display: Patient Education/Instruction Authored Date: [id number] [facility] *[facility] Clinical Summary Name ROSALIO ROBLES Age 87 Years 1935 PCP Karen FELIZ, Efraín Smith PCP Visit Date 08/19/2023 14:39:00 Additional Instructions: Scheduled Appointments?? Future Appointments ?*[facility] ?[address]??[place],??[place],??[address] ?Phone:??[phone]?Fax:??-- ?Appt. Date:??09/11/2023?3:10 PM ?Scheduled Provider:??Deanna FELIZ, Shannan Follow-Up Instructions ?? Diagnosis Medications: Please continue [...] orders Vital Signs Height 163 cm Weight BMI Blood Pressure 87 mm Hg/46 mm Hg Temperature Pulse Rate 82 bpm Respiratory Rate 02 Sat Mode of Delivery 98 %/ You can now view a summary of your hospital visit from the comfort of your home through a free online portal called [employer]. [employer] is a website that allows you to securely view your medical information including discharge summary, medications and follow-up visits. ??You can alsosend a secure electronic message to your doctor???s office to request appointments, renew medications or just ask a question. You can enroll at [email or web address] or register during your next office visit. [...] primary care provider, you may find a [facility] provider by calling [employer] at [phone]. [facility], in keeping with [facility] guidance, no longer requires face masks for [...] Karen FELIZ, Efraín Smith Position: [facility] Physician - Primary Care Member Role: PCP Address: Address: [address] [place] [address]- Care Team Related Persons Name: LEIGHTON ROBLES Address: home [address] [place], [place] Name: LEIGHTON ROBLES Address: [address] [place], [place] Name: BAMBI LEOANRDO Address: [facility] Address: home [address] [place] [address] Name: BAMBI LEONARDO Address: [address] [place] [address]
--- OUTSIDE RECORDS SUMMARY | 2024-05-21 14:44 | XMS_ITS | Continuity of Care Document ---
Author Organization [facility] Address [address] [place] [address]- Care Team Providers Care Extension Professor Name Role Phone Efraín Jones MD Primary Care Physician Encounter [facility] Date(s): 06/20/20 - 06/27/20 [facility] [address] [place] [address]- [facility] Encounter Diagnosis Lumbar back pain with radiculopathy affecting right lower extremity(Discharge Diagnosis) - 06/20/20 Spondylosis of lumbar spine(Discharge Diagnosis) - 06/20/20 History of compression fracture of spine(Discharge Diagnosis) - 06/20/20 Attending Physician: Efraín Jones MD Allergies, Adverse [...] 04/13/13 Not Given Patient Refuses 1Result Comment: [facility]# [id number] 2Admin Note: VIM 05/26/06 GIVEN TODAY 3Admin [...] Refills, Maintenance, 04/28/20 13:20:00 EDT, Gel, [facility]/pharmacy #[id number], 163, cm, 02/24/20 12:50:00 EDT, [...] 14:40:00 EDT, Route to Pharmacy Electronically, [facility]/pharmacy #[id number], Partial fill upon patient request, [...] 08/16/20 15:14:00 EST, 06/21/20 15:14:00 EDT, Cream, [id number], 1 applicatio... Start Date: 06/21/20 Stop [...] Effective Dates Health Status Clinical Service Informant Lumbar back pain with radiculopathy affecting right lower extremity Discharge Diagnosis 06/20/20 Spondylosis of lumbar spine Discharge Diagnosis 06/20/20 History of compression fracture of spine Discharge Diagnosis 06/20/20 Vital Signs Most recent to oldest [Reference Range]: 1 Height 163 cm (06/20/20 3:36 PM) Pulse Rate [55-90 bpm] 78 bpm (06/20/20 3:36 PM) Blood Pressure [90-138/55-84 mm Hg] 116/ 74mm Hg (06/20/20 3:36 PM) Respiratory Rate [16-30 br/min] 18 br/mi n (06/20/20 3:36 PM) Blood pressure sites Arm, right (06/20/20 3:36 PM) Social History Social History Type Response Smoking Status Never smoker entered on: 04/18/14 Sex
--- OUTSIDE RECORDS SUMMARY | 2024-05-21 14:44 | XMS_ITS | Continuity of Care Document ---
Author Organization [facility] Address [address] [place] [address]- Care Team Providers Care Supervisor Extruding Department Name Role Phone Karen FELIZ, Efraín Smith Primary Care Physician [facility] [id number] Date(s): 09/11/23 - 10/11/23 [facility] [address] [place] [address]- Attending Physician: Ollie Mijares Admitting Physician: Ollie Mijares Referring Physician: AdmtrOllie Allergies, Adverse Reactions, Alerts [...] virus vaccine, inactivated 1 09/16/19 Gi chris [id number]-XwS-6oPSB 12y+ bivalent booster vax 06/13/22 Recorded SARS-CoV-2 mRNA (yaibajs-naxk-gsccz) vax 01/24/22 Recorded tetanus/diphtheria/pertussis, acel(Tdap) 2 12/27/21 Given SARS-CoV-2 (COVID-19) mRNA BNT-162b2 vac 06/14/21 Recorded SARS-CoV-2 (COVID-19) mRNA BNT-162b2 vac 11/08/20 Recorded SARS-CoV-2 (COVID-19) mRNA BNT-162b2 vac 10/18/20 Recorded Tetanus Toxoid Vaccine (oldterm) 5/31/18 Given pneumococcal 13-valent vaccine 09/22/15 Given Zoster Vaccine Live 3 09/06/09 Given tetanus-diphtheria toxoids (Td) 4 08/03/09 Given Pneumococcal Vaccine (oldterm) 05/30/05 Given 1Result Comment: [facility]# [id number] 2Result Comment: [facility] [id number] 3Admin Note: VIM 05/26/06 GIVEN TODAY 4Admin [...] 15:41:07 EST Start Date: 07/28/19 Status: Ordered [facility] See Instructions, Refills 0, Maintenance, inbrija [...] Personnel Name: Karen FELIZ, Efraín Smith Position: [facility] Physician - Primary Care Member Role: PCP Address: Address: [address] [place] [address]- Care Team Related Persons Name: LEIGHTON ROBLES Address: home [address] [place], [place] Name: LEIGHTON ROBLES Address: [address] [place], [place] Name: BAMBI LEONARDO Address: [employer] Address: home [address] [place] [id number] Name: BAMBI LEONARDO Address: home [address] [place], [place]
--- OUTSIDE RECORDS SUMMARY | 2024-05-21 14:44 | XMS_ITS | Continuity of Care Document ---
Author Organization [facility] Address [address] [place] [address]- Care Team Providers Care Turkish Line Attendant Name Role Phone Karen FELIZ, Efraín Smith Primary Care Physician [place] [facility] [place] 12/27/21 - 01/03/22 [facility] [address] [place] [address]- Attending Physician: Not on Staff, Attending MD [...] Patient Refuses 1Result Comment: [facility] [id number] 2Result Comment: [facility]# [id number] 3Admin Note: VIM 05/26/06 GIVEN TODAY 4Admin [...] 01/04/22 17:04:00 EDT, 12/25/21 17:04:00 EDT, C[id number], Partial fill upon patient request if [...]
--- OUTSIDE RECORDS SUMMARY | 2024-05-21 14:44 | XMS_ITS | Continuity of Care Document ---
Author Organization [facility] Address [address] [place] [address]- Care Team Providers Care Molding Technician Name Role Phone Karen FELIZ, Efraín Smith Primary Care Physician [phone] Encounter [facility] Date(s): 12/12/23 - 01/11/24 [facility] [address] [place] [address]- Allergies, Adverse Reactions, Alerts Substance Reaction Severity [...] influenza virus vaccine, inactivated 09/16/19 Gi chris [id number]-SsF-9rWOQ 12y+ bivalent booster vax 06/13/22 Recorded SARS-CoV-2 mRNA (bxdcjxj-tiin-giibe) vax 01/24/22 Recorded tetanus/diphtheria/pertussis, acel(Tdap) 2 12/27/21 Given SARS-CoV-2 (COVID-19) mRNA BNT-162b2 vac 06/14/21 Recorded SARS-CoV-2 (COVID-19) mRNA BNT-162b2 vac 11/08/20 Recorded SARS-CoV-2 (COVID-19) mRNA BNT-162b2 vac 10/18/20 Recorded Tetanus Toxoid Vaccine (oldterm) 02/12/18 Given pneumococcal 13-valent vaccine 09/22/15 Given Zoster Vaccine Live 3 12/23/09 Given tetanus-diphtheria toxoids (Td) 4 08/03/09 Given Pneumococcal Vaccine (oldterm) 05/30/05 Given 1Result Comment: [facility]# [id number] 2Result Comment: [facility] [id number] 3Admin Note: VIM 05/26/06 GIVEN TODAY 4Admin [...] capsule, 1 Refills, Maintenance, 12/18/23 17:58:00 EDT, [facility]/pharmacy #[id number], Partial fill upon patient [...] Primary Care Member Role: PCP Address: Address: [address] [place] [address] Care Team Related Persons Name: LEIGHTON ROBLES Address: [address] [place], [place] Name: LEIGHTON ROBELS Address: [address] [place], [place] Name: BAMBI LEONARDO Address: [address] [place], [place] Name: BAMBI LEONARDO Address: [facility] Address: [place] [id number]
--- OUTSIDE RECORDS SUMMARY | 2024-05-21 14:44 | XMS_ITS | Continuity of Care Document ---
Author Organization [facility] Address [address] [place] [address]- Care Team Providers Care Patternmaker Pressure Cast Name Role Phone Karen FELIZ, Efraín Smith Primary Care Physician [place] [facility] [place] Date(s): 11/11/23 - 12/11/23 [facility] [address] [place] [address]- Allergies, Adverse Reactions, Alerts Substance Reaction Severity Status niacin LFT abnormality Active oxybutynin Disorientated Dizzy Active tamsulosin Lethargy Active Pravachol myalgia Active Lopid fatigue, weakness Active articaine-EPINEPHrine local facial edema Active levoFLOXacin Paroxysmal atrial fibrillation Proposed Levaquin Active Immunizations Given and Recorded Vaccine Date Status Refusal Reason influenza virus vaccine, inactivated 07/24/22 Give n influenza virus vaccine, inactivated 06/20/20 Give n influenza virus vaccine, inactivated 1 09/16/19 Gi chris NWKI-ZrR-4mNSR 12y+ bivalent booster vax 06/13/22 Recorded SARS-CoV-2 mRNA (cqcusmu-muxp-tkwmh) vax 01/24/22 Recorded tetanus/diphtheria/pertussis, acel(Tdap) 2 12/27/21 Given SARS-CoV-2 (COVID-19) mRNA BNT-162b2 vac 06/14/21 Recorded SARS-CoV-2 (COVID-19) mRNA BNT-162b2 vac 11/08/20 Recorded SARS-CoV-2 (COVID-19) mRNA BNT-162b2 vac 10/18/20 Recorded Tetanus Toxoid Vaccine (oldterm) 02/12/18 Given pneumococcal 13-valent vaccine 09/22/15 Given Zoster Vaccine Live 3 09/06/09 Given tetanus-diphtheria toxoids (Td) 4 08/03/09 Given Pneumococcal Vaccine (oldterm) 05/30/05 Given 1Result Comment: [facility]# [id number] 2Result Comment: [facility] [id number] 3Admin Note: VIM 05/26/06 GIVEN TODAY 4Admin [...] capsule, 1 Refills, Maintenance, 12/01/23 14:27:00 EDT, [facility]/pharmacy#[id number], Partial fill upon patient request [...] Personnel Name: Karen FELIZ, Efraín Smith Position: [facility] Physician - Primary Care Member Role: PCP Address: Address: [address] [place] [address]- Care Team Related Persons Name: LEIGHTON ROBLES Address: home [address] [place] [address] Name: LEIGHTON ROBLES Address: home [address] [place] [address] Name: BAMBI LEONARDO Address: home [address] [place] [address] Name: BAMBI LEONARDO Address: [employer] Address: [address]
--- OUTSIDE RECORDS SUMMARY | 2024-05-21 14:44 | XMS_ITS | Continuity of Care Document ---
Author Organization [facility] Address [address] [place] [address]- Care Team Providers Care Adjuster Arbitrator Name Role Phone Karen FELIZ, Efraín Smith Primary Care Physician [place] [facility] [place] 07/25/20 - 08/24/20 [facility] [address] [place] [address]- Allergies, Adverse Reactions, Alerts Substance Reaction Severity [...] Comment: [facility] [id number] 2Admin Note: VIM 05/26/06 GIVEN TODAY 3Admin [...] Maintenance, 04/28/20 13:20:00 EDT, Gel, [facility]/pharmacy #[id number], 163, cm, 02/24/20 12:50:00 [...] EDT, Route to Pharmacy Electronically, [facility]/pharmacy #[id number], Partial fill upon patient [...]
--- OUTSIDE RECORDS SUMMARY | 2024-05-21 14:44 | XMS_ITS | Continuity of Care Document ---
Author Organization [facility] Address [address] [place] [address]- Care Team Providers Care Sleeve Setter Name Role Phone Karen FELIZ, Efraín Smith Primary Care Physician En[place] [facility] [place] Date(s): 03/22/20 - 04/21/20 [facility] [address] [place] [address]- [facility] Allergies, Adverse Reactions, Alerts [...] 04/13/13 Not Given Patient Refuses 1Result Comment: [facility]# [id number] 2Admin Note: VIM 05/26/06 GIVEN TODAY 3Admin [...]
--- OUTSIDE RECORDS SUMMARY | 2024-05-21 14:44 | XMS_ITS | Continuity of Care Document ---
Author Organization [facility] Address [address] [place] [address]- Care Team Providers Care Anesthesiology Crna Name Role Phone Karen FELIZ, Efraín Smith Primary Care Physician [phone] [place] [facility] [place] 02/25/24 - 03/26/24 [facility] [address] [place] [address]- Allergies, Adverse Reactions, Alerts Substance Reaction Severity [...] virus vaccine, inactivated 1 09/16/19 Gi chris KERK-TbP-2cZEO 12y+ bivalent booster vax 06/13/22 Recorded SARS-CoV-2 mRNA (jfyvxyf-ebyk-byqzu) vax 01/24/22 Recorded tetanus/diphtheria/pertussis, acel(Tdap) 2 12/27/21 Given SARS-CoV-2 (COVID-19) mRNA BNT-162b2 vac 06/14/21 Recorded SARS-CoV-2 (COVID-19) mRNA BNT-162b2 vac 11/08/20 Recorded SARS-CoV-2 (COVID-19) mRNA BNT-162b2 vac 10/18/20 Recorded Tetanus Toxoid Vaccine (oldterm) 02/12/18 Given pneumococcal 13-valent vaccine 09/22/15 Given Zoster Vaccine Live 3 09/06/09 Given tetanus-diphtheria toxoids (Td) 4 08/03/09 Given Pneumococcal Vaccine (oldterm) 05/30/05 Given 1Result Comment: [facility]# [id number] 2Result Comment: [facility] [id number] 3Admin Note: VIM 05/26/06 GIVEN TODAY 4Admin [...] capsule, 1 Refills, Maintenance, 12/18/23 17:58:00 EDT, [facility]/pharmacy #[id number], Partial [...] Care Member Role: PCP Address: Address: [address] [place] [address] Care Team Related Persons Name: LEIGHTON ROBLES Address: [address] [place], [place] Name: LEIGHTON ROBLES Address: [address] [place], [place] Name: BAMBI LEONARDO Address: [place] Address: home [address] [place], [place] Name: BAMBI LEONARDO Address: [address] [place], [place]
--- OUTSIDE RECORDS SUMMARY | 2024-05-21 14:44 | XMS_ITS | Continuity of Care Document ---
Author Organization [facility] Address [address] [place], [place] [address]kay[place] lopez, [address] [place] [address]- Care Team Providers Care Rivet Thrower Name Role Phone Karen FELIZ, Efraín Smith Primary Care Physician [place] [facility]20 - 04/26/20 [facility] [address] [place] [address] Drive, [address] [place] [address]- [facility] Allergies, Adverse Reactions, Alerts Substance [...] Patient Refuses 1Result Comment: [facility]# [id number] 2Admin Note: VIM 05/26/06 GIVEN TODAY 3Admin [...] 12/02/19 13:02:00 EDT, Route to Pharmacy Electronically, [facility]/pharmacy #[id number], 163, cm, 11/23/19 13:45:00 EDT, Height, [...] 11/26/19 14:40:00 EDT, Route to Pharmacy Electronically, [facility]/pharmacy #[id number], Partial fill upon patient request, 163, [...]
--- OUTSIDE RECORDS SUMMARY | 2024-05-21 14:44 | XMS_ITS | Continuity of Care Document ---
Author Organization [facility] Address [address] [place] [address]- Care Team Providers Care Fire Engine Operator Name Role Phone Karen FELIZ, Efraín Smith Primary Care Physician [phone] [place] [facility] [place] 08/11/23 - 09/10/23 [facility] [address] [place] [address]- Allergies, Adverse Reactions, Alerts Substance Reaction Severity [...] influenza virus vaccine, inactivated 09/16/19 Gi chris GXNI-TuH-7bRAD 12y+ bivalent booster vax 06/13/22 Recorded SARS-CoV-2 mRNA (bgefqbw-dwuo-ibbtv) vax 01/24/22 Recorded tetanus/diphtheria/pertussis, acel(Tdap) 2 12/27/21 [...] 1Result Comment: [facility]# [id number] 2Result Comment: [facility] [id number] 3Admin Note: VIM 05/26/06 GIVEN TODAY 4Admin [...] Personnel Name: Karen FELIZ, Efraín Smith Position: [facility] Physician - Primary Care Member Role: PCP Address: Address: [address] [place] [address]- Care Team Related Persons Name: LEIGHTON ROBLES Address: home [address] [place], [place] Name: LEIGHTON ROBLES Address: [address] [place], [place] Name: BAMBI LEONARDO Address: [address] [place], [place] Name: BAMBI LEONARDO Address: [facility] Address: [address]
--- OUTSIDE RECORDS SUMMARY | 2024-05-21 14:44 | XMS_ITS | Continuity of Care Document ---
Author Organization [facility] Address [address] [place] [address]- Care Team Providers Care Web Analytics Specialist Name Role Phone Karen FELIZ, Efraín Smith Primary Care Physician En[place] [facility] Date(s): 05/02/22 - 06/01/22 [facility] [address] [place], [place] [address] Attending Physician: Ollie Mijares Admitting Physician: AdmtrOllie Referring Physician: AdmtrOllie Allergies, Adverse Reactions, Alerts Substance Reaction Severity Status niacin LFT abnormality Active tamsulosin Lethargy Active Lopid fatigue, weakness Active articaine-EPINEPHrine local facial edema Active levoFLOXacin Paroxysmal atrial fibrillation Proposed oxybutynin Disorientated Dizzy Active Pravachol myalgia Active Immunizations Given and Recorded Vaccine Date Status Refusal Reason SARS-CoV-2 mRNA (heqockh-msxw-euesf) vax 01/24/22 Recorded tetanus/diphtheria/pertussis, acel(Tdap) 1 12/27/21 [...] 04/13/13 Not Given Patient Refuses 1Result Comment: [facility] [id number] 2Result Comment: [facility]# [id number] 3Admin Note: VIM 05/26/06 GIVEN TODAY 4Admin [...] on: 04/18/14 Sex Care Team Personnel Name: Efraín Jones MD Address: [address] [place] [address]
--- OUTSIDE RECORDS SUMMARY | 2024-05-21 14:44 | XMS_ITS | Continuity of Care Document ---
Author Organization [facility] Address [address] [place] [address]- Care Team Providers Care Cnc Maintenance Technician Name Role Phone Karen FELIZ, Efraín Smith Primary Care Physician [phone] [place] [facility] 06[place]24/22 - 07/24/22 [facility] [address] [place] [address]- Allergies, Adverse Reactions, Alerts Substance Reaction Severity [...] virus vaccine, inactivated 1 09/16/19 Gi chris AVMV-JyA-6bWZD 12y+ bivalent booster vax 06/13/22 Recorded SARS-CoV-2 mRNA (tdfvbwr-vbee-kjflv) vax 01/24/22 Recorded tetanus/diphtheria/pertussis, acel(Tdap) 2 12/27/21 [...] Patient Refuses 1Result Comment: [facility]# [id number] 2Result Comment: [facility] [id number] 3Admin Note: VIM 05/26/06 GIVEN TODAY 4Admin [...] Team Personnel Name: Efraín Jones MD Position: [facility] Primary Care Physician Member Role: PCP Address: Address: [address] [place] [address]- Care Team Related Persons Name: LEIGHTON ROBLES Address: [address] [place], [place] Name: LEIGHTON ROBLES Address: [address] [place], [place] Name: BAMBI LEONARDO Address: [address] [place], [place] Name: BAMBI LEONARDO Address: AMMARY JANE Address: [address]
--- OUTSIDE RECORDS SUMMARY | 2024-05-21 14:44 | XMS_ITS | Continuity of Care Document ---
Author Organization [facility] Address [address] [place] [address]- Care Team Providers Care Pipe Recovery Specialist Name Role Phone Karen FELIZ, Efraín Smith Primary Care Physician En[place] [facility] Date(s): 12/11/23 - 01/10/24 [facility] [address] [place] [address]- Allergies, Adverse Reactions, Alerts Substance Reaction Severity [...] virus vaccine, inactivated 1 09/16/19 Gi chris PAAA-KqI-3cMNU 12y+ bivalent booster vax 06/13/22 Recorded SARS-CoV-2 mRNA (snsrode-krpe-ypsni) vax 01/24/22 Recorded tetanus/diphtheria/pertussis, acel(Tdap) 2 12/27/21 [...] [facility]# [id number] 2Result Comment: [facility] [id number] 3Admin Note: VIM 05/26/06 GIVEN TODAY 4Admin [...] capsule, 1 Refills, Maintenance, 12/18/23 17:58:00 EDT, [facility]/pharmacy #[id number], Partial fill upon patient [...] Primary Care Member Role: PCP Address: Address: [address] [place] [address] Care Team Related Persons Name: LEIGHTON ROBLES Address: [address] [place], [place] Name: LEIGHTON ROBLES Address: [address] [place], [place] Name: BAMBI LEONARDO Address: [address] [place], [place] Name: BAMBI LEONARDO Address: [facility] Address: [address] [place] [id number]
--- OUTSIDE RECORDS SUMMARY | 2024-05-21 14:44 | XMS_ITS | Continuity of Care Document ---
Author Organization [facility] Address [address] [place] [address]- Care Team Providers Care Specifications Checker Name Role Phone Karen FELIZ, Efraín Smith Primary Care Physician [phone] [place] [facility] [place] 06[place]06[place]20 - 07/06/20 [facility] [address] [place] [address]- [facility] Allergies, Adverse Reactions, Alerts Substance [...] 1Result Comment: [facility]# [id number] 2Admin Note: VIM 05/26/06 GIVEN TODAY 3Admin [...] 0 Refills, Maintenance, 04/28/20 13:20:00 EDT, Gel, [facility]/pharmacy #[id number], 163, cm, 02/24/20 12:50:00 EDT, [...] 11/26/19 14:40:00 EDT, Route to Pharmacy Electronically, [facility]/pharmacy #[id number], Partial fill upon patient request, [...] 08/16/20 15:14:00 EST, 06/21/20 15:14:00 EDT, Cream, [facility]/pharmacy #[id number], 1 applicatio... Start Date: 06/21/20 [...]
--- OUTSIDE RECORDS SUMMARY | 2024-05-21 14:44 | XMS_ITS | Continuity of Care Document ---
Author Organization [facility] Address [address] [place] [address]- Care Team Providers Care Trim Sawyer Name Role Phone Karen FELIZ, Efraín Smith Primary Care Physician Encounter [facility] Date(s): 04/05/24 - 05/05/24 [facility] [address] [place] [address]- Allergies, Adverse Reactions, Alerts Substance Reaction Severity [...] virus vaccine, inactivated 1 09/16/19 Gi chris [id number]-FvL-7sPJU 12y+ bivalent booster vax 06/13/22 Recorded SARS-CoV-2 mRNA (atiiwix-zsik-zbiyt) vax 01/24/22 Recorded tetanus/diphtheria/pertussis, acel(Tdap) 2 12/27/21 Given SARS-CoV-2 (COVID-19) mRNA BNT-162b2 vac 06/14/21 Recorded SARS-CoV-2 (COVID-19) mRNA BNT-162b2 vac 11/08/20 Recorded SARS-CoV-2 (COVID-19) mRNA BNT-162b2 vac 10/18/20 Recorded Tetanus Toxoid Vaccine (oldterm) 02/12/18 Given pneumococcal 13-valent vaccine 1/8/16 Given Zoster Vaccine Live 3 09/06/09 Given tetanus-diphtheria toxoids (Td) 4 08/03/09 Given Pneumococcal Vaccine (oldterm) 05/30/05 Given 1Result Comment: [facility]# [id number] 2Result Comment: [facility] [id number] 3Admin Note: VIM 05/26/06 GIVEN TODAY 4Admin [...] Primary Care Member Role: PCP Address: Address: [address] [place] [address] Care Team Related Persons Name: LEIGHTON ROBLES Address: home [address] [place], [place] Name: LEIGHTON ROBLES Address: [address] [place], [place] Name: BAMBI LEONARDO Address: [address] [place], [place] Name: BAMBI LEONARDO Address: [employer] Address: [address]
--- OUTSIDE RECORDS SUMMARY | 2024-05-21 14:44 | XMS_ITS | Continuity of Care Document ---
Author Organization [facility] Address [address] [place] [address]- Care Team Providers Care Pomology Teacher Name Role Phone Karen FELIZ, Efraín Smith Primary Care Physician Encounter [facility] Date(s): 04/19/24 - 05/19/24 [facility] [address] [place] [address]- Allergies, Adverse Reactions, Alerts Substance Reaction Severity [...] virus vaccine, inactivated 1 09/16/19 Gi chris VARP-KwN-0gGAG 12y+ bivalent booster vax 06/13/22 Recorded SARS-CoV-2 mRNA (gbcojcq-mdib-dwzyn) vax 01/24/22 Recorded tetanus/diphtheria/pertussis, acel(Tdap) 2 12/27/21 Given SARS-CoV-2 (COVID-19) mRNA BNT-162b2 vac 06/14/21 Recorded SARS-CoV-2 (COVID-19) mRNA BNT-162b2 vac 11/08/20 Recorded SARS-CoV-2 (COVID-19) mRNA BNT-162b2 vac 10/18/20 Recorded Tetanus Toxoid Vaccine (oldterm) 02/12/18 Given pneumococcal 13-valent vaccine 09/22/15 Given Zoster Vaccine Live 3 09/06/09 Given tetanus-diphtheria toxoids (Td) 4 08/03/09 Given Pneumococcal Vaccine (oldterm) 05/30/05 Given 1Result Comment: [facility]# [id number] 2Result Comment: [facility] [id number] 3Admin Note: VIM 05/26/06 GIVEN TODAY 4Admin [...] Primary Care Member Role: PCP Address: Address: [address] [place] [address]- Care Team Related Persons Name: LEIGHTON ROBLES Address: home [address] [place], [place] Name: LEIGHTON ROBLES Address: [address] [place], [place] Name: BAMBI LEONARDO Address: [employer] Address: home [address] [place], [place] Name: BAMBI LEONARDO Address: home [address] [place], [place]
--- OUTSIDE RECORDS SUMMARY | 2024-05-21 14:44 | XMS_ITS | Continuity of Care Document ---
Author Organization [facility] Address [address] [place] [address]- Care Team Providers Care Classroom Technology Technician Name Role Phone Karen FELIZ, Efraín Smith Primary Care Physician [phone] Encounter [facility] Date(s): 06/16/20 - 07/16/20 [facility] [address] [place] [address]- [facility] Allergies, Adverse Reactions, Alerts Substance Reaction Severity [...] Refuses 1Result Comment: [facility]# [id number] 2Admin Note: VIM 05/26/06 GIVEN TODAY 3Admin [...] 0 Refills, Maintenance, 04/28/20 13:20:00 EDT, Gel, [facility]/pharmacy #[id number], 163, cm, 02/24/20 12:50:00 EDT, [...] 11/26/19 14:40:00 EDT, Route to Pharmacy Electronically, [facility]/pharmacy #[id number], Partial fill upon patient request, [...] 08/16/20 15:14:00 EST, 06/21/20 15:14:00 EDT, Cream, [facility]/pharmacy #[id number], 1 applicatio... Start Date: 06/21/20 [...]
--- OUTSIDE RECORDS SUMMARY | 2024-05-21 14:44 | XMS_ITS | Continuity of Care Document ---
Author Organization [facility] Address [address] [place] [address]- Care Team Providers Care Ramp Boss Name Role Phone Karen FELIZ, Efraín Smith Primary Care Physician En[place] [facility] Date(s): 12/25/23 - 01/24/24 [facility] [address] [place] [address]- Attending Physician: Admtr, Ar8 Allergies, Adverse Reactions, [...] virus vaccine, inactivated 1 09/16/19 Gi chris YXIR-NvP-8vYLQ 12y+ bivalent booster vax 06/13/22 Recorded SARS-CoV-2 mRNA (qnrdqoy-bigd-dxbxo) vax 01/24/22 Recorded tetanus/diphtheria/pertussis, acel(Tdap) 2 12/27/21 Given SARS-CoV-2 (COVID-19) mRNA BNT-162b2 vac 06/14/21 Recorded SARS-CoV-2 (COVID-19) mRNA BNT-162b2 vac 11/08/20 Recorded SARS-CoV-2 (COVID-19) mRNA BNT-162b2 vac 10/18/20 Recorded Tetanus Toxoid Vaccine (oldterm) 02/12/18 Given pneumococcal 13-valent vaccine 09/22/15 Given Zoster Vaccine Live 3 12/23/09 Given tetanus-diphtheria toxoids (Td) 4 08/03/09 Given Pneumococcal Vaccine (oldterm) 05/30/05 Given 1Result Comment: [facility]# [id number] 2Result Comment: [facility] [id number] 3Admin Note: VIM 05/26/06 GIVEN TODAY 4Admin [...] capsule, 1 Refills, Maintenance, 12/18/23 17:58:00 EDT, [facility]/pharmacy #[id number], Partial fill upon patient reques... Start [...] Lab Results Authored Date: * Event Display: Non BH Lab Results Authored Date: * Event Display: Non BH Lab Results Authored Date: Cardiology Consult note * Event [...] Event Display: Radiology Results Scanned Authored Date: [id number] * Peggy Marline: PERFORM Event Display: Radiology Results Scanned Authored Date: [id number] CT Chest * Event Display: CT Scan Chest Authored Date: MR Spine * Event Display: MRI Spine Authored Date: US Neck * Event Display: Ultrasound Neck Authored Date: Patient Care team information Care Team Personnel Name: Karen FELIZ, Efraín Smith Position: [facility] Physician - Primary Care Member Role: PCP Address: Address: [address] [place] [address]- Care Team Related Persons Name: LEIGHTON ROBLES Address: [address] [place] [address] Name: LEIGHTON ROBLES Address: [address] [place], [place] Name: BAMBI LEONARDO Address: [facility] [employer] Address: [address] [place] [address] Name: BAMBI LEONARDO Address: [address] [place] [address]
--- OUTSIDE RECORDS SUMMARY | 2024-05-21 14:44 | XMS_ITS | Continuity of Care Document ---
Author Organization [facility] Address [address] [place] [address]- Care Team Providers Care Molding Engineer Name Role Phone Karen FELIZ, Efraín Smith Primary Care Physician [place] [facility] [place](s[place] 03/27/20 - 04/26/20 [facility] [address] [place] [address]- [facility] [...] 04/13/13 Not Given Patient Refuses 1Result Comment: [facility]# [id number] 2Admin Note: VIM 05/26/06 GIVEN TODAY 3Admin [...] 12/02/19 13:02:00 EDT, Route to Pharmacy Electronically, [facility]/pharmacy #[id number], 163, cm, 11/23/19 13:45:00 EDT, Height, [...] 11/26/19 14:40:00 EDT, Route to Pharmacy Electronically, [facility]/pharmacy #[id number], Partial fill upon patient request, 163, [...]
--- OUTSIDE RECORDS SUMMARY | 2024-05-21 14:44 | XMS_ITS | Continuity of Care Document ---
Author Organization [facility] Address [address] [place] [address]- Care Team Providers Care Business Unit Controller Name Role Phone Karen FELIZ, Efraín Smith Primary Care Physician [phone] En[facility] Date(s): 10/20/23 - 11/19/23 [facility] [address] [place] [address]- Allergies, Adverse Reactions, Alerts Substance Reaction Severity [...] influenza virus vaccine, inactivated 09/16/19 Gi chris QLLM-IkE-0mAYQ 12y+ bivalent booster vax 06/13/22 Recorded SARS-CoV-2 mRNA (cnvezmm-rwgb-ttzfa) vax 01/24/22 Recorded tetanus/diphtheria/pertussis, acel(Tdap) 2 12/27/21 Given SARS-CoV-2 (COVID-19) mRNA BNT-162b2 vac 06/14/21 Recorded SARS-CoV-2 (COVID-19) mRNA BNT-162b2 vac 11/08/20 Recorded SARS-CoV-2 (COVID-19) mRNA BNT-162b2 vac 10/18/20 Recorded Tetanus Toxoid Vaccine (oldterm) 02/12/18 Given pneumococcal 13-valent vaccine 09/22/15 Given Zoster Vaccine Live 3 12/23/09 Given tetanus-diphtheria toxoids (Td) 4 08/03/09 Given Pneumococcal Vaccine (oldterm) 05/30/05 Given 1Result Comment: [facility]# [id number] 2Result Comment: [facility] [id number] 3Admin Note: VIM 05/26/06 GIVEN TODAY 4Admin [...] capsule, 1 Refills, Maintenance, 10/28/23 15:45:00 EST, [facility]/pharmacy#[id number], Partial fill upon patient request [...] Efraín Smith Position: [facility] Physician - Primary Care Member Role: PCP Address: Address: [address] [place] [address]- Care Team Related Persons Name: LEIGHTON ROBLES Address: home [address] [place] [address] Name: LEIGHTON ROBLES Address: [address] [place], [place] Name: BAMBI LEONARDO Address: [employer] Address: home [address] [place] [address] Name: BAMBI LEONARDO Address: [address]
--- OUTSIDE RECORDS SUMMARY | 2024-05-21 14:44 | XMS_ITS | Continuity of Care Document ---
Author Organization [facility] Address [address] [place] [address]- Care Team Providers Care Petrographer Name Role Phone Karen FELIZ, Efraín Smith Primary Care Physician En[place] [facility] Date(s): 07/02/23 - 08/21/23 [facility] [address] [place] [address]- Attending Physician: Linh Garza MD Admitting Physician: Linh Garza MD Allergies, Adverse Reactions, Alerts Substance Reaction [...] virus vaccine, inactivated 1 09/16/19 Gi chris TDEZ-KkK-3nAGQ 12y+ bivalent booster vax 06/13/22 Recorded SARS-CoV-2 mRNA (jlusvkv-thip-qruwy) vax 01/24/22 Recorded tetanus/diphtheria/pertussis, acel(Tdap) 2 12/27/21 Given SARS-CoV-2 (COVID-19) mRNA BNT-162b2 vac 06/14/21 Recorded SARS-CoV-2 (COVID-19) mRNA BNT-162b2 vac 11/08/20 Recorded SARS-CoV-2 (COVID-19) mRNA BNT-162b2 vac 10/18/20 Recorded Tetanus Toxoid Vaccine (oldterm) 02/12/18 Given pneumococcal 13-valent vaccine 09/22/15 Given Zoster Vaccine Live 3 09/06/09 Given tetanus-diphtheria toxoids (Td) 4 08/03/09 Given Pneumococcal Vaccine (oldterm) 05/30/05 Given 1Result Comment: [facility]# [id number] 2Result Comment: [facility] [id number] 3Admin Note: VIM 05/26/06 GIVEN TODAY 4Admin [...] Personnel Name: Karen FELIZ, Efraín Smith Position: [facility] Physician - Primary Care Member Role: PCP Address: Address: [address] [place] [address] Care Team Related Persons Name: LEIGHTON ROBLES Address: [address] [place] [address] Name: LEIGHTON ROBLES Address: [address] [place] [address] Name: BAMBI LEONARDO Address: [address] [place], [place] Name: BAMBI LEONARDO Address: [employer] Address: [address]
--- OUTSIDE RECORDS SUMMARY | 2024-05-21 14:44 | XMS_ITS | Continuity of Care Document ---
Author Organization [facility] Address [address] [place] [address]- Care Team Providers Care Keeler Polygraph Operator Name Role Phone Karen FELIZ, Efraín Smith Primary Care Physician En[facility] [place] [facility] Date(s): 02/26/22 - 03/28/22 [facility] [address] [place] [address]- Allergies, Adverse Reactions, Alerts Substance Reaction Severity Status niacin LFT abnormality Active oxybutynin Disorientated Dizzy Active tamsulosin Lethargy Active Pravachol myalgia Active Lopid fatigue, weakness Active articaine-EPINEPHrine local facial edema Active levoFLOXacin Paroxysmal atrial fibrillation Proposed Immunizations Given and Recorded Vaccine Date Status Refusal Reason SARS-CoV-2 mRNA (rnvjpob-cahu-npccd) vax 01/24/22 Recorded tetanus/diphtheria/pertussis, acel(Tdap) 1 12/27/21 [...] Refuses 1Result Comment: [facility] [id number] 2Result Comment: [facility]# [id number] 3Admin Note: VIM 05/26/06 GIVEN TODAY 4Admin [...]
--- OUTSIDE RECORDS SUMMARY | 2024-05-21 14:44 | XMS_ITS | Continuity of Care Document ---
Author Organization [facility] Address [address] [place] [address]- Care Team Providers Care Casey Saw Operator Name Role Phone Karen FELIZ, Efraín Smith Primary Care Physician En[facility] Date(s): 12/05/22 - 01/04/23 [facility] [address] [place] [address]- Allergies, Adverse Reactions, Alerts Substance Reaction Severity [...] influenza virus vaccine, inactivated 09/16/19 Gi chris SAAH-BcZ-2nTKG 12y+ bivalent booster vax 06/13/22 Recorded SARS-CoV-2 mRNA (jwzcioj-epgi-slfhb) vax 01/24/22 Recorded tetanus/diphtheria/pertussis, acel(Tdap) 2 12/27/21 [...] Given Patient Refuses 1Result Comment: [facility]# [id number] 2Result Comment: [facility] [id number] 3Admin Note: VIM 05/26/06 GIVEN TODAY 4Admin [...] 15:41:07 EST Start Date: 07/28/19 Status: Ordered [facility] Rx See Instructions, Refills 0, Maintenance, imbregia [...] Personnel Name: Karen FELIZ, Efraín Smith Position: [facility] Primary Care Physician Member Role: PCP Address: Address: [address] [place] [address]- Care Team Related Persons Name: LEIGHTON ROBLES Address: [address] [place] [address] Name: LEIGHTON ROBLES Address: [address] [place] [address] Name: BAMBI LEONARDO Address: [address] [place] [address] Name: BAMBI LEONARDO Address: [facility] Address: home [address] [place] [address]
--- OUTSIDE RECORDS SUMMARY | 2024-05-21 14:44 | XMS_ITS | Continuity of Care Document ---
Author Organization [facility] Address [address] [place] [address]- Care Team Providers Care Venereal Disease Control Head Name Role Phone Karen FELIZ, Efraín Smith Primary Care Physician [place] [id number] Date(s): 01/08/23 - 02/07/23 [facility] [address] [place] [address]- Attending Physician: Ollie Mijares Admitting Physician: Ollie [...] virus vaccine, inactivated 1 09/16/19 Gi chris CEUN-VxY-6rARN 12y+ bivalent booster vax 06/13/22 Recorded SARS-CoV-2 mRNA (tgrljyk-wjxp-zkaty) vax 01/24/22 Recorded tetanus/diphtheria/pertussis, acel(Tdap) 2 12/27/21 [...] Not Given Patient Refuses 1Result Comment: [facility]# [id number] 2Result Comment: [facility] [id number] 3Admin Note: VIM 05/26/06 GIVEN TODAY 4Admin [...] Team Personnel Name: Efraín Jones MD Position: [facility] Physician - Primary Care Member Role: PCP Address: Address: [address] [place] [address] Care Team Related Persons Name: LEIGHTON ROBLES Address: [address] [place], [place] Name: LEIGHTON ROBLES Address: [address] [place], [place] Name: BAMBI LEONARDO Address: [address] [place], [place] Name: BAMBI LEONARDO Address: [facility] Address: home [address] [place] [id number]
--- OUTSIDE RECORDS SUMMARY | 2024-05-21 14:44 | XMS_ITS | Continuity of Care Document ---
Author Organization [facility] Address [address] [place] [address]- Care Team Providers Care Exchange Consultant Name Role Phone Efraín Jones MD Primary Care Physician Encounter 07/12/20 - 07/19/20 [facility] [address], [address] [place] [address]- [phone] Attending Physician: Efraín Jones MD Admitting Physician: [...] Given Patient Refuses 1Result Comment: [facility]# [id number] 2Admin Note: VIM 05/26/06 GIVEN TODAY 3Admin [...] Maintenance, 04/28/20 13:20:00 EDT, Gel, [facility]/pharmacy #[id number], 163, cm, 02/24/20 12:50:00 EDT, [...] EDT, Route to Pharmacy Electronically, [facility]/pharmacy #[id number], Partial fill upon patient request, [...] Active Seasonal allergic rhinitis(Confirmed) Active Tremor(Confirmed) Active Results Radiology Reports * Exam Date Time Procedure Performing Provider Status 07/12/20 2:18 PM Dexa Bone Density (Axial) Jaylon Monteiro (Verified) Notes: (Dexa Bone Density (Axial)) Reason For Exam: Screening for Osteoporosis RESULT: DEXA BONE DENSITY (AXIAL) Bone Density Report Name: ROSALIO ROBLES Age: 84 Sex: Male Ethnicity: White Date of : 1935 Indication: SCREENING FOR OSTEOPOROSIS. Referring Provider: EFRAÍN JONES Study: Bone densitometry was performed. Exam Date: July 12, 2020 Accession number: [id number] Bone Density: Region BMD T-score Z-score Classification Femoral Neck (Right) 0.846 0.0 1.0 Normal Total Hip (Right) 1.117 1.4 1.7 Normal Total Forearm (Left) 0.733 2.9 2.9 1/3 Forearm (Left) 0.857 2.7 3.0 Normal UD Forearm (Left) 0.614 2.9 2.9 World Health Organization criteria for BMD impression classify patients as: Normal (T-score at or above -1.0), Osteopenia (T-score between -1.0 and -2.5), or Osteoporosis (T-score at or below -2.5). 10-year Fracture Risk: FRAX not reported because: All T-scores for Spine Total, Hip Total, Femoral Neck at or above -1.0 Prior hip or vertebral fracture Clinical Information Provided by Patient: Have had a previous hip or vertebral fracture Has had a low trauma fracture Has used the following medications: Vitamin D, Heparin 2016 Patient maximum height was 68 Impression: The patient has normal bone density as determined by WHO criteria. A repeat bone density assessment should be considered in two years. Reported by: Hayley Hill M.D. on 07/13/2020 10:50:00 AM. Dictated By: Hayley Hill MD Dictated Date/Time: 07/13/20 10:51 a Reviewed By: Hayley Hill MD Signed By: Hayley Hill MD Signed Date/Time: 07/13/20 10:51 am Transcribed By: RADHIKA Transcribed Date/Time: 07/13/20 10:51 am Social History Social History Type Response Smoking Status Never smoker entered on: 04/18/14 Sex
--- OUTSIDE RECORDS SUMMARY | 2024-05-21 14:44 | XMS_ITS | Continuity of Care Document ---
Author Organization [facility] Address [address] [place] [address]- Care Team Providers Care Can Reconditioner Name Role Phone Karen FELIZ, Efraín Smith Primary Care Physician En[facility] Date(s): 03/08/20 - 03/15/20 [facility] [address] [place] [address]- [facility] Encounter Diagnosis Sciatic pain(Discharge Diagnosis) - 03/09/20 Attending Physician: Gisel MENDOSA, Grey Mendoza Allergies, Adverse Reactions, Alerts Substance [...] 1Result Comment: [facility]# [id number] 2Admin Note: VIM 05/26/06 GIVEN TODAY 3Admin [...] 12/02/19 13:02:00 EDT, Route to Pharmacy Electronically, [facility]/pharmacy #[id number], 163, cm, 11/23/19 [...] 11/26/19 14:40:00 EDT, Route to Pharmacy Electronically, [facility]/pharmacy #[id number], Partial fill upon [...] Dates Health Status Cl inical Service Informant Sciatic pain Discharge Diagnosis 03/09/20 Social History Social History Type Response Smoking Status Never smoker entered on: 04/18/14 Sex
--- OUTSIDE RECORDS SUMMARY | 2024-05-21 14:44 | XMS_ITS | Continuity of Care Document ---
Author Organization [facility] Address [address] [place] [address]- Care Team Providers Care Hearing Care Practitioner Name Role Phone Karen FELIZ, Efraín Smith Primary Care Physician [place] [facility] Date(s): 12/12/23 - 01/11/24 [facility] [address] [place] [address]- Allergies, Adverse Reactions, Alerts Substance Reaction Severity [...] virus vaccine, inactivated 1 09/16/19 Gi chris BCAO-VbM-6rRES 12y+ bivalent booster vax 06/13/22 Recorded SARS-CoV-2 mRNA (weqffbe-dzqk-uufwm) vax 01/24/22 Recorded tetanus/diphtheria/pertussis, acel(Tdap) 2 12/27/21 Given SARS-CoV-2 (COVID-19) mRNA BNT-162b2 vac 06/14/21 Recorded SARS-CoV-2 (COVID-19) mRNA BNT-162b2 vac 11/08/20 Recorded SARS-CoV-2 (COVID-19) mRNA BNT-162b2 vac 10/18/20 Recorded Tetanus Toxoid Vaccine (oldterm) 02/12/18 Given pneumococcal 13-valent vaccine 09/22/15 Given Zoster Vaccine Live 3 09/06/09 Given tetanus-diphtheria toxoids (Td) 4 08/03/09 Given Pneumococcal Vaccine (oldterm) 05/30/05 Given 1Result Comment: [facility]# [id number] 2Result Comment: [facility] [id number] 3Admin Note: VIM 05/26/06 GIVEN TODAY 4Admin [...] capsule, 1 Refills, Maintenance, 12/18/23 17:58:00 EDT, [id number], Partial fill upon patient reques... [...] Personnel Name: Karen FELIZ, Efraín Smith Position: [facility] Physician - Primary Care Member Role: PCP Address: Address: [address] [place] [address]- Care Team Related Persons Name: LEIGHTON ROBLES Address: home [address] [place], [place] Name: LEIGHTON ROBLES Address: [address] [place], [place] Name: BAMBI LEONARDO Address: [employer] Address: home [address] [place], [place] Name: BAMBI LEONARDO Address: [address]
--- OUTSIDE RECORDS SUMMARY | 2024-05-21 14:44 | XMS_ITS | Continuity of Care Document ---
Author Organization [facility] Address [address] [place] [address]- Care Team Providers Care Obstetrics Gynecology Physician Name Role Phone Karen FELIZ, Efraín Smith Primary Care Physician Encounter [facility] Date(s): 07/25/20 - 08/24/20 [facility] [address] [place] [address]- Allergies, Adverse Reactions, Alerts Substance Reaction Severity [...] Not Given Patient Refuses 1Result Comment: [facility]# [id number] 2Admin Note: VIM 05/26/06 GIVEN TODAY 3Admin [...] 0 Refills, Maintenance, 04/28/20 13:20:00 EDT, Gel, [facility]/pharmacy #[id number], 163, cm, 02/24/20 12:50:00 [...] 11/26/19 14:40:00 EDT, Route to Pharmacy Electronically, [facility]/pharmacy #[id number], Partial fill upon patient [...]
--- OUTSIDE RECORDS SUMMARY | 2024-05-21 14:45 | XMS_ITS | Continuity of Care Document ---
Author Organization [facility] Address [address] [place] [address]- Care Team Providers Care Meter Reader Name Role Phone Karen FELIZ, Efraín Smith Primary Care Physician [place] [facility]09/23 - 10/09/23 [facility] [address] [place] [address]- Attending Physician: Admtr, Ar8 Allergies, Adverse Reactions, [...] virus vaccine, inactivated 1 09/16/19 Gi chris LCKA-IxL-6rJES 12y+ bivalent booster vax 06/13/22 Recorded SARS-CoV-2 mRNA (rjfjfwq-hwnv-rziiz) vax 01/24/22 Recorded tetanus/diphtheria/pertussis, acel(Tdap) 2 12/27/21 Given SARS-CoV-2 (COVID-19) mRNA BNT-162b2 vac 06/14/21 Recorded SARS-CoV-2 (COVID-19) mRNA BNT-162b2 vac 11/08/20 Recorded SARS-CoV-2 (COVID-19) mRNA BNT-162b2 vac 10/18/20 Recorded Tetanus Toxoid Vaccine (oldterm) 5/31/18 Given pneumococcal 13-valent vaccine 09/22/15 Given Zoster Vaccine Live 3 09/06/09 Given tetanus-diphtheria toxoids (Td) 4 08/03/09 Given Pneumococcal Vaccine (oldterm) 05/30/05 Given 1Result Comment: [facility]# [id number] 2Result Comment: [facility] [id number] 3Admin Note: VIM 05/26/06 GIVEN TODAY 4Admin [...] 15:41:07 EST Start Date: 07/28/19 [facility], Refills 0, Maintenance, [...] Event Display: Radiology Results Scanned Authored Date: [id number] * Marline Woods: PERFORM Event Display: Radiology Results Scanned Authored Date: CT Chest * Event Display: CT Scan Chest Authored Date: MR Spine * Event Display: MRI Spine Authored Date: US Neck * Event Display: Ultrasound Neck Authored Date: Patient Care team information Care Team Personnel Name: Karen FELIZ, Efraín Smith Position: S Physician - Primary Care Member Role: PCP Address: Address: [address] [place] [address]- [place] Care Team Related Persons Name: LEIGHTON ROBLES Address: home [address] [place], [place] Name: LEIGHTON ROBLES Address: [address] [place], [place] Name: BAMBI LEONARDO Address: [facility] Address: home [address] [place], [place] Name: BAMBI LEONARDO Address: [address]
--- OUTSIDE RECORDS SUMMARY | 2024-05-21 14:45 | XMS_ITS | Continuity of Care Document ---
Author Organization [facility] Address [address] [place] [address]- Care Team Providers Care Director Of Casino Marketing Name Role Phone Karen FELIZ, Efraín Smith Primary Care Physician [phone] Encounter [facility] Date(s): 02/03/23 - 03/05/23 [facility] [address] [place] [address]- Allergies, Adverse Reactions, Alerts Substance Reaction Severity [...] virus vaccine, inactivated 1 09/16/19 Gi chris BMBR-GoB-4hQZJ 12y+ bivalent booster vax 06/13/22 Recorded SARS-CoV-2 mRNA (bhgnvbp-utxh-ymfgg) vax 01/24/22 Recorded tetanus/diphtheria/pertussis, acel(Tdap) 2 12/27/21 [...] [facility]# [id number] 2Result Comment: [facility] [id number] 3Admin Note: VIM 05/26/06 GIVEN TODAY 4Admin [...] 15:41:07 EST Start Date: 07/28/19 Status: Ordered [facility] Rx See Instructions, Refills 0, Maintenance, imbregia [...] Efraín Smith Position: [facility] Physician - Primary Care Member Role: PCP Address: Address: [address] [place] [address] Care Team Related Persons Name: LEIGHTON ROBLES Address: home [address] [place], [place] Name: LEIGHTON ROBLES Address: [address] [place] [address] Name: BAMBI LEONARDO Address: [address] [place], [place] Name: BAMBI LEONARDO [facility] Address: [address] [place] [address]
--- OUTSIDE RECORDS SUMMARY | 2024-05-21 14:45 | XMS_ITS | Continuity of Care Document ---
Author Organization [facility] Address [address] [place] [address]- Care Team Providers Care Building Inspector Name Role Phone Karen FELIZ, Efraín Smith Primary Care Physician En[place] [facility] [place] Date(s): 08/20/22 - 09/19/22 [facility] [address] [place] [address]- Allergies, Adverse Reactions, Alerts Substance Reaction Severity [...] virus vaccine, inactivated 1 09/16/19 Gi chris FRUD-RsX-6iWEK 12y+ bivalent booster vax 06/13/22 Recorded SARS-CoV-2 mRNA (xsjenid-ivra-uwtoa) vax 01/24/22 Recorded tetanus/diphtheria/pertussis, acel(Tdap) 2 12/27/21 [...] Refuses 1Result Comment: [facility]# [id number] 2Result Comment: [facility] [id number] 3Admin Note: VIM 05/26/06 GIVEN TODAY 4Admin [...] Personnel Name: Karen FELIZ, Efraín Smith Position: [facility] Primary Care Physician Member Role: PCP Address: Address: [address] [place] [address] Care Team Related Persons Name: LEIGHTON ROBLES Address: home [address] [place], [place] Name: LEIHGTON ROBLES Address: home [address] [place], [place] Name: BAMBI LEONARDO Address: [address] [place], [place] Name: BAMBI LEONARDO [facility] Address: [address]
--- OUTSIDE RECORDS SUMMARY | 2024-05-21 14:45 | XMS_ITS | Continuity of Care Document ---
Author Organization [facility] Address [address] [place] [address]- Care Team Providers Care Preschool Aide Name Role Phone Efraín Jones MD Primary Care Physician [phone] [place] [facility] [place] [place] [id number] Date(s): 09/02/23 - 09/09/23 [facility] [address] [place] [address]- Attending Physician: Efraín Jones MD Allergies, Adverse [...] virus vaccine, inactivated 1 09/16/19 Gi chris WJZO-ZoC-4bIVF 12y+ bivalent booster vax 06/13/22 Recorded SARS-CoV-2 mRNA (gjwehok-bnww-eqrrn) vax 01/24/22 Recorded tetanus/diphtheria/pertussis, acel(Tdap) 2 12/27/21 Given SARS-CoV-2 (COVID-19) mRNA BNT-162b2 vac 06/14/21 Recorded SARS-CoV-2 (COVID-19) mRNA BNT-162b2 vac 11/08/20 Recorded SARS-CoV-2 (COVID-19) mRNA BNT-162b2 vac 10/18/20 Recorded Tetanus Toxoid Vaccine (oldterm) 02/12/18 Given pneumococcal 13-valent vaccine 09/22/15 Given Zoster Vaccine Live 3 09/06/09 Given tetanus-diphtheria toxoids (Td) 4 08/03/09 Given Pneumococcal Vaccine (oldterm) 05/30/05 Given 1Result Comment: [facility]# [id number] 2Result Comment: [facility] [id number] 3Admin Note: VIM 05/26/06 GIVEN TODAY 4Admin [...] oldest [Reference Range]: 1 Height 163 cm (09/02/23 3:43 PM) Oxygen Saturation [94-100 %] 98 % (09/02/23 3:43 PM) Pulse Rate [55-90 bpm] 90 bpm (09/02/23 3:43 PM) Blood Pressure [90-138/55-84 mm Hg] 100/ 52mm Hg (09/02/23 3:43 PM) Blood pressure sites Arm, right (09/02/23 3:43 PM) Weight Obtained Via Standing scale (09/02/23 3:43 PM) Social History Social History Type Response Smoking Status Never smoker entered on: 04/18/14 Sex Patient Care team information Care Team Personnel Name: Karen FELIZ, Efraín Smith Position: [facility] Physician - Primary Care Member Role: PCP Address: Address: [address] [place] [address] Care Team Related Persons Name: LEIGHTON ROBLES Address: home [address] [place] [address] Name: LEIGHTON ROBLES Address: [address] [place], [place] Name: BAMBI LEONARDO Address: [facility] Address: home [address] [place] [id number] Name: BAMBI LEONARDO Address: home [address] [place] [address]
--- OUTSIDE RECORDS SUMMARY | 2024-05-21 14:45 | XMS_ITS | Continuity of Care Document ---
Author Organization [facility] Address [address] [place] [address]- Care Team Providers Care Tie Inspector Name Role Phone Karen FELIZ, Efraín Smith Primary Care Physician En[facility] Date(s): 06/10/23 - 07/10/23 [facility] [address] [place] [address]- Attending Physician: Admtr, Ar8 Allergies, Adverse Reactions, [...] virus vaccine, inactivated 1 09/16/19 Gi chris WPEC-SaO-5eXKO 12y+ bivalent booster vax 06/13/22 Recorded SARS-CoV-2 mRNA (bxeinlv-wvra-cpwvf) vax 01/24/22 Recorded tetanus/diphtheria/pertussis, acel(Tdap) 2 12/27/21 [...] Comment: [facility]# [id number] 2Result Comment: [facility] [id number] 3Admin Note: VIM 05/26/06 GIVEN TODAY 4Admin [...] Care Member Role: PCP Address: Address: [address] [place] [address]- Care Team Related Persons Name: SUAD ROBLESHANIE Address: [address] [place], [place] Name: LEIGHTON ROBLES Address: [address] [place], [place] Name: BAMBI LEONARDO Address: [address] [place], [place] Name: BAMBI LEONARDO Address: [facility] Address: [address] [place] [address]
--- OUTSIDE RECORDS SUMMARY | 2024-05-21 14:45 | XMS_ITS | Continuity of Care Document ---
Author Organization [facility] Address [address] [place] [address]- Care Team Providers Care C Consultant Name Role Phone Karen FELIZ, Efraín Smith Primary Care Physician En[facility] Date(s): 05/23/20 - 06/22/20 [facility] [address] [place] [address]- [facility] Allergies, Adverse Reactions, Alerts Substance Reaction [...] Comment: [facility]# [id number] 2Admin Note: VIM 05/26/06 GIVEN TODAY 3Admin [...] 08/16/20 15:14:00 EST, 06/21/20 15:14:00 EDT, Cream, [facility]/pharmacy #[id number], 1 applicatio... Start Date: [...]
--- OUTSIDE RECORDS SUMMARY | 2024-05-21 14:45 | XMS_ITS | Continuity of Care Document ---
Author Organization [facility] Address [address] [place] [address]- Care Team Providers Care Architect Name Role Phone Karen FELIZ, Efraín Smith Primary Care Physician [phone] [place] [facility] [place] 05/14/23 - 06/13/23 [facility] [address] [place] [address]- Allergies, Adverse Reactions, Alerts Substance Reaction Severity [...] virus vaccine, inactivated 1 09/16/19 Gi chris IFUC-CmE-5sQMJ 12y+ bivalent booster vax 06/13/22 Recorded SARS-CoV-2 mRNA (auvgpjr-jfmt-imrgy) vax 01/24/22 Recorded tetanus/diphtheria/pertussis, acel(Tdap) 2 12/27/21 [...] 1Result Comment: [facility]# [id number] 2Result Comment: [facility] [id number] 3Admin Note: VIM 05/26/06 GIVEN TODAY 4Admin [...] Personnel Name: Karen FELIZ, Efraín Smith Position: [facility] Physician - Primary Care Member Role: PCP Address: Address: [address] [place] [address] Care Team Related Persons Name: LEIGHTON ROBLES Address: [address] Name: LEIGHTON ROBLES Address: home [address] [place] [address] Name: BAMBI LEONARDO Address: [facility] Address: home [address] [place] [address] Name: BAMBI LEONARDO Address: home [address] [place] [address]
--- OUTSIDE RECORDS SUMMARY | 2024-05-21 14:45 | XMS_ITS | Continuity of Care Document ---
Author Organization [facility] Address [address] [place] [address]- Care Team Providers Care Sports Management Intern Name Role Phone Karen FELIZ, Efraín Smith Primary Care Physician Encounter [facility] Date(s): 10/24/23 - 11/23/23 [facility] [address] [place] [address]- Allergies, Adverse Reactions, Alerts Substance Reaction Severity [...] influenza virus vaccine, inactivated 09/16/19 Gi chris CGYF-DyW-6pDGH 12y+ bivalent booster vax 06/13/22 Recorded SARS-CoV-2 mRNA (vuydffb-ngwk-bazwt) vax 01/24/22 Recorded tetanus/diphtheria/pertussis, acel(Tdap) 2 12/27/21 Given SARS-CoV-2 (COVID-19) mRNA BNT-162b2 vac 06/14/21 Recorded SARS-CoV-2 (COVID-19) mRNA BNT-162b2 vac 11/08/20 Recorded SARS-CoV-2 (COVID-19) mRNA BNT-162b2 vac 10/18/20 Recorded Tetanus Toxoid Vaccine (oldterm) 02/12/18 Given pneumococcal 13-valent vaccine 09/22/15 Given Zoster Vaccine Live 3 12/23/09 Given tetanus-diphtheria toxoids (Td) 4 08/03/09 Given Pneumococcal Vaccine (oldterm) 05/30/05 Given 1Result Comment: [facility]# [id number] 2Result Comment: [facility] [id number] 3Admin Note: VIM 05/26/06 GIVEN TODAY 4Admin [...] capsule, 1 Refills, Maintenance, 10/28/23 15:45:00 EST, [facility]/pharmacy#[id number], Partial fill upon patient request if [...] Personnel Name: Karen FELIZ, Efraín Smith [facility] Physician - Primary Care Member Role: PCP Address: Address: [address] [place] [address]- Care Team Related Persons Name: LEIGHTON ROBLES Address: home [address] [place] [address] Name: LEIGHTON ROBLES Address: home [address] [place] [address] Name: BAMBI LEONARDO Address: home [address] [place] [address] Name: BAMBI LEONARDO Address: [employer] Address: [address]
--- OUTSIDE RECORDS SUMMARY | 2024-05-21 14:45 | XMS_ITS | Continuity of Care Document ---
Author Organization [facility] Address [address] [place] [address]- Care Team Providers Care Tube Handler Name Role Phone Karen FELIZ, Efraín Smith Primary Care Physician En[place] [facility] Date(s): 03/02/24 - 04/01/24 [facility] [address] [place] [address]- Attending Physician: Ollie Mijares Admitting Physician: AdmOllie trujillo Referring Physician: Admtr ArSofia Allergies, Adverse Reactions, Alerts Substance Reaction Severity [...] virus vaccine, inactivated 1 09/16/19 Gi chris DROT-BzX-3ePQR 12y+ bivalent booster vax 06/13/22 Recorded SARS-CoV-2 mRNA (xfdigsy-xiuy-miwhf) vax 01/24/22 Recorded tetanus/diphtheria/pertussis, acel(Tdap) 2 12/27/21 [...] 1Result Comment: [facility]# [id number] 2Result Comment: [facility] [id number] 3Admin Note: VIM 05/26/06 GIVEN TODAY 4Admin [...] capsule, 1 Refills, Maintenance, 12/18/23 17:58:00 EDT, [facility]/pharmacy #[id number], Partial fill upon patient reques... [...] Primary Care Member Role: PCP Address: Address: [address] [place] [address] Care Team Related Persons Name: LEIGHTON ROBLES Address: [address] [place], [place] Name: LEIGHTON ROBLES Address: [address] [place], [place] Name: BAMBI LEONARDO Address: [address] [place], [place] Name: BAMBI LEONARDO Address: [employer] Address: [address]
--- OUTSIDE RECORDS SUMMARY | 2024-05-21 14:45 | XMS_ITS | Continuity of Care Document ---
Author Organization [facility] Address [address] [place] [address]- Care Team Providers Care Tankerman Name Role Phone Efraín Jones MD Primary Care Physician En[place] [facility] [place] Date(s): 08/28/23 - 09/04/23 [facility] [address] [place] [address]- Attending Physician: Efraín Jones MD Allergies, Adverse Reactions, Alerts Substance Reaction Severity Status niacin LFT abnormality Active tamsulosin Lethargy Active Lopid fatigue, weakness Active levoFLOXacin Paroxysmal atrial fibrillation Proposed articaine-EPINEPHrine local facial edema Active oxybutynin Disorientated Dizzy Active Pravachol myalgia Active Levaquin Active Immunizations Given and Recorded Vaccine Date Status Refusal Reason influenza virus vaccine, inactivated 07/24/22 Give n influenza virus vaccine, inactivated 06/20/20 Give n influenza virus vaccine, inactivated 1 09/16/19 Gi chris PWIU-KfN-7hRBP 12y+ bivalent booster vax 06/13/22 Recorded SARS-CoV-2 mRNA (hanwnhq-xzyo-bxqrl) vax 01/24/22 Recorded tetanus/diphtheria/pertussis, acel(Tdap) 2 12/27/21 Given SARS-CoV-2 (COVID-19) mRNA BNT-162b2 vac 06/14/21 Recorded SARS-CoV-2 (COVID-19) mRNA BNT-162b2 vac 11/08/20 Recorded SARS-CoV-2 (COVID-19) mRNA BNT-162b2 vac 10/18/20 Recorded Tetanus Toxoid Vaccine (oldterm) 02/12/18 Given pneumococcal 13-valent vaccine 09/22/15 Given Zoster Vaccine Live 3 09/06/09 Given tetanus-diphtheria toxoids (Td) 4 08/03/09 Given Pneumococcal Vaccine (oldterm) 05/30/05 Given 1Result Comment: [facility]# [id number] 2Result Comment: [facility] [id number] 3Admin Note: VIM 05/26/06 GIVEN TODAY 4Admin [...] oldest [Reference Range]: 1 Height 163 cm (08/28/23 11:20 AM) Social History Social History Type Response Smoking Status Never smoker entered on: 04/18/14 Sex Patient Care team information Care Team Personnel Name: Efraín Jones MD Position: [facility] Physician - Primary Care Member Role: PCP Address: Address: [address] [place] [address]- Care Team Related Persons Name: LEIGHTON ROBLES Address: [address] [place], [place] Name: LEIGHTON ROBLES Address: [address] [place], [place] Name: BAMBI LEONARDO Address: [employer] Address: [address] [place], [place] Name: BAMBI LEONARDO Address: [address] [place], [place]
--- OUTSIDE RECORDS SUMMARY | 2024-05-21 14:45 | XMS_ITS | Continuity of Care Document ---
Author Organization [facility] Address [address] [place] [address]- Care Team Providers Care Psychosocial Rehabilitation Counselor Name Role Phone Karen FELIZ, Efraín Smith Primary Care Physician Encounter [facility] Date(s): 09/13/22 - 10/13/22 [facility] [address] [place] [address]- Allergies, Adverse Reactions, Alerts Substance Reaction Severity [...] virus vaccine, inactivated 1 09/16/19 Gi chris AHUT-YgI-2fYDG 12y+ bivalent booster vax 06/13/22 Recorded SARS-CoV-2 mRNA (zudrnof-khbt-lkqbh) vax 01/24/22 Recorded tetanus/diphtheria/pertussis, acel(Tdap) 2 12/27/21 [...] Refuses 1Result Comment: [facility]# [id number] 2Result Comment: [facility] [id number] 3Admin Note: VIM 05/26/06 GIVEN TODAY 4Admin [...] FELIZ, Efraín Smith Position: [facility] Primary Care Physician Member Role: PCP Address: Address: [address] [place] [address] Care Team Related Persons Name: LEIGHTON ROBLES Address: [address] [place] [address] Name: LEIGHTON ROBLES Address: [address] [place], [place] Name: BAMBI LEONARDO Address: [address] [place], [place] Name: BAMBI LEONARDO [facility] Address: [address]
--- OUTSIDE RECORDS SUMMARY | 2024-05-21 14:45 | XMS_ITS | Continuity of Care Document ---
Author Organization [facility] Address [address] [place] [address]- Care Team Providers Care Lining Presser Name Role Phone Efraín Jones MD Primary Care Physician [phone] Encounter [facility] [id number] Date(s): 11/18/23 - 01/08/24 [facility] [address] [place] [address]- Attending Physician: Efraín Jones MD Allergies, Adverse [...] virus vaccine, inactivated 1 09/16/19 Gi chris QHBZ-KmM-2iFFH 12y+ bivalent booster vax 06/13/22 Recorded SARS-CoV-2 mRNA (mvaedea-ufcv-usluf) vax 01/24/22 Recorded tetanus/diphtheria/pertussis, acel(Tdap) 2 12/27/21 Given SARS-CoV-2 (COVID-19) mRNA BNT-162b2 vac 06/14/21 Recorded SARS-CoV-2 (COVID-19) mRNA BNT-162b2 vac 11/08/20 Recorded SARS-CoV-2 (COVID-19) mRNA BNT-162b2 vac 10/18/20 Recorded Tetanus Toxoid Vaccine (oldterm) 02/12/18 Given pneumococcal 13-valent vaccine 1/8/16 Given Zoster Vaccine Live 3 09/06/09 Given tetanus-diphtheria toxoids (Td) 4 08/03/09 Given Pneumococcal Vaccine (oldterm) 05/30/05 Given 1Result Comment: [facility]# [id number] 2Result Comment: [facility] [id number] 3Admin Note: VIM 05/26/06 GIVEN TODAY 4Admin [...] capsule, 1 Refills, Maintenance, 12/18/23 17:58:00 EDT, [facility]/pharmacy #[id number], Partial fill upon patient [...] Care Member Role: PCP Address: Address: [address] [place] [address]- Care Team Related Persons Name: LEIGHTON ROBLES Address: home [address] [place], [place] Name: LEIGHTON ROBLES Address: [address] [place], [place] Name: BAMBI LEONARDO Address: [facility] Address: home [address] [place], [place] Name: BAMBI LEONARDO Address: [address] [place], [place]
--- OUTSIDE RECORDS SUMMARY | 2024-05-21 14:45 | XMS_ITS | Continuity of Care Document ---
Author Organization [facility] Address [address] [place] [address]- Care Team Providers Care Size Cutter Name Role Phone Karen FELIZ, Efraín Smith Primary Care Physician [place] [facility]12[place] - 09/11/22 [facility] [address] [place] [address]- Allergies, Adverse Reactions, Alerts Substance Reaction Severity Status niacin LFT abnormality Active oxybutynin Disorientated Dizzy Active Pravachol myalgia Active levoFLOXacin Paroxysmal atrial fibrillation Proposed articaine-EPINEPHrine local facial edema Active tamsulosin Lethargy Active Lopid fatigue, weakness Active Immunizations Given and Recorded Vaccine Date Status Refusal Reason influenza virus vaccine, inactivated 07/24/22 Give n influenza virus vaccine, inactivated 06/20/20 Give n influenza virus vaccine, inactivated 1 09/16/19 Gi chris DRBQ-MyP-8uTBQ 12y+ bivalent booster vax 06/13/22 Recorded SARS-CoV-2 mRNA (pwfljsc-ukfh-lwlst) vax 01/24/22 Recorded tetanus/diphtheria/pertussis, acel(Tdap) 2 12/27/21 [...] Patient Refuses 1Result Comment: [facility]# [id number] 2Result Comment: [facility] [id number] 3Admin Note: VIM 05/26/06 GIVEN TODAY 4Admin [...] Efraín Smith Position: [facility] Primary Care Physician Member Role: PCP Address: Address: [address] [place] [address]- Care Team Related Persons Name: LEIGHTON ROBLES Address: home [address] [place], [place] Name: LEIGHTON ROBLES Address: [address] [place], [place] Name: BAMBI LEONARDO Address: [address] [place], [place] Name: BAMBI LEONARDO Address: [facility] Address: [address]
--- OUTSIDE RECORDS SUMMARY | 2024-05-21 14:45 | XMS_ITS | Continuity of Care Document ---
Author Organization [facility] Address [address] [place] [address]- Care Team Providers Care Deposition Operator Name Role Phone Karen FELIZ, Efraín Smith Primary Care Physician [phone] [place] [facility] [place] Date(s): 04/12/24 - 05/12/24 [facility] [address] [place] [address]- Allergies, Adverse Reactions, Alerts Substance Reaction Severity [...] virus vaccine, inactivated 1 09/16/19 Gi chris XPVL-AxT-1uXFV 12y+ bivalent booster vax 06/13/22 Recorded SARS-CoV-2 mRNA (lmorbpz-zskr-kdzeg) vax 01/24/22 Recorded tetanus/diphtheria/pertussis, acel(Tdap) 2 12/27/21 [...] 1Result Comment: [facility]# [id number] 2Result Comment: [facility] [id number] 3Admin Note: VIM 05/26/06 GIVEN TODAY 4Admin [...] Personnel Name: Karen FELIZ, Efraín Smith Position: [facility] Physician - Primary Care Member Role: PCP Address: Address: [address] [place] [address] Care Team Related Persons Name: LEIGHTON ROBLES Address: home [address] [place], [place] Name: LEIGHTON ROBLES Address: [address] [place], [place] Name: BAMBI LEONARDO Address: home [address] [place], [place] Name: BAMBI LEONARDO Address: [employer] Address: [address]
--- OUTSIDE RECORDS SUMMARY | 2024-05-21 14:45 | XMS_ITS | Continuity of Care Document ---
Author Organization [facility] Address [address] [place] [address]- Care Team Providers Care Business Strategy Manager Name Role Phone Karen FELIZ, Efraín Smith Primary Care Physician [place] [facility] [place] 04/28/20 - 05/28/20 [facility] [address] [place] [address]- [facility] Allergies, Adverse Reactions, Alerts Substance [...] 04/13/13 Not Given Patient Refuses 1Result Comment: [facility]# [id number] 2Admin Note: VIM 05/26/06 GIVEN TODAY 3Admin [...] 0 Refills, Maintenance, 04/28/20 13:20:00 EDT, Gel, [facility]/pharmacy #[id number], 163, cm, 02/24/20 12:50:00 EDT, [...] 12/02/19 13:02:00 EDT, Route to Pharmacy Electronically, [facility]/pharmacy #[id number], 163, cm, 11/23/19 13:45:00 EDT, [...] 11/26/19 14:40:00 EDT, Route to Pharmacy Electronically, [facility]/pharmacy #[id number], Partial fill upon patient request, [...]
--- OUTSIDE RECORDS SUMMARY | 2024-05-21 14:45 | XMS_ITS | Continuity of Care Document ---
Author Organization [facility] Address [address] [place] [address]- Care Team Providers Care Engineering Lecturer Name Role Phone Efraín Jones MD Primary Care Physician Encounter [facility] Date(s): 12/14/21 - 01/16/22 [facility] [address] [place] [address]- Attending Physician: Byron Cristina MD Referring Physician: Efraín Jones MD Allergies, [...] 04/13/13 Not Given Patient Refuses 1Result Comment: [facility] [id number] 2Result Comment: [facility]# [id number] 3Admin Note: VIM 05/26/06 GIVEN TODAY 4Admin [...]
--- OUTSIDE RECORDS SUMMARY | 2024-05-21 14:45 | XMS_ITS | Continuity of Care Document ---
Author Organization [facility] Address [address] [place] [address]- Care Team Providers Care Customer Advisor Name Role Phone Karen FELIZ, Efraín Smith Primary Care Physician En[place] [facility] Date(s): 10/22/23 - 11/21/23 [facility] [address] [place] [address]- Allergies, Adverse Reactions, Alerts Substance Reaction Severity [...] influenza virus vaccine, inactivated 09/16/19 Gi chris [id number]-OuN-7aGEQ 12y+ bivalent booster vax 06/13/22 Recorded SARS-CoV-2 mRNA (zetvtso-guve-djzvr) vax 01/24/22 Recorded tetanus/diphtheria/pertussis, acel(Tdap) 2 12/27/21 [...] [facility]# [id number] 2Result Comment: [facility] [id number] 3Admin Note: VIM 05/26/06 GIVEN TODAY 4Admin [...] capsule, 1 Refills, Maintenance, 10/28/23 15:45:00 EST, [facility]/pharmacy#[id number], Partial fill upon patient request if the... [...] Personnel Name: Karen FELIZ, Efraín Smith Position: [facility] Physician - Primary Care Member Role: PCP Address: Address: [address] [place] [address]- Care Team Related Persons Name: LEIGHTON ROBLES Address: home [address] [place] [address] Name: LEIGHTON ROBLES Address: home [address] [place] [address] Name: BAMBI LEONARDO Address: home [address] [place] [address] Name: BAMBI LEONARDO Address: [employer] Address: [address]
--- OUTSIDE RECORDS SUMMARY | 2024-05-21 14:45 | XMS_ITS | Continuity of Care Document ---
Author Organization [facility] Address [address] [place] [address]- Care Team Providers Care Glost Kiln Placer Name Role Phone Karen FELIZ, Efraín Smith Primary Care Physician Encounter [facility] Date(s): 11/04/23 - 12/04/23 [facility] [address] [place] [address]- Allergies, Adverse Reactions, Alerts Substance Reaction Severity [...] virus vaccine, inactivated 1 09/16/19 Gi chris [id number]-WhZ-5hPYM 12y+ bivalent booster vax 06/13/22 Recorded SARS-CoV-2 mRNA (jgtjwzt-hvdz-cwmhj) vax 01/24/22 Recorded tetanus/diphtheria/pertussis, acel(Tdap) 2 12/27/21 [...] [facility]# [id number] 2Result Comment: [facility] [id number] 3Admin Note: VIM 05/26/06 GIVEN TODAY 4Admin [...] capsule, 1 Refills, Maintenance, 12/01/23 14:27:00 EDT, [facility]/pharmacy#[id number], Partial fill upon patient request if the... [...] Personnel Name: Karen FELIZ, Efraín Smith Position: [facility] Physician - Primary Care Member Role: PCP Address: Address: [address] [place] [address]- Care Team Related Persons Name: LEIGHTON ROBLES Address: home [address], [place] Name: LEIGHTON ROBLES Address: home [address], [place] Name: BAMBI LEONARDO Address: [employer] Address: home [address], [place] Name: BAMBI LEONARDO Address: home [address], [place]
--- OUTSIDE RECORDS SUMMARY | 2024-05-21 14:45 | XMS_ITS | Continuity of Care Document ---
Author Organization [facility] Address [address] [place] [address]- Care Team Providers Care Plant Operator Helper Name Role Phone Karen FELIZ, Efraín Smith Primary Care Physician [place] [facility] [place] 04/14/24 - 05/14/24 [facility] [address] [place] [address]- Allergies, Adverse Reactions, Alerts Substance Reaction Severity [...] virus vaccine, inactivated 1 09/16/19 Gi chris ZWEF-ZfV-8hNBS 12y+ bivalent booster vax 06/13/22 Recorded SARS-CoV-2 mRNA (tonmsqg-urax-jqfla) vax 01/24/22 Recorded tetanus/diphtheria/pertussis, acel(Tdap) 2 12/27/21 Given SARS-CoV-2 (COVID-19) mRNA BNT-162b2 vac 06/14/21 Recorded SARS-CoV-2 (COVID-19) mRNA BNT-162b2 vac 11/08/20 Recorded SARS-CoV-2 (COVID-19) mRNA BNT-162b2 vac 10/18/20 Recorded Tetanus Toxoid Vaccine (oldterm) 02/12/18 Given pneumococcal 13-valent vaccine 1/8/16 Given Zoster Vaccine Live 3 09/06/09 Given tetanus-diphtheria toxoids (Td) 4 08/03/09 Given Pneumococcal Vaccine (oldterm) 05/30/05 Given 1Result Comment: [facility]# [id number] 2Result Comment: [facility] [id number] 3Admin Note: VIM 05/26/06 GIVEN TODAY 4Admin [...] Refills, Maintenance, 12/18/23 17:58:00 EDT, [facility]/pharmacy #[id number], [...] Care Member Role: PCP Address: Address: [address] [place] [address] Care Team Related Persons Name: LEIGHTON ROBLES Address: home [address] [place], [place] Name: LEIGHTON ROBLES Address: home [address] [place], [place] Name: BAMBI LEONARDO Address: home [address] [place], [place] Name: BAMBI LEONARDO Address: AMER[employer] Address: [address]
--- OUTSIDE RECORDS SUMMARY | 2024-05-21 14:45 | XMS_ITS | Continuity of Care Document ---
Author Organization [facility] Address [address] [place] [address]- Care Team Providers Care Ruby On Rails Engineer Name Role Phone Karen FELIZ, Efraín Smith Primary Care Physician [phone] Encounter [facility] Date(s): 11/23/19 - 11/30/19 [facility] [address] [place] [address]- [facility] Encounter Diagnosis Status post total hip replacement, left(Discharge Diagnosis) - 11/25/19 Attending Physician: Gisel MENDOSA, Grey Mendoza Allergies, [...] Patient Refuses 1Result Comment: [facility]# [id number] 2Admin Note: VIM 05/26/06 GIVEN TODAY 3Admin [...] 11/26/19 14:40:00 EDT, Route to Pharmacy Electronically, [facility]/pharmacy #[id number], Partial fill upon [...] Dates Health Status Cl inical Service Informant Status post total hip replacement, left Discharge Diagnosis 11/25/19 Vital Signs Most recent to oldest [Reference Range]: 1 Height 163 cm (11/23/19 1:45 PM) Oxygen Saturation [94-100 %] 98 % (11/23/19 1:45 PM) Pulse Rate [55-90 bpm] 71 bpm (11/23/19 1:45 PM) Blood Pressure [90-138/55-84 mm Hg] 100/ 58mm Hg (11/23/19 1:45 PM) Temperature [96.8-100.4 DegF] 98.4 DegF (11/23/19 1:45 PM) Mode of Delivery (Oxygen) Room air (11/23/19 1:45 PM) Blood pressure sites Arm, right (11/23/19 1:45 PM) Temperature Route Oral (11/23/19 1:45 PM) Social History Social History Type Response Smoking Status Never smoker entered on: 04/18/14 Sex
--- OUTSIDE RECORDS SUMMARY | 2024-05-21 14:45 | XMS_ITS | Continuity of Care Document ---
Author Organization [facility] Address [address] [place] [address]- Care Team Providers Care Application Security Architect Name Role Phone Karen FELIZ, Efraín Smith Primary Care Physician Encounter [facility] Date(s): 12/11/22 - 01/10/23 [facility] [address] [place] [address]- Allergies, Adverse Reactions, Alerts Substance Reaction Severity [...] influenza virus vaccine, inactivated 09/16/19 Gi chris YFER-UyZ-3bDMT 12y+ bivalent booster vax 06/13/22 Recorded SARS-CoV-2 mRNA (stflvvi-uxti-emgct) vax 01/24/22 Recorded tetanus/diphtheria/pertussis, acel(Tdap) 2 12/27/21 [...] Patient Refuses 1Result Comment: [facility]# [id number] 2Result Comment: [facility] [id number] 3Admin Note: VIM 05/26/06 GIVEN TODAY 4Admin [...] 15:41:07 EST Start Date: 07/28/19 Status: Ordered [facility] Rx See Instructions, Refills [...] FELIZ, Efraín Smith Position: [facility] Primary Care Physician Member Role: PCP Address: Address: [address] [place] [address]- Care Team Related Persons Name: LEIGHTON ROBLES Address: [address] [place] [address] Name: LEIGHTON ROBLES Address: [address] [place], [place] Name: BAMBI LEONARDO Address: [employer] Address: home [address] [place] [address] Name: BAMBI LEONARDO Address: home [address] [place] [id number]
--- OUTSIDE RECORDS SUMMARY | 2024-05-21 14:45 | XMS_ITS | Continuity of Care Document ---
Author Organization [facility] Address [address] [place] [address]- Care Team Providers Care Boat Repairer Name Role Phone Karen FELIZ, Efraín Smith Primary Care Physician Encounter [facility] Date(s): 12/20/21 - 01/19/22 [facility] [address] [place] [address]- Allergies, Adverse Reactions, Alerts Substance Reaction Severity Status niacin LFT abnormality Active articaine-EPINEPHrine local facial edema Active levoFLOXacin Paroxysmal atrial fibrillation Proposed Lopid fatigue, weakness Active oxybutynin Disorientated Dizzy Active tamsulosin Lethargy [...] Refuses 1Result Comment: [facility] [id number] 2Result Comment: [facility]# [id number] 3Admin Note: VIM 05/26/06 GIVEN TODAY 4Admin [...]
--- OUTSIDE RECORDS SUMMARY | 2024-05-21 14:45 | XMS_ITS | Continuity of Care Document ---
Author Organization [facility] Address [address] [place] [address]- Care Team Providers Care Change Consultant Name Role Phone Karen FELIZ, Efraín Smith Primary Care Physician Encounter [facility] Date(s): 01/08/24 - 02/07/24 [facility] [address] [place] [address]- Allergies, Adverse Reactions, Alerts Substance Reaction Severity [...] virus vaccine, inactivated 1 09/16/19 Gi chris [id number]-CcT-3fLMW 12y+ bivalent booster vax 06/13/22 Recorded SARS-CoV-2 mRNA (pfkrfwu-mnax-ahnwe) vax 01/24/22 Recorded tetanus/diphtheria/pertussis, acel(Tdap) 2 12/27/21 Given SARS-CoV-2 (COVID-19) mRNA BNT-162b2 vac 06/14/21 Recorded SARS-CoV-2 (COVID-19) mRNA BNT-162b2 vac 11/08/20 Recorded SARS-CoV-2 (COVID-19) mRNA BNT-162b2 vac 10/18/20 Recorded Tetanus Toxoid Vaccine (oldterm) 02/12/18 Given pneumococcal 13-valent vaccine 09/22/15 Given Zoster Vaccine Live 3 09/06/09 Given tetanus-diphtheria toxoids (Td) 4 08/03/09 Given Pneumococcal Vaccine (oldterm) 05/30/05 Given 1Result Comment: [facility]# [id number] 2Result Comment: [facility] [id number] 3Admin Note: VIM 05/26/06 GIVEN TODAY 4Admin [...] capsule, 1 Refills, Maintenance, 12/18/23 17:58:00 EDT, [facility]/pharmacy #[id number], Partial fill upon [...] Personnel Name: Karen FELIZ, Efraín Smith Position: [facility] Physician - Primary Care Member Role: PCP Address: Address: [address] [place] [address] Care Team Related Persons Name: LEIGHTON ROBLES Address: home [address] [place], [place] Name: LEIGHTON ROBLES Address: home [address] [place], [place] Name: BAMBI LEONARDO Address: [address] [place], [place] Name: BAMBI LEONARDO Address: [facility] Address: [place] [address] [place] [id number]
--- OUTSIDE RECORDS SUMMARY | 2024-05-21 14:45 | XMS_ITS | Continuity of Care Document ---
Author Organization [facility] Address [address] [place] [address]- Care Team Providers Care Mgmt Specialist Name Role Phone Karen FELIZ, Efraín Smith Primary Care Physician [phone] Encounter [facility] Date(s): 05/18/20 - 06/17/20 [facility] [address] [place] [address]- [facility] Allergies, Adverse Reactions, Alerts Substance Reaction [...] [facility]# [id number] 2Admin Note: VIM 05/26/06 GIVEN TODAY 3Admin [...]
--- OUTSIDE RECORDS SUMMARY | 2024-05-21 14:45 | XMS_ITS | Continuity of Care Document ---
Author Organization [facility] Address [address] [place] [address]- Care Team Providers Care Nuclear Radiologist Name Role Phone Efraín Jones MD Primary Care Physician [phone] Encounter 02/17/24 - 02/24/24 [facility] [address], [address] [place] [address]- [place] Attending Physician: Efraín Jones MD Admitting Physician: [...] influenza virus vaccine, inactivated 09/16/19 Gi chris VXHP-UuX-6pSZN 12y+ bivalent booster vax 06/13/22 Recorded SARS-CoV-2 mRNA (yslvcrq-dtyu-bamuc) vax 01/24/22 Recorded tetanus/diphtheria/pertussis, acel(Tdap) 2 12/27/21 [...] 1Result Comment: [facility]# [id number] 2Result Comment: [facility] [id number] 3Admin Note: VIM 05/26/06 GIVEN TODAY 4Admin [...] capsule, 1 Refills, Maintenance, 12/18/23 17:58:00 EDT, [facility]/pharmacy #[id number], Partial fill upon patient reques... [...] Exam Date Time Procedure Performing Provider Status 02/17/24 5:15 PM Lumbar Spine 2 or 3 Views Rosemarie Monteiro ly; Auth (Verified) Notes: (Lumbar Spine 2 or 3 Views) Reason For Exam: Pain RESULT: Lumbar Spine 2 or 3 Views Lumbosacral spine 3 views dated February 17, 2024. Comparison films are from December 27, 2021. HISTORY: Pain. FINDINGS: Today's study is limited due to positioning and technique. There is significant abnormality once again present at L4-5 with widening of the intervertebral disc space and significant osteophyte formation. There is some irregularity of the inferior endplate ofL3 in the superior endplate of L4. These are stable. Partially imaged is a left total hip arthroplasty. IMPRESSION: Stable appearance to the spine without evidence of acute fracture or dislocation. Examination [id number]. Thank you for allowing me to participate in the care of this patient. WSN: [id number] Ordering Physician: Efraín Jones Dictated By: Aubrey Muhammad MD Dictated Date/Time: 02/18/24 4:30 pm Reviewed By: Aubrey Muhammad MD Signed By: Aubrey Muhammad MD Signed Date/Time: 02/18/24 4:30 pm Transcribed By: RADHIKA Transcribed Date/Time: 02/18/24 4:28 pm * Exam Date Time Procedure Performing Provider Status 02/17/24 5:15 PM XR Hip Bilat 2 Views W/AP Pelvis Leandra myers Hafsa; Auth (Verified) Notes: (XR Hip Bilat 2 Views W/AP Pelvis) Reason For Exam: Pain RESULT: Hip Bilat 2 Views W/ AP Pelvis Examination: Pelvis with bilateral hips performed on 02/17/2024. History: Reason: Pain Findings: A frontal view of the pelvis and frontal and frog-leg views of both hips are compared to a prior study dated 08/06/2022. A left femoral arthroplasty is in expected location. There is no lucency surrounding the hardware to suggest the presence of loosening or infection. Heterotopic ossification adjacent to the acetabulum is seen. The right hip is unremarkable. Sclerosis of the L3 and L4 vertebral bodies is seen with osteophyte formation, unchanged. Vacuum disc phenomenon at this level is stable. IMPRESSION: Stable chronic changes. Left hip arthroplasty. There is no acute abnormality. WSN: [id number] Ordering Physician: Efraín Jones Dictated By: Keri Salas MD Dictated Date/Time: 02/18/24 9:13 am Reviewed By: Keri Salas MD Signed By: Keri Salas MD Signed Date/Time: 02/18/24 9:13 am Transcribed By: RADHIKA Transcribed Date/Time: 02/18/24 9:11 am Social History Social History Type Response Smoking Status Never smoker entered on: 04/18/14 Sex Patient Care team information Care Team Personnel Name: Efraín Jones MD Position: S Physician - Primary Care Member Role: PCP Address: Address: [address] [place] [address] Care Team Related Persons Name: LEIGHTON ROBLES Address: home [address] [place], [place] Name: LEIGHTON ROBLES Address: [address] [place], [place] Name: BAMBI LEONARDO Address: [employer] Address: [address] [place], [place] Name: BAMBI LEONARDO Address: home [address] [place], [place]
--- OUTSIDE RECORDS SUMMARY | 2024-05-21 14:45 | XMS_ITS | Continuity of Care Document ---
Author Organization [facility] Address [address] [place] [address]- Care Team Providers Care Sheetfed Press Operator Name Role Phone Karen FELIZ, Efraín Smith Primary Care Physician Encounter [facility] Date(s): 07/24/22 - 07/31/22 [facility] [address] [place] [address]- Attending Physician: Not on Staff, Attending MD [...] virus vaccine, inactivated 1 09/16/19 Gi chris CXFY-HgJ-7eRAY 12y+ bivalent booster vax 06/13/22 Recorded SARS-CoV-2 mRNA (kznllyu-vtyf-hauen) vax 01/24/22 Recorded tetanus/diphtheria/pertussis, acel(Tdap) 2 12/27/21 [...] 1Result Comment: [facility]# [id number] 2Result Comment: [facility] [id number] 3Admin Note: VIM 05/26/06 GIVEN TODAY 4Admin [...] Team Personnel Name: Efraín Jones MD Position: [facility] Primary Care Physician Member Role: PCP Address: Address: [address] [place] [address]- Care Team Related Persons Name: LEIGHTON ROBLES Address: home [address] [place], [place] Name: LEIGHTON ROBLES Address: home [address] [place], [place] Name: BAMBI LEONARDO Address: [employer] Address: home [address] [place] [address] Name: BAMBI LEONARDO Address: home [address] [place] [address]
--- OUTSIDE RECORDS SUMMARY | 2024-05-21 14:45 | XMS_ITS | Continuity of Care Document ---
Author Organization [facility] Address [address] [place] [address]- Care Team Providers Care Plate Grinder Name Role Phone Karen FELIZ, Efraín Smith Primary Care Physician [phone] [facility] Date(s): 05/25/20 - 06/24/20 [facility] [address] [place] [address]- [facility] Allergies, Adverse Reactions, Alerts Substance [...] [facility]# [id number] 2Admin Note: VIM 05/26/06 GIVEN TODAY 3Admin [...] 0 Refills, Maintenance, 04/28/20 13:20:00 EDT, Gel, [facility]/pharmacy #[id number], 163, cm, 02/24/20 12:50:00 [...] 11/26/19 14:40:00 EDT, Route to Pharmacy Electronically, [facility]/pharmacy #[id number], Partial fill upon patient request, [...] 08/16/20 15:14:00 EST, 06/21/20 15:14:00 EDT, Cream, [facility]/pharmacy #[id number], 1 applicatio... Start Date: 06/21/20 [...]
--- OUTSIDE RECORDS SUMMARY | 2024-05-21 14:45 | XMS_ITS | Continuity of Care Document ---
Author Organization [facility] Address [address] [place] [address]- Care Team Providers Care Cna Gna Name Role Phone Karen FELIZ, Efraín Smith Primary Care Physician [phone] Encounter [facility] Date(s): 02/04/23 - 03/06/23 [facility] [address] [place] [address]- Attending Physician: Admtr, Ar8 Allergies, Adverse Reactions, [...] virus vaccine, inactivated 1 09/16/19 Gi chris QTCJ-VzP-7wQQY 12y+ bivalent booster vax 06/13/22 Recorded SARS-CoV-2 mRNA (iuvxtyi-oauq-pqgmg) vax 01/24/22 Recorded tetanus/diphtheria/pertussis, acel(Tdap) 2 12/27/21 [...] 1Result Comment: [facility]# [id number] 2Result Comment: [facility] [id number] 3Admin Note: VIM 05/26/06 GIVEN TODAY 4Admin [...] Event Display: Radiology Results Scanned Authored Date: [id number] * Marline Woods: PERFORM Event Display: Radiology Results Scanned Authored Date: CT Chest * Event Display: CT Scan Chest Authored Date: MR Spine * Event Display: MRI Spine Authored Date: US Neck * Event Display: Ultrasound Neck Authored Date: Patient Care team information Care Team Personnel Name: Efraín Jones MD Position: [facility] Physician - Primary Care Member Role: PCP Address: Address: [address] [place], [place] [id number]- Care Team Related Persons Name: LEIGHTON ROBLES Address: home [address] [place] [address] Name: LEIGHTON ROBLES Address: home [address] [place] [address] Name: BAMBI LEONARDO Address: [address] Name: BAMBI LEONARDO Address: [facility] Address: [place] [id number]
--- OUTSIDE RECORDS SUMMARY | 2024-05-21 14:46 | XMS_ITS | Continuity of Care Document ---
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(Discharge Diagnosis) - 07/02/22 Lateral pain of left hip(Discharge Diagnosis) - 07/02/22 Parkinson's Disease(Discharge Diagnosis) - 07/02/22 Chronic constipation(Discharge Diagnosis) - 07/02/22 Attending Physician: Efraín Jones MD Allergies, Adverse Reactions, Alerts Substance Reaction Severity Status niacin LFT abnormality Active oxybutynin Disorientated Dizzy Active tamsulosin Lethargy Active Pravachol myalgia Active Lopid fatigue, weakness Active articaine-EPINEPHrine local facial edema Active levoFLOXacin Paroxysmal atrial fibrillation Proposed Immunizations Given and Recorded Vaccine Date Status Refusal Reason RMCI-WjQ-4aDUX 12y+ bivalent booster vax 06/13/22 Recorded SARS-CoV-2 mRNA (mnjgxcp-asjs-pshsx) vax 01/24/22 Recorded tetanus/diphtheria/pertussis, acel(Tdap) 1 12/27/21 [...] Patient Refuses 1Result Comment: [facility] [id number] 2Result Comment: [facility]# [id number] 3Admin Note: VIM 05/26/06 GIVEN TODAY 4Admin [...] Effective Dates Health Status Clinical Service Informant 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 Discharge Diagnosis 07/02/22 Lateral pain of left hip Discharge Diagnosis 07/02/22 Parkinson's Disease Discharge Diagnosis 07/02/22 Chronic constipation Discharge Diagnosis 07/02/22 Vital Signs Most recent to oldest [Reference Range]: 1 Height 163 cm (07/02/22 1:22 PM) Oxygen Saturation [94-100 %] 98 % (07/02/22 1:22 PM) Pulse Rate [55-90 bpm] 87 bpm (07/02/22 1:22 PM) Blood Pressure [90-138/55-84 mm Hg] 103/ 63mm Hg (07/02/22 1:22 PM) Blood pressure sites Arm, left (07/02/22 1:22 PM) Social History Social History Type Response Smoking Status Never smoker entered on: 04/18/14 Sex Patient Care team information Personnel Name: Karen FELIZ, Efraín Smith [facility] [place] [address]
--- OUTSIDE RECORDS SUMMARY | 2024-05-21 14:46 | XMS_ITS | Continuity of Care Document ---
Author Organization [facility] Address [address] [place] [address]- Care Team Providers Care Plate Developer Name Role Phone Karen FELIZ, Efraín Smith Primary Care Physician [phone] Encounter [facility] Date(s): 03/04/24 - 04/03/24 [facility] [address] [place] [address]- Allergies, Adverse Reactions, Alerts Substance Reaction Severity [...] influenza virus vaccine, inactivated 09/16/19 Gi chris [id number]-JrO-6wOEL 12y+ bivalent booster vax 06/13/22 Recorded SARS-CoV-2 mRNA (iqabbxg-pxig-phwwh) vax 01/24/22 Recorded tetanus/diphtheria/pertussis, acel(Tdap) 2 12/27/21 Given SARS-CoV-2 (COVID-19) mRNA BNT-162b2 vac 06/14/21 Recorded SARS-CoV-2 (COVID-19) mRNA BNT-162b2 vac 11/08/20 Recorded SARS-CoV-2 (COVID-19) mRNA BNT-162b2 vac 10/18/20 Recorded Tetanus Toxoid Vaccine (oldterm) 02/12/18 Given pneumococcal 13-valent vaccine 09/22/15 Given Zoster Vaccine Live 3 12/23/09 Given tetanus-diphtheria toxoids (Td) 4 08/03/09 Given Pneumococcal Vaccine (oldterm) 05/30/05 Given 1Result Comment: [facility]# [id number] 2Result Comment: [facility] [id number] 3Admin Note: VIM 05/26/06 GIVEN TODAY 4Admin [...] Personnel Name: Karen FELIZ, Efraín Smith Position: [facility] Physician - Primary Care Member Role: PCP Address: Address: [address] [place] [address]- Care Team Related Persons Name: LEIGHTON ROBLES Address: home [address] [place], [place] Name: LEIGHTON ROBLES Address: home [address] [place], [place] Name: BAMBI LEONARDO Address: home [address] [place], [place] Name: BAMBI LEONARDO Address: [employer] Address: [address]
--- OUTSIDE RECORDS SUMMARY | 2024-05-21 14:46 | XMS_ITS | Continuity of Care Document ---
Author Organization [facility] Address [address] [place] [address]- Care Team Providers Care Siphoner Name Role Phone Karen FELIZ, Efraín Smith Primary Care Physician [phone] Encounter [facility] [place] Date(s): 03/08/21 - 04/07/21 [facility] [address] [place] [address]- Allergies, Adverse Reactions, Alerts Substance Reaction Severity [...] 04/13/13 Not Given Patient Refuses 1Result Comment: [facility]# [id number] 2Admin Note: VIM 05/26/06 GIVEN TODAY 3Admin [...] 0 Refills, Maintenance, 04/28/20 13:20:00 EDT, Gel, [facility]/pharmacy #[id number], 163, cm, 02/24/20 [...] 11/26/19 14:40:00 EDT, Route to Pharmacy Electronically, [facility]/pharmacy #[id number], Partial fill upon patient request, 163, cm, [...]
--- OUTSIDE RECORDS SUMMARY | 2024-05-21 14:46 | XMS_ITS | Continuity of Care Document ---
Author Organization [facility] Address [address] [place] [address]- Care Team Providers Care Cosmetician Apprentice Name Role Phone Karen FELIZ, Efraín Smith Primary Care Physician Encounter [facility] [place] Date(s): 01/23/21 - 02/22/21 [facility] [address] [place] [address]- Attending Physician: Admtr, Ar8 Allergies, Adverse Reactions, [...] 1Result Comment: [facility]# [id number] 2Admin Note: VIM 05/26/06 GIVEN TODAY 3Admin [...]
--- OUTSIDE RECORDS SUMMARY | 2024-05-21 14:46 | XMS_ITS | Continuity of Care Document ---
Author Organization [facility] Address [address] [place] [address]- Care Team Providers Care Thread Clipper Name Role Phone Efraín Jones MD Primary Care Physician [phone] Encounter [facility] [place] Date(s): 06/10/23 - 06/17/23 [facility] [address] [place] [address]- Attending Physician: Efraín Jones MD Allergies, Adverse [...] virus vaccine, inactivated 1 09/16/19 Gi chris [id number]-EbN-5pAZI 12y+ bivalent booster vax 06/13/22 Recorded SARS-CoV-2 mRNA (pqujvwy-igye-ypiwm) vax 01/24/22 Recorded tetanus/diphtheria/pertussis, acel(Tdap) 2 12/27/21 Given SARS-CoV-2 (COVID-19) mRNA BNT-162b2 vac 06/14/21 Recorded SARS-CoV-2 (COVID-19) mRNA BNT-162b2 vac 11/08/20 Recorded SARS-CoV-2 (COVID-19) mRNA BNT-162b2 vac 10/18/20 Recorded Tetanus Toxoid Vaccine (oldterm) 02/12/18 Given pneumococcal 13-valent vaccine 09/22/15 Given Zoster Vaccine Live 3 09/06/09 Given tetanus-diphtheria toxoids (Td) 4 08/03/09 Given Pneumococcal Vaccine (oldterm) 05/30/05 Given 1Result Comment: [facility]# [id number] 2Result Comment: [facility] [id number] 3Admin Note: VIM 05/26/06 GIVEN TODAY 4Admin [...] oldest [Reference Range]: 1 Height 163 cm (06/10/23 3:07 PM) Weight 66.4 kg (06/10/23 3:07 PM) Oxygen Saturation [94-100 %] 99 % (06/10/23 3:07 PM) Pulse Rate [55-90 bpm] 83 bpm (06/10/23 3:07 PM) Body Mass Index [18.5-24.99 kg/m2] 24.99 kg/m2 (06/10/23 3:07 PM) Blood Pressure [90-138/55-84 mm Hg] 106/ 62mm Hg (06/10/23 3:07 PM) Blood pressure sites Arm, left (06/10/23 3:07 PM) Weight Obtained Via Standing scale (06/10/23 3:07 PM) Social History Social History Type Response Smoking Status Never smoker entered on: 04/18/14 Sex Note * Edelmira Wallace: PERFORM, SIGN, VERIFY Event Display: Patient Education/Instruction Authored Date: [id number] [facility] *[facility] Clinical Summary Name ROSALIO ROBLES Age 87 Years 1935 PCP Karen FELIZ, Efraín Smith PCP Visit Date 06/10/2023 14:35:00 Additional Instructions: Scheduled Appointments?? Future Appointments ?*Byst??Fam??Med??[facility] ?[address],??[place],??[address] ?Phone:??--?Fax:??-- ?Appt. Date:??07/22/2023?2:00 PM ?Scheduled Provider:??Karen FELIZ , Efraín Smith Follow-Up Instructions ?? Diagnosis Other chronic pain; Pressure ulcer of left lower back, stage 2; Parkinson's disease; Low back pain,unspecified; Dementia in other diseases classified elsewhere, mild, without behavioral disturbance,psychotic disturbance, mood disturbance, and anxiety Medications: Please continue your medications until treatment [...] Oral 4 times a day. Next Dose: Allergy Info:?? levoFLOXacin; articaine-EPINEPHrine; Levaquin; Lopid; Pravachol; tamsulosin; oxybutynin; niacin Medications Given This Visit Future Orders ?No future orders Vital Signs Height 163 cm Weight 66.4 kg BMI 24.99 kg/m2 Blood Pressure 106 mm Hg/62 mm Hg Temperature Pulse Rate 83 bpm Respiratory Rate 02 Sat Mode of Delivery 99 %/ You can now view a summary of your hospital visit from the comfort of your home through a free online portal called [employer]. [employer] is a website that allows you to securely view your medical information including discharge summary, medications and follow-up visits. ??You can alsosend a secure electronic message to your doctor???s office to request appointments, renew medications or just ask a question. You can enroll at [email or web address] or register during your [...] primary care provider, you may find a [facility] provider by calling [facility] [employer] Link at [phone]. [facility], in keeping with [facility] guidance, no longer requires face masks [...] format to support your individualized medical care. * Edelmira Wallace: PERFORM, SIGN, VERIFY Event Display: Patient Education/Instruction Authored Date: [id number] [facility] *[facility] Clinical Summary Name ROSALIO ROBLES Age 87 Years 1935 PCP Efraín Jones MD PCP Visit Date 06/10/2023 14:35:00 Additional Instructions: Scheduled Appointments?? Future Appointments ?*Byst[facility]Fam[facility]Med[facility] ?[address],??[place],??[address] ?Phone:??--?Fax:??-- ?Appt. Date:??07/22/2023?2:00 PM ?Scheduled Provider:??Efraín Jones MD Follow-Up Instructions ?? Diagnosis Other chronic pain; Pressure ulcer of left lower back, stage 2; Parkinson's disease; Low back pain,unspecified; Dementia in other diseases classified elsewhere, mild, without behavioral disturbance,psychotic disturbance, mood disturbance, and anxiety Medications: Please continue your medications until treatment [...] Oral 4 times a day. Next Dose: Allergy Info:?? levoFLOXacin; articaine-EPINEPHrine; Levaquin; Lopid; Pravachol; tamsulosin; oxybutynin; niacin Medications Given This Visit Future Orders ?No future orders Vital Signs Height 163 cm Weight 66.4 kg BMI 24.99 kg/m2 Blood Pressure 106 mm Hg/62 mm Hg Temperature Pulse Rate 83 bpm Respiratory Rate 02 Sat Mode of Delivery 99 %/ You can now view a summary of your hospital visit from the comfort of your home through a free online portal called [employer]. [employer] is a website that allows you to securely view your medical information including discharge summary, medications and follow-up visits. ??You can alsosend a secure electronic message to your doctor???s office to request appointments, renew medications or just ask a question. You can enroll at [email or web address] or register during your [...] primary care provider, you may find a [facility] provider by calling [facility] [employer] Link at [phone]. [facility], in keeping with [facility] guidance, no longer requires face masks [...] Primary Care Member Role: PCP Address: Address: [address] [place] [address] Care Team Related Persons Name: LEIGHTON ROBLES Address: [address] Name: LEIGHTON ROBLES Address: [address] Name: BAMBI LEONARDO Address: [address] Name: BAMBI LEONARDO Address: Supriya GOMEZMARY JANE Address: [address]
--- OUTSIDE RECORDS SUMMARY | 2024-05-21 14:46 | XMS_ITS | Continuity of Care Document ---
Author Organization [facility] Address [address] [place] [address]- Care Team Providers Care Handbook Writer Name Role Phone Karen FELIZ, Efraín Smith Primary Care Physician [place] [facility] [place] Date(s): 03/14/23 - 03/21/23 [facility] [address] [place] [address]- Encounter Diagnosis Parkinson's Disease(Discharge Diagnosis) - 03/14/23 Spondylosis of lumbar spine(Discharge Diagnosis) - 03/14/23 Major depressive disorder, recurrent, mild(Discharge Diagnosis) - 03/14/23 Accidental medication overdose(Discharge Diagnosis) - 03/14/23 Keloid(Discharge Diagnosis) - 03/14/23 Attending Physician: Halima Adams MD Allergies, Adverse Reactions, Alerts Substance Reaction [...] influenza virus vaccine, inactivated 09/16/19 Gi chris [id number]-3nSRX 12y+ bivalent booster vax 06/13/22 Recorded SARS-CoV-2 mRNA (mhrpwjy-datp-gsguj) vax 01/24/22 Recorded tetanus/diphtheria/pertussis, acel(Tdap) 2 12/27/21 [...] 1Result Comment: [facility]# [id number] 2Result Comment: [facility] [id number] 3Admin Note: VIM 05/26/06 GIVEN TODAY 4Admin [...] 04/11/23 15:54:00 EDT, 03/14/23 15:54:00 EDT, Ointment, [facility]/pharmacy #[id number], Partial fill upon patient request [...] Effective Dates Health Status Clinical Service Informant Parkinson's Disease Discharge Diagnosis 03/14/23 Spondylosis of lumbar spine Discharge Diagnosis 03/14/23 Major depressive disorder, recurrent, mild Discharge Diagnosis 03/14/23 Accidental medication overdose Discharge Diagnosis 03/14/23 Keloid Discharge Diagnosis 03/14/23 Vital Signs Most recent to oldest [Reference Range]: 1 Height 163 cm (03/14/23 2:55 PM) Weight 70 kg (03/14/23 2:55 PM) Oxygen Saturation [94-100 %] 99 % (03/14/23 2:55 PM) Pulse Rate [55-90 bpm] 71 bpm (03/14/23 2:55 PM) Body Mass Index [18.5-24.99 kg/m2] 26.35 kg/m2 *H* (03/14/23 2:55 PM) Blood Pressure [90-138/55-84 mm Hg] 109/ 70mm Hg (03/14/23 2:55 PM) Blood pressure sites Arm, right (03/14/23 2:55 PM) Social History Social History Type Response Smoking Status Never smoker entered on: 04/18/14 Sex Note * Edelmira Wallace: PERFORM, SIGN, VERIFY Event Display: Patient Education/Instruction Authored Date: [id number] [facility] *[facility] Clinical Summary Name ROSALIO ROBLES Age 87 Years 1935 PCP Karen FELIZ, Efraín Smith PCP Visit Date 03/14/2023 14:53:00 Additional Instructions: Scheduled Appointments?? Future Appointments ?No Future Appointments Scheduled Follow-Up Instructions ?? Diagnosis Medications: Please continue your medications until treatment is completed or stopped by your provider. Discuss any questions related to medications with your provider. New Medications [id number], [address] [place] [phone], [phone] Mupirocin Topical (mupirocin 2% topical ointment) 1 anurag Topically twice a day for 14 Days. apply toaffected skin. Refills: 1. Next Dose: Medications to Continue [...] orders Vital Signs Height 163 cm Weight 70 kg BMI 26.35 kg/m2 Blood Pressure 109 mm Hg/70 mm Hg Temperature Pulse Rate 71 bpm Respiratory Rate 02 Sat Mode of Delivery 99 %/ You can now view a summary of your hospital visit from the comfort of your home through a free online portal called [employer]. [employer] is a website that allows you to securely view your medical information including discharge summary, medications and follow-up visits. ??You can alsosend a secure electronic message to your doctor???s office to request appointments, renew medications or just ask a question. You can enroll at [email or web address] or register during your next office visit. [...] primary care provider, you may find a [facility] provider by calling [facility] [employer] at [phone]. For information about the plan of care [...] Personnel Name: Karen FELIZ, Efraín Smith Position: [facility] Physician - Primary Care Member Role: PCP Address: Address: [address] [place] [address]- Care Team Related Persons Name: LEIGHTON ROBLES Address: home [address] [place] [address] Name: LEIGHTON ROBLES Address: home [address] [place] [address] Name: BAMBI LEONARDO Address: [facility] Address: home [address] [place], [place] [id number] Name: BAMBI LEONARDO Address: [address] [address]
--- OUTSIDE RECORDS SUMMARY | 2024-05-21 14:46 | XMS_ITS | Continuity of Care Document ---
Author Organization [facility] Address [address] [place] [address]- Care Team Providers Care Soft Sugar Cutter Name Role Phone Efraín Jones MD Primary Care Physician Encounter [facility] [place] Date(s): 04/10/23 - 04/17/23 [facility] [address] [place] [address]- Attending Physician: Efraín Jones MD Allergies, Adverse [...] virus vaccine, inactivated 1 09/16/19 Gi chris [id number]-TrG-[id number] 12y+ bivalent booster vax 06/13/22 Recorded SARS-CoV-2 mRNA (yfovbti-wtqm-kdtrj) vax 01/24/22 Recorded tetanus/diphtheria/pertussis, acel(Tdap) 2 12/27/21 [...] Not Given Patient Refuses 1Result Comment: [facility]# [id number] 2Result Comment: [facility] [id number] 3Admin Note: VIM 05/26/06 GIVEN TODAY 4Admin [...] Most recent to oldest [Reference Range]: 1 2 Height 163 cm (04/10/23 12:26 PM) 163 cm (04/10/23 12:16 PM) Weight 67.7 kg (04/10/23 12:16 PM) Pulse Rate [55-90 bpm] 87 bpm (04/10/23 12:26 PM) 71 bpm (04/10/23 12:16 PM) Body Mass Index [18.5-24.99 kg/m2] 25.48 kg/m2 *H* (04/10/23 12:16 PM) Blood Pressure [90-138/55-84 mm Hg] 109/ 86mm Hg (04/10/23 12:26 PM) 164/89mm Hg *H* (04/10/23 12:16 PM) Weight Obtained Via Standing scale (04/10/23 12:16 PM) Social History Social History Type Response Smoking Status Never smoker entered on: 04/18/14 Sex Note * Gonzales Pickett: PERFORM, SIGN, VERIFY Event Display: Patient Education/Instruction Authored Date: [id number] [facility] *[facility] Clinical Summary Name ROSALIO ROBLES Age 87 Years 1935 PCP Karen FELIZ, Efraín Smith PCP Visit Date 04/10/2023 11:00:00 Additional Instructions: Scheduled Appointments?? Future Appointments ?*Byst[facility]am[facility] ?[address],??[place],??[address] ?Phone:??--?Fax:??-- ?Appt. Date:??05/27/2023?1:20 PM ?Scheduled Provider:??Karen FELIZ , Efraín Smith Follow-Up Instructions ?? Diagnosis Pain in right hip; Dehydration; Spinal stenosis, lumbar region without neurogenic claudication Medications: Please continue your medications until treatment [...] Rx (Misc Rx) inbrija inhaler. Next Dose: Mupirocin Topical (mupirocin 2% topical ointment) 1 anurag Topically twice a day for 14 Days. apply toaffected skin. Refills: 1. Next Dose: Ropinirole (rOPINIRole 0.25 mg oral tablet) 1 tab(s) Oral 4 times a day. Next Dose: Allergy Info:?? levoFLOXacin; articaine-EPINEPHrine; Levaquin; Lopid; Pravachol; tamsulosin; oxybutynin; niacin Medications Given This Visit Future Orders ?No future orders Vital Signs Height 163 cm Weight 67.7 kg BMI 25.48 kg/m2 Blood Pressure 109 mm Hg/86 mm Hg Temperature Pulse Rate 87 bpm Respiratory Rate 02 Sat Mode of Delivery / You can now view a summary of your hospital visit from the comfort of your home through a free online portal called [employer]. [employer] is a website that allows you to securely view your medical information including discharge summary, medications and follow-up visits. ??You can alsosend a secure electronic message to your doctor???s office to request appointments, renew medications or just ask a question. You can enroll at [email or web address] or register during your next office visit. [...] primary care provider, you may find a [facility] provider by calling [facility] [employer] Link at [phone]. For information about the plan of care [...] Primary Care Member Role: PCP Address: [facility] [place] [address]- Care Team Related Persons Name: LEIGHTON ROBLES Address: home [address] [place], [place] Name: LEIGHTON ROBLES Address: [address] [place], [place] Name: BAMBI LEONARDO Address: [address] [place], [place] Name: BAMBI LEONARDO Address: [facility] Address: [address]
--- OUTSIDE RECORDS SUMMARY | 2024-05-21 14:46 | XMS_ITS | Continuity of Care Document ---
Author Organization [facility] Address [address] [place] [address]- Care Team Providers Care Composite Engineer Name Role Phone Karen FELIZ, Efraín Smith Primary Care Physician [place] [facility] [place] Date(s): 03/07/22 - 04/06/22 [facility] [address] [place] [address]- Allergies, Adverse Reactions, Alerts Substance Reaction Severity Status niacin LFT abnormality Active oxybutynin Disorientated Dizzy Active tamsulosin Lethargy Active Pravachol myalgia Active Lopid fatigue, weakness Active articaine-EPINEPHrine local facial edema Active levoFLOXacin Paroxysmal atrial fibrillation Proposed Immunizations Given and Recorded Vaccine Date Status Refusal Reason SARS-CoV-2 mRNA (fgxjlco-kndw-mjpul) vax 01/24/22 Recorded tetanus/diphtheria/pertussis, acel(Tdap) 1 12/27/21 [...] 04/13/13 Not Given Patient Refuses 1Result Comment: [facility] [id number] 2Result Comment: [facility]# [id number] 3Admin Note: VIM 05/26/06 GIVEN TODAY 4Admin [...]
--- OUTSIDE RECORDS SUMMARY | 2024-05-21 14:46 | XMS_ITS | Continuity of Care Document ---
Author Organization [facility] Address [address] [place] [address]- Care Team Providers Care Wafer Fab Technician Name Role Phone Karen FELIZ, Efraín Smith Primary Care Physician Encounter [facility] Date(s): 04/04/20 - 05/04/20 [facility] [address] [place] [address]- [facility] Allergies, Adverse Reactions, Alerts Substance Reaction [...] Comment: [facility]# [id number] 2Admin Note: VIM 05/26/06 GIVEN TODAY 3Admin [...] 0 Refills, Maintenance, 04/28/20 13:20:00 EDT, Gel, [facility]/pharmacy #[id number], 163, cm, 02/24/20 [...] 12/02/19 13:02:00 EDT, Route to Pharmacy Electronically, [facility]/pharmacy #[id number], 163, cm, 11/23/19 [...] 11/26/19 14:40:00 EDT, Route to Pharmacy Electronically, [facility]/pharmacy #[id number], Partial fill [...]
--- OUTSIDE RECORDS SUMMARY | 2024-05-21 14:46 | XMS_ITS | Continuity of Care Document ---
Author Organization [facility] Address [address] [place] [address]- Care Team Providers Care Seam Checker Name Role Phone Karen FELIZ, Efraín Smith Primary Care Physician Encounter [facility] Date(s): 04/04/23 - 05/04/23 [facility] [address] [place] [address]- Allergies, Adverse Reactions, Alerts Substance Reaction Severity Status niacin LFT abnormality Active oxybutynin Disorientated Dizzy Active tamsulosin Lethargy Active Pravachol myalgia Active levoFLOXacin Paroxysmal atrial fibrillation Proposed Lopid fatigue, weakness Active Levaquin Active articaine-EPINEPHrine local facial edema Active Immunizations Given and Recorded Vaccine Date Status Refusal Reason influenza virus vaccine, inactivated 07/24/22 Give n influenza virus vaccine, inactivated 06/20/20 Give n influenza virus vaccine, inactivated 1 09/16/19 Gi chris [id number] 12y+ bivalent booster vax 06/13/22 Recorded SARS-CoV-2 mRNA (ssrywne-lakq-ehpxf) vax 01/24/22 Recorded tetanus/diphtheria/pertussis, acel(Tdap) 2 12/27/21 Given SARS-CoV-2 (COVID-19) mRNA BNT-162b2 vac 06/14/21 Recorded SARS-CoV-2 (COVID-19) mRNA BNT-162b2 vac 11/08/20 Recorded SARS-CoV-2 (COVID-19) mRNA BNT-162b2 vac 10/18/20 Recorded Tetanus Toxoid Vaccine (oldterm) 02/12/18 Given pneumococcal 13-valent vaccine 1/8/16 Given Zoster Vaccine Live 3 09/06/09 Given tetanus-diphtheria toxoids (Td) 4 08/03/09 Given Pneumococcal Vaccine (oldterm) 05/30/05 Given 1Result Comment: [facility]# [id number] 2Result Comment: [facility] [id number] 3Admin Note: VIM 05/26/06 GIVEN TODAY 4Admin [...] Personnel Name: Karen FELIZ, Efraín Smith Position: [facility] Physician - Primary Care Member Role: PCP Address: Address: [address] [place] [address] Care Team Related Persons Name: LEIGHTON ROBLES Address: home [address], [place] Name: LEIGHTON ROBLES Address: [address], [place] Name: BAMBI LEONARDO Address: [address], [place] Name: BAMBI LEONARDO Address[facility] Address: home [address] [place] [address]
--- OUTSIDE RECORDS SUMMARY | 2024-05-21 14:46 | XMS_ITS | Continuity of Care Document ---
Author Organization [facility] Address [address] [place] [address]- Care Team Providers Care Supervisor Esters And Emulsifiers Name Role Phone Efraín Jones MD Primary Care Physician [place] [id number] Date(s): 02/10/24 - 02/17/24 [facility] [address] [place] [address]- Attending Physician: Efraín Jones MD Allergies, Adverse [...] virus vaccine, inactivated 1 09/16/19 Gi chris [id number]-[id number] 12y+ bivalent booster vax 06/13/22 Recorded SARS-CoV-2 mRNA (jaoyajy-eqrv-jlwer) vax 01/24/22 Recorded tetanus/diphtheria/pertussis, acel(Tdap) 2 12/27/21 Given SARS-CoV-2 (COVID-19) mRNA BNT-162b2 vac 06/14/21 Recorded SARS-CoV-2 (COVID-19) mRNA BNT-162b2 vac 11/08/20 Recorded SARS-CoV-2 (COVID-19) mRNA BNT-162b2 vac 10/18/20 Recorded Tetanus Toxoid Vaccine (oldterm) 02/12/18 Given pneumococcal 13-valent vaccine 1/8/16 Given Zoster Vaccine Live 3 09/06/09 Given tetanus-diphtheria toxoids (Td) 4 08/03/09 Given Pneumococcal Vaccine (oldterm) 05/30/05 Given 1Result Comment: [facility]# [id number] 2Result Comment: [facility] [id number] 3Admin Note: VIM 05/26/06 GIVEN TODAY 4Admin [...] oldest [Reference Range]: 1 Height 163 cm (02/10/24 2:50 PM) Oxygen Saturation [94-100 %] 99 % (02/10/24 2:50 PM) Pulse Rate [55-90 bpm] 85 bpm (02/10/24 2:50 PM) Blood Pressure [90-138/55-84 mm Hg] 112/ 68mm Hg (02/10/24 2:50 PM) Weight Obtained Via Standing scale (02/10/24 2:50 PM) Social History Social History Type Response Smoking Status Never smoker entered on: 04/18/14 Sex Note * Gonzales Pickett: PERFORM Event Display: Patient Education/Instruction Authored Date: Ambulatory Adult Visit Summary [address] [address] Name: ROSALIO ROBLES : 1935?? Visit: 02/10/2024 13:37?? Ambulatory Visit Instructions ?? Your Care Team Primary Care Provider Efraín Jones MD? 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 Diastolic Blood Pressure: 68 mm Hg ?? Oxygen Saturation: 99 % ?? What to do next Scheduled Follow-Up Appointments Friday 2:50 PM EDT ?? With: Shannan Huerta MD Where: [facility] [address] [place] [address]- Status: Pending Friday 1:00 PM EDT ?? With: Karen FELIZ, Efraín Smith Where: [facility] [address] [place] [address]- Status: Pending Future Orders XR Hip w/Pelvis 2-3 View Left, Routine, Reason for Exam: Pain, Once, *Est. 02/10/24, Order for Today XR Hip w/Pelvis 2-3 View Right, Routine, Reason for Exam: Pain, Once, *Est. 02/10/24, Order for Today XR Lumbar Spine 2 or 3 Views, Routine, Reason for Exam: Pain, Once, *Est. 02/10/24 CBC w/ Differential - Once, *Est. 11/18/23, [...] Rx) See instructions inbrija inhaler ?? Unchanged Ropinirole (rOPINIRole 0.25 mg oral tablet) 1 tab(s) Oral 4 times a day Unchanged Ubiquinone (CoQ10) Oral Daily Test Performed Below is a partial list of the tests performed during your Visit. You may have had other tests and procedures not included in this list. Please discuss all test results with your provider. Comprehensive Metabolic Panel?-- Results Pending -- You will be contacted within 72 hours with your results. Medications and Immunizations Administered Medications Given During [...] are strongly encouraged to quit. Please call [facility] Link at [phone] or [phone] ([phone]) or log in to [email or web address] for referrals to smoking cessation programs. ?? The National Suicide Prevention Hotline is available 07/04 if you or someone you know needs to find a reason to keep living. By calling 3-098-461-[employer] (9306) you'll be connected to a skilled, trained counselor at a crisis center in your area. [facility] Portal You can view and manage your care through the patient portal or by using a health care anurag of your choosing. [employer] is a website that allows you to securely view your medical information including your hospital discharge summary, office visit summaries, medications and follow-up visits. You can also request appointments, renew medications, and request access to your medical information using a health care anurag of your choosing, or just ask a question. You can enroll at [email or web address] or register during your next office visit. [facility], in keeping with [facility] [...] primary care provider, you may find a [facility] [employer] provider by calling [employer] Link at [phone]. Patient Care team information Care Team Personnel Name: Efraín Jones MD Position: S Physician - Primary Care Member Role: PCP Address: Address: [address] [place] [address]- [place] Care Team Related Persons Name: LEIGHTON ROBLES Address: home [address] [place], [place] Name: LEIGHTON ROBLES Address: home [address] [place], [place] Name: BAMBI LEONARDO Address: [employer] Address: home [address] [place] [address] Name: BAMBI LEONARDO Address: home [address] [place] [address]
--- OUTSIDE RECORDS SUMMARY | 2024-05-21 14:46 | XMS_ITS | Continuity of Care Document ---
Author Organization [facility] Address [address] [place] [address]- Care Team Providers Care Agricultural Equipment Test Engineer Name Role Phone Karen FELIZ, Efraín Smith Primary Care Physician [place] [facility] 03/30/21 [facility] [address] [place] [address]- Allergies, Adverse Reactions, Alerts Substance Reaction Severity [...] Patient Refuses 1Result Comment: [facility]# [id number] 2Admin Note: VIM 05/26/06 GIVEN TODAY 3Admin [...] 0 Refills, Maintenance, 04/28/20 13:20:00 EDT, Gel, [facility]/pharmacy #[id number], 163, cm, 02/24/20 12:50:00 EDT, [...] 11/26/19 14:40:00 EDT, Route to Pharmacy Electronically, [facility]/pharmacy #[id number], Partial fill upon patient request, 163, cm, [...]
--- OUTSIDE RECORDS SUMMARY | 2024-05-21 14:46 | XMS_ITS | Continuity of Care Document ---
Author Organization [facility] Address [address] [place] [address]- Care Team Providers Care Corporate Scheduler Name Role Phone Efraín Jones MD Primary Care Physician Encounter [facility] Date(s): 12/26/23 - 04/01/24 [facility] [address] [place] [address]- Attending Physician: Shannan Huerta MD Admitting Physician: Shannan Huerta MD Referring Physician: Efraín Jones MD Allergies, [...] virus vaccine, inactivated 1 09/16/19 Gi chris [id number] 12y+ bivalent booster vax 06/13/22 Recorded SARS-CoV-2 mRNA (tdxlqug-vhng-xqbsh) vax 01/24/22 Recorded tetanus/diphtheria/pertussis, acel(Tdap) 2 12/27/21 Given SARS-CoV-2 (COVID-19) mRNA BNT-162b2 vac 06/14/21 Recorded SARS-CoV-2 (COVID-19) mRNA BNT-162b2 vac 11/08/20 Recorded SARS-CoV-2 (COVID-19) mRNA BNT-162b2 vac 10/18/20 Recorded Tetanus Toxoid Vaccine (oldterm) 5/31/18 Given pneumococcal 13-valent vaccine 09/22/15 Given Zoster Vaccine Live 3 09/06/09 Given tetanus-diphtheria toxoids (Td) 4 08/03/09 Given Pneumococcal Vaccine (oldterm) 05/30/05 Given 1Result Comment: [facility]# [id number] 2Result Comment: [facility] [id number] 3Admin Note: VIM 05/26/06 GIVEN TODAY 4Admin [...] capsule, 1 Refills, Maintenance, 12/18/23 17:58:00 EDT, [facility]/pharmacy #[id number], Partial fill upon patient reques... [...] Personnel Name: Karen FELIZ, Efraín Smith Position: [facility] Physician - Primary Care Member Role: PCP Address: Address: [address] [place] [address] Care Team Related Persons Name: LEIGHTON ROBLES Address: home [address] [place] [address] Name: LEIGHTON ROBLES Address: home [address] [place] [address] Name: BAMBI LEONARDO Address: home [address] [place] [address] Name: BAMBI LEONARDO Address: [employer] Address: [address]
--- OUTSIDE RECORDS SUMMARY | 2024-05-21 14:46 | XMS_ITS | Continuity of Care Document ---
Author Organization [facility] Address [address] [place] [address]- Care Team Providers Care Brush Clearer Surveying Name Role Phone Karen FELIZ, Efraín Smith Primary Care Physician En[facility] Date(s): 08/16/21 - 09/15/21 [facility] [address] [place] [address]- Attending Physician: Admtr, Ar8 Allergies, Adverse Reactions, [...] 04/13/13 Not Given Patient Refuses 1Result Comment: [facility]# [id number] 2Admin Note: VIM 05/26/06 GIVEN TODAY 3Admin [...]
--- OUTSIDE RECORDS SUMMARY | 2024-05-21 14:46 | XMS_ITS | Continuity of Care Document ---
Author Organization [facility] Address [address] [place] [address]- Care Team Providers Care Newswriter Name Role Phone Karen FELIZ, Efraín Smith Primary Care Physician Encounter [facility] Date(s): 03/29/24 - 04/28/24 [facility] [address] [place] [address]- Allergies, Adverse Reactions, Alerts Substance Reaction Severity [...] virus vaccine, inactivated 1 09/16/19 Gi chris [id number] 12y+ bivalent booster vax 06/13/22 Recorded SARS-CoV-2 mRNA (wnasmnu-qwao-lmsdq) vax 01/24/22 Recorded tetanus/diphtheria/pertussis, acel(Tdap) 2 12/27/21 [...] 1Result Comment: [facility]# [id number] 2Result Comment: [facility] [id number] 3Admin Note: VIM 05/26/06 GIVEN TODAY 4Admin [...] Maintenance, 12/18/23 17:58:00 EDT, [facility]/pharmacy #[id number], Partial fill upon patient reques... Start [...] Personnel Name: Karen FELIZ, Efraín Smith Position: [facility] Physician - Primary Care Member Role: PCP Address: Address: [address] [place] [address] Care Team Related Persons Name: LEIGHTON ROBLES Address: home [address] [place], [place] Name: LEIGHTON ROBLES Address: [address] [place], [place] Name: BAMBI LEONARDO Address: [address] [place], [place] Name: BAMBI LEONARDO Address: [employer] Address: [address]
--- OUTSIDE RECORDS SUMMARY | 2024-05-21 14:46 | XMS_ITS | Continuity of Care Document ---
Author Organization [facility] Address [address] [place] [address]- Care Team Providers Care Analysis Mgr Name Role Phone Karen FELIZ, Efraín Smith Primary Care Physician Encounter [facility] Date(s): 09/13/21 - 10/13/21 [facility] [address] [place] [address]- Allergies, Adverse Reactions, Alerts Substance Reaction Severity [...] Refuses 1Result Comment: [facility]# [id number] 2Admin Note: VIM 05/26/06 GIVEN TODAY 3Admin [...]
--- OUTSIDE RECORDS SUMMARY | 2024-05-21 14:46 | XMS_ITS | Continuity of Care Document ---
Author Organization [facility] Address [address] [place] [address]- Care Team Providers Care Data Developer Name Role Phone Karen FELIZ, Efraín Smith Primary Care Physician [place] [facility] Date(s): 05/30/23 - 06/29/23 [facility] [address] [place] [address]- Allergies, Adverse Reactions, Alerts Substance Reaction Severity [...] virus vaccine, inactivated 1 09/16/19 Gi chris [id number] 12y+ bivalent booster vax 06/13/22 Recorded SARS-CoV-2 mRNA (rwwaojf-czjb-xxfnw) vax 01/24/22 Recorded tetanus/diphtheria/pertussis, acel(Tdap) 2 12/27/21 Given SARS-CoV-2 (COVID-19) mRNA BNT-162b2 vac 06/14/21 Recorded SARS-CoV-2 (COVID-19) mRNA BNT-162b2 vac 11/08/20 Recorded SARS-CoV-2 (COVID-19) mRNA BNT-162b2 vac 10/18/20 Recorded Tetanus Toxoid Vaccine (oldterm) 02/12/18 Given pneumococcal 13-valent vaccine 09/22/15 Given Zoster Vaccine Live 3 09/06/09 Given tetanus-diphtheria toxoids (Td) 4 08/03/09 Given Pneumococcal Vaccine (oldterm) 05/30/05 Given 1Result Comment: [facility]# [id number] 2Result Comment: [facility] [id number] 3Admin Note: VIM 05/26/06 GIVEN TODAY 4Admin [...] Smith Position: [facility] Physician - Primary Care Member Role: PCP Address: Address: [address] [place] [address] Care Team Related Persons Name: LEIGHTON ROBLES Address: home [address] [place] [address] Name: LEIGHTON ROBLES Address: home [address] [place] [address] Name: BAMBI LEONARDO Address: home [address] [place] [address] Name: BAMBI LEONARDO Address: [facility] Address: home [address] [place], [place] [address]
--- OUTSIDE RECORDS SUMMARY | 2024-05-21 14:46 | XMS_ITS | Continuity of Care Document ---
Author Organization [facility] Address [address] [place] [address]- Care Team Providers Care Hand Candy Molder Name Role Phone Karen FELIZ, Efraín Smith Primary Care Physician [phone] [place] [facility] Date(s): 01/26/24 - 02/25/24 [facility] [address] [place] [address]- Allergies, Adverse Reactions, Alerts Substance Reaction Severity Status niacin LFT abnormality Active tamsulosin Lethargy Active Pravachol myalgia Active levoFLOXacin Paroxysmal atrial fibrillation Proposed oxybutynin Disorientated Dizzy Active Lopid fatigue, weakness Active Levaquin Active articaine-EPINEPHrine local facial edema Active Immunizations Given and Recorded Vaccine Date Status Refusal Reason influenza virus vaccine, inactivated 07/24/22 Give n influenza virus vaccine, inactivated 06/20/20 Give n influenza virus vaccine, inactivated 1 09/16/19 Gi chris [id number]-[id number]-[id number] 12y+ bivalent booster vax 06/13/22 Recorded SARS-CoV-2 mRNA (szkwxqi-hoik-xpfrd) vax 01/24/22 Recorded tetanus/diphtheria/pertussis, acel(Tdap) 2 12/27/21 Given SARS-CoV-2 (COVID-19) mRNA BNT-162b2 vac 06/14/21 Recorded SARS-CoV-2 (COVID-19) mRNA BNT-162b2 vac 11/08/20 Recorded SARS-CoV-2 (COVID-19) mRNA BNT-162b2 vac 10/18/20 Recorded Tetanus Toxoid Vaccine (oldterm) 02/12/18 Given pneumococcal 13-valent vaccine 1/8/16 Given Zoster Vaccine Live 3 09/06/09 Given tetanus-diphtheria toxoids (Td) 4 08/03/09 Given Pneumococcal Vaccine (oldterm) 05/30/05 Given 1Result Comment: [facility]# [id number] 2Result Comment: [facility] [id number] 3Admin Note: VIM 05/26/06 GIVEN TODAY 4Admin [...] Refills, Maintenance, 12/18/23 17:58:00 EDT, [facility]/pharmacy #[id number], Partial fill upon [...] Care Member Role: PCP Address: Address: [address] [place] [address] Care Team Related Persons Name: LEIGHTON ROBLES Address: home [address] [place], [place] Name: LEIGHTON ROBLES Address: [address] [place], [place] Name: BAMBI LEONARDO Address: [employer] Address: home [address] [place], [place] Name: BAMBI LEONARDO Address: [address] [place], [place]
--- OUTSIDE RECORDS SUMMARY | 2024-05-21 14:46 | XMS_ITS | Continuity of Care Document ---
Author Organization [facility] Address [address] [place] [address]- Care Team Providers Care Lineman Service Or Work Dispatcher Name Role Phone Karen FELIZ, Efraín Smith Primary Care Physician [phone] [place] [facility] Date[place]s): 03/07/22 - 04/06/22 [facility] [address] [place] [address]- Allergies, Adverse Reactions, Alerts Substance Reaction Severity Status niacin LFT abnormality Active oxybutynin Disorientated Dizzy Active tamsulosin Lethargy Active Pravachol myalgia Active Lopid fatigue, weakness Active articaine-EPINEPHrine local facial edema Active levoFLOXacin Paroxysmal atrial fibrillation Proposed Immunizations Given and Recorded Vaccine Date Status Refusal Reason SARS-CoV-2 mRNA (wjmpltu-yvox-fptyt) vax 01/24/22 Recorded tetanus/diphtheria/pertussis, acel(Tdap) 1 12/27/21 [...] Patient Refuses 1Result Comment: [facility] [id number] 2Result Comment: [facility]# [id number] 3Admin Note: VIM 05/26/06 GIVEN TODAY 4Admin [...]
--- OUTSIDE RECORDS SUMMARY | 2024-05-21 14:46 | XMS_ITS | Continuity of Care Document ---
Author Organization [facility] Address [address] [place] [address]- Care Team Providers Care Licensing Director Name Role Phone Efraín Jones MD Primary Care Physician [place] [facility] [place] 07/28/19 - 09/10/19 [facility] [address] [place] [address]- [facility] Attending Physician: Shannan Huerta MD Admitting Physician: Shannan Huerta MD Referring Physician: Efraín Jones MD Allergies, Adverse Reactions, Alerts Substance Reaction Severity Status niacin LFT abnormality Active oxybutynin Disorientated Dizzy Active tamsulosin Lethargy Active Pravachol myalgia Active Lopid fatigue, weakness Active articaine-EPINEPHrine local facial edema Active levoFLOXacin Paroxysmal atrial fibrillation Proposed Immunizations Given and Recorded Vaccine Date Status Refusal Reason Tetanus Toxoid Vaccine (oldterm) 02/12/18 Given pneumococcal 13-valent vaccine 09/22/15 Given Zoster Vaccine Live 1 09/06/09 Given tetanus-diphtheria toxoids (Td) 2 08/03/09 Given Pneumococcal Vaccine (oldterm) 05/30/05 Given Not Given Vaccine Date Status Refusal Reason pneumococcal 23-valent vaccine 04/13/13 Not Given Patient Refuses 1Admin Note: VIM 05/26/06 GIVEN TODAY 2Admin Note: [employer] vim 08/02/08 Medications carbidopa-levodopa 25 mg-100 mg oral tablet 1.5 tablet, By Mouth, Every 4 hours, @ 0300, 0730, 1130, 1530,1930, 2230, # 360 tablet, 0 Refills, Maintenance, 06/09/19 21:30:12 EDT, Tablet Start Date: 06/09/19 Status: Ordered carbidopa-levodopa 25 mg-100 mg oral tablet, extended release See Instructions, 1 tablet By Mouth Every 4 hours @ 0300, 0730, 1130, 1530,1930, 2230, 0 Refills, Maintenance, 06/09/19 21:29:53 EDT, ER [...] Status: Ordered rOPINIRole 0.5 mg oral tablet 1 tablet = 0.5 mg, By Mouth, Every 4 hours, @ [...]
--- OUTSIDE RECORDS SUMMARY | 2024-05-21 14:46 | XMS_ITS | Continuity of Care Document ---
Author Organization [facility] Address [address] [place] [address]- Care Team Providers Care Development Chemist Name Role Phone Efraín Jones MD Primary Care Physician [phone] [place] [facility] [place] 09/16/19 - 09/23/19 [facility] [address] [place] [address]- [facility] Encounter Diagnosis Parkinson's Disease(Discharge Diagnosis) - 09/16/19 Attending Physician: Efraín Jones MD Allergies, Adverse [...] Patient Refuses 1Result Comment: [facility]# [id number] 2Admin Note: VIM 05/26/06 GIVEN TODAY 3Admin [...] Dates Health Status Cl inical Service Informant Parkinson's Disease Discharge Diagnosis 09/16/19 Vital Signs Most recent to oldest [Reference Range]: 1 Height 163 cm (09/16/19 1:43 PM) Weight 75.1 kg (09/16/19 1:43 PM) Oxygen Saturation [94-100 %] 98 % (09/16/19 1:43 PM) Pulse Rate [55-90 bpm] 68 bpm (09/16/19 1:43 PM) Body Mass Index [18.5-24.99] 28.27 *H* (09/16/19 1:43 PM) Blood Pressure [90-138/55-84 mm Hg] 110/ 50mm Hg (09/16/19 1:43 PM) Blood pressure sites Arm, left (09/16/19 1:43 PM) Temperature Route Oral (09/16/19 1:43 PM) Weight Obtained Via Standing scale (09/16/19 1:43 PM) Social History Social History Type Response Smoking Status Never smoker entered on: 04/18/14 Sex
--- OUTSIDE RECORDS SUMMARY | 2024-05-21 14:46 | XMS_ITS | Continuity of Care Document ---
Author Organization [facility] Address [address] [place] [address]- Care Team Providers Care Qa Engineer Name Role Phone Karen FELIZ, Efraín Smith Primary Care Physician [place] [facility] [place](s): 02/06/23 - 03/08/23 [facility] [address] [place] [address]- Allergies, Adverse Reactions, Alerts Substance Reaction Severity [...] virus vaccine, inactivated 1 09/16/19 Gi chris [id number] 12y+ bivalent booster vax 06/13/22 Recorded SARS-CoV-2 mRNA (bilyrmx-zxjz-rqgnq) vax 01/24/22 Recorded tetanus/diphtheria/pertussis, acel(Tdap) 2 12/27/21 [...] 1Result Comment: [facility]# [id number] 2Result Comment: [facility] [id number] 3Admin Note: VIM 05/26/06 GIVEN TODAY 4Admin [...] 15:41:07 EST Start Date: 07/28/19 Status: Ordered [facility] Rx See Instructions, Refills 0, Maintenance, imbregia [...] Care Member Role: PCP Address: Address: [address] [place] [address]- Care Team Related Persons Name: LEIGHTON ROBLES Address: [address] [place], [place] Name: LEIGHTON ROBLES Address: [address] [place], [place] Name: BAMBI LEONARDO [facility] Address: home [address] [place], [place] Name: BAMBI LEONARDO Address: [address] [place], [place]
--- OUTSIDE RECORDS SUMMARY | 2024-05-21 14:46 | XMS_ITS | Continuity of Care Document ---
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 Parkinson's Disease(Discharge Diagnosis) - 12/24/23 Transient ischemic attack(Discharge Diagnosis) - 12/24/23 Attending Physician: Garrett JOB SPOTTER, Karmen Iyer Allergies, Adverse Reactions, Alerts Substance Reaction Severity Status niacin LFT abnormality Active tamsulosin Lethargy Active Lopid fatigue, weakness Active Levaquin Active levoFLOXacin Paroxysmal atrial fibrillation Proposed oxybutynin Disorientated Dizzy Active Pravachol myalgia Active articaine-EPINEPHrine local facial edema Active Immunizations Given and Recorded Vaccine Date Status Refusal Reason influenza virus vaccine, inactivated 07/24/22 Give n influenza virus vaccine, inactivated 06/20/20 Give n influenza virus vaccine, inactivated 1 09/16/19 Gi chris [id number] 12y+ bivalent booster vax 06/13/22 Recorded SARS-CoV-2 mRNA (lvvbfni-ylgs-dbyst) vax 01/24/22 Recorded tetanus/diphtheria/pertussis, acel(Tdap) 2 12/27/21 Given SARS-CoV-2 (COVID-19) mRNA BNT-162b2 vac 06/14/21 Recorded SARS-CoV-2 (COVID-19) mRNA BNT-162b2 vac 11/08/20 Recorded SARS-CoV-2 (COVID-19) mRNA BNT-162b2 vac 10/18/20 Recorded Tetanus Toxoid Vaccine (oldterm) 02/12/18 Given pneumococcal 13-valent vaccine 09/22/15 Given Zoster Vaccine Live 3 09/06/09 Given tetanus-diphtheria toxoids (Td) 4 08/03/09 Given Pneumococcal Vaccine (oldterm) 05/30/05 Given 1Result Comment: [facility]# [id number] 2Result Comment: [facility] [id number] 3Admin Note: VIM 05/26/06 GIVEN TODAY 4Admin [...] Informant Spondylosis of lumbar spine Discharge Diagnosis 12/18/23 Parkinson's Disease Discharge Diagnosis 12/24/23 Transient ischemic attack Discharge Diagnosis 12/24/23 Vital Signs Most recent to oldest [Reference Range]: 1 Height 163 cm (12/18/23 3:01 PM) Oxygen Saturation [94-100 %] 97 % (12/18/23 3:01 PM) Pulse Rate [55-90 bpm] 78 bpm (12/18/23 3:01 PM) Blood Pressure [90-138/55-84 mm Hg] 104/ 68mm Hg (12/18/23 3:01 PM) Blood pressure sites Arm, left (12/18/23 3:01 PM) Social History Social History Type Response Smoking Status Never smoker entered on: 04/18/14 Sex Note * Nancy Gonzalez: PERFORM, SIGN, VERIFY Event Display: Patient Education/Instruction Authored Date: [id number] [facility] [place] [facility] Clinical Summary Name ROSALIO ROBLES Age 88 Years 1935 PCP Efraín Jones MD PCP Visit Date 12/18/2023 14:52:00 Additional Instructions: Scheduled Appointments?? Future Appointments ?*[facility] ?[address]??[place],??[place],??[address] ?Phone:??[phone]?Fax:??-- ?Appt. Date:??12/25/2023?11:00 AM ?Scheduled Provider:??Efraín Jones MD ?*[facility] ?[address]??[place],??[place],??[address] ?Phone:??[phone]?Fax:??-- ?Appt. Date:??12/26/2023?2:50 PM ?Scheduled Provider:??Shannan Huerta MD ?*[facility] ?[address],??[place],??[address] ?Phone:??[phone]?Fax:??-- ?Appt. Date:??02/10/2024?1:40 PM ?Scheduled Provider:??Karen FELIZ , Efraín Smith Follow-Up Instructions ?? With: Address: When: PCP Comments: FAMILY REQUESTING THAT APPT WITH PCP NEXT WEEK BE CHANGED TO LATER IN THE DAY DUE TO PATIENT WAKINGUP LATE/DIFFICULTY COMING IN Diagnosis Medications: Please continue your medications until [...] 0300, 0730, 1130, 1530,1930, 2230. Next Dose: Celecoxib (celecoxib 100 mg oral capsule) 1 capsule Oral Daily. as needed for pain. contents of capsule may be mixed with soft foods such as applesauce. Refills: 1. Next Dose: Docusate-Senna (Colace 2-in-1) 1 tab(s) [...] This Visit Future Orders ?No future orders Future Orders ?No future orders Vital Signs Height 163 cm Weight BMI Blood Pressure 104 mm Hg/68 mm Hg Temperature Pulse Rate 78 bpm Respiratory Rate 02 Sat Mode of Delivery 97 %/ You can now view a summary of your hospital visit from the comfort of your home through a free online portal called [employer]. [employer] is a website that allows you to securely view your medical information including discharge summary, medications and follow-up visits. ??You can alsosend a secure electronic message to your doctor???s office to request appointments, renew medications or just ask a question. You can enroll at [email or web address] or register during your next office visit. [...] primary care provider, you may find a [facility] provider by calling [facility] Link at [phone]. [facility], in keeping with [facility] guidance, no longer requires face masks [...] to support your individualized medical care. * Nancy Gonzalez: PERFORM, SIGN, VERIFY Event Display: Patient Education/Instruction Authored Date: [id number] [facility] [place] *[facility] Clinical Summary Name ROSALIO ROBLES Age 88 Years 1935 PCP Efraín Jones MD PCP Visit Date 12/18/2023 14:52:00 Additional Instructions: Scheduled Appointments?? Future Appointments ?*[facility] ?[address],??[place],??[address] ?Phone:??[phone]?Fax:??-- ?Appt. Date:??12/25/2023?11:00 AM ?Scheduled Provider:??Efraín Jones MD ?*[facility] ?[address]??[place],??[place],??[address] ?Phone:??[phone]?Fax:??-- ?Appt. Date:??12/26/2023?2:50 PM ?Scheduled Provider:??Deanna FELIZ, Shannan Follow-Up Instructions ?? With: Address: When: PCP Comments: FAMILY REQUESTING THAT APPT WITH PCP NEXT WEEK BE CHANGED TO LATER IN THE DAY DUE TO PATIENT WAKINGUP LATE/DIFFICULTY COMING IN Diagnosis Medications: Please continue your medications until [...] 0300, 0730, 1130, 1530,1930, 2230. Next Dose: Celecoxib (celecoxib 100 mg oral capsule) 1 capsule Oral Daily. as needed for pain. contents of capsule may be mixed with soft foods such as applesauce. Refills: 1. Next Dose: Docusate-Senna (Colace 2-in-1) 1 tab(s) [...] This Visit Future Orders ?No future orders Future Orders ?No future orders Vital Signs Height 163 cm Weight BMI Blood Pressure 104 mm Hg/68 mm Hg Temperature Pulse Rate 78 bpm Respiratory Rate 02 Sat Mode of Delivery 97 %/ You can now view a summary of your hospital visit from the comfort of your home through a free online portal called [employer]. [employer] is a website that allows you to securely view your medical information including discharge summary, medications and follow-up visits. ??You can alsosend a secure electronic message to your doctor???s office to request appointments, renew medications or just ask a question. You can enroll at [email or web address] or register during your next office [...] primary care provider, you may find a [facility] provider by calling [email or web address] at [phone]. [facility], in keeping with [facility] guidance, no longer requires face masks [...] Primary Care Member Role: PCP Address: Address: [address] [place] [address]- Care Team Related Persons Name: LEIGHTON ROBLES Address: [address] Name: LEIGHTON ROBLES Address: [address] Name: BAMBI LEONARDO Address: [facility] Address: [address] Name: BAMBI LEONARDO Address: [address] [address]
== END 2024-05-21 16:08 | disposition home or self-care (01) ==
LOC: HO.HSMS 14:36
PROVIDERS: PCP Family Medicine; Visit Provider Psychiatry & Neurology Neurology
DX: G20.A2 Parkinson's disease without dyskinesia, with fluctuations (principal); F02.80 Dementia in other diseases classified elsewhere, unspecified severity, without behavioral disturbance, psychotic disturbance, mood disturbance, and anxiety; M48.00 Spinal stenosis, site unspecified; M47.817 Spondylosis without myelopathy or radiculopathy, lumbosacral region
CPT/HCPCS: 99214; G2211

== ENCOUNTER → 2024-05-21 14:36 | Outpatient (BNVA) | payer MEDICARE, OTHER, SELFPAY | PROVIDERS: PCP Family Medicine; Visit Provider Psychiatry & Neurology Neurology ==